=== PATIENT | male | born 1940 | race Caucasian/White ===

== ENCOUNTER → 2023-11-02 13:14 | Outpatient (REF) | payer MEDICARE, SELFPAY | LOC: RAD 13:14 | PROVIDERS: ATTENDING PHYSICIAN Surgery Vascular Surgery; FAMILY PHYSICIAN Internal Medicine | DX: I73.9 Peripheral vascular disease, unspecified (principal) | CPT/HCPCS: 93922; 93925; 93978 ==

== ENCOUNTER → 2024-03-22 12:38 | Outpatient (REF) | payer MEDICARE, SELFPAY | LOC: RAD 12:38 | PROVIDERS: ATTENDING PHYSICIAN Surgery Vascular Surgery; FAMILY PHYSICIAN Internal Medicine | DX: I73.9 Peripheral vascular disease, unspecified (principal); M79.671 Pain in right foot | CPT/HCPCS: 93922; 93925 ==

== ENCOUNTER 2024-04-17 14:17 | Inpatient (IN) | payer MEDICARE, SELFPAY ==
[2024-04-17] VITALS (15 sets, daily range): BP systolic 110–166; BP diastolic 53–107; BMI 28.5
--- NOTE | 2024-04-17 07:35 | ED.GENMED ---
History of Present Illness
General
Chief Complaint: Back Pain
Source: patient
Exam Limitations: none
Time Seen by Provider: 04/17/24 07:06
Nursing documentation reviewed up to this point in time: agreed with
History of Present Illness
History of Present Illness:
pt is a 83 y/o M with h/o permanent afib, not anticoagulated
pacer
chronic lower back pain/hip pain; severe compression fractures lower t and uppler L, degenerative changes
says that he sees a specialist for his back pain
he had been on oxycodone but says that he stopped it becuase he was severely constipated. pt says that he restarted something recently to help with pain but doesn't really know if it has been helping
the past 2-3 days he has had worse pain in the same distribution but doesn't know what brought it on. this morning in particular, he wasn't able to get up out of bed so his called 911
pt says the pain is manageable unless he tries to move or walk
he has no radiation of pain into legs, numbnes/tingling/incontiencne
he has not taken any of his meds today
no fever, chills, vomiting, abdominal pain, diarrhea, cp, sob.
Past History
Past History
ED Past Medical History: Arrthythmia (afib), HTN and Other (Compression fractures, peripheral arterial disease)
ED Past Surgical History: Orthopedic and Other (Vascular)
Social History
Tobacco: Non-smoker
Alcohol: None
Drug: None
Personal:
Living: with family
Employment: Retired
Review of Systems
Review of Systems
Allergies reviewed?: Yes
All Other Systems: Not applicable
Phy Exam
Physical Exam
Physical Exam:
GENERAL: Alert , in no apparent distress, comfortable at rest
HEAD: NCAT
NECK: no midline tenderness, active ROM intact, no paraspinal muscle tenderness;
CARDIAC: Regular rate and rhythm, no edema
LUNGS: Clear breath sounds bilaterally, no acute respiratory distress, no wheezes/rales/rhonchi
ABDOMEN: Soft, without focal tenderness, no r/g, no cvat, normal bowel sounds, nondistended
NEUROLOGICAL: Alert and oriented, no focal neuro deficits, CN intact, 5/5 strength, sensation intact, ambulation slight limp left leg
SKIN: Warm and dry,
MUSCULOSKELETAL: No edema, well perfused. Normal inspection of the right hip
mod tenderness R SI joint; pain with hip flexion and rotation
Back: No midline tenderness,, no swelling
negative straight leg raise Bilaterally
PSYCH: Normal and appropriate interaction.
Course
Orders/Labs/Results
Orders:
Orders
04/17/24 Breakfast
Cholesterol Lowering
At Your Request: Limited Participation
Does patient need a safe tray?: No
Cholesterol Lowering: Sodium, 2 Gram
04/17/24 07:30
HYDROmorphone [Dilaudid] 0.25 mg IV NOW STA
Hip, Right 2-3 Views [CR Hip - RT w/wo Pel 2-3 Vw*] Urgent
Comment:
Reason For Exam: severe posterior hip pain
Include a pelvis x-ray?: Yes
Lumbar Spine Complete, 4 View [CR Lumbar Spine Comp Min 4 Vw*] Urgent
Comment:
Reason For Exam: severe lower back pain
04/17/24 07:31
Electrocardiogram (*1) Urgent
Reason for Study: Atrial Fibrillation
EKG- Treatment ONCE
04/17/24 07:37
Metoprolol Xl [Toprol Xl] 75 mg PO NOW STA
04/17/24 07:47
Complete Blood Count/With Diff Urgent
Comprehensive Metabolic Panel Urgent
04/17/24 08:43
0.9% Sodium Chloride 500 ml [Nss] 500 ml IV BOLUS
04/17/24 11:48
HYDROmorphone [Dilaudid] 0.25 mg IV NOW STA
04/17/24 12:10
Urinalysis Reflex To Culture Urgent
Date Specimen was Collected: 04/17/24
Time Specimen was Collected: 12:06
Urine Microscopic Reflex Cult Urgent
04/17/24 13:45
Admit/Transfer Patient As Directed
Co-Sign Provider:
Level of Care: Inpatient admission
Assign to:: Telemetry
Physician / Group: [email or web address]
Diagnosis: acute on chr LBP, new spontnuee compression Fx T10, L2 and L4. Osteoporosis
Reason for Telemetry: Arrhythmia
Date to Stop Telemetry: 04/20/24
Time to Stop Telemetry: 11:00
Reason for Hospitalization: acute on chr LBP, new spontaneous compression Fx T10, L2 and L4.
Osteoporosis
acute gait dysfunction
Per AF with RVR
Expected length of stay greater than two midnights?: Yes
ELOS- Estimated Length of Stay in days: 3
I certify the patient meets the requirements for IP care: Yes
04/17/24 13:48
Code Status As Directed
Resuscitation Status: Full Code
04/17/24 15:08
Oxycodone [Roxicodone] 5 mg PO Q4HPRN PRN
04/20/24 11:00
DC Protocol for Telemetry ONCE
Abnormal Lab Results
04/17/24 04/17/24
07:47 12:10
WBC 12.7 H 10^3/uL
(4.8-10.8)
RBC 2.66 L 10^6/uL
(4.70-6.10)
Hgb 9.1 L g/dL
(13.0-18.0)
Hct 28.6 L %
(39.0-52.0)
MCV 107.5 H fL
(80.0-94.0)
MCH 34.2 H pg
(27.0-31.0)
MCHC 31.8 L g/dL
(33.0-37.0)
RDW 15.9 H %
(11.5-14.5)
MPV 10.7 H fL
(7.4-10.4)
Abs Immat Gran (auto) 0.3 H 10^3/uL
(0-0.05)
Absolute Neuts (auto) 9.3 H 10^3/uL
(1.4-6.5)
Absolute Lymphs (auto) 1.1 L 10^3/uL
(1.2-3.4)
Absolute Monos (auto) 1.8 H 10^3/uL
(0.1-0.6)
Immature Gran % 2.1 H %
(0-0.5)
Lymphocytes % 8.5 L %
(20.5-51.1)
Monocytes % 14.4 H %
(1.7-9.3)
BUN 38 H mg/dl
(9-20)
Glucose 109 H mg/dl
(70-99)
Total Bilirubin 1.7 H mg/dl
(0.2-1.3)
Urine Bacteria (Reflex) Few A
(Negative)
Urine Albumin (Reflex) 1+ A
(Neg - Trace)
04/17/24 07:47
04/17/24 07:47
Vital Signs
Initial and Last Documented VS:
Initial Vital Signs
Temp Pulse Resp BP Pulse Ox
37.2 C 107 18 127/79 99
04/17/24 04:18 04/17/24 04:18 04/17/24 04:18 04/17/24 04:18 04/17/24 04:18
Last Documented Vital Signs
Temp Pulse Resp BP Pulse Ox
37.2 C 91 20 155/71 97
04/17/24 04:18 04/17/24 12:30 04/17/24 12:37 04/17/24 12:00 04/17/24 12:30
MDM/Problems Addressed
Differential Diagnosis Includes:
acute on chronic back pain, msk pain, cramps, sciatica;
MDM/Problems Addressed:
janis florian 83 y/o M afib not AC, chronic back pain, compression fractures
here with lower back pain 2 dys ago much more intense than usual, no trauma
no weakness/radiculopathy symptoms; couldn't get out of bed this morning
has normal neuro exam; a lot of pain with movement;
took oxycodone at home no relief
dilaudid helped some here but unable to get up
xrays show new cmopression fractures and stable old ones lower T and L
afib with RVR on arrival; pt given oral metop and now rate controlled after pain meds too
*Critical Care Note
Total Time (30-74mins, 75-104mins- exclusive of procedures): Not Applicable
ED Attending Note
-
Portions of this chart may have been created with voice recognition software.� Occasional wrong word or��sound alike� substitutions may have occurred due to the inherent limitations of voice recognition software.
Discharge Plan
Departure
Patient Disposition: Admit
Date of Disposition: 04/17/24
Time of Disposition: 11:45
Admit to: Med/Surg
Presentation/result/management discussed w/ accepting MD/DO: Hospitalist
Condition: Fair
Covid-19: Not Applicable
Discharge Problem:
Compression fracture, Intractable back pain
Interventions
Interventions:
*Risk Screen - Suicide Last Done: 04/17/24 04:18
*General Assessment Last Done: 04/17/24 04:18
*Neglect/Abuse Screening Last Done: 04/17/24 04:18
ED- Fall Risk Assessment Last Done: 04/17/24 09:48
*ED COVID-19 Vaccine History Last Done: 04/17/24 04:18
ED-Musculoskeletal Assessment Last Done: 04/17/24 09:48
[2024-04-17] MEDS: TOPROL XL 75 MG PO (07:52)
[2024-04-17] MEDS: DILAUDID 0.25 MG IV ×2 (07:57→12:07)
[2024-04-17 08:05] LABS: % Basophils 0.6 % (0-2); % Eosinophils 0.7 % (0-6); % Immature Granulocytes 2.1 % (0-0.5); % Lymphocytes 8.5 % (20.5-51.1); % Monocytes 14.4 % (1.7-9.3); % Neutrophils 73.7 % (42.2-75.2); Absolute Basophils 0.1 10^3/uL (0-0.2); Absolute Eosinophils 0.1 10^3/uL (0-0.7); Absolute Immature Granulocytes 0.3 10^3/uL (0-0.05); Absolute Lymphocytes 1.1 10^3/uL (1.2-3.4); Absolute Monocytes 1.8 10^3/uL (0.1-0.6); Absolute Neutrophils 9.3 10^3/uL (1.4-6.5); Hematocrit 28.6 % (39.0-52.0); Hemoglobin 9.1 g/dL (13.0-18.0); Mean Corp Hgb Conc. 31.8 g/dL (33.0-37.0); Mean Corpuscular Hgb 34.2 pg (27.0-31.0); Mean Corpuscular Volume 107.5 fL (80.0-94.0); Mean Platelet Volume 10.7 fL (7.4-10.4); Nucleated Red Blood Cells % 0 % (-); Platelet Count 204 10^3/uL (130-400); Red Blood Cell Count 2.66 10^6/uL (4.70-6.10); Red Cell Dist. Width 15.9 % (11.5-14.5); White Blood Cell Count 12.7 10^3/uL (4.8-10.8)
[2024-04-17 08:39] LABS: ALT (SGPT) 18 U/L (0-50); AST (SGOT) 26 U/L (17-59); Alkaline Phosphatase 103 U/L (38-126); Blood Urea Nitrogen 38 mg/dl (9-20); Calcium 9.3 mg/dl (8.4-10.2); Carbon Dioxide 25 mmol/L (22-30); Chloride 104 mmol/L (98-107); Glucose 109 mg/dl (70-99); Potassium 4.2 mmol/L (3.5-5.1); Sodium 145 mmol/L (135-145); Total Bilirubin 1.7 mg/dl (0.2-1.3); Total Protein 6.6 g/dl (6.3-8.2); eGFR 54.51
[2024-04-17] MEDS: NSS 500 IV (09:18)
[2024-04-17 12:31] LABS: Urine Albumin 1+ (Neg - Trace); Urine Bilirubin Negative (Negative); Urine Character Clear (Clear); Urine Color Yellow; Urine Glucose Negative (Negative); Urine Ketone Negative (Negative); Urine Leukocyte Negative (Negative); Urine Nitrite Negative (Negative); Urine Occult Blood Negative (Negative); Urine Urobilinogen Negative (Neg - 1+)
[2024-04-17 12:45] LABS: Urine Bacteria Few (Negative); Urine Red Blood Cell 0-2 /HPF (0-2); Urine White Cell 0-2 /HPF (0-5)
--- NOTE | 2024-04-17 13:35 | HPS.HSE ---
Family Physician
-
Family Physician: INTERVIEWE UNKNOWN - PT NOT
Chief Complaint
-
acute on chr LBP
History of Present Illness
HPI
83 y/o M with h/o permanent AF not anticoagulated, on PPM, HX chronic LBP /hip pain with severe compression fractures lower t and uppler L, degenerative changes seen at ER:
- BIB EMS s/p 911 called by spouse
- OP f/u wiht OP specialist for his back pain
- Was on oxycodone but stopped it becuase he was severely constipated.
- pt says that he restarted something recently to help with pain but doesn't really know if it has been helping
- last 2-3 days he has had worse pain in the same distribution but doesn't know what brought it on.
- the pain is manageable unless he tries to move or walk
- no radiation of pain into legs, numbness/tingling/incontinence
- not taken any of his Meds today
ROS
no fever, chills, vomiting, abdominal pain, diarrhea, cp, sob.
Medical History
Past Medical History
Past Medical History: Reports Arrhythmia (perm A Fib on Pradaxa ), HTN, Hypercholesterolemia and Other (Incidental bilateral kidney cysts.)
Additional Past Medical History:
Known HX multiple compression fractures @ L5-T12
Past Surgical History: Reports Other (vascular )
Social History
Tobacco: Non-smoker
Alcohol: None
Drug: None
Living: With Family
Family History
Family History: Not pertinent
Allergies / Home Medications
Allergies reflects when Allergies were last updated in [employer].
Home Medications with original date entered in [employer]
Allergy/Medication List:
Allergies
Allergy/AdvReac Type Severity Reaction Status Date / Time
No Known Allergies Allergy Verified 11/29/22 01:15
Home Medications
atorvastatin 10 mg tablet 10 mg PO QPM High cholesterol 09/22/20
metoprolol succinate 50 mg tablet,extended release 24 hr 75 mg PO DAILY 01/23/21
cholecalciferol (vitamin D3) 25 mcg (1,000 unit) tablet (Vitamin D3) 25 mcg PO DAILY 03/27/22
acetaminophen 650 mg tablet,extended release (Tylenol Arthritis Pain) 650 mg PO DAILY 04/17/24
dabigatran etexilate 150 mg capsule (Pradaxa) 150 mg PO BID 04/17/24
Review of Systems
-
Constitutional: Reports No Symptoms
EENT: Reports No Symptoms
Respiratory: Reports No Symptoms
Cardiac: Reports See HPI
Abdomen/GI: Reports No Symptoms
: Reports No Symptoms
Musculoskeletal: Reports See HPI
Skin: Reports No Symptoms
Neurological: Reports No Symptoms
Endocrine: Reports No Symptoms
Hematologic/Lymphatic: Reports No Symptoms
Psych: Reports No Symptoms
Physical Exam
Vital Signs
Vital Signs
Temp Pulse Resp BP Pulse Ox
98.9 F 91 20 155/71 97
04/17/24 04:18 04/17/24 12:30 04/17/24 12:37 04/17/24 12:00 04/17/24 12:30
Physical Exam
General: Comfortable
HEENT: NormoCephalic, Anicteric and Moist mucous membranes
Respiratory: Clear; No Wheezes, Rales or Rhonchi
Cardiac: S1/S2, Irregular Rhythm and Tachycardia
Breast: Deferred by me
GI: Soft, Non Tender, Non Distended and Normal Bowel Sounds
Rectal: Deferred by Provider
Genito-urinary: Deferred by me
Musculoskeletal: Other (No midline tenderness,no swelling negative straight leg raise Bilaterally)
Neuro: AO x 3, No Motor Deficits and Other (5/5 strength, sensation intact, ambulation slight limp left leg)
Psych: Calm
Laboratory Results
-
04/17/24 07:47
12/08/24 07:47
Laboratory Results
Total Bilirubin 1.7 mg/dl (0.2-1.3) H 04/17/24 07:47
AST 26 U/L (17-59) 04/17/24 07:47
ALT 18 U/L (0-50) 04/17/24 07:47
Alkaline Phosphatase 103 U/L (38-126) 04/17/24 07:47
Data Reviewed
-
Diagnostic Radiology: Report Reviewed by me
Medical Tests (Nuc Med, Echo, EKG etc): Report Reviewed by me
Lab Data: Labs Reviewed by me
Impression/Plan
-
Laboratory Tests
04/17/24
07:47
WBC 12.7 H
Lx spine XR
Multiple compression fractures. New at T10, L2 and L4. Rest stable
Multilevel degenerative disc disease as described above. Progressed at all levels.
Levoscoliosis. Stable
11/02/20 TTE
LVEF 55-60
[address] MR , dilated LA
Normal right heart size and function with pacing wire identified. Normal pulmonary artery pressure
Last hospitalist admission: DATE OF ADMISSION: 11/01/2020 - DATE OF DISCHARGE: 11/05/2020
PRIMARY DIAGNOSES:
1. Intractable back pain with L5-T12 compression fracture.
2. Permanent atrial fibrillation with rapid ventricular rate and supratherapeutic INR status post p.o. vitamin K on admission.
Patient can continue with increased Cardizem at 240 mg daily
and Coumadin as prior to admission.
SECONDARY DIAGNOSES:
1. Hyperlipidemia.
2. Incidental left exophytic renal lesion, which was on CT lumbar
spine. However, kidney ultrasound showed bilateral simple
cysts.
Hip XR
Moderate bilateral hip osteoarthritis. Stable
ASSESSMENT & PLAN
New T10, L2 and L4. compression Fx complicated by acute on chr LBP
associated with acute Gait dysfunction
Known HX multiple compression fractures @ L5-T12
- denied any trauma
- denied motor weakness/radiculopathy symptoms
- denied B & B incontinence
- helped by 2 dose of Dilaudid 0.25mg and cont.
- Resume PROVISIONING ANALYST Oxycodone
- BW Regime
- Vit D 2000 units daily
- PT/OT
RVR for A Fib : improved HR s/p Toprol XL 75 now
HX permanent A Fib with RVR
- on Pradaxa
- cont. Metoprolol succinate 75 daily
HLD on Atorvastatin - to be cont.
HX Incidental bilateral kidney cysts.
It was initially read as left exophytic renal lesion on CT lumbar spine, but subsequent kidney ultrasound noted bilateral simple cysts.
DVT Px: SCD
Full code
IP TLM
[2024-04-17] MEDS: ROXICODONE 5 MG PO ×2 (15:36→21:12)
[2024-04-17] MEDS: PRADAXA 150 MG PO (21:04)
[2024-04-17] MEDS: LIPITOR 10 MG PO (21:04)
[2024-04-17] MEDS: SENOKOT 17.2 MG PO (21:04)
[2024-04-17] MEDS: TYLENOL 650 MG PO (21:05)
[2024-04-17] MEDS: COLACE 100 MG PO (21:05)
[2024-04-18] VITALS (10 sets, daily range): BP systolic 123–169; BP diastolic 66–91; PULSE 103–137; O2SAT 94–97; BMI 28.5
[2024-04-18] MEDS: TYLENOL PO ×2 (00:50→05:12)
--- NOTE | 2024-04-18 08:53 | WOUNDNOTE ---
R GREAT TOE (with photo flash)
--- NOTE | 2024-04-18 08:54 | WOUNDNOTE ---
FEET (with photo flash)
--- NOTE | 2024-04-18 08:55 | WOUNDNOTE ---
[facility] RN note: Patient admitted with acute on chronic lower back pain, compression fracture. Patient lives with his and is followed by Dr. Fitzpatrick and a retail delivery driver Dr. Paula.
See H&P for complete history.
PMH: a fib (Pradaxa), compression fracture, LLE vascular procedure [facility] 07/2022, L TMA.
Wound Location and type/assessment: Patient admitted with: R great toe small brown ulcer from ingrown toenail procedure, scant serous drainage. L TMA with dry yellow small linear scab. Posterior tibial pulses heard via portable Doppler. Unable to
obtain pedal pulses. Feet warm. L distal TMA discolored ecchymotic red patient states is his normal color. Patient is scheduled for a RLE arteriogram next 04/26/24. Heels blanchable red, boggy. Patient wears sneakers with custom inserts L foot.
Appetite: good.
Pressure redistribution devices in place: [employer] Accumax. Patient can turn self slowly in bed.
Plan: Dressing changed on R great toe and L TMA for protection. Heels off bed with pillow. Air chair cushion given by CASSIDY Alvarez. Instructed patient pressure injury prevention measures and heel elevation.
Will confirm orders with hospitalist and discussed with RN Will who plans to apply air overlay mattress.
Care plan to be updated, will sign off. Call as needed. Patient to follow up with Dr. Fitzpatrick and his retail delivery driver.
--- NOTE | 2024-04-18 08:56 | WOUNDNOTE ---
[facility] RN note: Patient admitted with acute on chronic lower back pain, compression fracture. Patient lives with his and is followed by Dr. Fitzpatrick and a egg gatherer Dr. Paula.
See H&P for complete history.
PMH: a fib (Pradaxa), compression fracture, LLE vascular procedure [facility] 07/2022, L TMA.
Wound Location and type/assessment: Patient admitted with: R great toe small brown ulcer from ingrown toenail procedure, scant serous drainage. L TMA with dry yellow small linear scab. Posterior tibial pulses heard via portable Doppler. Unable to
obtain pedal pulses. Feet warm. L distal TMA discolored ecchymotic red patient states is his normal color. Patient is scheduled for a RLE arteriogram next 04/26/24. Heels blanchable red, boggy. Patient wears sneakers with custom inserts L foot.
Appetite: good.
Pressure redistribution devices in place: [employer] Accumax. Patient can turn self slowly in bed.
Plan: Dressing changed on R great toe and L TMA for protection. Air chair cushion given by CASSIDY Alvarez. Instructed patient pressure injury prevention measures and heel elevation.
Will confirm orders with hospitalist and update nurse.
Updated care plan and will follow as needed.
Note to case management of equipment requested for discharge:
Recommend follow up at wound care center upon discharge.
[2024-04-18] MEDS: DILAUDID 0.5 MG IV (09:55)
[2024-04-18] MEDS: PRADAXA 150 MG PO ×2 (10:01→21:04)
[2024-04-18] MEDS: VITAMIN D3 (cholecalciferol) 25 MCG PO (10:01)
[2024-04-18] MEDS: COLACE 100 MG PO ×2 (10:02→21:04)
[2024-04-18] MEDS: TYLENOL 650 MG PO ×4 (10:02→21:04)
[2024-04-18] MEDS: SENOKOT 17.2 MG PO (10:03)
--- NOTE | 2024-04-18 11:05 | W.PN.HOSP.TC ---
Today's Communication/Plan
-
see A/P
Assessment / Plan
Assessment / Plan
HPI: 83 y/o M with PMH permanent AF not anticoagulated, s/p PPM, HX chronic LBP / hip pain with severe compression fractures (lower T spine and upper L spine), degenerative changes; p/w worsening lower back pain.
He was on oxycodone but stopped 2/2 severe constipation.
Lower back pain worse with movement. Not associated with radiation/tingling/incontinence.
A/P:
# Worsening lower back pain 2/2 progression of compression factures
# acute gait dysfunction
# h/o multiple compression fractures T8-L5
denied to trauma
denied weakness/radiculopathy, bladder/bowel incontinence
Check MRI thoracic and lumbar spine and consider vertebroplasty
cont pain control with PO Oxycodone , avoid high dose Dilaudid to prevent severe constipation and drowsiness
Started bowel regimen with Senokot-S BID and Miralax
Vit D 2000 units daily
PT/OT
# permanent A Fib with intermittent RVR
Cont LIFT BUILDER WHOLE Toprol 75 mg daily
IV Lopressor PRN
Cont LIFT BUILDER WHOLE Pradaxa
# HLD on Atorvastatin
DVT Px: LIFT BUILDER WHOLE Pradaxa
Full code
Anticipated Discharge: 24 - 48 hours
Subjective/Interval History
-
Date of Service: April 18, 2024
Objective Data
-
Vital Signs:
Vital Signs
Temp Pulse Resp BP Pulse Ox
36.7 C 97 18 152/84 96
04/18/24 07:41 04/18/24 07:41 04/18/24 07:41 04/18/24 07:41 04/18/24 07:41
I&O
04/17/24 04/18/24 04/19/24
06:59 06:59 06:59
Intake Total 580 / 580
Output Total 400 / 400
Balance 180 / 180
Review of Systems
-
Musculoskeletal: Reports Other (lower back pain)
Physical Exam
-
General: Well Developed, Well Nourished, No Apparent Distress, Comfortable and Conversant; Negative Respiratory Distress
HEENT: Normocephalic, Atraumatic, Nose Appears Normal and Ears Appear Normal; Negative Oxygen
Respiratory: Clear to Auscultation and Non Labored Respirations; Negative Accessory Resp Muscle Use
Cardiac: Regular Rhythm and S1/S2
GI: Soft, Nontender, Nondistended and Normal Bowel Sounds
Skin: Warm and Dry
Neuro: Awake and Alert
Psych: Calm and Intact Judgement/Insight
Data Reviewed
-
Diagnostic Radiology: Report Reviewed by me
Labs: Labs Reviewed by me
--- NOTE | 2024-04-18 11:47 | CM ---
Patient seen at bedside. Patient stated that he lives with his in a 2 story home. Patient primarily stays on the first floor. Patient stated that he has 2 rollators and 1 walker. Patient uses the [facility]. Patient PCP is Dr. Ruelas and
he stated that he is not driving any longer but is independent in home with walker. Patient plan is home with VN. CM will continue to follow for discharge planning needs.
Plan; home with VN vs home with no needs.
[2024-04-18] MEDS: TOPROL XL 75 MG PO (11:58)
[2024-04-18] MEDS: LIPITOR 10 MG PO (17:07)
[2024-04-18] MEDS: SENOKOT-S 1 TABLET PO (21:04)
[2024-04-19] VITALS (7 sets, daily range): BP systolic 98–157; BP diastolic 53–97
[2024-04-19] MEDS: TYLENOL PO ×2 (00:56→04:19)
[2024-04-19] MEDS: TYLENOL 650 MG PO ×5 (08:36→22:57)
[2024-04-19] MEDS: MIRALAX 17 GRAMS PO (08:36)
[2024-04-19] MEDS: TOPROL XL 75 MG PO (08:36)
[2024-04-19] MEDS: PRADAXA 150 MG PO ×2 (08:37→20:32)
[2024-04-19] MEDS: COLACE 100 MG PO (08:38)
[2024-04-19] MEDS: SENOKOT-S 1 TABLET PO ×2 (08:38→20:29)
[2024-04-19] MEDS: VITAMIN D3 (cholecalciferol) 25 MCG PO (08:38)
[2024-04-19 08:58] LABS: Hematocrit 28.5 % (39.0-52.0); Hemoglobin 9.2 g/dL (13.0-18.0); Mean Corp Hgb Conc. 32.3 g/dL (33.0-37.0); Mean Corpuscular Volume 108.4 fL (80.0-94.0); Mean Platelet Volume 11.1 fL (7.4-10.4); Platelet Count 221 10^3/uL (130-400); Red Blood Cell Count 2.63 10^6/uL (4.70-6.10); Red Cell Dist. Width 15.7 % (11.5-14.5); White Blood Cell Count 11.6 10^3/uL (4.8-10.8)
[2024-04-19 10:09] LABS: Blood Urea Nitrogen 31 mg/dl (9-20); Calcium 8.8 mg/dl (8.4-10.2); Carbon Dioxide 25 mmol/L (22-30); Estimated Creatinine Clearance 45 ml/min; Glucose 90 mg/dl (70-99); Magnesium 2.4 mg/dl (1.6-2.3); Sodium 141 mmol/L (135-145); eGFR > 60.00
[2024-04-19 10:55] LABS: Chloride 107 mmol/L (98-107)
--- NOTE | 2024-04-19 11:12 | W.PN.HOSP.TC ---
Today's Communication/Plan
-
see A/P
Assessment / Plan
Assessment / Plan
HPI: 83 y/o M with PMH permanent AF not anticoagulated, s/p PPM, HX chronic LBP / hip pain with severe compression fractures (lower T spine and upper L spine), degenerative changes; p/w worsening lower back pain.
He was on oxycodone but stopped 2/2 severe constipation.
Lower back pain worse with movement. Not associated with radiation/tingling/incontinence.
A/P:
# Worsening lower back pain 2/2 progression of compression factures
# acute gait dysfunction
# h/o multiple compression fractures T8-L5
denied to trauma
denied weakness/radiculopathy, bladder/bowel incontinence
unable to check MRI due to incompatible PPM
CT thoracic and lumbar spine ordered and noted
IR CS for vertebroplasty eval
cont pain control with PO Oxycodone , avoid high dose Dilaudid to prevent severe constipation and drowsiness
Started bowel regimen with Senokot-S BID and Miralax PRN
Vit D 2000 units daily
PT/OT recc SNF
# permanent A Fib with intermittent RVR
Cont DENTAL ASSISTANT TEACHER Toprol 75 mg daily
IV Lopressor PRN
Cont DENTAL ASSISTANT TEACHER Pradaxa
# HLD on Atorvastatin
DVT Px: DENTAL ASSISTANT TEACHER Pradaxa
Full code
DW IR, pending eval and decision
Anticipated Discharge: 24 - 48 hours
Subjective/Interval History
-
Date of Service: April 19, 2024
Objective Data
-
Labs:
Laboratory Results
04/19/24
08:15
WBC 11.6 H
Hgb 9.2 L
Hct 28.5 L
Plt Count 221
Sodium 141
Potassium 4.0
Chloride 107
Carbon Dioxide 25
BUN 31 H
Creatinine 1.0
Glucose 90
Calcium 8.8
Vital Signs:
Vital Signs
Temp Pulse Resp BP Pulse Ox
36.8 C 85 16 112/53 95
04/19/24 08:00 04/19/24 08:00 04/19/24 08:00 04/19/24 08:00 04/19/24 08:00
I&O
04/18/24 04/19/24 04/20/24
06:59 06:59 06:59
Intake Total 580 / 580 1080 / 1080
Output Total 400 / 400 650 / 650
Balance 180 / 180 430 / 430
Review of Systems
-
Musculoskeletal: Reports Other (lower back pain)
Physical Exam
-
General: Well Developed, Well Nourished, No Apparent Distress, Comfortable and Conversant; Negative Respiratory Distress
HEENT: Normocephalic, Atraumatic, Nose Appears Normal and Ears Appear Normal; Negative Oxygen
Respiratory: Clear to Auscultation and Non Labored Respirations; Negative Accessory Resp Muscle Use
Cardiac: Regular Rhythm and S1/S2
GI: Soft, Nontender, Nondistended and Normal Bowel Sounds
Skin: Warm and Dry
Neuro: Awake and Alert
Psych: Calm and Intact Judgement/Insight
Data Reviewed
-
Diagnostic Radiology: Report Reviewed by me
Labs: Labs Reviewed by me
[2024-04-19] MEDS: ROXICODONE 10 MG PO (11:20)
--- NOTE | 2024-04-19 11:27 | W.PN.GENERIC ---
Assessment / Plan
-
This is a pleasant 83-year-old male with known multiple level compression fractures admitted with intractable back pain. The symptoms are interfering with his activities of daily living. We discussed treatment options including conservative
management with brace, continued pain medication and vertebral augmentation. Unfortunately the compression fractures appear chronic and the patient does not have any midline tenderness. I do not believe he would benefit from vertebral augmentation.
I spent over 45 minutes in counseling and coordination of care with the patient, reviewing previous medical records, laboratory studies and relevant imaging as well as documenting, obtaining a history and performing a physical exam.
Physician Progress Note
Subjective
Interventional Radiology Consult
This is an 83 year old male with PMHx of atrial fibrillation, HTN, hypercholesterolemia and known compression fractures that was admitted for an acute exacerbation of chronic back pain. He had been taking oxycodone but that caused constipation fow
which he stopped. He was recently prescribed an new medication but can't remember the name and is not sure if was really helping. He reports that the pain recently became more severe over the right side of his lower back and he was unable to get
pout of bed so his called EMS who brought him to the ER. He reports the pain is worse upon movement. The pain does not radiate. He has no bowel or bladder incontinence. He denies paresthesias or weakness. He denies recent trauma.
Past Medical History
Atrial fibrillation, HTN, Hypercholesterolemia, compression fractures, PAD
Social History
Tobacco: Non-smoker
Alcohol: None
Living: Lives with family
Allergies
Allergy/AdvReac Type Severity Reaction Status Date / Time
No Known Allergies Allergy Verified 11/29/22 01:15
Home Medication
atorvastatin 10 mg PO, metoprolol succinate 50 mg tablet, cholecalciferol (vitamin D3) 25 mcg (1,000 unit) tablet, dabigatran etexilate 150 mg capsule (Pradaxa) 150 mg PO BID acetaminophen 650 mg PO
Objective
Vital Signs
Temp Pulse Resp BP Pulse Ox
98.2 F 85 16 112/53 95
04/19/24 08:00 04/19/24 08:00 04/19/24 08:00 04/19/24 08:00 04/19/24 08:00
Lab Results
04/19/24 08:15
04/19/24 08:15
This is a WNWD 83 yo male in NAD lying in bed. Color is good. Skin is warm and dry. Neck is supple. Heart is regular. Lungs are CTA. Abdomen is soft and nontender with bowel sounds. He has no midline spinal tenderness. He has tenderness over
the right SI joint and right paralumbar muscles. He has a negative SLR. Sensation is maintained. Strength intact. No LE edema
Imaging:
CT Thoracic and Lumbar spine 04/18/24: Severe chronic compression deformities of T12 and L1 with retropulsion of fracture components as above. Associated narrowing of central canal which is more severe at the L1 level. Chronic compression deformities
T1-T4, chronic compression deformities T10 and T11, mild compression deformities L2, L4, and L5. All of these show probable chronic appearance.
--- NOTE | 2024-04-19 11:49 | CM ---
Addendum entered by Arely Washburn 04/19/24 13:16:
CM spoke with [facility] Admissions, can accept patient tomorrow if stable.
Original Note:
CM reviewed chart, met with patient bedside. CM discussed PT recommendations of SNF, patient agreeable, reports he has been to [facility] in past and would like to return, referral placed in [facility]. CM will continue to follow for all
discharge planning needs.
Plan; [facility] pending acceptance.
--- NOTE | 2024-04-19 14:40 | PN.CDI ---
CDI
- -
CDI:
Physician Documentation Request
Admit Date: 04/17/24 14:17
Dear Doctor Yareli,
Please review the following and provide your response in the progress notes.
Clinical Indicators:
Pt admitted with Worsening lower back pain 2/2 progression of compression factures
Documented throughout the record, ' Worsening lower back pain 2/2 progression of compression factures acute gait dysfunction h/o multiple compression fractures T8-L5 denied to trauma denied weakness/radiculopathy, bladder/bowel incontinence ...'
Per home meds pt takes cholecalciferol (vitamin D3) 25 mcg (1,000 unit) tablet (Vitamin D3) 25 mcg PO DAILY 03/27/22
Please provide the suspected etiology of the documented compression fractures:
Pathological compression Fractures
Nontraumatic Compression Fractures
Other ( please specify)
Use of terms such as suspected, likely, concern for, or probable (associated with a specific diagnosis that is being evaluated, monitored, or treated as if it exists) are acceptable and can be coded in the inpatient setting, when documented at the
time of discharge.
Thank you,
Basia Reddy RN
CDI Specialist
[employer]
Please use your independent medical judgment in providing your response.
[2024-04-19] MEDS: LIPITOR 10 MG PO (17:15)
[2024-04-20 02:36] VITALS: BP 144/77
[2024-04-20] MEDS: TYLENOL 650 MG PO ×3 (03:58→11:43)
[2024-04-20 07:30] VITALS: BP 119/67
[2024-04-20 07:53] LABS: Hematocrit 28.5 % (39.0-52.0); Hemoglobin 9.3 g/dL (13.0-18.0); Mean Corp Hgb Conc. 32.6 g/dL (33.0-37.0); Mean Corpuscular Hgb 35.2 pg (27.0-31.0); Platelet Count 223 10^3/uL (130-400); Red Blood Cell Count 2.64 10^6/uL (4.70-6.10); Red Cell Dist. Width 15.5 % (11.5-14.5); White Blood Cell Count 9.4 10^3/uL (4.8-10.8)
[2024-04-20 08:30] LABS: Blood Urea Nitrogen 28 mg/dl (9-20); Calcium 8.7 mg/dl (8.4-10.2); Carbon Dioxide 26 mmol/L (22-30); Chloride 105 mmol/L (98-107); Estimated Creatinine Clearance 45 ml/min; Glucose 82 mg/dl (70-99); Potassium 4.1 mmol/L (3.5-5.1); Sodium 139 mmol/L (135-145); eGFR > 60.00
[2024-04-20] MEDS: SENOKOT-S 1 TABLET PO (08:37)
[2024-04-20] MEDS: PRADAXA 150 MG PO (08:37)
[2024-04-20] MEDS: VITAMIN D3 (cholecalciferol) 25 MCG PO (08:37)
[2024-04-20] MEDS: TOPROL XL 75 MG PO (08:38)
--- NOTE | 2024-04-20 11:43 | W.PN.HOSP.TC ---
Addendum entered and electronically signed by Cathleen Downs MD 04/20/24 15:21:
# Nontraumatic Compression Fractures
Addendum entered and electronically signed by Cathleen Downs MD 04/20/24 14:18:
total DC time 40 min
Original Note:
Today's Communication/Plan
-
see A/P
Assessment / Plan
Assessment / Plan
HPI: 83 y/o M with PMH permanent AF not anticoagulated, s/p PPM, HX chronic LBP / hip pain with severe compression fractures (lower T spine and upper L spine), degenerative changes; p/w worsening lower back pain.
He was on oxycodone but stopped 2/2 severe constipation.
Lower back pain worse with movement. Not associated with radiation/tingling/incontinence.
A/P:
# Worsening lower back pain 2/2 progression of compression factures
# acute gait dysfunction
# h/o multiple compression fractures T8-L5
denied to trauma
denied weakness/radiculopathy, bladder/bowel incontinence
unable to check MRI due to incompatible PPM
CT thoracic and lumbar spine ordered and noted chronic compression fractures
appreciate IR input, since compression fractures are not acute, felt not a candidate for vertebroplasty
cont pain control with PO Oxycodone, avoid high dose Dilaudid to prevent severe constipation and drowsiness
Started bowel regimen with Senokot-S BID and Miralax PRN
Vit D 2000 units daily
PT/OT recc SNF
# permanent A Fib with intermittent RVR
Cont BUTTON INSPECTOR Toprol 75 mg daily
IV Lopressor PRN
Cont BUTTON INSPECTOR Pradaxa
# HLD on Atorvastatin
DVT Px: BUTTON INSPECTOR Pradaxa
Full code
DW on the phone
Anticipated Discharge: Today
Subjective/Interval History
-
Date of Service: April 20, 2024
Objective Data
-
Labs:
Laboratory Results
04/20/24
07:05
WBC 9.4
Hgb 9.3 L
Hct 28.5 L
Plt Count 223
Sodium 139
Potassium 4.1
Chloride 105
Carbon Dioxide 26
BUN 28 H
Creatinine 1.0
Glucose 82
Calcium 8.7
Vital Signs:
Vital Signs
Temp Pulse Resp BP Pulse Ox
36.7 C 80 18 119/67 97
04/20/24 07:30 04/20/24 07:30 04/20/24 07:30 04/20/24 07:30 04/20/24 07:30
I&O
04/19/24 04/20/24 04/21/24
06:59 06:59 06:59
Intake Total 1080 / 1080 240 / 240
Output Total 650 / 650 1000 / 1000
Balance 430 / 430 -760 / -760
Review of Systems
-
Musculoskeletal: Reports Other (lower back pain, improved )
Physical Exam
-
General: Well Developed, Well Nourished, No Apparent Distress, Comfortable and Conversant; Negative Respiratory Distress
HEENT: Normocephalic, Atraumatic, Nose Appears Normal and Ears Appear Normal; Negative Oxygen
Respiratory: Clear to Auscultation and Non Labored Respirations; Negative Accessory Resp Muscle Use
Cardiac: Regular Rhythm and S1/S2
GI: Soft, Nontender, Nondistended and Normal Bowel Sounds
Skin: Warm and Dry
Neuro: Awake and Alert
Psych: Calm and Intact Judgement/Insight
Data Reviewed
-
Diagnostic Radiology: Report Reviewed by me
CT Scan: Report Reviewed by me and Discussed with Family
Labs: Labs Reviewed by me
--- NOTE | 2024-04-20 12:01 | CM ---
CM reviewed chart, patient for discharge today to [facility]. Patient scheduled for 3:00 p.m. ambulance transport, update to admissions at [facility], update to . Patient seen bedside, aware of discharge to SNF. IMM verbally
reviewed, agreeable to discharge, placed in chart, patient provided with copy. CM will continue to follow for all discharge planning needs.
Plan; [facility], 3:00 p.m. ambulance transport
[facility]
Report: [phone]
--- NOTE | 2024-04-20 14:07 | W.DCSUMMARY ---
Discharge Summary
Discharge Data
Date of Admission: 04/17/24
Date of Discharge: 04/20/24
-
Pending Results: No
Hospital Course
Principal Diagnosis:
Worsening lower back pain likely due to progression of chronic thoracic and lumbar compression factures
Chronic Diagnoses:�
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
Permanent atrial fibrillation not on anticoagulation
History of pacemaker placement
Hyperlipidemia on Atorvastatin
Consultations:�
Interventional radiology
Procedures:�
None
Clinical course:�
This is a 83 year old male with past medical history as stated above, who presented with acute on chronic lower back pain, without radiation or bladder/bowel incontinence.
Problem 1:
Worsening lower back pain likely due to progression of chronic thoracic and lumbar compression factures.
Patient denies to recent trauma.
He denies to weakness/radiculopathy, bladder/bowel incontinence.
Unfortunately we were unable to get MRI due to incompatible PPM.
His CT thoracic and lumbar spine showed severe chronic compression fractures.
IR was consulted for vertebroplasty evaluation, however given his compression fractures are chronic, it was not felt that he would be a candidate for vertebroplasty.
He can continue with oxycodone as needed for pain control.
He can continue with bowel regimen with Senokot-S BID and Miralax PRN while on opioid to prevent constipation.
He can continue with his prior to admission colecalciferol supplement.
He was discharged to SNF per PT OT recommendation.
As for the rest of his medical problems, they were stable during his hospital stay.
Discharge Plan
-
Patient Disposition: Usp/SNF
Discharge Diagnosis/Procedures: Worsening lower back pain due to progression of multiple chronic compression factures
Condition: Fair
Diet: As tolerated
Activity: As tolerated
Driving Restrictions: Not until seen by your Dr
Wound Care: Wound Care Instructions
L great toe small ulcer-swab with Betadine, cover with Ban-Aide or [id number] silicone border foam dressing, change daily.
L TMA thin yellow scab-swab with Betadine, cover with Ban-Aide or [id number] silicone border foam dressing daily prn drainage/protection.
Evaluate for an air mattress.
Elevate heels off bed with pillow,s and/or air chair cushion.
Pressure redistributing chair cushion (i.e. Air chair cushion).
Follow up with Vascular Dr. Fitzpatrick.
Follow up with your culinary arts teacher.
Referrals:
UNKNOWN - PT NOT,INTERVIEWE [Family Provider] - in less than 1 week
Additional Discharge Medication Instructions: Continue oxycodone 5 mg as needed for pain control.
Take Senokot-S and Miralax as needed while on oxycodone to prevent constipation
Prescriptions:
New
polyethylene glycol 3350 17 gram Powder In Packet
17 g PO DAILYPRN PRN (Reason: constipation) Qty: 30 0RF
sennosides-docusate sodium 8.6-50 mg Tablet
1 tab PO BID Qty: 60 0RF
oxycodone 5 mg tablet
5 mg PO Q8H PRN (Reason: Pain) Qty: 20 0RF
Continued
atorvastatin 10 MG tablet
10 mg PO QPM
metoprolol succinate 50 MG tablet extended release 24 hr
75 mg PO DAILY
cholecalciferol (vitamin D3) [Vitamin D3] 25 mcg (1,000 unit) Tablet
25 mcg PO DAILY
acetaminophen [Tylenol Arthritis Pain] 650 mg Tablet Extended Release
650 mg PO DAILY
dabigatran etexilate [Pradaxa] 150 mg Capsule
150 mg PO BID
Discharge Orders:
Discharge Patient (As Directed); Ordered 04/20/24
Ordered By: Cathleen Downs
Discharge Date and Time
Print Language: WALLISIAN
[2024-04-20 15:00] VITALS: BP 117/67
== END 2024-04-20 16:45 | DRG 543 ==
LOC: 4 WEST ACU 14:17
PROVIDERS: Physician Assistant; ADMITTING PHYSICIAN Internal Medicine; ATTENDING PHYSICIAN Internal Medicine; EMERGENCY PHYSICIAN Emergency Medicine
DX: M48.54XA Collapsed vertebra, not elsewhere classified, thoracic region, initial encounter for fracture (principal); I48.21 Permanent atrial fibrillation; M48.56XA Collapsed vertebra, not elsewhere classified, lumbar region, initial encounter for fracture; M16.0 Bilateral primary osteoarthritis of hip; G89.29 Other chronic pain; K59.00 Constipation, unspecified; E78.00 Pure hypercholesterolemia, unspecified; I10 Essential (primary) hypertension; I73.9 Peripheral vascular disease, unspecified; R79.1 Abnormal coagulation profile; N28.1 Cyst of kidney, acquired; M81.0 Age-related osteoporosis without current pathological fracture
CPT/HCPCS: 72110; 72128; 72131; 73502; 80048; 80053; 81003; 81015; 83735; 85025; 85027; 87070; 93005; 96361; 96374; 96376; 97163; 97167; 97530; 99285

== ENCOUNTER → 2024-04-28 11:52 | Outpatient (REF) | payer OTHER, MEDICARE, SELFPAY ==
[2024-04-28 13:18] LABS: % Basophils 1.1 % (0-2); % Eosinophils 4.9 % (0-6); % Immature Granulocytes 3.2 % (0-0.5); % Lymphocytes 12.7 % (20.5-51.1); % Monocytes 13.9 % (1.7-9.3); % Neutrophils 64.2 % (42.2-75.2); Absolute Basophils 0.1 10^3/uL (0-0.2); Absolute Eosinophils 0.4 10^3/uL (0-0.7); Absolute Immature Granulocytes 0.3 10^3/uL (0-0.05); Absolute Lymphocytes 1.1 10^3/uL (1.2-3.4); Absolute Monocytes 1.2 10^3/uL (0.1-0.6); Absolute Neutrophils 5.6 10^3/uL (1.4-6.5); Hematocrit 28.4 % (39.0-52.0); Hemoglobin 8.9 g/dL (13.0-18.0); Mean Corp Hgb Conc. 31.3 g/dL (33.0-37.0); Mean Corpuscular Hgb 34.2 pg (27.0-31.0); Mean Corpuscular Volume 109.2 fL (80.0-94.0); Mean Platelet Volume 10.9 fL (7.4-10.4); Nucleated Red Blood Cells % 0 % (-); Platelet Count 264 10^3/uL (130-400); Red Cell Dist. Width 15.6 % (11.5-14.5); White Blood Cell Count 8.8 10^3/uL (4.8-10.8)
[2024-04-28 13:33] LABS: Blood Urea Nitrogen 32 mg/dl (9-20); Calcium 8.7 mg/dl (8.4-10.2); Carbon Dioxide 27 mmol/L (22-30); Chloride 105 mmol/L (98-107); Glucose 86 mg/dl (70-99); HDL Cholesterol 50 mg/dl; LDL Cholesterol, Calculated 45 mg/dl; Magnesium 2.3 mg/dl (1.6-2.3); Potassium 4.7 mmol/L (3.5-5.1); Sodium 137 mmol/L (135-145); Total Cholesterol 106 mg/dl (50-199); Triglyceride 58 mg/dl (10-149); Very Low Density Lipoprotein 11 mg/dl (0-30); eGFR > 60.00
[2024-04-28 13:50] LABS: Vitamin D, 25-OH*** 38.3 ng/mL (30-80)
== END ==
LOC: OLABN 11:52
PROVIDERS: ATTENDING PHYSICIAN Student in an Organized Health Care Education/Training Program
DX: I48.21 Permanent atrial fibrillation (principal); M16.0 Bilateral primary osteoarthritis of hip; D68.59 Other primary thrombophilia; I50.32 Chronic diastolic (congestive) heart failure; E78.5 Hyperlipidemia, unspecified; E55.9 Vitamin D deficiency, unspecified
CPT/HCPCS: 36415; 80048; 80061; 82306; 83735; 85025

== ENCOUNTER 2024-06-03 08:15 | Day surgery (SDC) | payer MEDICARE, SELFPAY ==
[2024-06-03] VITALS (20 sets, daily range): BP systolic 106–153; BP diastolic 57–84; BMI 27.5
[2024-06-03 09:05] LABS: Hematocrit 32.5 % (39.0-52.0); Mean Corp Hgb Conc. 33.8 g/dL (33.0-37.0); Mean Corpuscular Hgb 35.8 pg (27.0-31.0); Mean Corpuscular Volume 105.9 fL (80.0-94.0); Mean Platelet Volume 10.5 fL (7.4-10.4); Platelet Count 205 10^3/uL (130-400); Red Blood Cell Count 3.07 10^6/uL (4.70-6.10); Red Cell Dist. Width 16.2 % (11.5-14.5)
[2024-06-03 09:17] LABS: INR 1.13; PT 14.8 Sec (11.4-14.6)
[2024-06-03 09:18] LABS: APTT 32.3 Sec (23.4-35.0)
[2024-06-03 09:23] LABS: Blood Urea Nitrogen 43 mg/dl (9-20); Calcium 8.9 mg/dl (8.4-10.2); Carbon Dioxide 28 mmol/L (22-30); Chloride 103 mmol/L (98-107); Estimated Creatinine Clearance 35 ml/min; Glucose 95 mg/dl (70-99); Sodium 139 mmol/L (135-145); eGFR 54.51
--- NOTE | 2024-06-03 09:55 | HP.FOC2 ---
Focused History & Physical
Chief Complaint
HPI:
Chief Complaint: Life-limiting claudication
HPI / Indication for Planned Procedure: This is an 83-year-old male with significant past medical history of coronary artery disease, hyperlipidemia, hypertension, hyponatremia, and atrial fibrillation who presented to [facility] for
scheduled right lower extremity angiogram and angiogram puncture access via left femoral with Dr. Leighton Fitzpatrick III. Patient denies recent illness, hospitalization, or trauma. He endorses he is at his baseline health. Patient denies fever,
chills, cough, chest pain, shortness of breath, abdominal pain, nausea, vomiting, and diarrhea.
Relevant Past Medical History: Coronary Artery Disease and Other (Hypertension, hyperlipidemia, hyponatremia, atrial fibrillation)
Relevant Past Surgical History: Positive for (Permanent pacemaker, appendectomy, left foot toe amputations, CABG)
Medication
See Medication form for detailed medications: Yes
Medication List (including Herbals & OTC):
atorvastatin 10 mg tablet 10 mg PO QPM High cholesterol 09/22/20
metoprolol succinate 50 mg tablet,extended release 24 hr 75 mg PO DAILY 01/23/21
cholecalciferol (vitamin D3) 25 mcg (1,000 unit) tablet (Vitamin D3) 25 mcg PO DAILY 03/27/22
acetaminophen 650 mg tablet,extended release (Tylenol Arthritis Pain) 650 mg PO DAILY PRN pain 04/17/24
dabigatran etexilate 150 mg capsule (Pradaxa) 150 mg PO BID 04/17/24
oxycodone 5 mg tablet 5 mg PO Q8H PRN Pain #20 tabs 04/20/24
Medical Marijuana 1 unit PO PRN PRN pain 05/27/24
Medical Marijuana 1 unit topical BID back pain 05/27/24
baclofen 5 mg tablet 5 mg PO HS PRN pain 05/27/24
calcium carbonate 600 mg PO BID 05/27/24
Medications Reviewed: Yes
Allergies and Reactions
Patient has Allergies: No
Noted Allergies and Reactions:
Allergy/AdvReac Type Severity Reaction Status Date / Time
No Known Allergies Allergy Verified 06/03/24 08:59
Pertinent Physical Exam
All Other Systems: Negative
Head/Neck: Normal
Lungs: Normal (Bilateral lungs clear to auscultation)
Heart: Other (Irregular rhythm, atrial fibrillation)
Abdomen: Normal
Extremities: Other (Nonpalpable distal right lower extremity DP/PT, left total metatarsal amputation)
Neurological: Normal
Diagnosis / Assessment
Assessment: 83-year-old male with peripheral arterial disease and life-limiting claudication
Plan / Procedure
Plan: Proceed with scheduled right lower extremity angiogram with Dr. Leighton Wilson III
Anesthesia/Sedation to be done by Anesthesia Provider: Yes
--- NOTE | 2024-06-03 13:26 | W.SUR.PREOP ---
Pre-Operative Surgical Note
-
I have examined this patient prior to the performance of the scheduled procedure.
The patient's condition is unchanged from the time of the current History and
Physical and the patient is able to undergo the scheduled procedure.
--- NOTE | 2024-06-03 15:33 | W.IMMPOSTOP ---
Surgical Immed Post Op Note
-
Primary Surgeon: Nanette
Assisting Surgeon: Yaneli
Pre-op Diagnosis: Chronic limb threatening ischemia
Post-op Diagnosis: Chronic limb threatening ischemia
Procedure Performed: RLE angiogram and balloon angioplasty
Anesthesia Type: Sedation
Specimen / Cultures: None
Estimated Blood Loss: 2 cc
Complications: None
Operative Findings: RLE angiogram, balloon angioplasty of diseased anterior tibialis
[2024-06-03] MEDS: NSS 1000 IV (20:22)
[2024-06-03] MEDS: OSCAL CAL 500 500 MG PO (20:22)
[2024-06-03] MEDS: LIPITOR 10 MG PO (20:22)
--- NOTE | 2024-06-04 00:39 | PTCARENOTE ---
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 Left groin dressing CDI with no S&S hematoma, B/L feet warm to touch, sensation and movement WNL, left post/tib and right pedal
pulses strongly present by Doppler. Pt. maintained on bedrest until 2229, then able to get up with assist x 1 & RW, ambulating without difficulty. Pt. states he is pain free in his right foot for the first time in years. Very pleasant. Currently
sleeping.
[2024-06-04 03:58] VITALS: BP 101/38
[2024-06-04 04:12] VITALS: BP 129/60
--- NOTE | 2024-06-04 06:42 | W.PN.VS ---
Today's Communication / Plan
-
Discussed with Dr. Rust
Assessment/Plan
-
POD 1 balloon angioplasty of AT
Plan:
-Okay for discharge from vascular standpoint
-Our office will call the patient on Thursday with their follow-up appointment
Subjective Data
-
Date of Service: June 04, 2024
Patient seen at bedside this a.m. Patient offers no complaints at this time. No events overnight.
Objective Data
-
Vital Signs
Temp Pulse Resp BP Pulse Ox
98.6 F 60 16 129/60 100
06/04/24 03:58 06/04/24 03:58 06/04/24 03:58 06/04/24 04:12 06/04/24 03:58
Intake and Output
06/02/24 06/03/24 06/04/24
06:59 06:59 06:59
Intake Total 1080 / 1080
Output Total 375 / 375
Balance 705 / 705
Intake:
Oral fluids 600 / 600
IV fluids (Total) 480 / 480
Output:
Urine, Voided 375 / 375
Other:
Number of approximated MODERATE 2
amounts of urine
Lab Results
06/03/24 08:57
06/03/24 08:57
Calcium 8.9 mg/dl (8.4-10.2) 06/03/24 08:57
Physical Exam
-
AAOx3
No tachypnea
No tachycardia
Abdomen soft, nontender
Groin site clean, dry, intact, soft, flat
Pedal access site with no drainage or swelling noted
+doppler AT signal
Foot warm and pink
--- NOTE | 2024-06-04 07:05 | W.DS.TRANS ---
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
-
Discharge Instructions:
Discharge Diagnosis/Procedures RLE angiogram, balloon angioplasty of diseased
anterior tibialis
Diet As tolerated
Activity No strenuous activity
Driving Restrictions No driving for 24 hours
Bathing Restrictions OK to Shower
Instructions:
Stand-Alone Forms: DC Instr - Vascular OR
Changes to Home Medications: Yes
Discharge Medications:
DC Medications w/original date entered in [employer]
atorvastatin 10 mg tablet 10 mg PO QPM High cholesterol 09/22/20
metoprolol succinate 50 mg tablet,extended release 24 hr 75 mg PO DAILY 01/23/21
cholecalciferol (vitamin D3) 25 mcg (1,000 unit) tablet (Vitamin D3) 25 mcg PO DAILY 03/27/22
acetaminophen 650 mg tablet,extended release (Tylenol Arthritis Pain) 650 mg PO DAILY PRN pain 04/17/24
dabigatran etexilate 150 mg capsule (Pradaxa) 150 mg PO BID 04/17/24
oxycodone 5 mg tablet 5 mg PO Q8H PRN Pain #20 tabs 04/20/24
Medical Marijuana 1 unit PO PRN PRN pain 05/27/24
Medical Marijuana 1 unit topical BID back pain 05/27/24
baclofen 5 mg tablet 5 mg PO HS PRN pain 05/27/24
calcium carbonate 600 mg PO BID 05/27/24
aspirin 81 mg chewable tablet (Aspirin Childrens) 81 mg PO DAILY #90 tabs 06/04/24
Home Medication Changes
Added aspirin 81 daily
Pending Results: No
--- NOTE | 2024-06-04 07:53 | OR.RPT ---
Operative Report
Operative Report
Date of Operation: 06/03/2024
Pre Op Diagnosis:
1. Peripheral arterial occlusive disease with ischemic rest pain of the right foot
2. Diabetes
Post Op Diagnosis:
1. Peripheral arterial occlusive disease with ischemic rest pain of the right foot
2. Diabetes
Procedure:
1.) Balloon angioplasty of right anterior tibial artery stenosis (2.5 mm angioplasty balloon)
2.) Diagnostic aortobiiliac arteriogram
3.) Diagnostic right lower extremity arteriogram
4.) Ultrasound-guided percutaneous access to the left common femoral artery
Surgeon: Leighton Fitzpatrick III, MD
Radio Division Lieutenant: Emiliano Groves MD PGY1
Anesthesia: Sedation with local
Fluoroscopy:
33.9 min
90 mGy
18.08 Gy.cm2
Complications: None
Estimated Blood Loss: 20 cc
History and Indications for Procedure: 83-year-old male with known peripheral arterial occlusive disease and ischemic rest pain in the right foot.
Procedure in Detail: Sampson Winkler was correctly identified and placed supine on the operating table. After adequate induction of anesthesia the bilateral groins were prepped and draped in the usual sterile fashion. A timeout was performed with the
nursing and anesthesia staff confirming the patient's identity as well as the nature and laterality of the procedure.
The left common femoral artery was identified under ultrasound guidance. The artery was patent. The superior and inferior aspects of the femoral head were identified with radiographic guidance and marked at the skin level. The proposed puncture site
was infiltrated with local anesthesia. Under ultrasound guidance we accessed the left common femoral artery with a micropuncture needle and upsized to a 5 Fr sheath over a Linkuason wire. The wire and a ShepherSoftLayer hook flush catheter were advanced into
the distal abdominal aorta and a diagnostic aorto-biiliac arteriogram was performed:
AORTO-ILIAC ARTERIOGRAM:
Aorta: Patent with no stenosis identified
Right common iliac artery: Patent with no stenosis identified
Right external iliac artery: Patent with no stenosis identified
Left common iliac artery: Patent with no stenosis identified
Left external iliac artery: Patent with no stenosis identified
Under roadmap guidance using a Glidewire and the BeamlyerSoftLayer hook catheter we selected the right common iliac artery and then the external iliac artery. A catheter was tracked up and over the aortic bifurcation and placed in the distal external iliac
artery. A diagnostic right lower extremity arteriogram was then performed which demonstrated the following:
RIGHT LOWER EXTREMITY:
Common femoral artery: Patent with no stenosis identified
Profunda femoral artery: Patent with no stenosis identified
Superficial femoral artery: Peripherally calcified but patent with no significant stenosis identified
Popliteal artery: Patent with no significant stenosis identified
Severe tibial artery occlusive disease was identified.
Anterior tibial artery: Patent as the only meaningful tibial artery runoff. Diffusely calcified. Areas of nodular calcification throughout the anterior tibial artery contributing to scattered areas of focal high-grade stenosis throughout. The
artery appears to occlude at the ankle and is heavily calcified. The dorsalis pedis artery is occluded. Flow into the foot from the distal anterior tibial artery is via collaterals.
Tibioperoneal trunk: Patent. Short segment. Calcified.
Peroneal artery: Patent proximally. Heavily calcified. Occluded distally.
Posterior tibial artery: Patent proximally. Heavily calcified. High-grade stenoses identified. Occluded distally with no distal reconstitution.
Severe small vessel disease is identified in the foot.
ENDOVASCULAR INTERVENTION: Systemic heparin was administered. Selected the superficial femoral artery with the matos's hook catheter and Glidewire. Exchanged out for a 5 Fr 70 cm sheath over a Storq wire. Selected the anterior tibial artery
under roadmap guidance with Quickcross catheter and 0.014 Mongo wire. The anterior tibial artery disease was crossed with the Mongo wire. The wire was positioned in the distal anterior tibial artery proximal to the occluded segment. I then
attempted to pass angioplasty balloons to treat the diseased anterior tibial segment in an effort to improve the collateral flow into the foot. I was only able to advance a 2.5 mm x 80 mm angioplasty balloon to the mid anterior tibial artery. I
performed balloon angioplasty on the mid and proximal anterior tibial artery segments. I then attempted to pass a 2 mm x 40 mm angioplasty balloon further distal. I was able to get this a few centimeters distal in the anterior tibial artery but
significant resistance was encountered. The balloon was inflated to subnominal pressure and ruptured. I then made an effort to advance a 2 mm x 20 mm [place] XT 0.014 low-profile balloon catheter across the more distal segments but was unsuccessful
due to resistance and the extent of the calcified occlusive disease. Subsequent arteriogram demonstrated a focal area of extravasation from a small branch off of the mid anterior tibial artery. I then readvanced the 2 mm angioplasty balloon across
the anterior tibial segment where this branch arose. I performed a prolonged inflation with this balloon at nominal pressure for 4 minutes. Subsequent arteriogram demonstrated patent anterior tibial artery with resolution of this area of
extravasation.
There was no option for retrograde pedal access in this setting due to the extent of the distal disease and no appropriate access site. A completion arteriogram was performed demonstrating patency of the anterior tibial artery with some minimal
improvement in the appearance of the anterior tibial artery flow but significant distal calcified occlusive disease remained and small vessel disease was once again identified in the foot.
We then concluded the procedure. The sheath tip was pulled back into the left external iliac artery. Protamine was administered. The sheath was secured and direct manual pressure was held over the puncture site. Hemostasis was achieved. A
sterile dressing was applied.
The patient tolerated the procedure well and was taken to the recovery area in stable condition.
Attestation: I was present and responsible for the entire procedure.
Signed:
Leighton Fitzpatrick III, MD
[facility] Vascular Surgery
[phone] (cell)
[2024-06-04 08:06] VITALS: BP 134/67
[2024-06-04] MEDS: TOPROL XL 75 MG PO (08:31)
[2024-06-04] MEDS: VITAMIN D3 (cholecalciferol) 25 MCG PO (08:32)
[2024-06-04] MEDS: PRADAXA 150 MG PO (08:32)
[2024-06-04] MEDS: OSCAL CAL 500 500 MG PO (08:32)
--- NOTE | 2024-06-04 10:37 | CM ---
Reviewed the chart notes and spoke with the patient at the bedside. Patient resides with spouse in a two story home with two steps to enter. Master bedroom and bath are located on the first level. The aptient has a rollator and rolling walker.
The patient has been to [facility] and has had [facility] in the past. The patient confirmed his pharmacy of choice is the [address] PCP is Dr[address] Christine. CM continues to be available to patient/family and is monitoring medical plan
for needs at discharge.
Plan: Discharge to home today. Spouse will provide transportation. No needs identified.
[2024-06-04 11:52] VITALS: BP 148/69
== END 2024-06-04 13:15 | disposition home or self-care (01) ==
LOC: CATH 08:15
PROVIDERS: ATTENDING PHYSICIAN Surgery Vascular Surgery; FAMILY PHYSICIAN Internal Medicine; OTHER PHYSICIAN Internal Medicine
DX: I70.221 Atherosclerosis of native arteries of extremities with rest pain, right leg (principal); I48.91 Unspecified atrial fibrillation; I10 Essential (primary) hypertension; E78.5 Hyperlipidemia, unspecified; I25.10 Atherosclerotic heart disease of native coronary artery without angina pectoris; E87.1 Hypo-osmolality and hyponatremia; Z90.49 Acquired absence of other specified parts of digestive tract; Z95.0 Presence of cardiac pacemaker; Z95.1 Presence of aortocoronary bypass graft; Z79.02 Long term (current) use of antithrombotics/antiplatelets; Z79.82 Long term (current) use of aspirin; E11.51 Type 2 diabetes mellitus with diabetic peripheral angiopathy without gangrene; M79.671 Pain in right foot
CPT/HCPCS: 37228; C1725; 75625; 75716; 80048; 85027; 85610; 85730; C1769; C1894; Q9967

== ENCOUNTER → 2024-08-15 07:21 | Outpatient (REF) | payer MEDICARE, SELFPAY | LOC: RAD 07:21 | PROVIDERS: ATTENDING PHYSICIAN Surgery Vascular Surgery | DX: I73.9 Peripheral vascular disease, unspecified (principal) | CPT/HCPCS: 93922; 93925 ==

== ENCOUNTER → 2024-08-29 13:47 | Outpatient (REF) | payer MEDICARE, SELFPAY | LOC: RAD 13:47 | PROVIDERS: ATTENDING PHYSICIAN Surgery Vascular Surgery; FAMILY PHYSICIAN Internal Medicine | DX: I70.203 Unspecified atherosclerosis of native arteries of extremities, bilateral legs (principal); I77.89 Other specified disorders of arteries and arterioles | CPT/HCPCS: 93922; 93925; 93970 ==

== ENCOUNTER 2024-09-26 08:59 | Inpatient (IN) | payer MEDICARE, SELFPAY ==
[2024-09-26] VITALS (24 sets, daily range): BP systolic 95–151; BP diastolic 62–123; BMI 27.5
[2024-09-26 09:58] LABS: Hematocrit 31.2 % (39.0-52.0); Hemoglobin 9.9 g/dL (13.0-18.0); Mean Corp Hgb Conc. 31.7 g/dL (33.0-37.0); Mean Corpuscular Hgb 33.9 pg (27.0-31.0); Mean Corpuscular Volume 106.8 fL (80.0-94.0); Mean Platelet Volume 10.7 fL (7.4-10.4); Platelet Count 227 10^3/uL (130-400); Red Blood Cell Count 2.92 10^6/uL (4.70-6.10); Red Cell Dist. Width 16.1 % (11.5-14.5); White Blood Cell Count 8.8 10^3/uL (4.8-10.8)
[2024-09-26] MEDS: BACTROBAN NASAL 1 GRAM NASAL (10:09)
[2024-09-26] MEDS: PERIDEX 0.12% ORAL RINSE 15 ML PO (10:10)
[2024-09-26 10:11] LABS: Blood Urea Nitrogen 40 mg/dl (9-20); Calcium 9.4 mg/dl (8.4-10.2); Carbon Dioxide 28 mmol/L (22-30); Chloride 110 mmol/L (98-107); Estimated Creatinine Clearance 34 ml/min; Glucose 100 mg/dl (70-99); Sodium 144 mmol/L (135-145); eGFR 54.17
[2024-09-26 10:16] LABS: INR 1.19; PT 15.4 Sec (11.4-14.6)
[2024-09-26 10:17] LABS: APTT 32.9 Sec (23.4-35.0)
[2024-09-26 11:42] LABS: ACT-LR - POC 318 Seconds (116-155)
[2024-09-26 12:44] LABS: ACT-LR - POC 240 Seconds (116-155)
[2024-09-26] MEDS: SUBLIMAZE 50 MCG IV ×2 (14:34→15:17)
[2024-09-26] MEDS: ASPIRIN 325 MG PO (15:02)
--- NOTE | 2024-09-26 15:02 | OR.RPT ---
Operative Report
Operative Report
Date of Operation: 09/26/2024
Pre Op Diagnosis:
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
Chronic total occlusion of artery of the extremities
Post Op Diagnosis:
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
Chronic total occlusion of artery of the extremities
Procedure:
Transcatheter arterialization of the deep veins/LimFlow procedure, right lower extremity
0620T: Endovascular venous arterialization, tibial or peroneal vein, with transcatheter placement of intravascular
stent graft(s) and closure by any method, including percutaneous or open vascular access, ultrasound guidance for
vascular access when performed, all catheterization(s) and intraprocedural roadmapping and imaging guidance
necessary to complete the intervention, all associated radiological supervision and interpretation, when performed
[id number]: Bypass right peroneal artery to lower extremity vein with synthetic substitute, percutaneous approach
Surgeon: Leighton Fitzpatrick III, MD
Business Services Assistant: Maral Casanova MD PGY1
Anesthesia: General
Complications: None
Estimated Blood Loss: 25 cc
History and Indications for Procedure: 84-year-old male with severe calcified arterial occlusive disease of the right lower extremity associated with ischemic rest pain. He had no options for traditional revascularization, either endovascular or
open.
Procedure in Detail: Sampson Winkler was brought back to the operating room and placed supine on the OR table. General anesthesia was induced. The patient�s right lower extremity was prepped and draped in the usual sterile fashion.
Patient was placed in reverse Trendelenburg position A sterile tourniquet was applied to the right calf and inflated while obtaining venous access. We obtained ultrasound guided percutaneous access in the Lateral Plantar Vein using a micropuncture
technique. A 4Fr sheath was placed. A venogram was performed through the 4 Ecuadorean sheath. A 0.014 Glidewire advantage wire was advanced through the Lateral Plantar Vein into the Posterior Tibial Vein.
Attention was then turned to the patient�s right groin. We first obtained antegrade percutaneous access in the right common femoral artery using fluoroscopic and ultrasound guidance with a micropuncture needle. A 7Fr 45 cm sheath was inserted over a
Bentson wire, which was advanced into the superficial femoral artery (SFA). We obtained a right lower extremity angiogram, which demonstrated the following:
Patent superficial femoral artery and popliteal artery with no significant stenosis identified. Anterior tibial artery was patent but diffusely diseased and heavily calcified. Tibioperoneal trunk patent but calcified. Peroneal artery proximally
was patent. Posterior tibial artery patent proximally but severely calcified and diseased. Occluded distally.
Systemic heparin was administered. We felt the peroneal artery was the better inflow artery to be used for the case. We used a Quickcross catheter and 0.014 wire to select the peroneal artery. We advanced the LimFlow ARC� Arterial Catheter into
the proximal peroneal artery. The natural course of the venous wire from the foot followed across a branch communicating with the peroneal vein. This was easily advanced to the proximal calf and into the popliteal vein. We advanced the LimFlow
V-Ceiver� Venous Catheter to the peroneal vein from the Lateral Plantar Vein sheath at the same
approximate level. The fluoroscopy unit was rotated in such a way as to overlay the crossing device and snare. The LimFlow crossing device (ARC) needle was deployed into the peroneal vein. A 0.014 wire was advanced through the crossing device into
the venous snare (V-Ceiver) where it was captured and subsequently withdrawn through the venous sheath, providing through and through wire access. The arteriovenous connection was ballooned with a 3 mm x60 mm balloon. Next, the forward cutting
LimFlow Vector� Valvulotome was advanced from the arterial sheath across the arteriovenous connection into the peroneal vein. The valvulotome was deployed and advanced down the vein in order to lyse the venous valves to the distal-most aspect of the
Lateral Plantar Vein. A 5 mm x 200 mm balloon was used to angioplasty the donor vein to confirm adequate valve effacement and absence of stricture within the donor vein in preparation for stent placement. We treated 1 area near the ankle with a 5
mm high-pressure Chippewa balloon to profile a focal residual venous stenosis at this level. This profiled the vein nicely and resolved the stenosis in this location. We then deployed two LimFlow cylindrical stent grafts (5.5mm x 150mm and 5.5mm x
200mm) in the Posterior Tibial Vein from the distal margin of the calcaneus extending proximally up the calf. Next the tapered conical stent (3.5-5.5mm x 60 mm) was deployed proximally across the level of the arteriovenous connection. The stent
grafts were post-dilated to 3.5mm in the arterial segment and 5.5mm in the venous segment.
The plantar sheath was retracted to allow for wiring of the metatarsal aspect of the Lateral Plantar Vein. The 0.014 Glidewire advantage was used to select and navigate across the pedal venous loop, advancing into the great saphenous vein outflow.
We reintroduced the valvulotome (Vector) and advanced to efface any remaining valves in the distal aspect of the Lateral Plantar Vein. A 4 mm x 150 mm balloon was placed across the pedal venous loop and the lateral plantar vein. The balloon was
inflated to nominal pressure and held in place for a 4-minute inflation. The balloon was then deflated and removed. The 5 mm angioplasty balloon was then used to profile the length of the lateral plantar vein all the way out to the venous sheath
access site. The balloon was then held in place for 4-minute inflation at nominal pressure before deflating and removing over the wire.
A completion angiogram demonstrated widely patent Posterior Tibial stents and robust filling of the pedal venous system with good venous outflow. Protamine was administered. The right femoral artery sheath was removed and manual pressure was held
until hemostasis was obtained. The pedal sheath was removed and venous access hemostasis was obtained. Dry sterile dressings were applied.
Handheld Doppler was performed at the distal Posterior Tibial Vein, Lateral Plantar Vein, and outflow Greater Saphenous Vein and an audible pulsatile signal was heard at all points.
Attestation: I was present and responsible for the entire procedure
Signed:
Leighton Fitzpatrick III, MD
Vascular Surgery
[facility]
[2024-09-26] MEDS: NSS 1000 IV (16:09)
[2024-09-26] MEDS: ROXICODONE 5 MG PO (17:18)
[2024-09-26] MEDS: LIPITOR 10 MG PO (17:19)
--- NOTE | 2024-09-26 17:20 | PTCARENOTE ---
Patient Received form vascular lab at 1600. Right groin and plantar aspect right foot sterile dressing CDI. +1 pedal pulses, foot warm to touch. Oxycodone given for 5 out 10 pain top of right foot. Tolerated clears, advance diet as tolerated. A-Fib
HR 115, BP 105/78. Bed alarm placed. states sometimes he hallucinates with oxycodone. Precautions reviewed. bedrest until 8 pm. Due to void
--- NOTE | 2024-09-26 17:31 | PTCARENOTE ---
Right calf measured per protocol (12.5 inches or 32 cm)
[2024-09-26] MEDS: OSCAL CAL 500 500 MG PO (20:22)
--- NOTE | 2024-09-26 22:19 | PTCARENOTE ---
Received pt @ change of shift. AAOx3. A-Fib 100-130s with occasional V-pacing on monitor. Other VSS. Discontinued NSS gtt @ 1945 per order. Rgith groin site clean, dry, and intact. Soft to touch, no ecchymosis or firmness. Right bottom of foot
clean, dry, and intact. Right lower extremity warm and red. 2nd toe a little dusky-- has not changed from change of shift. Posterior tibial artery weak on palpation, dorsalis pedis artery palpable. Calf measures 12.5 inches/32 cm around. Pt has
voided post procedure. Discussed plan of care for rest of evening. Pt verbalizes understanding, agrees to call RN when needing to get up-- bed alarm on. Call martinez in reach.
[2024-09-27] MEDS: ROXICODONE 5 MG PO ×3 (04:04→20:32)
[2024-09-27 04:23] VITALS: BP 115/68
[2024-09-27 04:44] LABS: Hematocrit 28.1 % (39.0-52.0); Hemoglobin 9.2 g/dL (13.0-18.0); Mean Corp Hgb Conc. 32.7 g/dL (33.0-37.0); Mean Corpuscular Hgb 34.7 pg (27.0-31.0); Platelet Count 211 10^3/uL (130-400); Red Blood Cell Count 2.65 10^6/uL (4.70-6.10); Red Cell Dist. Width 16.2 % (11.5-14.5); White Blood Cell Count 10.7 10^3/uL (4.8-10.8)
[2024-09-27 05:02] LABS: Blood Urea Nitrogen 38 mg/dl (9-20); Carbon Dioxide 23 mmol/L (22-30); Chloride 110 mmol/L (98-107); Estimated Creatinine Clearance 40 ml/min; Glucose 142 mg/dl (70-99); Potassium 5.1 mmol/L (3.5-5.1); Sodium 137 mmol/L (135-145); eGFR > 60.00
[2024-09-27 05:33] LABS: INR 1.47; PT 18.3 Sec (11.4-14.6)
--- NOTE | 2024-09-27 08:05 | W.PN.VS ---
Today's Communication / Plan
-
Patient seen and examined at bedside with Dr. Leighton Fitzpatrick III, below plan reviewed with attending.
Assessment/Plan
-
Assessment: 84-year-old male POD #1 Endovascular venous arterialization, tibial or peroneal vein, with transcatheter placement of intravascular stent graft(s)
Plan:
OOB to chair with progression ambulation as tolerated, patient endorsed concern for ambulation with given right foot pain will consult physical therapy
Continue anticoagulation of home Pradaxa
Encourage incentive spirometry
Possible discharge later today pending ambulation progression
Subjective Data
-
Date of Service: September 27, 2024
Patient seen and examined at bedside, denies discomfort at right groin puncture site does endorse pain at right foot with ambulation that inhibited him from ambulating and required assistance, otherwise at rest patient denies pain. Denies nausea,
vomiting, fever, and chills.
Objective Data
-
Vital Signs
Temp Pulse Resp BP Pulse Ox
97.8 F 97 16 115/68 99
09/27/24 04:28 09/27/24 06:15 09/27/24 04:28 09/27/24 04:23 09/27/24 04:28
Intake and Output
09/26/24 09/27/24 09/28/24
06:59 06:59 06:59
Output Total 925 / 925
Balance -925 / -925
Output:
Urine, Fitzpatrick 600 / 600
Urine, Voided 325 / 325
Other:
Number of approximated MODERATE 1
amounts of urine
Lab Results
09/27/24 04:21
09/27/24 04:21
Calcium 9.0 mg/dl (8.4-10.2) 09/27/24 04:21
Physical Exam
-
No apparent distress, resting in bed comfortably
Irregular rhythm on monitor
No dyspnea on room air
ABD flat, nondistended, nontender
Right groin puncture site CDI, no evidence of hematoma, all surrounding compartments soft
Right foot limflow Doppler signal present, foot warm
[2024-09-27 08:12] VITALS: BP 105/54
[2024-09-27] MEDS: ASPIR LOW (ENTERIC COATED) 81 MG PO (08:14)
[2024-09-27] MEDS: OSCAL CAL 500 500 MG PO ×2 (08:14→20:19)
[2024-09-27] MEDS: PRADAXA 150 MG PO ×2 (08:14→20:19)
[2024-09-27] MEDS: PROTONIX 40 MG PO (08:14)
[2024-09-27] MEDS: TOPROL XL 75 MG PO (08:14)
[2024-09-27] MEDS: TYLENOL 650 MG PO ×2 (08:14→17:57)
[2024-09-27] MEDS: VITAMIN D3 (cholecalciferol) 25 MCG PO (08:15)
--- NOTE | 2024-09-27 11:40 | CM ---
Addendum entered by Donya Godoy RN 09/27/24 13:47:
PT recommending SNF. Referrals sent to [place] and . has a tentative bed available for pending their discharge. Waiting on phone call back from [place]
Original Note:
Chart reviewed. Patient is independent of ADLS, lives with his in a 2 STH, 1st level set up, 3 ALEXYS through the front and 1 ALEXYS through the garage, ambulates with a RW and has a special shoe insert for his foot. Patient was having difficulty
ambulating. He said it took 2 people to stand him up. PT evaluation ordered. Patient is requesting SNF. Patient has stayed at [facility] in the past. Waiting for PT evaluation for patient's functional need assessment.
Plan is for the patient to return home vs SNF. CM to follow
[2024-09-27 12:01] VITALS: PULSE 84
--- NOTE | 2024-09-27 15:22 | PN.CDI ---
CDI
- -
CDI:
Physician Documentation Request
Admit Date: 09/26/24 08:59
Dear Vascular Surgery,
Clinical Indicators:
Patient admitted with atherosclerosis of RLE;s/p Transcatheter arterialization of the deep veins/LimFlow procedure, right lower extremity 09/26.
04/2024 (last admission) Permanent Atrial Fibrillation documented.
09/05/24 H & P, PMH includes A Fib
09/26,09/27 EKG & telemetry monitoring: Atrial fibrillation
possible, please provide further specificity regarding atrial fibrillation, such as:
Permanent atrial fibrillation - when a decision has been made to accept the presence of AF and there is no further attempt to restore or maintain sinus rhythm
Paroxysmal atrial fibrillation - terminates spontaneously or with intervention within 7 days of onset
Persistent atrial fibrillation - episodes of continuous AF that last more than 7 days and do not self-terminate
Other - please specify
Unable to further specify
Use of terms such as suspected, likely, concern for, or probable (associated with a specific diagnosis that is being evaluated, monitored, or treated as if it exists) are acceptable and can be coded in the inpatient setting, when documented at the
time of discharge.
Thank you,
ELIZABETH Locke RN
CDI Specialist
available via tiger text
Please use your independent medical judgment in providing your response.
[2024-09-27 16:03] VITALS: BP 110/49
[2024-09-27] MEDS: LIPITOR 10 MG PO (17:57)
[2024-09-27 20:16] VITALS: BP 115/46
[2024-09-27] MEDS: NON-FORMULARY ITEM 80 MCG SC (20:19)
[2024-09-27 22:54] VITALS: BP 126/67
[2024-09-28] VITALS (8 sets, daily range): BP systolic 101–124; BP diastolic 54–77; PULSE 70; O2SAT 96
--- NOTE | 2024-09-28 00:13 | PTCARENOTE ---
Pt rec'd at shift change awake,alert in recliner chair. Back to bed with 1 person assist/walker at 2100. Right femoral site with DDI. right tire fabric impregnating range tender to touch, pink,warm with weak pedal pulse confirmed with doppler.
[2024-09-28] MEDS: ROXICODONE 5 MG PO ×4 (04:01→20:32)
[2024-09-28 04:35] LABS: Hematocrit 27.1 % (39.0-52.0); Hemoglobin 8.7 g/dL (13.0-18.0); Mean Corp Hgb Conc. 32.1 g/dL (33.0-37.0); Mean Corpuscular Volume 105.9 fL (80.0-94.0); Mean Platelet Volume 10.9 fL (7.4-10.4); Platelet Count 196 10^3/uL (130-400); Red Blood Cell Count 2.56 10^6/uL (4.70-6.10); Red Cell Dist. Width 16.3 % (11.5-14.5); White Blood Cell Count 16.3 10^3/uL (4.8-10.8)
--- NOTE | 2024-09-28 04:53 | PTCARENOTE ---
Pt reports having slept well. right foot discomfort this morning 5 out of 10 medicated with Roxicodone. weak but palpable pedal pulses, +1 pedal edema
[2024-09-28 04:59] LABS: Blood Urea Nitrogen 49 mg/dl (9-20); Calcium 9.3 mg/dl (8.4-10.2); Carbon Dioxide 24 mmol/L (22-30); Chloride 107 mmol/L (98-107); Estimated Creatinine Clearance 37 ml/min; Glucose 103 mg/dl (70-99); Sodium 137 mmol/L (135-145); eGFR 59.63
[2024-09-28] MEDS: PRADAXA 150 MG PO ×2 (08:03→20:32)
[2024-09-28] MEDS: VITAMIN D3 (cholecalciferol) 25 MCG PO (08:03)
[2024-09-28] MEDS: ASPIR LOW (ENTERIC COATED) 81 MG PO (08:03)
[2024-09-28] MEDS: FLUSH (NSS) 2 FLUSH IV (08:04)
[2024-09-28] MEDS: PROTONIX 40 MG PO (08:04)
[2024-09-28] MEDS: TOPROL XL 75 MG PO (08:04)
[2024-09-28] MEDS: OSCAL CAL 500 500 MG PO ×2 (08:04→20:31)
[2024-09-28] MEDS: NON-FORMULARY ITEM SC (08:05)
--- NOTE | 2024-09-28 08:38 | W.PN.VS ---
Addendum entered and electronically signed by Jesús David MD 09/28/24 16:38:
Seen and examined with NEONATAL ICU COORDINATOR. Agree with findings and plan as noted below.
Original Note:
Today's Communication / Plan
-
Patient seen and examined at bedside with Jesús David M.D., below plan reviewed with attending.
Assessment/Plan
-
Assessment: 84-year-old male POD #2 Endovascular venous arterialization, tibial or peroneal vein, with transcatheter placement of intravascular stent graft(s)
Plan:
OOB to chair with progression ambulation as tolerated, physical therapy recommending rehab as dispo planning
Continue anticoagulation of home Pradaxa
Encourage incentive spirometry
Case management following recommendation for postdischarge is rehab versus SNF
Continue as needed pain medication management
Subjective Data
-
Date of Service: September 28, 2024
Patient seen and examined at bedside, reports continued intermittent right foot pain particularly with ambulation, but also endorses that reoperative right foot rest pain is almost nearly resolved. Denies nausea, vomiting, fever, and chills.
Objective Data
-
Vital Signs
Temp Pulse Resp BP Pulse Ox
97.9 F 68 16 120/77 99
09/28/24 07:36 09/28/24 08:00 09/28/24 07:36 09/28/24 07:33 09/28/24 07:36
Intake and Output
09/27/24 09/28/24 09/29/24
06:59 06:59 06:59
Intake Total 240 / 240
Output Total 925 / 925 150 / 150 250 / 250
Balance -925 / -925 90 / 90 -250 / -250
Intake:
Oral fluids 240 / 240
Output:
Urine, Fitzpatrick 600 / 600
Urine, Voided 325 / 325 150 / 150 250 / 250
Other:
Number of approximated MODERATE 1
amounts of urine
Lab Results
09/28/24 04:16
09/28/24 04:16
Calcium 9.3 mg/dl (8.4-10.2) 09/28/24 04:16
Physical Exam
-
No apparent distress, resting in bed comfortably
No tachycardia
No dyspnea on room air
ABD flat, nondistended, nontender
Right groin puncture site CDI, no evidence of hematoma, all surrounding compartments soft
Right foot limflow Doppler signal present, foot warm
--- NOTE | 2024-09-28 08:38 | PTCARENOTE ---
The patient is aaox4, vital signs are stable. Afib with v-pacing is noted on the monitor. His right groin dressing is c/d/i. His right planter foot puncture wound is SUZE and approximated. A positive pulse is noted by Doppler. He complains of an 8/10
pain at the puncture site. Roxicodone given as ordered. His BL heels are red but blanchable. BL heel foams placed and elevated on a air pillow.
[2024-09-28] MEDS: NON-FORMULARY ITEM 80 MCG SC (17:14)
[2024-09-28] MEDS: LIPITOR 10 MG PO (17:14)
[2024-09-29 04:14] VITALS: BP 121/48
[2024-09-29 05:08] LABS: Hematocrit 27.8 % (39.0-52.0); Hemoglobin 8.8 g/dL (13.0-18.0); Mean Corp Hgb Conc. 31.7 g/dL (33.0-37.0); Mean Corpuscular Hgb 34.1 pg (27.0-31.0); Mean Corpuscular Volume 107.8 fL (80.0-94.0); Mean Platelet Volume 11.2 fL (7.4-10.4); Platelet Count 196 10^3/uL (130-400); Red Blood Cell Count 2.58 10^6/uL (4.70-6.10); Red Cell Dist. Width 16.5 % (11.5-14.5); White Blood Cell Count 14.1 10^3/uL (4.8-10.8)
[2024-09-29 05:28] LABS: Blood Urea Nitrogen 47 mg/dl (9-20); Carbon Dioxide 27 mmol/L (22-30); Chloride 105 mmol/L (98-107); Estimated Creatinine Clearance 37 ml/min; Glucose 92 mg/dl (70-99); Potassium 5.2 mmol/L (3.5-5.1); Sodium 136 mmol/L (135-145); eGFR 59.63
--- NOTE | 2024-09-29 05:44 | PTCARENOTE ---
Received pt @ change of shift. AAOx3. VSS--A-fib with occasional V-pacing on monitor. Right groin site clean, dry, and intact. Right foot puncture SUZE. +1 pitting edema in right foot-- pt c/o with ambulation. Discussed plan of care for evening. Pt
verbalizes understanding. Call martinez within reach.
[2024-09-29 07:56] VITALS: BP 113/85
--- NOTE | 2024-09-29 08:10 | W.PN.VS ---
Today's Communication / Plan
-
Patient seen and examined at bedside with Jesús David M.D., below plan reviewed with attending.
Assessment/Plan
-
Assessment: 84-year-old male POD #3 Endovascular venous arterialization, tibial or peroneal vein, with transcatheter placement of intravascular stent graft(s)
Plan:
OOB to chair with progression ambulation as tolerated, physical therapy recommending rehab/SNF told patient has bed today
Continue anticoagulation of home Pradaxa
Encourage incentive spirometry
Continue as needed pain medication management
Cleared for discharge to SNF
Subjective Data
-
Date of Service: September 29, 2024
Patient seen and examined at bedside, reports continued intermittent well-managed pain at right foot, otherwise offers no complaints. Denies nausea, vomiting, fever, and chills. Agrees with recommendations of [facility] facility or rehab
following hospital discharge, eager for this plan once bed established.
Objective Data
-
Vital Signs
Temp Pulse Resp BP Pulse Ox
98.6 F 78 20 121/48 98
09/29/24 07:56 09/29/24 05:00 09/29/24 07:56 09/29/24 04:14 09/29/24 07:56
Intake and Output
09/28/24 09/29/24 09/30/24
06:59 06:59 06:59
Intake Total 240 / 240
Output Total 150 / 150 1475 / 1475
Balance 90 / 90 -1475 / -1475
Intake:
Oral fluids 240 / 240
Output:
Urine, Voided 150 / 150 1475 / 1475
Lab Results
09/29/24 04:30
09/29/24 04:30
Calcium 9.0 mg/dl (8.4-10.2) 09/29/24 04:30
Physical Exam
-
No apparent distress, resting in bed comfortably
No tachycardia
No dyspnea on room air
ABD flat, nondistended, nontender
Right groin puncture site CDI, no evidence of hematoma, all surrounding compartments soft
Right foot limflow Doppler signal present, foot warm
[2024-09-29] MEDS: ASPIR LOW (ENTERIC COATED) 81 MG PO (08:15)
[2024-09-29] MEDS: VITAMIN D3 (cholecalciferol) 25 MCG PO (08:15)
[2024-09-29] MEDS: PRADAXA 150 MG PO (08:15)
[2024-09-29] MEDS: PROTONIX 40 MG PO (08:15)
[2024-09-29] MEDS: TOPROL XL 75 MG PO (08:15)
[2024-09-29] MEDS: OSCAL CAL 500 500 MG PO (08:15)
--- NOTE | 2024-09-29 08:43 | W.PN.UPDATE ---
Update Note
Progress Note Update
Dear Vascular Surgery,
Clinical Indicators:
Patient admitted with atherosclerosis of RLE;s/p Transcatheter arterialization of the deep veins/LimFlow procedure, right lower extremity 09/26.
04/2024 (last admission) Permanent Atrial Fibrillation documented.
09/05/24 H & P, PMH includes A Fib
09/26,09/27 EKG & telemetry monitoring: Atrial fibrillation
possible, please provide further specificity regarding atrial fibrillation, such as:
Permanent atrial fibrillation -Per outpatient documentation from cardiology notes, also on chronic anticoagulation
--- NOTE | 2024-09-29 09:26 | W.DS.TRANS ---
DC Summary - Director Of Curriculum And Instruction
-
Discharge Instructions:
Sleep Apnea Risk Low
Discharge Diagnosis/Procedures Transcatheter arterialization of the deep veins/
LimFlow procedure, right lower extremity
Diet As tolerated
Activity No strenuous activity
Driving Restrictions Not until seen by your Dr
Bathing Restrictions OK to Shower
Others Tests Ultrasound appt: 10/10 @ 9am here at [facility]
Instructions:
Stand-Alone Forms: Vascular Surg Discharge Instr
Changes to Home Medications: No
Discharge Medications:
DC Medications w/original date entered in [employer]
atorvastatin 10 mg tablet 10 mg PO QPM High cholesterol 09/22/20
metoprolol succinate 50 mg tablet,extended release 24 hr 75 mg PO DAILY 01/23/21
cholecalciferol (vitamin D3) 25 mcg (1,000 unit) tablet (Vitamin D3) 25 mcg PO DAILY 03/27/22
acetaminophen 650 mg tablet,extended release (Tylenol Arthritis Pain) 650 mg PO DAILY PRN pain 04/17/24
dabigatran etexilate 150 mg capsule (Pradaxa) 150 mg PO BID 04/17/24
oxycodone 5 mg tablet 5 mg PO Q8H PRN Pain #20 tabs 04/20/24
Medical Marijuana 1 unit topical BID back pain 05/27/24
calcium carbonate 600 mg PO BID 05/27/24
abaloparatide (Tymlos) 80 mcg SC DAILY 09/21/24
aspirin 81 mg tablet,delayed release 81 mg PO DAILY 09/26/24
Home Medication Changes
Pending Results: No
[2024-09-29] MEDS: ROXICODONE 5 MG PO (10:22)
[2024-09-29] MEDS: TYLENOL 650 MG PO (10:22)
== END 2024-09-29 11:16 | DRG 253 ==
LOC: IVU 08:59
PROVIDERS: Nurse Practitioner; Nurse Practitioner Acute Care; ADMITTING PHYSICIAN Surgery Vascular Surgery; PRIMARYCARE PHYSICIAN Internal Medicine
PROC: 041 Lower Arteries, Bypass (ICD-10-PCS; 2024-09-26)
DX: I70.221 Atherosclerosis of native arteries of extremities with rest pain, right leg (principal); I48.21 Permanent atrial fibrillation; I70.92 Chronic total occlusion of artery of the extremities; Z79.01 Long term (current) use of anticoagulants; Z79.899 Other long term (current) drug therapy; Z95.0 Presence of cardiac pacemaker
CPT/HCPCS: 0620T; 80048; 85027; 85610; 85730; 93005; 97163; 97530; C1725; C1769; C1889; C1894; Q9967

== ENCOUNTER 2024-10-01 15:33 | Emergency (ER) | payer MEDICARE, SELFPAY ==
[2024-10-01 15:43] VITALS: BP 118/51; BMI 29.2
[2024-10-01 16:00] VITALS: BP 136/68
[2024-10-01 16:05] LABS: % Basophils 0.4 % (0-2); % Eosinophils 3.6 % (0-6); % Immature Granulocytes 1.4 % (0-0.5); % Lymphocytes 7.4 % (20.5-51.1); % Monocytes 12.8 % (1.7-9.3); % Neutrophils 74.4 % (42.2-75.2); Absolute Basophils 0.1 10^3/uL (0-0.2); Absolute Eosinophils 0.4 10^3/uL (0-0.7); Absolute Immature Granulocytes 0.2 10^3/uL (0-0.05); Absolute Lymphocytes 0.9 10^3/uL (1.2-3.4); Absolute Monocytes 1.6 10^3/uL (0.1-0.6); Absolute Neutrophils 9.2 10^3/uL (1.4-6.5); Hematocrit 26.4 % (39.0-52.0); Hemoglobin 8.7 g/dL (13.0-18.0); Mean Corpuscular Hgb 34.7 pg (27.0-31.0); Mean Corpuscular Volume 105.2 fL (80.0-94.0); Mean Platelet Volume 11.5 fL (7.4-10.4); Nucleated Red Blood Cells % 0.2 % (-); Platelet Count 192 10^3/uL (130-400); Red Blood Cell Count 2.51 10^6/uL (4.70-6.10); Red Cell Dist. Width 16.4 % (11.5-14.5); White Blood Cell Count 12.4 10^3/uL (4.8-10.8)
[2024-10-01 16:17] LABS: INR 2.02
[2024-10-01 16:18] LABS: APTT 49.5 Sec (23.4-35.0)
--- NOTE | 2024-10-01 16:26 | ED.GENMED ---
History of Present Illness
General
Chief Complaint: DVT/Possible Blood Clot
Source: patient and spouse
Time Seen by Provider: 10/01/24 16:06
History of Present Illness
History of Present Illness:
84-year-old male presents to the emergency room complaining of pain in his right leg. Pain has been present since having revascularization of his right leg with 'arterialization of the deep veins'. Procedure was performed on September 26. Patient's
been experiencing more pain than he expected and today while in the seated position with his leg dependent the pain was especially severe. It was distracting him from even ordering food. While laying in bed with his leg extended the pain is
improved but not gone. He did take an oxycodone at noon.
Past History
Past History
ED Past Medical History: Arrthythmia (afib), HTN and Other (Compression fractures, peripheral arterial disease)
ED Past Surgical History: Orthopedic and Other (Vascular)
Social History
Tobacco: Non-smoker
Alcohol: None
Drug: None
Personal:
Living: with family
Employment: Retired
Phy Exam
Physical Exam
Physical Exam:
General: Awake, Alert, Oriented X3. No acute distress.
Vitals: unremarkable
Head: Atraumatic
Eyes: Pupils equal, EOMI
Throat: Airway intact, no exudates
Neck: Trachea midline
Lungs: Clear and equal b/l
Heart: Regular rate, no murmurs
Abd: Soft, Nontender, No pulsatile mass
Neuro: Nonfocal
Skin: Warm, dry, no rash
Extremities: Right foot is pink, warm, has capillary refill. I am able to obtain a posterior tibial pulse with Doppler probe
Course
Orders/Labs/Results
Orders:
Orders
10/01/24 15:56
Complete Blood Count/With Diff Urgent
Comprehensive Metabolic Panel Urgent
Protime/PTT Urgent
10/01/24 16:22
US Limflow Post RT Urgent
Reason For Exam: pain s/p Limflow/TADV NO RAIZA !!!!!
10/01/24 16:24
Fentanyl Citrate/Pf [Sublimaze] 50 mcg IV NOW STA
Abnormal Lab Results
10/01/24
15:56
WBC 12.4 H 10^3/uL
(4.8-10.8)
RBC 2.51 L 10^6/uL
(4.70-6.10)
Hgb 8.7 L g/dL
(13.0-18.0)
Hct 26.4 L %
(39.0-52.0)
MCV 105.2 H fL
(80.0-94.0)
MCH 34.7 H pg
(27.0-31.0)
RDW 16.4 H %
(11.5-14.5)
MPV 11.5 H fL
(7.4-10.4)
Abs Immat Gran (auto) 0.2 H 10^3/uL
(0-0.05)
Absolute Neuts (auto) 9.2 H 10^3/uL
(1.4-6.5)
Absolute Lymphs (auto) 0.9 L 10^3/uL
(1.2-3.4)
Absolute Monos (auto) 1.6 H 10^3/uL
(0.1-0.6)
Immature Gran % 1.4 H %
(0-0.5)
Lymphocytes % 7.4 L %
(20.5-51.1)
Monocytes % 12.8 H %
(1.7-9.3)
PT 23.0 H Sec
(11.4-14.6)
APTT 49.5 H Sec
(23.4-35.0)
Chloride 108 H mmol/L
(98-107)
BUN 45 H mg/dl
(9-20)
Glucose 112 H mg/dl
(70-99)
Total Protein 6.2 L g/dl
(6.3-8.2)
10/01/24 15:56
10/01/24 15:56
Vital Signs
Initial and Last Documented VS:
Initial Vital Signs
Pulse Resp
84 20
10/01/24 15:40 10/01/24 15:40
Last Documented Vital Signs
Temp Pulse Resp BP Pulse Ox
99.0 F 83 23 134/72 97
10/01/24 15:43 10/01/24 19:45 10/01/24 19:45 10/01/24 17:00 10/01/24 19:45
MDM/Problems Addressed
Differential Diagnosis Includes:
Venous congestion, stent thrombosis, other postoperative complication
MDM/Problems Addressed:
Patient presents with significant pain in his right leg particularly when it is flexed or dependent. Patient had 'arterialization of the deep venous system' by Dr. Fitzpatrick on Thursday. Patient is at rehab today symptoms occurred primarily when he was
at physical therapy. Currently he is feeling much more comfortable with his leg extended and laying in bed. Discussed the patient's presentation around. He recommends a arterial duplex without RAIZA. The study showed good flow. No evidence for
stent occlusion. Patient will be discharged home. Dr. David will assure close outpatient follow-up.
Chronic conditions affecting care: HTN and Other (Peripheral vascular disease)
*Radiology
Radiology exam reviewed: radiology read reviewed
*Pulse Oximetry
Patient hypoxic: no
*Critical Care Note
Total Time (30-74mins, 75-104mins- exclusive of procedures): Not Applicable
ED Attending Note
-
Portions of this chart may have been created with voice recognition software.� Occasional wrong word or��sound alike� substitutions may have occurred due to the inherent limitations of voice recognition software.
Discharge Plan
Departure
Patient Disposition: Detention/SNF
Date of Disposition: 10/01/24
Time of Disposition: 19:47
Condition: Fair
Discharge Problem:
Leg pain
Instructions: Peripheral Vascular Disease
Prescriptions:
No Action
atorvastatin 10 MG tablet
10 mg PO QPM
metoprolol succinate 50 MG tablet extended release 24 hr
75 mg PO DAILY
cholecalciferol (vitamin D3) [Vitamin D3] 25 mcg (1,000 unit) Tablet
25 mcg PO DAILY
calcium carbonate 600 mg calcium (1,500 mg) Tablet
600 mg PO BID
Tymlos 80 mcg (3,120 mcg/1.56 mL) Pen Injector
80 mcg SC QPM
aspirin 81 mg Tablet,Delayed Release (Dr/Ec)
81 mg PO DAILY
acetaminophen [Tylenol] 325 mg Tablet
650 mg PO Q4HPRN PRN (Reason: mild pain)
magnesium hydroxide [Milk of Magnesia] 400 mg/5 mL Suspension
2,400 mg PO HSPRN PRN (Reason: constipation)
bisacodyl [Dulcolax (bisacodyl)] 10 mg Suppository
10 mg GA [id number] PRN (Reason: if no bm aftr mom)
Eliquis 5 mg Tablet
5 mg PO BID
oxycodone 5 mg tablet
5 mg PO Q8HPRN PRN (Reason: severe Pain)
Referrals:
Arcelia Christine MD [Family Provider] -
Activity Restrictions/Additional Instructions:
The blood flow on your arterial study is as expected postoperatively. I communicated with Dr. David. He believes your pain is related to the new blood flow and congestion in the veins of your leg. Hold on physical therapy for the next 48 hours.
Interventions
Interventions:
*Risk Screen - Suicide Last Done: 10/01/24 15:43
*General Assessment Last Done: 10/01/24 15:43
*Neglect/Abuse Screening Last Done: 10/01/24 15:43
*ED- Fall Risk Assessment Last Done: 10/01/24 15:47
*ED COVID-19 Vaccine History Last Done: 10/01/24 15:47
ED- Cardiac Assessment Last Done: 10/01/24 17:20
ED- Pulmonary Assessment Last Done: 10/01/24 17:20
ED-Peripheral Vascular Assessment Last Done: 10/01/24 17:20
ED-Skin Assessment Last Done: 10/01/24 17:20
Discharge Date and Time
Print Language: [place]
[2024-10-01 16:28] LABS: ALT (SGPT) 18 U/L (0-50); AST (SGOT) 28 U/L (17-59); Albumin 3.8 g/dl (3.5-5.0); Alkaline Phosphatase 99 U/L (38-126); Blood Urea Nitrogen 45 mg/dl (9-20); Calcium 9.2 mg/dl (8.4-10.2); Carbon Dioxide 28 mmol/L (22-30); Chloride 108 mmol/L (98-107); Estimated Creatinine Clearance 45 ml/min; Glucose 112 mg/dl (70-99); Sodium 141 mmol/L (135-145); Total Bilirubin 1.2 mg/dl (0.2-1.3); Total Protein 6.2 g/dl (6.3-8.2); eGFR > 60.00
[2024-10-01] MEDS: SUBLIMAZE 50 MCG IV (16:51)
[2024-10-01 17:00] VITALS: BP 134/72
--- NOTE | 2024-10-01 23:02 | EDRN ---
Pt. discharged; however, requires ambulance transport back to [facility]. Acute Care ambulance arranged, ETA 0230. IV removed. Pt. assisted to change back into his clothes. Food tray given. Pt. denies further needs.
[2024-10-02] MEDS: ROXICODONE 5 MG PO (01:13)
[2024-10-02] MEDS: LIPITOR 10 MG PO (01:14)
[2024-10-02] MEDS: ELIQUIS 5 MG PO (01:14)
[2024-10-02 01:20] VITALS: BP 132/60
--- NOTE | 2024-10-02 01:26 | EDRN ---
Update: Acute Care ETA now [id number]
== END 2024-10-02 04:28 ==
LOC: EMR 15:33
PROVIDERS: EMERGENCY PHYSICIAN Emergency Medicine; FAMILY PHYSICIAN Internal Medicine
DX: M79.604 Pain in right leg (principal); I73.9 Peripheral vascular disease, unspecified; I48.91 Unspecified atrial fibrillation; I10 Essential (primary) hypertension; M48.50XA Collapsed vertebra, not elsewhere classified, site unspecified, initial encounter for fracture; Z98.890 Other specified postprocedural states; Z79.01 Long term (current) use of anticoagulants
CPT/HCPCS: 99284; 96374; 80053; 85025; 85610; 85730; 93922; 93926; 93971

== ENCOUNTER → 2024-10-04 09:50 | Outpatient (REF) | payer MEDICARE, SELFPAY ==
[2024-10-04 12:47] LABS: % Basophils 0.6 % (0-2); % Immature Granulocytes 1.7 % (0-0.5); % Lymphocytes 7.8 % (20.5-51.1); % Monocytes 13.6 % (1.7-9.3); % Neutrophils 72.3 % (42.2-75.2); Absolute Basophils 0.1 10^3/uL (0-0.2); Absolute Eosinophils 0.4 10^3/uL (0-0.7); Absolute Immature Granulocytes 0.2 10^3/uL (0-0.05); Absolute Lymphocytes 0.9 10^3/uL (1.2-3.4); Absolute Monocytes 1.5 10^3/uL (0.1-0.6); Absolute Neutrophils 8.1 10^3/uL (1.4-6.5); Hematocrit 24.6 % (39.0-52.0); Hemoglobin 7.7 g/dL (13.0-18.0); Mean Corp Hgb Conc. 31.3 g/dL (33.0-37.0); Mean Corpuscular Hgb 33.9 pg (27.0-31.0); Mean Corpuscular Volume 108.4 fL (80.0-94.0); Mean Platelet Volume 11.3 fL (7.4-10.4); Nucleated Red Blood Cells % 0 % (-); Platelet Count 209 10^3/uL (130-400); Red Blood Cell Count 2.27 10^6/uL (4.70-6.10); Red Cell Dist. Width 16.6 % (11.5-14.5); White Blood Cell Count 11.1 10^3/uL (4.8-10.8)
[2024-10-04 12:48] LABS: Blood Urea Nitrogen 39 mg/dl (9-20); Carbon Dioxide 27 mmol/L (22-30); Chloride 108 mmol/L (98-107); Glucose 94 mg/dl (70-99); HDL Cholesterol 46 mg/dl; LDL Cholesterol, Calculated 37 mg/dl; Potassium 4.8 mmol/L (3.5-5.1); Sodium 138 mmol/L (135-145); Total Cholesterol 92 mg/dl (50-199); Triglyceride 49 mg/dl (10-149); Very Low Density Lipoprotein 9 mg/dl (0-30); eGFR > 60.00
== END ==
LOC: OLABN 09:50
PROVIDERS: ATTENDING PHYSICIAN Student in an Organized Health Care Education/Training Program
DX: I10 Essential (primary) hypertension (principal); E78.5 Hyperlipidemia, unspecified
CPT/HCPCS: 36415; 80048; 80061; 85025

== ENCOUNTER → 2024-10-10 11:18 | Outpatient (REF) | payer OTHER, MEDICARE, SELFPAY ==
[2024-10-10 12:01] LABS: Hematocrit 23.8 % (39.0-52.0); Hemoglobin 7.5 g/dL (13.0-18.0); Mean Corp Hgb Conc. 31.5 g/dL (33.0-37.0); Mean Corpuscular Hgb 34.4 pg (27.0-31.0); Mean Corpuscular Volume 109.2 fL (80.0-94.0); Mean Platelet Volume 10.8 fL (7.4-10.4); Platelet Count 248 10^3/uL (130-400); Red Blood Cell Count 2.18 10^6/uL (4.70-6.10); Red Cell Dist. Width 16.7 % (11.5-14.5); White Blood Cell Count 13.3 10^3/uL (4.8-10.8)
== END ==
LOC: OLABN 11:18
PROVIDERS: ATTENDING PHYSICIAN Student in an Organized Health Care Education/Training Program
DX: D64.9 Anemia, unspecified (principal); D72.829 Elevated white blood cell count, unspecified
CPT/HCPCS: 36415; 85027

== ENCOUNTER → 2024-10-17 10:22 | Outpatient (REF) | payer OTHER, MEDICARE, SELFPAY ==
[2024-10-17 11:32] LABS: % Basophils 0.9 % (0-2); % Eosinophils 2.8 % (0-6); % Immature Granulocytes 0.9 % (0-0.5); % Lymphocytes 9.1 % (20.5-51.1); % Monocytes 12.6 % (1.7-9.3); % Neutrophils 73.7 % (42.2-75.2); Absolute Basophils 0.1 10^3/uL (0-0.2); Absolute Eosinophils 0.3 10^3/uL (0-0.7); Absolute Immature Granulocytes 0.1 10^3/uL (0-0.05); Absolute Monocytes 1.4 10^3/uL (0.1-0.6); Absolute Neutrophils 8.3 10^3/uL (1.4-6.5); Hematocrit 25.8 % (39.0-52.0); Hemoglobin 7.9 g/dL (13.0-18.0); Mean Corp Hgb Conc. 30.6 g/dL (33.0-37.0); Mean Corpuscular Hgb 33.2 pg (27.0-31.0); Mean Corpuscular Volume 108.4 fL (80.0-94.0); Mean Platelet Volume 10.6 fL (7.4-10.4); Nucleated Red Blood Cells % 0 % (-); Platelet Count 309 10^3/uL (130-400); Red Blood Cell Count 2.38 10^6/uL (4.70-6.10); White Blood Cell Count 11.2 10^3/uL (4.8-10.8)
== END ==
LOC: OLABN 10:22
PROVIDERS: ATTENDING PHYSICIAN Student in an Organized Health Care Education/Training Program
DX: D64.9 Anemia, unspecified (principal)
CPT/HCPCS: 36415; 85025

== ENCOUNTER → 2024-10-19 11:58 | Outpatient (REF) | payer OTHER, MEDICARE, SELFPAY ==
[2024-10-19 12:13] LABS: Urine Albumin 2+ (Neg - Trace); Urine Bilirubin Negative (Negative); Urine Character Clear (Clear); Urine Color Yellow; Urine Glucose Negative (Negative); Urine Ketone Negative (Negative); Urine Leukocyte Negative (Negative); Urine Nitrite Negative (Negative); Urine Occult Blood Negative (Negative); Urine Specific Gravity 1.015 (<1.030); Urine Urobilinogen Negative (Neg - 1+); Urine pH 6.5 (5.0-9.0)
[2024-10-19 12:19] LABS: Urine Squamous Cell 0-2 /LPF (Few)
[2024-10-19 12:20] LABS: Urine Bacteria Few (Negative); Urine Red Blood Cell 0-2 /HPF (0-2); Urine White Cell 0-2 /HPF (0-5)
== END ==
LOC: OLABN 11:58
PROVIDERS: ATTENDING PHYSICIAN Student in an Organized Health Care Education/Training Program
DX: R82.90 Unspecified abnormal findings in urine (principal)
CPT/HCPCS: 81003; 81015; 87086

== ENCOUNTER → 2024-10-26 14:57 | Outpatient (REF) | payer MEDICARE, SELFPAY | LOC: RAD 14:57 | PROVIDERS: ATTENDING PHYSICIAN Registered Nurse; FAMILY PHYSICIAN Internal Medicine | DX: Z09 Encounter for follow-up examination after completed treatment for conditions other than malignant neoplasm (principal); I73.9 Peripheral vascular disease, unspecified | CPT/HCPCS: 93922; 93926; 93971 ==

== ENCOUNTER 2024-11-08 15:29 | Inpatient (IN) | payer MEDICARE, SELFPAY ==
[2024-11-08] VITALS (17 sets, daily range): BP systolic 102–142; BP diastolic 53–88; BMI 24.7
[2024-11-08 13:17] LABS: Hematocrit 26.0 % (39.0-52.0); Hemoglobin 8.2 g/dL (13.0-18.0); Mean Corp Hgb Conc. 31.5 g/dL (33.0-37.0); Mean Corpuscular Volume 104.8 fL (80.0-94.0); Platelet Count 238 10^3/uL (130-400); Red Cell Dist. Width 17.6 % (11.5-14.5)
[2024-11-08 13:41] LABS: INR 1.21; PT 15.6 Sec (11.4-14.6)
[2024-11-08 13:42] LABS: APTT 29.7 Sec (23.4-35.0)
[2024-11-08 13:48] LABS: Blood Urea Nitrogen 44 mg/dl (9-20); Calcium 8.7 mg/dl (8.4-10.2); Carbon Dioxide 24 mmol/L (22-30); Chloride 109 mmol/L (98-107); Glucose 97 mg/dl (70-99); Potassium 5.1 mmol/L (3.5-5.1); Sodium 139 mmol/L (135-145); eGFR > 60.00
--- NOTE | 2024-11-08 16:06 | W.SUR.POST ---
Surgical Immediate Post Op
Note
Pre Op Diagnosis: RLE Ischemia
Post Op Diagnosis: RLE Ischemia
Procedure Performed: RLE angiography with angioplasty of pedal loop venous outflow
Primary Surgeon: Leighton Fitzpatrick MD
Secondary Surgeons: Domingo Olivia MD
Anesthesia: see anesthesia flowsheet
Estimated Blood Loss: less than 20 cc
Fluids: see anesthesia flowsheet
Drains/Shunts: none
Specimens/Cultures: none
Doppler/Duplex/Angio (Y/N): Y
Complications: none
Operative Findings: Short segment stenosis of pedal loop venous outflow
[2024-11-08] MEDS: ASPIR LOW (ENTERIC COATED) 81 MG PO (17:22)
[2024-11-08] MEDS: NSS 1000 IV (17:47)
[2024-11-08] MEDS: LIPITOR 10 MG PO (18:21)
--- NOTE | 2024-11-08 19:03 | OR.RPT ---
Operative Report
Operative Report
Date of Operation: 11/08/2024
Pre Op Diagnosis: Status post transcatheter arterialization of the deep veins, right lower extremity with venous outflow stenosis identified on duplex imaging
Post Op Diagnosis: Status post transcatheter arterialization of the deep veins, right lower extremity with venous outflow stenosis identified on duplex imaging
Procedure:
1.) Balloon angioplasty of venous outflow stenosis/pedal loop, right foot (4 mm x 120 mm balloon)
2.) Diagnostic right lower extremity arteriogram
3.) Ultrasound-guided percutaneous antegrade access to the right proximal superficial femoral artery
Surgeon: Leighton Fitzpatrick III, MD
Physical Therapy Manager: Domingo Olivia MD PGY-6
Anesthesia: Sedation with local
Fluoroscopy:
19.1 min
57 mGy
7.56 gy.cm2
Complications: None
Estimated Blood Loss: Less than 20 cc
History and Indications for Procedure: 84-year-old male with recent transcatheter arterialization of the deep veins, right lower extremity for limb threatening ischemia. Surveillance duplex demonstrated stenosis in the lateral plantar venous
outflow in the foot. He was brought back for endovascular interrogation.
Procedure in Detail: Sampson Winkler was correctly identified and placed supine on the operating table. After adequate induction of anesthesia the bilateral groins were prepped and draped in the usual sterile fashion. A timeout was performed with the
nursing and anesthesia staff confirming the patient's identity as well as the nature and laterality of the procedure.
The right common femoral artery was identified under ultrasound guidance. The artery was patent. The superior and inferior aspects of the femoral head were identified with radiographic guidance and marked at the skin level. The proposed puncture
site was infiltrated with local anesthesia. Under ultrasound guidance we accessed the right superficial femoral artery origin at the femoral bifurcation with a micropuncture needle and upsized to a 5 Fr sheath over a Bentson wire. A diagnostic right
lower extremity arteriogram was then performed which demonstrated the following:
RIGHT LOWER EXTREMITY:
Superficial femoral artery: Patent with brisk flow and no stenosis identified
Popliteal artery: Patent with brisk flow and no stenosis identified
LimFlow/TADV: Patent arterial inflow with no stenosis identified. Patent stents with no stenosis identified. Brisk flow. Venous outflow into the foot patent but there was a high-grade stenosis in the distal lateral plantar vein.
ENDOVASCULAR INTERVENTION: Systemic heparin was administered. Exchanged out for a 5 Fr 45 centimeter sheath over a Storq wire. We selected the LimFlow/TADV stents with the Quickcross and Glidewire. We easily navigated through the stents to the
venous outflow in the foot. We then performed an arteriogram of the venous outflow into the foot under magnification view. Multiple views were obtained and this identified the venous outflow stenosis in the distal lateral plantar vein. Using a
0.014 Glidewire advantage and 0.014 Quickcross we were able to navigate through the stenosis and across the pedal venous loop into the great saphenous vein outflow. Under roadmap guidance I then advanced a 4 mm x 120 mm angioplasty balloon. I
performed angioplasty at nominal pressure on the entire length of the pedal venous loop including the lateral plantar vein stenosis. Multiple inflations were performed with this balloon at nominal pressure with each inflation for 4 minutes.
Subsequent arteriogram demonstrated an excellent technical result. The venous outflow was widely patent and flow significantly improved compared to pretreatment. No significant residual stenosis was identified.
Satisfied with this result we concluded the procedure. Protamine was administered. The sheath was pulled back into the mid SFA and secured in place with the plan to pull it in the recovery room.
The patient tolerated the procedure well and was taken to the recovery area in stable condition.
Attestation: I was present and responsible for the entire procedure.
Signed:
Leighton Fitzpatrick III, MD
Vascular Surgery
[facility]
--- NOTE | 2024-11-08 19:28 | PTCARENOTE ---
RN unable to find Doppler for patients LE pulses. 2 North, IVU, CICU are all unable to loan doppler to this floor for patient needs. Need for doppler escalated to floor nurse social work case manager, Elvie and nursing plant operator/shift supervisor, Meg.
[2024-11-08] MEDS: OSCAL CAL 500 500 MG PO (20:48)
[2024-11-08] MEDS: ELIQUIS 5 MG PO (20:48)
[2024-11-08] MEDS: ROXICODONE 5 MG PO (20:48)
[2024-11-09 03:06] VITALS: BP 143/80
[2024-11-09 07:10] VITALS: BP 128/70
--- NOTE | 2024-11-09 07:49 | W.PN.VS ---
Addendum entered and electronically signed by Hafsa Cook MD, Resident 11/10/24 07:01:
CDI: permanent afib
Original Note:
Today's Communication / Plan
-
Plan reviewed with attending.
Assessment/Plan
-
Assessment: 84yoM POD 1 s/p
1.) Balloon angioplasty of venous outflow stenosis/pedal loop, right foot (4 mm x 120 mm balloon)
2.) Diagnostic right lower extremity arteriogram
3.) Ultrasound-guided percutaneous antegrade access to the right proximal superficial femoral artery
Plan:
R groin Tegaderm remove this afternoon
Continue aspirin 81mg with Eliquis
Continue statin
Outpatient f/u in 2 weeks per discharge instructions
Discharge today
Subjective Data
-
Date of Service: November 09, 2024
Pt awake and oriented. Reports managed pain on current pain medications. Denies fever, chills, nausea, vomiting. Tolerating PO well.
Objective Data
-
Vital Signs
Temp Pulse Resp BP Pulse Ox
98.0 F 101 17 143/80 100
11/09/24 03:06 11/09/24 03:06 11/09/24 03:06 11/09/24 03:06 11/09/24 03:06
Intake and Output
11/08/24 11/09/24 11/10/24
06:59 06:59 06:59
Intake Total 560 / 560
Output Total 300 / 300
Balance 260 / 260
Intake:
Oral fluids 240 / 240
IV fluids (Total) 320 / 320
Output:
Urine, Voided 300 / 300
Lab Results
11/08/24 13:07
11/08/24 13:07
Calcium 8.7 mg/dl (8.4-10.2) 11/08/24 13:07
Physical Exam
-
No apparent distress, resting in bed comfortably
No tachycardia
No dyspnea on room air
ABD flat, nondistended, nontender
Right groin puncture site clean, dry, intact, no evidence of hematoma, all surrounding compartments soft
Right foot limflow palpable +1, foot warm, necrotic toe dry and stable. No evidence of purulent drainage.
[2024-11-09] MEDS: ELIQUIS 5 MG PO (08:21)
[2024-11-09] MEDS: OSCAL CAL 500 500 MG PO (08:21)
[2024-11-09] MEDS: VITAMIN D3 (cholecalciferol) 25 MCG PO (08:26)
[2024-11-09] MEDS: ASPIR LOW (ENTERIC COATED) 81 MG PO (08:27)
[2024-11-09] MEDS: TOPROL XL 75 MG PO (08:27)
--- NOTE | 2024-11-09 10:49 | WOUNDNOTE ---
RIGHT 2ND TOE
--- NOTE | 2024-11-09 10:50 | WOUNDNOTE ---
RIGHT 2ND TOE
--- NOTE | 2024-11-09 10:55 | WOUNDNOTE ---
[facility] RN NOTE: Patient admitted for balloon angioplasty done by Dr. Fitzpatrick for R 2nd toe necrotic toe/arterial. R foot warm and dry, 2nd toe with intact dry eschar. heels intact and sacrum. Painted toe with Betadine and dry dressing applied with toe
sock to secure. Will confirm with vascular and update discharge instructions. For discharge later today per vascular. Updated nurse Stephanie.
[2024-11-09 11:10] VITALS: BP 129/54
--- NOTE | 2024-11-09 12:06 | CM ---
Spoke with Patient in room . Pt is a rehab pt at [facility]. Pt had vascular procedure yesterday and stayed over night.
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
Livan said to call [facility] for wheelchair transport and to bill to [facility]. Spoke with Ebni at [facility] [phone] . He said wc in room to be used. 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
Faustino and aware of [facility] van transport today a 4:00pm.
IMM completed on chart.
Pt uses walker and wheelchair at baseline.
Livan
report [phone]
fax [phone]
PLAN rectum to [facility] via [facility] van
[2024-11-09] MEDS: ROXICODONE 5 MG PO (14:19)
--- NOTE | 2024-11-09 14:46 | PN.CDI ---
CDI
- -
CDI:
Physician Documentation Request
Admit Date: 11/08/24 15:29
Dear Doctor Nanette/Resident ,
Please review the following and provide your response in the progress notes.
Clinical Indicators:
Pt admitted with PAD with RLE ischemia s/p Angioplasty
Documented in H&P, Hx of afib
Scanned in other documents from correction Permanent atrial fibrillation
EKG on 11/08 this admit atrial fibrillation /Pt home meds Eliquis BID
Documented per past visit 09/29/24 update note , ' Permanent atrial fibrillation -Per outpatient documentation from cardiology notes, also on chronic anticoagulation...'
If possible, please provide further specificity regarding atrial fibrillation, such as:
Permanent atrial fibrillation - when a decision has been made to accept the presence of AF and there is no further attempt to restore or maintain sinus rhythm
Paroxysmal atrial fibrillation - terminates spontaneously or with intervention within 7 days of onset
Persistent atrial fibrillation - episodes of continuous AF that last more than 7 days and do not self-terminate
Other ( please specify)
Use of terms such as suspected, likely, concern for, or probable (associated with a specific diagnosis that is being evaluated, monitored, or treated as if it exists) are acceptable and can be coded in the inpatient setting, when documented at the
time of discharge.
Thank you,
Basia Reddy RN
CDI Specialist
[place] [facility]
Please use your independent medical judgment in providing your response.
[2024-11-09 14:59] VITALS: BP 127/70
== END 2024-11-09 16:30 | DRG 253 ==
LOC: 2 SOUTH 15:29
PROVIDERS: ADMITTING PHYSICIAN Surgery Vascular Surgery; PRIMARYCARE PHYSICIAN Internal Medicine
PROC: 067Y3ZZ Dilation of Lower Vein, Percutaneous Approach (ICD-10-PCS; 2024-11-08)
PROC: B41F1ZZ Fluoroscopy of Right Lower Extremity Arteries using Low Osmolar Contrast (ICD-10-PCS; 2024-11-08)
PROC: B54BZZ3 Ultrasonography of Right Lower Extremity Veins, Intravascular (ICD-10-PCS; 2024-11-08)
DX: I70.261 Atherosclerosis of native arteries of extremities with gangrene, right leg (principal); I48.21 Permanent atrial fibrillation
CPT/HCPCS: 36140; 37248; 75710; 80048; 85027; 85610; 85730; 87070; 93005; C1725; C1769; C1894; Q9967

== ENCOUNTER → 2024-11-28 14:10 | Outpatient (REF) | payer MEDICARE, SELFPAY | LOC: RAD 14:10 | PROVIDERS: ATTENDING PHYSICIAN Surgery Vascular Surgery; FAMILY PHYSICIAN Internal Medicine | DX: Z09 Encounter for follow-up examination after completed treatment for conditions other than malignant neoplasm (principal); I73.9 Peripheral vascular disease, unspecified | CPT/HCPCS: 93922; 93926; 93971 ==

== ENCOUNTER 2024-12-05 00:07 | Inpatient (IN) | payer MEDICARE, SELFPAY ==
[2024-12-04 19:47] VITALS: BP 107/59
[2024-12-04 19:48] VITALS: BP 107/59
[2024-12-04 20:00] VITALS: BP 120/76
[2024-12-04 20:01] VITALS: BMI 25.9
[2024-12-04 20:13] LABS: Hematocrit 23.2 % (39.0-52.0); Hemoglobin 7.1 g/dL (13.0-18.0); Mean Corp Hgb Conc. 30.6 g/dL (33.0-37.0); Mean Corpuscular Volume 103.1 fL (80.0-94.0); Nucleated Red Blood Cells % 0.2 % (-); Platelet Count 298 10^3/uL (130-400); Red Cell Dist. Width 16.6 % (11.5-14.5)
--- NOTE | 2024-12-04 20:20 | ED.GENMED ---
History of Present Illness
General
Chief Complaint: Generalized Pain
Source: patient
Time Seen by Provider: 12/04/24 20:08
History of Present Illness
History of Present Illness:
This patient is an 84-year-old male who states that he has not been feeling great for the last few days but then states that this is 'normal' for him given his longstanding chronic illnesses. He has chronic bilateral leg pain as well as back pain
and that has not changed. Today he felt a little bit more tired than usual. He did eat as usual. At around 4 PM he was having a bowel movement and while on the toilet developed diaphoresis associated with dizziness described as lightheadedness
like he just wanted to lay down. He went into bed and lay down but also asked to be brought to the hospital given his symptoms. He is asymptomatic now with exception of feeling tired. He denies any associated chest pain or pressure, new dyspnea,
abdominal pain, vomiting, anorexia, headache, new numbness or tingling, focal weakness, urinary symptoms. He did feel slightly nauseous with this. He notes that he has had a recent nonproductive cough that resolved yesterday. Patient otherwise
denies any complaints.
Past History
Past History
ED Past Medical History: Arrthythmia (afib), HTN and Other (Compression fractures, peripheral arterial disease, hyperlipidemia)
ED Past Surgical History: Cardiac, Orthopedic and Other (Vascular)
Social History
Tobacco: Non-smoker
Alcohol: None
Drug: None
Personal:
Living: with family
Employment: Retired
Phy Exam
Physical Exam
Physical Exam:
GENERAL: Alert , in no apparent distress, nontoxic, watching TV, smiling
EYE: pupils equal and reactive, conjunctive a very slightly pale, no photophobia
NECK: Supple, no significant adenopathy.
ENT: o/p clr, mmm.
CARDIAC: Irregularly irregular, slightly tachycardic
LUNGS: Clear breath sounds bilaterally, no acute respiratory distress, no wheezes rales or rhonchi noted, no active cough
ABDOMEN: Soft, without focal tenderness, no r/g, no cvat
NEUROLOGICAL: Alert and oriented, no focal neuro deficits
SKIN: Warm and dry, skin intact.
MUSCULOSKELETAL: Patient has chronic necrotic changes of right second toe, no cyanosis, no pallor or cool to touch sensation noted
PSYCH: Normal and appropriate interaction.
Course
Orders/Labs/Results
Orders:
Orders
12/04/24 19:49
EKG [Electrocardiogram (*1)] Urgent
Reason for Study: Fatigue / Weakness
EKG- Treatment ONCE
12/04/24 20:02
Complete Blood Count/With Diff Urgent
Comprehensive Metabolic Panel Urgent
Troponin I Urgent
12/04/24 20:24
Cardiac Monitoring- Treatment ONCE
CR Chest - 2 Views Urgent
Comment:
Reason For Exam: cough
12/04/24 20:44
COVID-19 Antigen Urgent
Source: Nasal Swab
Urinalysis Reflex To Culture Urgent
Date Specimen was Collected: 12/04/24
Time Specimen was Collected: 20:27
Urine Microscopic Reflex Cult Urgent
Influenza A+B Rapid Molecular Urgent
MORGAN Source: Nasal Swab
Specimen Description:
Urine Culture Urgent
MORGAN Source: U
Specimen Description:
Date Specimen was Collected: 12/04/24
Time Specimen was Collected: 20:27
12/04/24 23:00
Flush (0.9% Sodium Chloride) [Flush (Nss)] See Dose Instructions IV PER PROTOCOL
12/04/24 23:25
Admit/Transfer Patient As Directed
Co-Sign Provider:
Level of Care: Inpatient admission
Assign to:: Telemetry
Physician / Group: saige
Diagnosis: nonsustained ventricular tachycardia
Reason for Telemetry: Arrhythmia
Date to Stop Telemetry: 12/07/24
Time to Stop Telemetry: 11:00
Reason for Hospitalization: nonsustained ventricular tachycardia
Expected length of stay greater than two midnights?: Yes
ELOS- Estimated Length of Stay in days: 2
I certify the patient meets the requirements for IP care: Yes
Code Status As Directed
Resuscitation Status: Do not resuscitate
Reached after discussion with pt or family/Healthcare POA: Yes
PRN Pain Medication Management As Directed
May give lesser potent ordered pain med per pt: Yes
preference::
Protocol:: Medication orders for pain may be administered in a
manner that supports deferring to patient preference
when the pt is:
- Requesting an ordered lesser potent pain medication.
Least to most potent pain medications are defined
as: acetaminophen < NSAID < tramadol < opioids
(morphine, oxycodone, hydromorphone).
- Requesting a lesser dose of the same medication IF
ORDERED.
- Requesting a less intrusive route of administration
if both routes are prescribed by the provider (PO <
IV).
12/04/24 23:26
DNR Bracelet Application ONCE
12/04/24 23:28
Oxycodone [Roxicodone] 5 mg PO NOW STA
Sodium Zirconium Cyclosilicate [Lokelma] 5 gram PO NOW STA
12/04/24 23:30
Apixaban [Eliquis] 5 mg PO BID
12/05/24 00:55
Acetaminophen [Tylenol] 650 mg PO Q4HPRN PRN mild pain
Bisacodyl [Dulcolax] 10 mg RECTAL [id number] PRN if no bm aftr mom
Magnesium Hydroxide [Milk of Magnesia] 30 ml PO HSPRN PRN constipation
Oxycodone [Roxicodone] 5 mg PO Q8HPRN PRN severe Pain
12/05/24 00:55
Add On- LAB Routine
Tests Added?: iron, tibc, ferritin, b12, folate
CARDIOLOGY CONSULT Routine
Consulting Provider: Larry Jaimes
Was physician already notified: Yes
VTE Contraindication Routine
VTE Mechanical Device Contraindication: Medical Contraindication
Pharmocologic Contraindication: Medical Contraindication
Activity As Directed
Activity Level: As Tolerated
Vital Signs As Directed
Frequency: Per unit guidelines
12/05/24 01:05
Troponin I Q6H
12/05/24 Breakfast
Cholesterol Lowering
At Your Request: Full Participation
Does patient need a safe tray?: No
Cholesterol Lowering: Sodium, 2 Gram
12/05/24 06:29
Complete Blood Count/With Diff IN AM
Comprehensive Metabolic Panel IN AM
Troponin I Q6H
12/05/24 08:00
Apixaban [Eliquis] 5 mg PO BID
Aspirin Low Dose EC [Aspir Low (Enteric Coated)] 81 mg PO DAILY
Calcium Carbonate [Oscal Cedric 500] 500 mg PO BID
Cholecalciferol (Vitamin D3) [VITAMIN D3 (cholecalciferol)] 25 mcg PO DAILY
Metoprolol Xl [Toprol Xl] 75 mg PO DAILY
12/05/24 12:29
Troponin I Q6H
12/05/24 18:00
Atorvastatin [Lipitor] 10 mg PO QPM
abaloparatide [Tymlos] See Dose Instructions SC QPM
12/07/24 11:00
DC Protocol for Telemetry ONCE
Abnormal Lab Results
12/04/24 12/04/24
20:02 20:44
WBC 12.4 H 10^3/uL
(4.8-10.8)
RBC 2.25 L 10^6/uL
(4.70-6.10)
Hgb 7.1 L g/dL
(13.0-18.0)
Hct 23.2 L %
(39.0-52.0)
MCV 103.1 H fL
(80.0-94.0)
MCH 31.6 H pg
(27.0-31.0)
MCHC 30.6 L g/dL
(33.0-37.0)
RDW 16.6 H %
(11.5-14.5)
Abs Immat Gran (auto) 0.3 H 10^3/uL
(0-0.05)
Absolute Neuts (auto) 10.0 H 10^3/uL
(1.4-6.5)
Absolute Lymphs (auto) 0.8 L 10^3/uL
(1.2-3.4)
Absolute Monos (auto) 1.1 H 10^3/uL
(0.1-0.6)
Immature Gran % 2.2 H %
(0-0.5)
Neutrophils % 80.0 H %
(42.2-75.2)
Lymphocytes % 6.7 L %
(20.5-51.1)
Potassium 5.5 H mmol/L
(3.5-5.1)
Chloride 108 H mmol/L
(98-107)
BUN 54 H mg/dl
(9-20)
Glucose 146 H mg/dl
(70-99)
Total Protein 5.6 L g/dl
(6.3-8.2)
Albumin 3.3 L g/dl
(3.5-5.0)
Urine Bacteria (Reflex) Moderate A
(Negative)
Urine Albumin (Reflex) 1+ A
(Neg - Trace)
12/04/24 20:02
12/04/24 20:02
Vital Signs
Initial and Last Documented VS:
Initial Vital Signs
BP
107/59
12/04/24 19:47
Last Documented Vital Signs
Temp Pulse Resp BP Pulse Ox
97.7 F 90 16 106/56 98
12/06/24 11:05 12/06/24 11:05 12/06/24 11:05 12/06/24 11:05 12/06/24 11:05
*Pulse Oximetry
SaO2: 99
Oxygen Mode of Delivery: Room air
Patient hypoxic: no
*Critical Care Note
Total Time (30-74mins, 75-104mins- exclusive of procedures): Not Applicable
Update Note
Update Note:
Patient presents to the Emergency Department with near syncope
Number and Complexity of Problems Addressed at the Encounter
� Chronic conditions affecting care:
� Acute Exacerbation and/or Progression of Chronic Illness:
� Differential Diagnosis includes: But not limited to dehydration, vasovagal event related to defecation, arrhythmia, etc.
Amount and/or Complexity of Data to be Reviewed and Analyzed
� I performed an independent evaluation of and my interpretation is:
EKG: Read by me, A-fib with RVR, normal axis, no acute ischemia
CT:
Xrays: Chest x-ray read by me NAD
Laboratory Studies: Anemia at baseline, mild hyperkalemia noted, troponin nonspecific, COVID unremarkable
Other:
� Review of other/old records reveals:
� Clinical information was obtained by an independent historian:
� Prescriptions/Medications Considered but not given:
� Further testing considered but not performed:
Risk of Complications and/or Morbidity or Mortality of Patient Management
� Social determinants of health affecting care:
� Discussion with other providers (PCP, Hospitalists, Consultants, etc):
� Escalation of care including admission/observation vs risk of discharge considered: 10:40 PM patient resting comfortably, no new symptoms at this time. Concern regarding pacer interrogation which demonstrates multiple episodes
today of nonsustained V. tach. Nurse also states that when she was in the room with patient he had an episode where he closed his eyes and appeared 'out' for a few seconds, noted heart rate was elevated on monitor at that time but unable to be more
specific. 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 Did confirm with Dr. Kareem LOPES that report is in fact consistent with nonsustained V. tach. Patient
remained stable here. Discussed with hospitalist for overnight observation.
ED Attending Note
-
Portions of this chart may have been created with voice recognition software.� Occasional wrong word or��sound alike� substitutions may have occurred due to the inherent limitations of voice recognition software.
Discharge Plan
Departure
Patient Disposition: Admit
Date of Disposition: 12/04/24
Time of Disposition: 22:42
Admit to: Telemetry
Presentation/result/management discussed w/ accepting MD/DO: Hospitalist
Condition: Fair
Discharge Problem:
Near syncope
Interventions
Interventions:
*Risk Screen - Suicide Last Done: 12/04/24 19:57
*General Assessment Last Done: 12/04/24 19:57
*Neglect/Abuse Screening Last Done: 12/04/24 19:57
*ED- Fall Risk Assessment Last Done: 12/04/24 19:57
*ED COVID-19 Vaccine History Last Done: 12/04/24 19:57
*Nursing Disposition Last Done: 12/05/24 00:31
Discharge Date and Time
Discharge Date/Time: 12/05/24 00:32
[2024-12-04 20:56] LABS: ALT (SGPT) 17 U/L (0-50); AST (SGOT) 22 U/L (17-59); Albumin 3.3 g/dl (3.5-5.0); Alkaline Phosphatase 88 U/L (38-126); Blood Urea Nitrogen 54 mg/dl (9-20); Calcium 8.8 mg/dl (8.4-10.2); Carbon Dioxide 27 mmol/L (22-30); Chloride 108 mmol/L (98-107); Estimated Creatinine Clearance 40 ml/min; Glucose 146 mg/dl (70-99); Potassium 5.5 mmol/L (3.5-5.1); Sodium 139 mmol/L (135-145); Total Protein 5.6 g/dl (6.3-8.2); eGFR > 60.00
[2024-12-04 21:00] VITALS: BP 117/88
[2024-12-04 21:00] LABS: Urine Character Clear (Clear)
[2024-12-04 21:08] LABS: Urine Red Blood Cell 0-2 /HPF (0-2); Urine Squamous Cell 0-2 /LPF (Few); Urine White Cell 0-2 /HPF (0-5)
[2024-12-04 21:20] LABS: COVID-19 Antigen Negative (Negative)
[2024-12-04 21:29] LABS: Troponin I 0.022 ng/ml
[2024-12-04 22:41] VITALS: BP 123/67
[2024-12-04 23:00] VITALS: BP 122/59
--- NOTE | 2024-12-04 23:32 | HPS.HSE ---
Addendum entered and electronically signed by Fatmata Ovalle MD 12/04/24 23:40:
Patient denies any blood in stool or black stool or any bleeding from elsewhere.
Will transfuse 1 unit PRBC given slow decline in hemoglobin and symptomatic anemia.
Original Note:
Family Physician
-
Family Physician: INTERVIEWE UNKNOWN - PT NOT
Chief Complaint
-
near syncope
History of Present Illness
84-year-old male past medical history of atrial fibrillation with permanent pacemaker, peripheral arterial disease, history of left toe amputation, CAD, hyperlipidemia, hypertension, hyponatremia, chronic back pain secondary to disc herniations,
presenting with lightheadedness. Around 4 PM he was having a bowel movement and while in the toilet he developed diaphoresis associate with dizziness described as lightheadedness. He went into bed and lay down and asked to come to the hospital.
He now denies any symptoms apart from fatigue. He denies any chest pain or pressure, shortness of breath, abdominal pain, vomiting, headache, numbness or tingling, focal weakness or urinary symptoms. He did feel slightly nauseous during the
lightheadedness. He had nonproductive cough yesterday that resolved. Denies any constipation.
Patient does not follow with cardiology here. He sees Dr. Farias.
He has been having ongoing fatigue for the past several months which was worse today.
He denies smoking or alcohol use.
Medical History
Past Medical History
Past Medical History: Reports Other (atrial fibrillation with permanent pacemaker, peripheral arterial disease, history of left toe amputation, CAD, hyperlipidemia, hypertension, hyponatremia, chronic back pain secondary to disc herniations,)
Past Surgical History: Reports None
Social History
Tobacco: Non-smoker
Alcohol: None
Drug: None
Family History
Family History: Not pertinent
Allergies / Home Medications
Allergies reflects when Allergies were last updated in [facility].
Home Medications with original date entered in [facility]
Allergy/Medication List:
Allergies
Allergy/AdvReac Type Severity Reaction Status Date / Time
No Known Allergies Allergy Verified 12/04/24 19:56
Home Medications
atorvastatin 10 mg tablet 10 mg PO QPM High cholesterol 09/22/20
metoprolol succinate 50 mg tablet,extended release 24 hr 75 mg PO DAILY 01/23/21
cholecalciferol (vitamin D3) 25 mcg (1,000 unit) tablet (Vitamin D3) 25 mcg PO DAILY 03/27/22
calcium carbonate 600 mg PO BID 05/27/24
abaloparatide (Tymlos) 80 mcg SC QPM 09/21/24
aspirin 81 mg tablet,delayed release 81 mg PO DAILY 09/26/24
acetaminophen 325 mg tablet (Tylenol) 650 mg PO Q4HPRN PRN mild pain 10/01/24
apixaban 5 mg tablet (Eliquis) 5 mg PO BID 10/01/24
bisacodyl 10 mg rectal suppository (Dulcolax (bisacodyl)) 10 mg MS [id number] PRN if no bm aftr mom 10/01/24
magnesium hydroxide 400 mg/5 mL oral suspension (Milk of Magnesia) 2,400 mg PO HSPRN PRN constipation 10/01/24
oxycodone 5 mg tablet 5 mg PO Q8HPRN PRN severe Pain 10/01/24
Review of Systems
-
History Source: Patient
A 12 point ROS was completed and negative except as noted: Yes
Constitutional: Reports No Symptoms
EENT: Reports No Symptoms
Respiratory: Reports No Symptoms
Cardiac: Reports No Symptoms
Abdomen/GI: Reports No Symptoms
: Reports No Symptoms
Musculoskeletal: Reports No Symptoms
Skin: Reports No Symptoms
Neurological: Reports No Symptoms
Endocrine: Reports No Symptoms
Hematologic/Lymphatic: Reports No Symptoms
Psych: Reports No Symptoms
Physical Exam
Vital Signs
Vital Signs
Temp Pulse Resp BP Pulse Ox
98.5 F 96 20 122/59 100
12/04/24 19:48 12/04/24 23:15 12/04/24 23:15 12/04/24 23:00 12/04/24 23:15
Physical Exam
General: Well Developed, Well Nourished and No Apparent Distress
HEENT: NormoCephalic, Moist mucous membranes and Atraumatic
Respiratory: Clear
Cardiac: S1/S2 and Regular Rhythm; No Murmur or Rub
GI: Soft, Non Tender, Non Distended and Normal Bowel Sounds; No Organomegaly
Rectal: Deferred by Provider
Musculoskeletal: No Clubbing, No Cyanosis and No Edema
Skin: No Rash
Neuro: Nonfocal/grossly intact
Laboratory Results
-
12/04/24 20:02
12/04/24 20:02
Laboratory Results
Total Bilirubin 0.9 mg/dl (0.2-1.3) 12/04/24 20:02
AST 22 U/L (17-59) 12/04/24 20:02
ALT 17 U/L (0-50) 12/04/24 20:02
Alkaline Phosphatase 88 U/L (38-126) 12/04/24 20:02
Troponin I 0.022 ng/ml 12/04/24 20:02
Data Reviewed
-
Lab Data: Labs Reviewed by me
Old Records: Reviewed
Impression/Plan
-
IMPRESSION:
PLAN:
# Near syncopal episode secondary to nonsustained ventricular tachycardia episodes possibly triggered by hyperkalemia
- Appears the patient had 10 nonsustained ventricular tachycardia episodes between 17:54-18:49 as per pacemaker interrogation
-EKG shows atrial fibrillation with RVR heart rate 111
-Troponin 0.022, continue to trend
- Chest x-ray pending
- Cardiology consulted
# Hyperkalemia unclear etiology
-Not on any medications that would cause hyperkalemia, has not recently been constipated
- Will give Lokelma
# Chronic symptomatic macrocytic anemia
- Hemoglobin 7.1, hemoglobin is fluctuating up to 9 this year
- Transfuse for hemoglobin under 7
- Check iron studies, B12 and folate
Chronic leukocytosis unclear etiology
- White blood cell count around 12 for the past 2 months
History of permanent atrial fibrillation with permanent pacemaker
- Continue Eliquis
- Continue metoprolol
CAD
- Continue aspirin
Peripheral arterial disease
Hyperlipidemia
- Continue statin
Essential hypertension
Chronic leg/back pain secondary to herniated disc
- Continue oxycodone
- Continue Tylenol
History of compression fracture
Osteoporosis
- Continue Tymlos
History of toe amputations
History of constipation
DNR/DNI
DVT prophylaxis�Eliquis
Cardiac diet
[2024-12-04] MEDS: ROXICODONE 5 MG PO (23:59)
[2024-12-05] VITALS (12 sets, daily range): BP systolic 83–143; BP diastolic 56–84; PULSE 81–96; BMI 25.7
[2024-12-05] MEDS: ELIQUIS 5 MG PO
[2024-12-05] MEDS: LOKELMA 5 GRAM PO (00:03)
--- NOTE | 2024-12-05 00:45 | W.PN.UPDATE ---
Update Note
Progress Note Update
Pt requesting to rescind consent for blood. Dr. Ovalle notified- Transfusion canceled as it is not urgent at this time.
[2024-12-05 01:45] LABS: Troponin I 0.023 ng/ml
[2024-12-05 06:53] LABS: Hematocrit 20.5 % (39.0-52.0); Hemoglobin 6.6 g/dL (13.0-18.0); Mean Corp Hgb Conc. 32.2 g/dL (33.0-37.0); Mean Corpuscular Volume 100.5 fL (80.0-94.0); Nucleated Red Blood Cells % 0.2 % (-); Platelet Count 249 10^3/uL (130-400); Red Cell Dist. Width 16.5 % (11.5-14.5)
[2024-12-05 07:15] LABS: Troponin I 0.024 ng/ml
[2024-12-05 07:39] LABS: ALT (SGPT) 15 U/L (0-50); AST (SGOT) 25 U/L (17-59); Albumin 2.9 g/dl (3.5-5.0); Alkaline Phosphatase 80 U/L (38-126); Blood Urea Nitrogen 50 mg/dl (9-20); Calcium 8.3 mg/dl (8.4-10.2); Carbon Dioxide 23 mmol/L (22-30); Chloride 111 mmol/L (98-107); Estimated Creatinine Clearance 49 ml/min; Glucose 106 mg/dl (70-99); Iron 65 ug/dl (49-181); Potassium 4.7 mmol/L (3.5-5.1); Sodium 136 mmol/L (135-145); Total Protein 5.1 g/dl (6.3-8.2); eGFR > 60.00
[2024-12-05 07:48] LABS: Total Iron Binding Capacity 337 ug/dl (261-462)
[2024-12-05 08:14] LABS: Ferritin 23.3 ng/ml (17.9-464.0)
[2024-12-05] MEDS: VITAMIN D3 (cholecalciferol) 25 MCG PO (08:42)
[2024-12-05] MEDS: TOPROL XL 75 MG PO (08:42)
[2024-12-05 08:46] LABS: Folate 8.3 ng/ml (2.76-20); Vitamin B12 487 pg/ml (239-931)
[2024-12-05] MEDS: FLUSH (NSS) 1 FLUSH IV (08:48)
[2024-12-05] MEDS: ASPIR LOW (ENTERIC COATED) PO (08:48)
[2024-12-05] MEDS: OSCAL CAL 500 500 MG PO ×2 (08:48→20:16)
--- NOTE | 2024-12-05 09:00 | CON.CAR ---
Addendum entered and electronically signed by Lionel Colón MD 12/05/24 12:14:
84-year-old man with permanent atrial fibrillation and [employer] pacer, admitted with near syncope and high ventricular rates on pacemaker histograms, troponin 0.022. Hemoglobin 6.6, prior to hospital admission September 2024, hemoglobin had been
9.9
PMH: PAD, left toe amputation, CAD, hyperlipidemia, hypertension, hyponatremic uremia, back pain and degenerative disc disease, history of near syncope possibly related to orthostasis and A-fib with RVR
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
Current meds: Tymlos, aspirin 81 mg a day, atorvastatin 10 mg a day, calcium carbonate, Toprol ER 75 mg a day, apixaban on hold
142/82, pulse 92, respirations 18, afebrile sats 100%, sallow complexion, head neck exam unremarkable, lungs are clear, irregular rate and rhythm without obvious murmurs. Extremities without clubbing cyanosis or edema, distal pulses difficult to
palpate on the left, probably palpable on right,
Pleasant, confused
ECG A-fib nonspecific ST and T wave changes
Hemoglobin 6.6, MCV 100.5, BUN/creatinine 50 and 0.9, oxygen saturations are 19%, iron is 65, B12 and folate are pending, troponin is 0.024
High ventricular rate episodes on monitor
Plan:
He presents with syncope that I suspect relates to episodes of rapid ventricular response to atrial fibrillation in the setting of progressive anemia and hemoglobin down to 6.6. High-rate episodes seen on pacer histograms are more likely to be
rapid ventricular response to A-fib rather than nonsustained VT.
His last echocardiogram in 2020 was unremarkable. Will repeat.
Treatment of anemia per primary team. He is scheduled for transfusion. Pradaxa now on hold. He is on low-dose aspirin. Eventually would like to restart Pradaxa. Since we wish to restart anticoagulation, consider GI consultation, though patient
DNR.
Given recent right lower extremity transcatheter arterialization of venous system, would discuss with vascular surgery as to best antiplatelet/anticoagulant strategy.
Overall average ventricular response to atrial fibrillation is satisfactory, but I think he has episodes where rate is rapid and this could be a contributor to lightheadedness. Ideally we would uptitrate beta-hollie. This may be problematic given
a potential history of orthostasis. We can consider the addition of digoxin. Amiodarone could be considered for rate control, and ultimately AV alin ablation could be considered if episodes of lightheadedness persist.
Potassium is now improved.
We will continue to follow.
Original Note:
Consultation
Consultation Request
Date/Time Consultation Requested: 12/05/2024 at 0055
Date/Time Consultation Performed: 11/27/2024 at 0900
Requesting Provider: Dr. Liu
Performing Provider: Dr. Jaimes
Reason for Consultation: Near syncope
Medical History
-
History of Present Illness:
Patient came to the ER yesterday from home with near syncope and cardiology is consulted for possible NSVT on device interrogation. Patient was just admitted to the hospital from 11/08/2024 until 12-02 with PAT and for a peripheral vascular
intervention. Patient was discharged to [facility] for rehab, but has since returned home. Patient follows with cardiology at [facility], Dr. Luna, and has a [employer] PPM that is managed at [facility] by Dr. Sheridan.
Patient has been seen by our cardiology group during previous admissions. Patient reports being at home yesterday and that his helped him into the bathroom. Patient was able to sit on the toilet and move his bowels and then afterwards began
to feel lightheaded and was diaphoretic. Patient felt unable to stand on his own, but his was able to help him stand up and get back to bed and he felt his body stiffening. Patient does not remember losing consciousness. Patient asked his
to call 911 because he thought he might pass out. No chest pain or SOB. In the ER patient had possible NSVT on the cot assembler and his [employer] PPM was interrogated and the reading also suggested NSVT. Patient has known
permanent A-fib and HR control in the past has been difficult due to orthostasis, the patient is currently taking Toprol-XL 75 mg daily. Orthostatic vital signs were not checked in the ER. Hgb was 8.2 on 11/08/2024 and is down to 6.6 on 12/05/2024.
Patient says he cannot remember the last time he had a colonoscopy.
PMH:
Recent admission for PAD and peripheral interventions 11/08/2024 until 11/09/2024
Permanent Afib
Chronic Pradaxa OAC
s/p [employer] PPM
Hyperlipidemia
Past Medical History
Past Medical History: Other (in HPI)
Past Surgical History: Appendectomy, Cardiac ([employer] PPM) and Other (left TMA)
Social History
Tobacco: Former Smoker
Alcohol: None
Drug: None
Living: [facility] ([facility])
Family History
Family History: Reviewed & Not Pertinent
Allergies / Home Medications
Allergy/AdvReac Type Severity Reaction Status Date / Time
No Known Allergies Allergy Verified 12/04/24 19:56
�Medication �Instructions �Recorded �Confirmed �Type
atorvastatin 10 mg tablet 10 mg PO QPM High cholesterol 09/22/20 12/05/24 History
metoprolol succinate 50 mg 75 mg PO DAILY 01/23/21 12/05/24 History
tablet,extended release 24 hr
cholecalciferol (vitamin D3) 25 25 mcg PO DAILY 03/27/22 12/05/24 History
mcg (1,000 unit) tablet (Vitamin
D3)
calcium carbonate 600 mg PO BID 05/27/24 12/05/24 History
abaloparatide (Tymlos) 80 mcg SC QPM 09/21/24 11/08/24 History
acetaminophen 325 mg tablet 650 mg PO Q4HPRN PRN mild pain 10/01/24 11/08/24 History
(Tylenol)
oxycodone 5 mg tablet 5 mg PO Q8HPRN PRN severe Pain 10/01/24 12/05/24 History
dabigatran etexilate 150 mg capsule 150 mg PO BID 12/05/24 12/05/24 History
Review of Systems
-
History Source: Patient
All other systems: Negative unless noted
Physical Exam
Vital Signs
Temp Pulse Resp BP Pulse Ox
98.3 F 92 18 142/82 100
12/05/24 07:59 12/05/24 07:59 12/05/24 07:59 12/05/24 07:59 12/05/24 07:59
GEN: No distress, awake, alert and oriented x3
HEENT: EOMI, MMM
LUNGS: RA. CTA B/L, no wheezes or rales
CV: Afib on tele. Irreg irreg, S1/S2, no murmur
ABD: ND
EXT: No edema B/L
NEURO: Gross non-focal
SKIN: No rash
Lab Results
12/05/24 06:29
12/05/24 06:29
Troponin I 0.024 ng/ml 12/05/24 06:29
Impression / Plan
-
PCP: Dr. Christine
Cardiology: Dr. Farias [facility]
EP: Dr. Sheridan [facility]
Impression:
Admitted with near syncope
Recent admission for PAD and peripheral interventions 11/08/2024 until 11/09/2024
Anemia
Hyperkalemia
Near syncope
Afib with RVR
NSVT on PPM interrogation report is rapid Afib that is being tracked in the ventricle
Permanent Afib
Chronic Pradaxa OAC
s/p [employer] PPM
Hyperlipidemia
Echo 11/02/2020: EF 55 to 60%, trace MR, aortic sclerosis without stenosis
Plan:
-Patient came to the ER yesterday from home with near syncope and cardiology is consulted for possible NSVT on device interrogation. Patient was just admitted to the hospital from 11/08/2024 until 12-02 with PAT and for a peripheral vascular
intervention. Patient was discharged to [facility] for rehab, but has since returned home. Patient follows with cardiology at [facility], Dr. Luna, and has a [employer] PPM that is managed at [facility] by Dr. Sheridan.
Patient has been seen by our cardiology group during previous admissions. Patient reports being at home yesterday and that his helped him into the bathroom. Patient was able to sit on the toilet and move his bowels and then afterwards began
to feel lightheaded and was diaphoretic. Patient felt unable to stand on his own, but his was able to help him stand up and get back to bed and he felt his body stiffening. Patient does not remember losing consciousness. Patient asked his
to call 911 because he thought he might pass out. No chest pain or SOB. In the ER patient had possible NSVT on the cot assembler and his [employer] PPM was interrogated and the reading also suggested NSVT. Patient has known
permanent A-fib and HR control in the past has been difficult due to orthostasis, the patient is currently taking Toprol-XL 75 mg daily. Orthostatic vital signs were not checked in the ER. Hgb was 8.2 on 11/08/2024 and is down to 6.6 on 12/05/2024.
Patient says he cannot remember the last time he had a colonoscopy.
-ECG reviewed by me is A-fib with RVR.
-Check echo, ordered by me.
-Patient has known permanent A-fib. ECG on admission was A-fib with RVR. [employer] PPM device interrogation reviewed by me and also reviewed with EP. Episodes recorded as NSVT appear more consistent with A-fib with RVR and that the rapid
atrial rates are tracking in the ventricles.
-Patient was hyperkalemic on admission, but this has improved today. Labs reviewed by me 11/27/2024
-Rate control has been difficult in the past due to orthostasis and also suspect HR's have been faster due to anemia.
-For now we will continue usual dose of Toprol-XL 75 mg daily and treat anemia
-PRBCs ordered by hospitalist attending 12/05/2024 on my review of the chart
-Outpatient dose of Pradaxa 150 mg BID is on hold. There is no history of thromboembolic event. Patient is now ordered aspirin 81 mg daily.
-GI is not consulted to see the patient and patient cannot recall the last time he had colonoscopy
-Case reviewed with hospitalist attending in person on 12/05/2024.
--- NOTE | 2024-12-05 12:23 | W.PN.HOSP.TC ---
Today's Communication/Plan
-
Heme test stool pending
IV iron, B12 supplementation
Repeat H&H after blood transfusion
Assessment / Plan
Assessment / Plan
General: Well Developed, Well Nourished and No Apparent Distress
HEENT: NormoCephalic, Moist mucous membranes and Atraumatic
Respiratory: Clear
Cardiac: S1/S2 and irregular irregular No Murmur or Rub
GI: Soft, Non Tender, Non Distended and Normal Bowel Sounds; No Organomegaly
Rectal: Deferred by Provider
Musculoskeletal: No Clubbing, No Cyanosis and No Edema
Skin: No Rash
Neuro: Nonfocal/grossly intact
# Near syncopal episode secondary to atrial fibrillation and anemia
#Nonischemic myocardial injury
- Appears the patient had 10 nonsustained ventricular tachycardia episodes between 17:54-18:49 as per pacemaker interrogation
-EKG shows atrial fibrillation with RVR heart rate 111
-Troponin 0.022, no need to further trend
- AV alin blocking agent per cardiology
- Cardiology consulted
# Hyperkalemia unclear etiology
-Not on any medications that would cause hyperkalemia, has not recently been constipated
- Will give Lokelma
# Chronic symptomatic macrocytic anemia
Iron deficiency anemia
Start patient IV iron while here. Start B12 supplementation.
Heme test stools pending. However per patient no blood in stool noted at home. Denies any hematuria.
Blood transfusion ordered. Repeat H&H later today.
Chronic leukocytosis unclear etiology
- White blood cell count around 12 for the past 2 months
History of permanent atrial fibrillation with permanent pacemaker
- Pradaxa on hold with anemia
- Continue metoprolol 75 mg daily. Will defer additional agent to cardiology.
CAD
- Continue aspirin
Peripheral arterial disease
Hyperlipidemia
- Continue statin
Essential hypertension
Chronic leg/back pain secondary to herniated disc
- Continue oxycodone
- Continue Tylenol
History of compression fracture
Osteoporosis
- Continue Tymlos
History of toe amputations
History of constipation
DNR/DNI
DVT prophylaxis�Pradaxa on hold
Cardiac diet
Anticipated Discharge: Within 24 hours
Subjective/Interval History
-
Date of Service: December 05, 2024
feeling better
Denies any melanotic stools. Denies any blood in stool. Denies any blood in urine. Denies any nausea or vomiting
Objective Data
-
Labs:
Laboratory Results
12/05/24
06:29
WBC 12.3 H
Hgb 6.6 L*
Hct 20.5 L*
Plt Count 249
Sodium 136
Potassium 4.7
Chloride 111 H
Carbon Dioxide 23
BUN 50 H
Creatinine 0.9
Glucose 106 H
Calcium 8.3 L
Total Bilirubin 0.6
AST 25
ALT 15
Alkaline Phosphatase 80
Vital Signs:
Vital Signs
Temp Pulse Resp BP Pulse Ox
97.8 F 79 16 125/62 98
12/05/24 12:10 12/05/24 12:10 12/05/24 12:10 12/05/24 12:10 12/05/24 11:41
I&O
12/04/24 12/05/24 12/06/24
06:59 06:59 06:59
Intake Total 0 / 0
Output Total 400 / 400 150 / 150
Balance -400 / -400 -150 / -150
Data Reviewed
-
Total Time Spent with Patient (in minutes): 55
[2024-12-05] MEDS: ASPIR LOW (ENTERIC COATED) 81 MG PO (12:26)
[2024-12-05 13:23] LABS: Troponin I 0.021 ng/ml
[2024-12-05] MEDS: TYLENOL 650 MG PO ×2 (14:51→22:45)
[2024-12-05] MEDS: FLUSH (NSS) 2 FLUSH IV (15:51)
[2024-12-05] MEDS: FERRLECIT 110 MG IV (15:51)
[2024-12-05 16:43] LABS: Hematocrit 24.6 % (39.0-52.0); Hemoglobin 7.7 g/dL (13.0-18.0); Mean Corp Hgb Conc. 31.3 g/dL (33.0-37.0); Mean Corpuscular Volume 99.6 fL (80.0-94.0); Nucleated Red Blood Cells % 0 % (-); Platelet Count 239 10^3/uL (130-400); Red Cell Dist. Width 17.9 % (11.5-14.5)
[2024-12-05] MEDS: LIPITOR 10 MG PO (17:21)
[2024-12-05] MEDS: NON-FORMULARY ITEM 80 MCG SC (17:21)
[2024-12-05] MEDS: ROXICODONE 5 MG PO (20:15)
[2024-12-05] MEDS: PRADAXA 150 MG PO (20:16)
[2024-12-06] VITALS (8 sets, daily range): BP systolic 97–147; BP diastolic 51–80; PULSE 88; O2SAT 99; BMI 25.7
[2024-12-06 07:28] LABS: Hematocrit 24.7 % (39.0-52.0); Hemoglobin 7.9 g/dL (13.0-18.0); Mean Corp Hgb Conc. 32.0 g/dL (33.0-37.0); Mean Corpuscular Volume 96.9 fL (80.0-94.0); Nucleated Red Blood Cells % 0 % (-); Platelet Count 254 10^3/uL (130-400); Red Cell Dist. Width 17.7 % (11.5-14.5)
[2024-12-06 08:06] LABS: Blood Urea Nitrogen 40 mg/dl (9-20); Calcium 8.5 mg/dl (8.4-10.2); Carbon Dioxide 25 mmol/L (22-30); Chloride 107 mmol/L (98-107); Estimated Creatinine Clearance 55 ml/min; Glucose 87 mg/dl (70-99); Potassium 4.6 mmol/L (3.5-5.1); Sodium 135 mmol/L (135-145); eGFR > 60.00
[2024-12-06] MEDS: VITAMIN B-12 1000 MCG PO (08:11)
[2024-12-06] MEDS: OSCAL CAL 500 500 MG PO ×2 (08:11→19:43)
[2024-12-06] MEDS: VITAMIN D3 (cholecalciferol) 25 MCG PO (08:11)
[2024-12-06] MEDS: ASPIR LOW (ENTERIC COATED) 81 MG PO (08:11)
[2024-12-06] MEDS: TOPROL XL 75 MG PO (08:11)
[2024-12-06] MEDS: PRADAXA 150 MG PO (08:13)
[2024-12-06] MEDS: FLUSH (NSS) 1 FLUSH IV ×2 (08:13→13:19)
--- NOTE | 2024-12-06 08:29 | W.PN.CARDCBS ---
Addendum entered and electronically signed by Lionel Colón MD 12/06/24 11:49:
84-year-old man with permanent atrial fibrillation and [employer] pacer, admitted with near syncope and high ventricular rates on pacemaker histograms, troponin 0.022. Hemoglobin 6.6, prior to hospital admission September 2024, hemoglobin had been
9.9
PMH: PAD, left toe amputation, CAD, hyperlipidemia, hypertension, hyponatremic uremia, back pain and degenerative disc disease, history of near syncope possibly related to orthostasis and A-fib with RVR
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
Current meds: Tymlos, aspirin 81 mg a day, atorvastatin 10 mg a day, calcium carbonate, Toprol ER 75 mg a day, Pradaxa on hold
144/80, pulse 88, respirations 20, afebrile, sats 100%, no distress, pleasantly confused lungs clear, soft systolic murmur, extremities without edema, right foot is relatively warm, history of amputation of left foot, very anxious to get
patient to podiatric appointment, Discussions with her suggest that she is considering home hospice and yet patient has been undergoing cutting edge invasive procedures within the last month.
Troponin is 0.021, hemoglobin is 7.9, BUN and creatinine are 40 and 0.8
Impression:
Syncope/near syncope likely related to anemia and atrial fibrillation with rapid ventricular response
Permanent atrial fibrillation
Recent transcatheter arterialization of right lower extremity venous system
Initial presentation with hyperkalemia
Amputation with dry gangrene of transmetatarsal's
Subacute blood loss anemia on Pradaxa and clopidogrel
Other diagnoses as below per Melva Calvo. Note below reviewed in detail and agree unless otherwise specified
Plan:
From the standpoint of atrial fibrillation, his rates are adequately controlled. He still has periods of rapid ventricular response which could have contributed to syncope in the setting of anemia but I think at present I would continue with rate
control and suspect he may do better now that his hemoglobin is close to 8.
His echo moderate mitral regurgitation, LV function is preserved. Will check a proBNP.
From my standpoint, the major issues are twofold:
1. Goals of care have not been clearly defined. He has undergone a cutting edge right lower extremity percutaneous vascular procedure as recently as a month ago, has issues with potential limb threatening ischemia on the left leg for which the
patient's is pressing hard for premature discharge to get to an outpatient podiatry appointment, and yet she is also considering home hospice. These conflicting goals need to be resolved.
2. He has presumed subacute blood loss anemia on clopidogrel and Pradaxa in the setting of his vascular procedures and permanent atrial fibrillation. Presently he is on aspirin only. He has not had a GI evaluation. I do not feel comfortable
restarting Pradaxa long-term in this situation as he will almost certainly develop recurrent blood loss anemia. We need to decide whether the goal is to accept the risk of stroke off anticoagulation or whether it is safe to restart Pradaxa.
I would prefer that the patient not be discharged until these issues are resolved and suggest that inpatient podiatric consultation be obtained rather than attempting to make an outpatient appointment without these important issues being better
defined.
I will place Pradaxa back on hold, continue aspirin and await resolution after discussion with family.
Original Note:
Today's Communication / Plan
-
Echo report pending
Patient's is anxious for discharge so they can make an orthopedic appointment at 11:30 today, but patient's is also interested in pursuing hospice and we discussed that pursuing hospice would mean no longer pursuing aggressive PAD
interventions. Patient's is interested in home hospice evaluation and she will continue to review this with the patient, she expects he will be agreeable as he often says he no longer wishes he was alive due to his pain and immobility when
they are alone at home, but no suicidal ideation.
Impression / Plan
-
PCP: Dr. Christine
Cardiology: Dr. Farias [facility]
EP: Dr. Sheridan [facility]
Impression:
Admitted with near syncope
Recent admission for PAD and peripheral interventions 11/08/2024 until 11/09/2024
Anemia
Hyperkalemia
Near syncope
Afib with RVR
NSVT on PPM interrogation report is rapid Afib that is being tracked in the ventricle
Permanent Afib
Chronic Pradaxa OAC
s/p [employer] PPM
Hyperlipidemia
Echo 11/02/2020: EF 55 to 60%, trace MR, aortic sclerosis without stenosis
Echo 12/06/24: Study pending
Plan:
-Patient was given 1 unit PRBCs on 12/05/2024 and Hgb that was 6.6 improved to 7.9 on my review of labs 12/06/2024. Patient's reports seeing car sales consultant affiliated with [facility] within the last year and that additional blood work was done, but
no bone marrow biopsy. Patient's reports they were very busy with PAD interventions at that time and elected not to pursue additional workup, but were planning to follow-up as an outpatient.
-Longer conversation with the on 12/06/2024 indicates that patient intermittently voices he no longer wishes to be alive at home due to unending pain and he is essentially homebound. Patient's is interested in hospice. We discussed that
pursuing hospice would mean no longer pursuing aggressive care for PAD. We discussed that if patient pursues hospice he would no longer be admitted to the hospital and that the focus would be on comfort and quality of life. Patient has not
specifically indicated he would want to be on hospice, but they are scheduled to meet with an eldercare sports attorney to begin conversations about how to manage their estate given the patient's chronic illness and need for increasing levels of care and
that coupled with the patient's intermittent desires to no longer be alive leads the patient's to believe that hospice is the next most appropriate step. Patient's is going to talk to patient about hospice and they would like to have an
inpatient evaluation by [facility], patient is already current with [facility]. TT from me to the asking for outpatient hospice evaluation on 12/06/2024.
-Orthostatic vital signs performed on 11/27/2024 reviewed by me, supine BP 124/66 with HR of 81, sitting BP 83/65 with HR 86 and standing BP 102/60 with HR 96
-Telemetry reviewed by me and patient continues with A-fib and periods of RVR
-Rate control is made difficult by orthostasis. Outpatient dose of Toprol XL 75 mg daily was given as scheduled on 12/06/2024, patient denies feeling lightheaded or dizzy. Consider changing to Toprol-XL 50 mg BID to balance orthostasis and rate
control efforts
-Echo report pending
-Outpatient dose of Pradaxa 150 mg BID is on hold. There is no history of thromboembolic event, but A-fib is permanent. Patient is now ordered aspirin 81 mg daily.
-[employer] PPM device interrogation reviewed by me and also reviewed with EP. Episodes recorded as NSVT appear more consistent with A-fib with RVR and that the rapid atrial rates are tracking in the ventricles.
-Patient was hyperkalemic on admission, but this has improved today. Labs reviewed by me 11/27/2024
-Case reviewed with hospitalist attending in person on 12/05/2024.
HPI: Patient came to the ER yesterday from home with near syncope and cardiology is consulted for possible NSVT on device interrogation. Patient was just admitted to the hospital from 11/08/2024 until 12-02 with PAT and for a peripheral vascular
intervention. Patient was discharged to [facility] for rehab, but has since returned home. Patient follows with cardiology at [facility], Dr. Luna, and has a [employer] PPM that is managed at [facility] by Dr. Sheridan.
Patient has been seen by our cardiology group during previous admissions. Patient reports being at home yesterday and that his helped him into the bathroom. Patient was able to sit on the toilet and move his bowels and then afterwards began
to feel lightheaded and was diaphoretic. Patient felt unable to stand on his own, but his was able to help him stand up and get back to bed and he felt his body stiffening. Patient does not remember losing consciousness. Patient asked his
to call 911 because he thought he might pass out. No chest pain or SOB. In the ER patient had possible NSVT on the monitor car operator and his [employer] PPM was interrogated and the reading also suggested NSVT. Patient has known
permanent A-fib and HR control in the past has been difficult due to orthostasis, the patient is currently taking Toprol-XL 75 mg daily. Orthostatic vital signs were not checked in the ER. Hgb was 8.2 on 11/08/2024 and is down to 6.6 on 12/05/2024.
Patient says he cannot remember the last time he had a colonoscopy.
Progress Note - Medical Office Specialist
Subjective
Date of Service: December 06, 2024
He feels well, he says he wants to go home
Objective
Labs:
12/06/24 06:34
12/06/24 06:34
Labs
Hgb 7.9 g/dL (13.0-18.0) L 12/06/24 06:34
Hct 24.7 % (39.0-52.0) L 12/06/24 06:34
Plt Count 254 10^3/uL (130-400) 12/06/24 06:34
Sodium 135 mmol/L (135-145) 12/06/24 06:34
Potassium 4.6 mmol/L (3.5-5.1) 12/06/24 06:34
BUN 40 mg/dl (9-20) H 12/06/24 06:34
Creatinine 0.8 mg/dL (0.7-1.3) 12/06/24 06:34
Glucose 87 mg/dl (70-99) 12/06/24 06:34
Troponins
12/04/24 12/05/24 12/05/24
20:02 01:05 06:29
Troponin I 0.022 0.023 0.024
12/05/24 12/05/24
12:29 18:55
Troponin I 0.021 Cancelled
Vital Signs and I&O:
Vital Signs
Temp Pulse Resp BP Pulse Ox
97.9 F 88 20 144/80 100
12/06/24 07:50 12/06/24 08:11 12/06/24 07:50 12/06/24 08:11 12/06/24 08:05
Vital Signs
Temp Pulse Resp BP Pulse Ox
97.9 F 88 20 144/80 100
12/06/24 07:50 12/06/24 08:11 12/06/24 07:50 12/06/24 08:11 12/06/24 08:05
Intake & Output
12/04/24 12/05/24 12/06/24 12/07/24
06:59 06:59 06:59 06:59
Intake Total 1450 / 1450
Output Total 400 / 400 400 / 400
Balance -400 / -400 1050 / 1050
Physical Exam
Physical Exam
GEN: AAO x3
LUNGS: RA. No audible wheeze
CV: Afib on tele.
--- NOTE | 2024-12-06 08:33 | CM ---
Addendum entered by Ruthie Casey RN 12/06/24 09:14:
[facility] .
Original Note:
Alert awake oriented patient who lives with his Humaira who lives in a 2 story home with 1 step to enter and bed and bathroom on first floor. He is independent in activities of daily living.He does not drive.He was offered VN he is unsure on VN..
VN [facility] history
Pharmacy [facility]
PCP DR Sanya Gan
PLAN Home with VN unsure which VN
--- NOTE | 2024-12-06 08:52 | VNURNOTE ---
Chart reviewed. Patient is current with [facility]. Will continue to follow hospital course and DC plans.
--- NOTE | 2024-12-06 11:03 | HOSPNOTE ---
Spoke with spouse about hospice and the philosophy. The [facility] now have the surgery to amputate his toe and then she would like to speak with hospice. The plan is to have the surgery go to rehab at [facility] and then
maybe transition to hospice. I will follow up with the spouse on at her request.
--- NOTE | 2024-12-06 11:46 | W.PN.HOSP.TC ---
Today's Communication/Plan
-
Podiatry eval-?amputation
family decision pending
on asa
pradaxa held
Assessment / Plan
Assessment / Plan
General: Well Developed, Well Nourished and No Apparent Distress
HEENT: NormoCephalic, Moist mucous membranes and Atraumatic
Respiratory: Clear
Cardiac: S1/S2 and irregular irregular No Murmur or Rub
GI: Soft, Non Tender, Non Distended and Normal Bowel Sounds; No Organomegaly
Rectal: Deferred by Provider
Musculoskeletal: No Clubbing, No Cyanosis and No Edema, right second toe dry gangrene
Skin: No Rash
Neuro: Nonfocal/grossly intact
# Near syncopal episode secondary to atrial fibrillation and anemia
#Nonischemic myocardial injury
-Remains in A-fib
-Troponin 0.022, no need to further trend
-AV alin blocking agent per cardiology. Further up titration limited due to orthostasis.
-Echocardiogram with mitral regurgitation. EF of 55 to 60%.
-Cardiology consulted
# Chronic symptomatic macrocytic anemia
Iron deficiency anemia
Start patient IV iron while here. Start B12 supplementation.
Heme test stools pending. However per patient no blood in stool noted at home. Denies any hematuria.
Hemoglobin at 7.9.
Case management for hospice discussion. Will await family decision. If family decides for further aggressive measures then will consult gastroenterology for anemia.
#Right second toe dry gangrene
Dr. Roman blum has been consulted
# Hyperkalemia unclear etiology
-Not on any medications that would cause hyperkalemia, has not recently been constipated
-Resolved
Chronic leukocytosis unclear etiology
- ? Dry gangrene
History of permanent atrial fibrillation with permanent pacemaker
- Pradaxa on hold with anemia
- Continue metoprolol 75 mg daily. Will defer additional agent to cardiology.
CAD
- Continue aspirin
Peripheral arterial disease
Status post balloon angioplasty by Dr. Leighton Fitzpatrick
Plavix has been stopped transition to aspirin per cardiology discussion with Dr. Fitzpatrick.
Hyperlipidemia
- Continue statin
Essential hypertension
Chronic leg/back pain secondary to herniated disc
- Continue oxycodone
- Continue Tylenol
History of compression fracture
Osteoporosis
- Continue Tymlos
History of toe amputations in the past at [facility]
History of constipation
DNR/DNI
DVT prophylaxis�Pradaxa on hold
Cardiac diet
Discussed with patient spouse at bedside in detail
Case management for hospice discussion. Will await family decision. If family decides for further aggressive measures then will consult gastroenterology for anemia.
Discussed with cardiology in detail
Discussed with podiatry
Anticipated Discharge: > 48 hours
Subjective/Interval History
-
Date of Service: December 06, 2024
Denies any blood in stool or urine
States feeling weak but better than before
Tolerating diet
Objective Data
-
Labs:
Laboratory Results
12/06/24
06:34
WBC 12.9 H
Hgb 7.9 L
Hct 24.7 L
Plt Count 254
Sodium 135
Potassium 4.6
Chloride 107
Carbon Dioxide 25
BUN 40 H
Creatinine 0.8
Glucose 87
Calcium 8.5
Vital Signs:
Vital Signs
Temp Pulse Resp BP Pulse Ox
97.7 F 90 16 106/56 98
12/06/24 11:05 12/06/24 11:05 12/06/24 11:05 12/06/24 11:05 12/06/24 11:05
I&O
12/05/24 12/06/24 12/07/24
06:59 06:59 06:59
Intake Total 1450 / 1450
Output Total 400 / 400 400 / 400
Balance -400 / -400 1050 / 1050
Data Reviewed
-
Total Time Spent with Patient (in minutes): 60
[2024-12-06] MEDS: ROXICODONE 5 MG PO ×2 (13:08→23:35)
--- NOTE | 2024-12-06 13:09 | PN.CDI ---
CDI
- -
CDI:
Physician Documentation Request
Admit Date: 12/05/24 00:07
Dear Doctor Noe,
Urine culture positive for coagulase neg. staphylococcus.
UA results:
Laboratory Tests
12/04/24
20:44
Urine Color Yellow
Urine Clarity Clear
Urine Nitrite (Reflex) Negative
Leukocyte Esterase Rfl Negative
Urine WBC (Reflex) 0-2
Urine Bacteria (Reflex) Moderate A
Could you please provide a diagnosis that supports the above lab abnormalities and additional evaluation/monitoring:
UTI
asymptomatic bacteruria
Other
Use of terms such as suspected, likely, concern for, or probable (associated with a specific diagnosis that is being evaluated, monitored, or treated as if it exists) are acceptable and can be coded in the inpatient setting, when documented at the
time of discharge.
Thank you,
Anastasiya Roldan RN, BSN
CDI Specialist
tiger text
Please use your independent medical judgment in providing your response.
[2024-12-06] MEDS: FERRLECIT 110 MG IV (13:19)
--- NOTE | 2024-12-06 15:59 | PTCARENOTE ---
Pt AAO x3, JOHNSON; OOB to chair/ambulates to BR with assist x1/walke,r mouna well, bu tpt c/o back pain/Rt foot pain with OOB activity. VSS. Telemetry:A fib with occ PVC's; HR to 140's with activity. On room air- pulseox 100%, no SOB noted. Abd stefani,
soft, mouna PO well. Void sin urinal/BR without difficulty. Resting in bed at present. Will continue to monitor.
--- NOTE | 2024-12-06 17:14 | CM ---
Pt to be evaluated by Podiatry.
Will need PT OT after OR for postop rolando.
AT present plan is home with VN .
Hospice gave information to couple . No plans for hospice at this time.
PLAN Will depend on postop evals
[2024-12-06] MEDS: NON-FORMULARY ITEM 80 MCG SC (17:54)
[2024-12-06] MEDS: LIPITOR 10 MG PO (17:54)
--- NOTE | 2024-12-06 18:29 | W.PN.UPDATE ---
Update Note
Progress Note Update
Patient with stable right second toe gangrene
-Plan to observe toe, will discuss possible ampuation with vascular
-Xray right foot
-No dressings needed
-Will follow
[2024-12-06] MEDS: TYLENOL 650 MG PO (21:35)
[2024-12-07] VITALS (12 sets, daily range): BP systolic 97–133; BP diastolic 51–77
[2024-12-07] MEDS: TYLENOL 650 MG PO ×3 (05:48→22:29)
[2024-12-07] MEDS: VITAMIN B-12 1000 MCG PO (08:39)
[2024-12-07] MEDS: OSCAL CAL 500 500 MG PO ×2 (08:39→20:00)
[2024-12-07] MEDS: ASPIR LOW (ENTERIC COATED) 81 MG PO (08:40)
[2024-12-07] MEDS: TOPROL XL 75 MG PO (08:40)
[2024-12-07] MEDS: VITAMIN D3 (cholecalciferol) 25 MCG PO (08:40)
[2024-12-07 09:03] LABS: Hematocrit 20.7 % (39.0-52.0); Hemoglobin 6.4 g/dL (13.0-18.0); Mean Corp Hgb Conc. 30.9 g/dL (33.0-37.0); Mean Corpuscular Volume 98.6 fL (80.0-94.0); Nucleated Red Blood Cells % 0.3 % (-); Platelet Count 236 10^3/uL (130-400); Red Cell Dist. Width 17.3 % (11.5-14.5)
--- NOTE | 2024-12-07 10:34 | PTCARENOTE ---
pt with critical hgb of 6.4 this AM. 1 unit PRBC ordered. transfusing now. will continue to monitor.
--- NOTE | 2024-12-07 11:47 | W.PN.HOSP.TC ---
Addendum entered and electronically signed by Rashad Liu MD 12/07/24 15:11:
Updated spouse at bedside in details. All question answered to her satisfaction.
Original Note:
Today's Communication/Plan
-
GI input
Pradaxa has been on hold
Transfuse PRBC
Assessment / Plan
Assessment / Plan
General: Well Developed, Well Nourished and No Apparent Distress
HEENT: NormoCephalic, Moist mucous membranes and Atraumatic
Respiratory: Clear
Cardiac: S1/S2 and irregular irregular No Murmur or Rub
GI: Soft, Non Tender, Non Distended and Normal Bowel Sounds; No Organomegaly
Rectal: Deferred by Provider
Musculoskeletal: No Clubbing, No Cyanosis and No Edema, right second toe dry gangrene
Skin: No Rash
Neuro: Nonfocal/grossly intact
# Near syncopal episode secondary to atrial fibrillation and anemia
#Nonischemic myocardial injury
-Remains in A-fib
-Troponin 0.022, no need to further trend
-AV alin blocking agent per cardiology. Further up titration limited due to orthostasis.
-Echocardiogram with mitral regurgitation. EF of 55 to 60%.
-Cardiology consulted
# Chronic symptomatic macrocytic anemia
-Iron deficiency anemia
-Start patient IV iron while here. Start B12 supplementation.
-Persistent drop in hemoglobin to 6.4 today. Transfuse additional unit of PRBC.
-Will ask GI for input. Anticoagulation has been held.
#Right second toe dry gangrene
-Dr. Roman blum has been consulted-seems no acute plan for amputation
-Await foot x-ray
# Hyperkalemia unclear etiology
-Not on any medications that would cause hyperkalemia, has not recently been constipated
-Resolved
#CoNS in urine culture
-await final culture data
-afebrile. Not symptomatic.
History of permanent atrial fibrillation with permanent pacemaker
- Pradaxa on hold with anemia
- Continue metoprolol 75 mg daily. Will defer additional agent to cardiology.
CAD
- Continue aspirin
Peripheral arterial disease
Status post balloon angioplasty by Dr. Leighton Fitzpatrick
Plavix has been stopped transition to aspirin per cardiology discussion with Dr. Fitzpatrick.
Hyperlipidemia
- Continue statin
Essential hypertension
Chronic leg/back pain secondary to herniated disc
- Continue oxycodone
- Continue Tylenol
History of compression fracture
Osteoporosis
- Continue Tymlos
History of toe amputations in the past at [facility]
History of constipation
DNR/DNI
DVT prophylaxis�Pradaxa on hold
Cardiac diet
Anticipated Discharge: > 48 hours
Subjective/Interval History
-
Date of Service: December 07, 2024
Labs with severe drop in hemoglobin
Objective Data
-
Labs:
Laboratory Results
12/07/24
06:36
WBC 12.5 H
Hgb 6.4 L*
Hct 20.7 L*
Plt Count 236
Vital Signs:
Vital Signs
Temp Pulse Resp BP Pulse Ox
97.6 F 83 16 133/66 100
12/07/24 11:10 12/07/24 11:10 12/07/24 11:10 12/07/24 11:10 12/07/24 11:10
I&O
12/06/24 12/07/24 12/08/24
06:59 06:59 06:59
Intake Total 1450 / 1450 830 / 830 0 / 0
Output Total 400 / 400 1250 / 1250
Balance 1050 / 1050 -420 / -420 0 / 0
Data Reviewed
-
Total Time Spent with Patient (in minutes): 55
[2024-12-07 13:07] LABS: Hematocrit 23.9 % (39.0-52.0); Hemoglobin 7.6 g/dL (13.0-18.0); Mean Corp Hgb Conc. 31.8 g/dL (33.0-37.0); Mean Corpuscular Volume 95.6 fL (80.0-94.0); Nucleated Red Blood Cells % 0.5 % (-); Platelet Count 213 10^3/uL (130-400); Red Cell Dist. Width 17.5 % (11.5-14.5)
[2024-12-07] MEDS: FERRLECIT 110 MG IV (13:58)
--- NOTE | 2024-12-07 15:03 | W.PN.CARDCBS ---
Addendum entered and electronically signed by Vladimir Andersen MD 12/07/24 17:16:
I saw and examined the patient.
The Police Crime Scene Technician's note was reviewed and I agree with the note.
Comment:
GEN: No distress, awake, Ox3
HEENT: supple, anicteric, mmm
LUNGS: CTA, no wheezes/rales
CV: Irreg, S1/S2, 1/6 syst LSB, no gallop
ABD: soft, BS+, NT/ND
EXT: No edema
NEURO: Gross non-focal
SKIN: dressing intact
PLan:
Hemoglobin down to 6.4 today. Agree with transfusion. Will continue to hold Pradaxa at this time. Okay to continue aspirin alone. He is at risk for further episodes of bleeding going back on Pradaxa. For now I would likely hold the Pradaxa
until his hemoglobin is stable.
His A-fib is modestly controlled. His blood pressure remains borderline but marginal. Hopefully transfusion will help his blood pressure. Continue Toprol 75 mg daily.
Long-term prognosis appears to be poor.
Appreciate podiatry and vascular input.
Original Note:
Today's Communication / Plan
-
Orthostasis limits up titration of Toprol-XL, but suspect near syncope on admission and orthostasis is more closely related to hypovolemia from anemia
Device check reported possible NSVT, but this is all rapid A-fib that the PPM is incorrectly interpreting as NSVT.
Impression / Plan
-
PCP: Dr. Christine
Cardiology: Dr. Farias [facility]
EP: Dr. Sheridan [facility]
Impression:
Admitted with near syncope
Recent admission for PAD and peripheral interventions 11/08/2024 until 11/09/2024
Anemia
Hyperkalemia
Near syncope
Afib with RVR
NSVT on PPM interrogation report is rapid Afib that is being tracked in the ventricle
Permanent Afib
Chronic Pradaxa OAC
s/p Webshoz PPM
Hyperlipidemia
Echo 11/02/2020: EF 55 to 60%, trace MR, aortic sclerosis without stenosis
Echo 12/06/24: EF 55 to 60%, moderate MR, aortic sclerosis with trace aortic regurgitation, normal right heart, small pericardial effusion
Plan:
-Hgb was 7.1 on admission and then down to 6.6 on 12/05/2024. Patient was given 1 unit PRBCs on 12/05/2024 and Hgb improved up to 7.9 on 12/06/2024. Hgb down again to 6.4 on 12/07/2024 and patient given another 1 unit PRBCs with Hgb up to 7.6 on
recheck later in the day 12/07/2024. All labs reviewed by me.
-Patient's reported h/o anemia and also leukocytosis with previous hematology workup through the [facility] system that included labs, but no bone marrow biopsy. Last colonoscopy was more than 10 years ago. During my initial conversation with
the patient's on 12/06/2024 she indicated that they would not want to pursue an aggressive GI workup, but now they are interested in talking to GI.
-From a cardiac standpoint patient was taking Plavix and Pradaxa prior to admission for PAD and permanent A-fib respectively. Plavix has been transitioned to aspirin. Pradaxa 150 mg BID was initially continued throughout this admission, but is now
on hold following 12/06/2024 AM dose.
-Patient with near syncope on admission and positive orthostatic vital signs and this is likely related to hypovolemia from his acute anemia.
-Additionally patient with possible NSVT on telemetry and PPM interrogation on admission, but on closer review this all appears to be A-fib with RVR and that the rapid atrial rates are tracking in the ventricles and was inappropriately reported as
NSVT on device check.
-Attempts at more aggressive rate control have been hindered by orthostasis as noted above. For now his outpatient dose of Toprol XL 75 mg daily has been continued.
-I had a long conversation with the patient's on 12/06/2024 where she stated that the patient intermittently expresses a desire to no longer be alive and that they would be interested in discussing hospice. I reviewed this with the hospitalist
attending and the housing case manager. Hospice was by to talk to the patient and and they are not interested in pursuing hospice at this time, but appreciated the information.
HPI: Patient came to the ER yesterday from home with near syncope and cardiology is consulted for possible NSVT on device interrogation. Patient was just admitted to the hospital from 11/08/2024 until 12-02 with PAT and for a peripheral vascular
intervention. Patient was discharged to [facility] for rehab, but has since returned home. Patient follows with cardiology at [place], Dr. Luna, and has a [facility] PPM that is managed at [place] by Dr. Sheridan.
Patient has been seen by our cardiology group during previous admissions. Patient reports being at home yesterday and that his helped him into the bathroom. Patient was able to sit on the toilet and move his bowels and then afterwards began
to feel lightheaded and was diaphoretic. Patient felt unable to stand on his own, but his was able to help him stand up and get back to bed and he felt his body stiffening. Patient does not remember losing consciousness. Patient asked his
to call 911 because he thought he might pass out. No chest pain or SOB. In the ER patient had possible NSVT on the lunchroom monitor and his [employer] PPM was interrogated and the reading also suggested NSVT. Patient has known
permanent A-fib and HR control in the past has been difficult due to orthostasis, the patient is currently taking Toprol-XL 75 mg daily. Orthostatic vital signs were not checked in the ER. Hgb was 8.2 on 11/08/2024 and is down to 6.6 on 12/05/2024.
Patient says he cannot remember the last time he had a colonoscopy.
Progress Note - Movement Therapist
Subjective
Date of Service: December 07, 2024
He thinks he's doing well, he didn't know that his Hgb drifted down again
Objective
Labs:
12/07/24 15:00
12/06/24 06:34
Labs
Hgb Cancelled 12/07/24 15:00
Hct Cancelled 12/07/24 15:00
Plt Count Cancelled 12/07/24 15:00
Sodium 135 mmol/L (135-145) 12/06/24 06:34
Potassium 4.6 mmol/L (3.5-5.1) 12/06/24 06:34
BUN 40 mg/dl (9-20) H 12/06/24 06:34
Creatinine 0.8 mg/dL (0.7-1.3) 12/06/24 06:34
Glucose 87 mg/dl (70-99) 12/06/24 06:34
Troponins
12/04/24 12/05/24 12/05/24
20:02 01:05 06:29
Troponin I 0.022 0.023 0.024
12/05/24 12/05/24
12:29 18:55
Troponin I 0.021 Cancelled
Vital Signs and I&O:
Vital Signs
Temp Pulse Resp BP Pulse Ox
97.9 F 77 16 120/58 100
12/07/24 12:39 12/07/24 12:39 12/07/24 12:39 12/07/24 12:39 12/07/24 12:39
Vital Signs
Temp Pulse Resp BP Pulse Ox
97.9 F 77 16 120/58 100
12/07/24 12:39 12/07/24 12:39 12/07/24 12:39 12/07/24 12:39 12/07/24 12:39
Intake & Output
12/05/24 12/06/24 12/07/24 12/08/24
06:59 06:59 06:59 06:59
Intake Total 1450 / 1450 830 / 830 250 / 250
Output Total 400 / 400 400 / 400 1250 / 1250
Balance -400 / -400 1050 / 1050 -420 / -420 250 / 250
Physical Exam
Physical Exam
GEN: AAO x3
LUNGS: RA. No audible wheeze
CV: Afib on tele.
[2024-12-07] MEDS: SENOKOT-S 1 TABLET PO ×2 (15:41→20:00)
--- NOTE | 2024-12-07 16:14 | CON.GI ---
Addendum entered and electronically signed by CHRISTO Owens 12/08/24 06:17:
clarification in review of meds. Pt did have Eliquis 12/04 then Pradaxa 12/06 --
Addendum entered and electronically signed by CHRISTO Owens 12/08/24 06:14:
correction to plan pt is on Pradaxa
Addendum entered and electronically signed by Tadeo Whitmore DO 12/07/24 19:17:
I saw and examined the patient.
The BURIAL VAULT SETTER's note was reviewed and I agree with the note.
Comment: Mr. Winkler is a 84 y.o male with an extensive past medical history including HTN, HLD, severe PAD, s/p multiple toe amputations, CAD, and A Fib (on pradaxa) who initially presented to the ED on 12/04 with a near syncopal episode felt secondary
to A Fib and acute on chronic anemia. Denies any prior dark or bloody stools prior to admission or other prior history of GI bleeding in the past. However, had a drop in Hgb to 6.4 and dark, maroon colored stools later this afternoon along with an
elevated BUN (although appears to be chronic) concerning for an UGIB concerning for PUD versus gastroduodenal erosions vs gastric/duodenal AVMs. His pradaxa remains on hold (last dose 12/04). He would benefit from a diagnostic EGD for further
evaluation given the concern for melena and acute drop in Hgb. Discussed benefits and risks this evening. Much less likely LGIB and would defer prepping for a colonoscopy at this time. Okay for CLD and started IV PPI this afternoon given his melena
but otherwise remains HD-stable without any further episodes when examined this evening. Keep NPO at [place] with plans for EGD tomorrow, 12/08/24. See rest of care as outlined below.
Discussed with primary internal medicine team. Thank you for allowing me to participate in the care of this patient. Please do not hesitate to call for any further questions.
Original Note:
Consultation
-
Date/Time Consultation Requested: 12/07/24 1145
Date/Time Consultation Performed: 12/07/24 1615
Requesting Provider: arvin Liu MD
Performing Provider: CHRISTO Cruz, Tadeo Whitmore DO
Reason for Consultation: anemia
Medical History
Chief Complaint / HPI
Chief Complaint: weakness, near syncope prior to admission
History of Present Illness:
Pt is an 84yo with hx afib on Pradaxa, prior appe, chronic back and leg pain, multiple vascular procedures with left sided toe amputation and recent right sided vascular procedure for possible upcoming amputation. He now presents with near syncope
and noted concern for NSVT on pacer interrogation. On admission pt also noted with hbg down to 6.4 with prior range 7-9. Per family no prior transfusions in past except with toe amp. He did see [facility] a few months ago and also noted
with anemia. Iron studies on admission with Iron 65, TIBC 337, % sat 19, ferritin 23 with stable b12 and folate.
From a GI standpoint pt admits to new constipation last few days,denies dysphagia, GERD, nausea, vomiting, abdominal pain diarrhea, blood or black in stools. No hx EGD in past. last colonoscopy age 70 recalls as normal. Mother with family hx
colon CA . Pt admits to ASA use with vascular issues but no other NSAIDS.
Past Medical History
Past Medical History: Arrhythmias (afib on chronic Pradexa ) and Other (PAD with peripheral intervention, hyponatremia, hypotension, compression fracture , chronic leg pain with vascular issues )
Past Surgical History: Appendectomy, Cardiac (pacer ) and Other (open inguinal hernia with mesh, Lower ext arteriogram, left foot amputation, artery bypass, transcatheter arterialization deep vein, RLE 09/2024, balloon angioplasty venous outflow
stenosis right foot, 11/2024 )
Social History
Tobacco: Former Smoker
Alcohol: Occasional
Drug: Marijuana (cream and drops at times for pain )
Personal:
Living: With Family
Employment: Retired
Family History
Family History: Other (mother with colon CA in 60's )
Allergies / Home Medications
Allergy/AdvReac Type Severity Reaction Status Date / Time
No Known Allergies Allergy Verified 12/04/24 19:56
�Medication �Instructions �Recorded
atorvastatin 10 mg tablet 10 mg PO QPM High cholesterol 09/22/20
metoprolol succinate 50 mg 75 mg PO DAILY Blood Pressure 01/23/21
tablet,extended release 24 hr
cholecalciferol (vitamin D3) 25 25 mcg PO DAILY Supplement 03/27/22
mcg (1,000 unit) tablet (Vitamin
D3)
calcium carbonate 600 mg PO BID Supplement 05/27/24
abaloparatide (Tymlos) 80 mcg SC QPM Autoimmune Disorder 09/21/24
acetaminophen 325 mg tablet 650 mg PO Q4HPRN PRN mild pain 10/01/24
(Tylenol)
oxycodone 5 mg tablet 5 mg PO Q8HPRN PRN severe Pain 10/01/24
dabigatran etexilate 150 mg capsule 150 mg PO BID Heart 12/05/24
Disease/Condition
cyanocobalamin (vitamin B-12) 1,000 mcg PO DAILY 30 days #30 tabs 12/06/24
1,000 mcg tablet (Vitamin B-12)
Review of Systems
-
History Source: Patient and Family
Constitutional: Reports Fatigue
EENT: Reports No Symptoms
Respiratory: Reports No Symptoms
Cardiac: Reports No Symptoms and Syncope (near syncope prior to admission)
Abdomen/GI: Reports Constipated
: Reports No Symptoms
Musculoskeletal: Reports Other (chronic leg pain )
Neurological: Reports Dizzy and Weakness
Endocrine: Reports No Symptoms
Hematologic/Lymphatic: Reports No Symptoms
Vital Signs
Temp Pulse Resp BP Pulse Ox
97.8 F 98 18 117/68 98
12/07/24 15:45 12/07/24 15:45 12/07/24 15:45 12/07/24 15:45 12/07/24 15:45
Physical Exam
Exam
General: Other (pale elderly male no acute distress )
HEENT: Normocephalic and Anicteric
Respiratory: Clear
Cardiac: Regular Rhythm
GI: Soft, Non Tender, Non Distended and Other (some discomfort with bladder distention and needing to urinate )
Musculoskeletal: No Clubbing and No Cyanosis
Skin: Warm, Dry and Other (left sided trans amp)
Neuro: Awake, Alert and AO x 3
Psych: Calm
Results
WBC Cancelled 12/07/24 15:00
Hgb Cancelled 12/07/24 15:00
Hct Cancelled 12/07/24 15:00
MCV Cancelled 12/07/24 15:00
Plt Count Cancelled 12/07/24 15:00
Absolute Neuts (auto) Cancelled 12/07/24 15:00
Sodium 135 mmol/L (135-145) 12/06/24 06:34
Potassium 4.6 mmol/L (3.5-5.1) 12/06/24 06:34
Chloride 107 mmol/L (98-107) 12/06/24 06:34
Carbon Dioxide 25 mmol/L (22-30) 12/06/24 06:34
BUN 40 mg/dl (9-20) H 12/06/24 06:34
Creatinine 0.8 mg/dL (0.7-1.3) 12/06/24 06:34
Calcium 8.5 mg/dl (8.4-10.2) 12/06/24 06:34
Total Bilirubin 0.6 mg/dl (0.2-1.3) 12/05/24 06:29
AST 25 U/L (17-59) 12/05/24 06:29
ALT 15 U/L (0-50) 12/05/24 06:29
Alkaline Phosphatase 80 U/L (38-126) 12/05/24 06:29
Diagnostic Image Results:
Prior GI Procedures:
EGD: none
Colonoscopy: age 70 recalls normal
Assessment / Plan
-
Pt is an 84yo with hx afib on Pradaxa, prior appe, chronic back and leg pain, multiple vascular procedures with left sided toe amputation and recent right sided vascular procedure for possible upcoming amputation. He now presents with near syncope
and noted concern for NSVT on pacer interrogation. On admission pt also noted with hbg down to 6.4 with prior range 7-9. Per family no prior transfusions in past except with toe amp. He did see [facility] a few months ago and also noted
with anemia. Iron studies on admission with Iron 65, TIBC 337, % sat 19, ferritin 23 with stable b12 and folate.
From a GI standpoint pt admits to new constipation last few days but denies dysphagia, GERD, nausea, vomiting, abdominal pain diarrhea, blood or black in stools. No hx EGD in past. last colonoscopy age 70 recalls as normal. Mother with family hx
colon CA . Pt admits to ASA use with vascular issues but no other NSAIDS. BUN 40-50 with some chronic elevation
-anemia - macrocytic with mild iron deficiency
-syncope/NSVT on admission
-afib on Pradaxa
-recent constipation
-recent right sideded vascular procedure 09/2024 and 11/2024 due for possible toe amp
-hx prior left sided vascular procedures and transamp
other med problems:
-appe
-chronic leg and back pain
-pacer
-hyperlipidemia
PLAN:
etiology of anemia unclear-
no signs of aggressive bleeding with no stool for several day
cont laxative as needed
discussed with patient and family would be agreeable to for EGD if neg then colon
will need to confirm with medical team if stable for scope and confirm timing
tentative NPO in AM
Last Eliquis 12/04
s/p transfusion 2 units
trend hbg
cont IV iron
on senna and dulcolax PRN for constipation will add miralax daily
ok to continue ASA
Last Eliquis 12/04
-
-
Thank you for consultation and allowing me to participate in the patient's care. Please call the relations specialist GI physician during the after hours with any questions or concerns.
[2024-12-07] MEDS: LIPITOR 10 MG PO (16:46)
--- NOTE | 2024-12-07 17:07 | PTCARENOTE ---
Addendum entered by Clemencia Flores 12/07/24 18:06:
pt with large, formed, black BM. provider aware.
Original Note:
pt with BRBPR. no formed BM. provider notified, pt diet changed to clear liquid and NPO at midnight.
[2024-12-07] MEDS: NON-FORMULARY ITEM 80 MCG SC (17:30)
[2024-12-07] MEDS: MIRALAX PO (18:08)
[2024-12-07] MEDS: NSS 1000 IV (18:14)
[2024-12-07] MEDS: NSS (PRESERVATIVE FREE) 20 ML IV (18:14)
[2024-12-07] MEDS: PROTONIX IV 80 MG IV (18:14)
[2024-12-07 20:35] LABS: Hematocrit 21.2 % (39.0-52.0); Hemoglobin 7.0 g/dL (13.0-18.0); Mean Corp Hgb Conc. 33.0 g/dL (33.0-37.0); Mean Corpuscular Volume 95.1 fL (80.0-94.0); Platelet Count 208 10^3/uL (130-400); Red Cell Dist. Width 18.0 % (11.5-14.5)
--- NOTE | 2024-12-07 22:27 | W.PN.UPDATE ---
Update Note
Progress Note Update
Repeat labs resulted, Hgb 7.0, ordered 1 unit PRBC's. Vital signs: 105/51, HR 113, resp 18, 99% on room air, temp 97.7. Patient denies any dizziness or lightheadedness, palpitation. Patient reports weakness and fatigue. Patient is very pale.
[2024-12-07] MEDS: ROXICODONE 5 MG PO (22:50)
[2024-12-08] VITALS (12 sets, daily range): BP systolic 108–141; BP diastolic 55–76
[2024-12-08 06:55] LABS: Hematocrit 23.9 % (39.0-52.0); Hemoglobin 7.9 g/dL (13.0-18.0); Mean Corp Hgb Conc. 33.1 g/dL (33.0-37.0); Mean Corpuscular Volume 93.4 fL (80.0-94.0); Nucleated Red Blood Cells % 0.2 % (-); Platelet Count 202 10^3/uL (130-400); Red Cell Dist. Width 18.2 % (11.5-14.5)
--- NOTE | 2024-12-08 07:06 | W.PN.UPDATE ---
Update Note
Progress Note Update
updated on plan for EGD today with black stool yesterday and need for further transfusion overnight
[2024-12-08 07:19] LABS: Blood Urea Nitrogen 65 mg/dl (9-20); Calcium 8.8 mg/dl (8.4-10.2); Carbon Dioxide 25 mmol/L (22-30); Chloride 110 mmol/L (98-107); Estimated Creatinine Clearance 49 ml/min; Glucose 101 mg/dl (70-99); Potassium 4.7 mmol/L (3.5-5.1); Sodium 137 mmol/L (135-145); eGFR > 60.00
[2024-12-08] MEDS: ASPIR LOW (ENTERIC COATED) 81 MG PO (08:29)
[2024-12-08] MEDS: TOPROL XL 75 MG PO (08:29)
[2024-12-08] MEDS: SENOKOT-S 1 TABLET PO ×2 (08:30→19:42)
[2024-12-08] MEDS: VITAMIN D3 (cholecalciferol) 25 MCG PO (08:30)
[2024-12-08] MEDS: VITAMIN B-12 1000 MCG PO (08:30)
[2024-12-08] MEDS: NSS (PRESERVATIVE FREE) 10 ML IV ×2 (08:30→19:41)
[2024-12-08] MEDS: OSCAL CAL 500 500 MG PO ×2 (08:30→19:41)
[2024-12-08] MEDS: ROXICODONE 5 MG PO ×2 (08:30→23:45)
[2024-12-08] MEDS: MIRALAX PO (08:31)
[2024-12-08] MEDS: NSS 1000 IV (08:31)
[2024-12-08] MEDS: PROTONIX IV 40 MG IV ×2 (08:31→19:42)
--- NOTE | 2024-12-08 10:55 | W.PN.HOSP.TC ---
Today's Communication/Plan
-
Trend hemoglobin
Continue with PPI
Endoscopy today
Stop IV fluid post endoscopy if diet has been started
Assessment / Plan
Assessment / Plan
General: Well Developed, Well Nourished and No Apparent Distress, pale
HEENT: NormoCephalic, Moist mucous membranes and Atraumatic
Respiratory: Clear
Cardiac: S1/S2 and irregular irregular No Murmur or Rub
GI: Soft, Non Tender, Non Distended and Normal Bowel Sounds; No Organomegaly
Rectal: Deferred by Provider
Musculoskeletal: No Clubbing, No Cyanosis and No Edema, right second toe dry gangrene
Skin: No Rash
Neuro: Nonfocal/grossly intact
# Near syncopal episode secondary to atrial fibrillation and anemia
#Nonischemic myocardial injury
-Remains in A-fib
-Troponin 0.022, no need to further trend
-AV alin blocking agent per cardiology. Further up titration limited due to orthostasis.
-Echocardiogram with mitral regurgitation. EF of 55 to 60%.
-Cardiology consulted
# Chronic symptomatic macrocytic anemia
# Gastrointestinal bleeding upper versus lower
#Iron deficiency anemia
-Started patient IV iron while here. Started B12 supplementation.
-Last dose of Pradaxa 12/06 AM
-Hemoglobin at 7.9. Status post units of PRBC.
-Patient with melanotic stools on 12/07. PPI BID. Plan for endoscopy today. Depending EGD results may even require colonoscopy
#Right second toe dry gangrene
-Dr. Roman blum has been consulted-plan for amputation pending stabilization of anemia and anemia workup
-Foot x-ray negative for evidence of osteomyelitis
# Hyperkalemia unclear etiology
-Not on any medications that would cause hyperkalemia, has not recently been constipated
-Resolved
# Suspected Staphylococcus hominis UTI
-Start Augmentin
-afebrile.
History of permanent atrial fibrillation with permanent pacemaker
- Pradaxa on hold with anemia
- Continue metoprolol 75 mg daily.
CAD
- Continue aspirin
Peripheral arterial disease
Status post balloon angioplasty by Dr. Leighton Fitzpatrick
Plavix has been stopped transition to aspirin per cardiology discussion with Dr. Fitzpatrick.
Hyperlipidemia
- Continue statin
Essential hypertension
Chronic leg/back pain secondary to herniated disc
- Continue oxycodone
- Continue Tylenol
History of compression fracture
Osteoporosis
- Continue Tymlos
History of toe amputations in the past at [place]
History of constipation
DNR/DNI
DVT prophylaxis�Pradaxa on hold
Cardiac diet
Anticipated Discharge: > 48 hours
Subjective/Interval History
-
Date of Service: December 08, 2024
Remains n.p.o. past midnight
Yesterday patient with melanotic stools and requiring transfusion overnight
Objective Data
-
Labs:
Laboratory Results
12/08/24 12/08/24
06:08 17:00
WBC 17.4 H Pending
Hgb 7.9 L Pending
Hct 23.9 L Pending
Plt Count 202 Pending
Sodium 137
Potassium 4.7
Chloride 110 H
Carbon Dioxide 25
BUN 65 H
Creatinine 0.9
Glucose 101 H
Calcium 8.8
Vital Signs:
Vital Signs
Temp Pulse Resp BP Pulse Ox
98.4 F 90 16 141/76 95
12/08/24 07:35 12/08/24 08:29 12/08/24 07:35 12/08/24 08:29 12/08/24 07:35
I&O
12/07/24 12/08/24 12/09/24
06:59 06:59 06:59
Intake Total 830 / 830 2420 / 2420
Output Total 1250 / 1250 800 / 800
Balance -420 / -420 1620 / 1620
Data Reviewed
-
Total Time Spent with Patient (in minutes): 55
--- NOTE | 2024-12-08 11:11 | W.PN.CARDCBS ---
Addendum entered and electronically signed by Lionel Colón MD 12/08/24 18:55:
84-year-old man with permanent atrial fibrillation and [employer] pacer, admitted with near syncope and high ventricular rates on pacemaker histograms, troponin 0.022. Hemoglobin 6.6, prior to hospital admission September 2024, hemoglobin had been
9.9
PMH: PAD, left toe amputation, CAD, hyperlipidemia, hypertension, hyponatremic uremia, back pain and degenerative disc disease, history of near syncope possibly related to orthostasis and A-fib with RVR
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
Current medications: Tymlos, aspirin, atorvastatin 10 mg a day, Os-Cedric, metoprolol ER 75 mg a day, IV iron, B12, to be given. On hold, polyethylene, pantoprazole, Augmentin
127/67, pulse 77, resp rate 17, afebrile, he is comfortable, significant other at bedside, head neck exam unremarkable, lungs are clear, regular rate rhythm, systolic murmur apex, rate is controlled, abdomen benign, left transmetatarsal amputation,
necrotic right second toe
Potassium 4.7, BUN/creatinine 65 and 0.9, Hemoglobin 7.9, was 7 yesterday.
Telemetry: Rate controlled
EGD: Gastric ulcer
Impression:
Pre-syncope related to atrial fibrillation with rapid ventricular response in the setting of severe anemia on clopidogrel and Pradaxa
Gastric ulcer
Blood loss anemia presumably from gastric ulcer
Permanent atrial fibrillation with [employer] pacemaker
Dementia
Peripheral arterial disease, left transmetatarsal amputation, dry gangrene right second toe, recent transcatheter arterialization of right lower extremity venous system
Moderate mitral regurgitation
Hyperlipidemia, hypertension
Plan:
Regarding atrial fibrillation, rate is well-controlled. Currently he is not anticoagulated. With discovery of gastric ulcer, we can restart Pradaxa if hemoglobin is stable. Would be desirable to stop aspirin. Will need to check with vascular
surgery if this is acceptable. Would avoid clopidogrel.
Would be okay to proceed with amputation of toe during his hospital stay from cardiac standpoint. If so, would avoid anticoagulation until procedure is completed. Bridging heparin would be an option but is not mandatory. Stroke risk of
anticoagulation in the short-term will remain relatively well.
No recurrent syncope which was probably related to anemia and rapid ventricular response to atrial fibrillation
He remains with recent transcatheter arterialization of right lower extremity venous syndrome
He seems stable from the standpoint of moderate mitral regurgitation. proBNP was 1080. Currently he is not on a diuretic
Original Note:
Today's Communication / Plan
-
Upper endoscopy today
ASA has been continued, Plavix has been stopped and should not be resumed
Pradaxa is on hold
Impression / Plan
-
PCP: Dr. Christine
Cardiology: Dr. Farias [facility]
EP: Dr. Sheridan [facility]
Impression:
Admitted with near syncope
Recent admission for PAD and peripheral interventions 11/08/2024 until 11/09/2024
Anemia
Hyperkalemia
Near syncope
Afib with RVR
NSVT on PPM interrogation report is rapid Afib that is being tracked in the ventricle
Permanent Afib
Chronic Pradaxa OAC
s/p [employer] PPM
Hyperlipidemia
Echo 11/02/2020: EF 55 to 60%, trace MR, aortic sclerosis without stenosis
Echo 12/06/24: EF 55 to 60%, moderate MR, aortic sclerosis with trace aortic regurgitation, normal right heart, small pericardial effusion
Plan:
-Hgb was 6.6 on 11/27/2024 leading to 1 unit of PRBCs with improvement and then dropped again to 6.4 on 12/07/2024 leading to another unit of PRBCs and GI workup. Labs reviewed by me 12/08/2024
-Patient is scheduled for upper endoscopy 12/08/2024.
-Patient's reported h/o anemia and also leukocytosis with previous hematology workup through the [facility] that included labs, but no bone marrow biopsy.
-From a cardiac standpoint patient was taking Plavix and Pradaxa prior to admission for PAD and permanent A-fib respectively. Plavix has been transitioned to aspirin. Pradaxa 150 mg BID was initially continued, but is now on hold following
12/06/2024 AM dose.
-Patient with near syncope on admission and positive orthostatic vital signs and this is likely related to hypovolemia from his acute anemia.
-Additionally patient with possible NSVT on telemetry and PPM interrogation on admission, but on closer review this all appears to be A-fib with RVR and that the rapid atrial rates are tracking in the ventricles and was inappropriately reported as
NSVT on device check.
-Attempts at more aggressive rate control have been hindered by orthostasis as noted above. For now his outpatient dose of Toprol XL 75 mg daily has been continued.
-I had a long conversation with the patient's on 12/06/2024 where she stated that the patient intermittently expresses a desire to no longer be alive and that they would be interested in discussing hospice. I reviewed this with the hospitalist
attending and the outpatient case manager. Hospice talked to the patient and and they are not interested in pursuing hospice at this time, but appreciated the information. I reviewed with patient again on 12/08/2024 and he says he is absolutely not
interested in hospice.
HPI: Patient came to the ER yesterday from home with near syncope and cardiology is consulted for possible NSVT on device interrogation. Patient was just admitted to the hospital from 11/08/2024 until 12-02 with PAT and for a peripheral vascular
intervention. Patient was discharged to [facility] for rehab, but has since returned home. Patient follows with cardiology at [facility], Dr. Luna, and has a [employer] PPM that is managed at [facility] by Dr. Sheridan.
Patient has been seen by our cardiology group during previous admissions. Patient reports being at home yesterday and that his helped him into the bathroom. Patient was able to sit on the toilet and move his bowels and then afterwards began
to feel lightheaded and was diaphoretic. Patient felt unable to stand on his own, but his was able to help him stand up and get back to bed and he felt his body stiffening. Patient does not remember losing consciousness. Patient asked his
to call 911 because he thought he might pass out. No chest pain or SOB. In the ER patient had possible NSVT on the monitoring specialist and his [employer] PPM was interrogated and the reading also suggested NSVT. Patient has known
permanent A-fib and HR control in the past has been difficult due to orthostasis, the patient is currently taking Toprol-XL 75 mg daily. Orthostatic vital signs were not checked in the ER. Hgb was 8.2 on 11/08/2024 and is down to 6.6 on 12/05/2024.
Patient says he cannot remember the last time he had a colonoscopy.
Progress Note - Customer Experience Consultant
Subjective
Date of Service: December 08, 2024
Patient is anxiously awaiting his upper endoscopy
Objective
Labs:
12/08/24 06:08
Labs
Hgb 7.9 g/dL (13.0-18.0) L 12/08/24 06:08
Hct 23.9 % (39.0-52.0) L 12/08/24 06:08
Plt Count 202 10^3/uL (130-400) 12/08/24 06:08
Sodium 137 mmol/L (135-145) 12/08/24 06:08
Potassium 4.7 mmol/L (3.5-5.1) 12/08/24 06:08
BUN 65 mg/dl (9-20) H 12/08/24 06:08
Creatinine 0.9 mg/dL (0.7-1.3) 12/08/24 06:08
Glucose 101 mg/dl (70-99) H 12/08/24 06:08
Troponins
12/05/24 12/05/24
12:29 18:55
Troponin I 0.021 Cancelled
Vital Signs and I&O:
Vital Signs
Temp Pulse Resp BP Pulse Ox
98.4 F 90 16 141/76 95
12/08/24 07:35 12/08/24 08:29 12/08/24 07:35 12/08/24 08:29 12/08/24 08:30
Vital Signs
Temp Pulse Resp BP Pulse Ox
98.4 F 90 16 141/76 95
12/08/24 07:35 12/08/24 08:29 12/08/24 07:35 12/08/24 08:29 12/08/24 08:30
Intake & Output
12/06/24 12/07/24 12/08/24 12/09/24
06:59 06:59 06:59 06:59
Intake Total 1450 / 1450 830 / 830 2420 / 2420
Output Total 400 / 400 1250 / 1250 800 / 800
Balance 1050 / 1050 -420 / -420 1620 / 1620
Physical Exam
Physical Exam
GEN: AAO x3
HEENT: pale conjunctiva
LUNGS: RA. No audible wheeze
CV: Afib on tele.
--- NOTE | 2024-12-08 12:02 | CM ---
Patient chart reviewed
current with [facility]
PT rec [facility] (12/06)
PLAN; home with [facility] when stable
--- NOTE | 2024-12-08 12:54 | PTCARENOTE ---
Pt left the floor for EGD procedure.
[2024-12-08] MEDS: FERRLECIT 110 MG IV (14:40)
[2024-12-08] MEDS: LIPITOR 10 MG PO (17:29)
[2024-12-08] MEDS: TYLENOL 650 MG PO (17:29)
[2024-12-08] MEDS: NON-FORMULARY ITEM 80 MCG SC (17:33)
[2024-12-08] MEDS: LOPRESSOR 5 MG IV (18:16)
[2024-12-08 19:24] LABS: Hematocrit 23.5 % (39.0-52.0); Hemoglobin 7.7 g/dL (13.0-18.0); Mean Corp Hgb Conc. 32.8 g/dL (33.0-37.0); Mean Corpuscular Volume 92.9 fL (80.0-94.0); Platelet Count 204 10^3/uL (130-400); Red Cell Dist. Width 18.6 % (11.5-14.5)
[2024-12-08] MEDS: AUGMENTIN 500 MG/125 MG 1 TABLET PO (19:41)
[2024-12-09] VITALS (10 sets, daily range): BP systolic 101–135; BP diastolic 56–76
[2024-12-09 07:10] LABS: Hematocrit 23.4 % (39.0-52.0); Hemoglobin 7.7 g/dL (13.0-18.0); Mean Corp Hgb Conc. 32.9 g/dL (33.0-37.0); Mean Corpuscular Volume 94.0 fL (80.0-94.0); Nucleated Red Blood Cells % 0.4 % (-); Platelet Count 206 10^3/uL (130-400); Red Cell Dist. Width 18.5 % (11.5-14.5)
[2024-12-09 07:56] LABS: Blood Urea Nitrogen 49 mg/dl (9-20); Calcium 8.4 mg/dl (8.4-10.2); Carbon Dioxide 24 mmol/L (22-30); Chloride 111 mmol/L (98-107); Estimated Creatinine Clearance 49 ml/min; Glucose 98 mg/dl (70-99); Potassium 4.5 mmol/L (3.5-5.1); Sodium 137 mmol/L (135-145); eGFR > 60.00
[2024-12-09] MEDS: MIRALAX 17 GRAMS PO (08:46)
[2024-12-09] MEDS: PROTONIX IV 40 MG IV ×2 (08:48→20:28)
[2024-12-09] MEDS: NSS (PRESERVATIVE FREE) 10 ML IV ×2 (08:48→20:28)
[2024-12-09] MEDS: AUGMENTIN 500 MG/125 MG 1 TABLET PO ×2 (08:48→20:27)
[2024-12-09] MEDS: ASPIR LOW (ENTERIC COATED) 81 MG PO (08:49)
[2024-12-09] MEDS: SENOKOT-S 1 TABLET PO (08:49)
[2024-12-09] MEDS: VITAMIN B-12 1000 MCG PO (08:49)
[2024-12-09] MEDS: OSCAL CAL 500 500 MG PO ×2 (08:49→20:28)
[2024-12-09] MEDS: VITAMIN D3 (cholecalciferol) 25 MCG PO (08:49)
[2024-12-09] MEDS: TOPROL XL 75 MG PO (08:49)
[2024-12-09] MEDS: TYLENOL 650 MG PO ×2 (08:49→13:17)
--- NOTE | 2024-12-09 10:07 | W.PN.CARDCBS ---
Addendum entered and electronically signed by Josesito Hameed MD 12/09/24 15:28:
I saw and examined the patient.
The [employer]'s note was reviewed and I agree with the note.
Comment: Briefly, 84-year-old man past medical history of permanent atrial fibrillation and sick sinus syndrome status post permanent pacemaker presents with near syncope and was found to have transfusion dependent anemia.
Patient chronically on aspirin and Pradaxa which were on hold given symptomatic anemia
Underwent EGD yesterday showed clean-based ulcer.
Back on aspirin today
Per GI okay to resume Pradaxa 48 hours post EGD.
Recommend adding Pradaxa back tomorrow unless further interventions are planned to address patient's gangrenous right second toe.
Ultimately he should follow-up with his primary tool engineer at [place], Dr. Farias
We will follow peripherally
Original Note:
Today's Communication / Plan
-
Continue aspirin alone for now
Per GI, ok to resume Pradaxa at 48 hour elain, however need to determine plan/timing of R toe amputation.
Continue Toprol 75mg daily. BP and HR stable.
Impression / Plan
-
PCP: Dr. Christine
Cardiology: Dr. Farias [facility]
EP: Dr. Sheridan [facility]
Impression:
Admitted with near syncope
Recent admission for PAD and peripheral interventions 11/08/2024 until 11/09/2024
Anemia
Hyperkalemia
Near syncope
Afib with RVR
NSVT on PPM interrogation report is rapid Afib that is being tracked in the ventricle
Permanent Afib
Chronic Pradaxa OAC
s/p [employer] [facility] PPM
Hyperlipidemia
Echo 11/02/2020: EF 55 to 60%, trace MR, aortic sclerosis without stenosis
Echo 12/06/2024: EF 55 to 60%, moderate MR, aortic sclerosis with trace aortic regurgitation, normal right heart, small pericardial effusion
Plan:
-Presented with near syncope. Anemia noted, hgb down as low as 6.4 on 12/07. s/p 3 units PRBCs this admission. Hgb overall stable at 7.7 this AM.
-Underwent upper endoscopy 12/07 and noted to have well healed, non-bleeding gastric ulcer at the prepyloric region. Biopsied. No old or fresh blood seen.
-Per GI, ok to resume AC in 48 hours. Continue BID PPI and consider repeat EGD in 2-3 months.
-Patient also has gangrene of R 2nd toe. Seen by podiatry. Consideration for inpatient versus outpatient amputation. Timing TBD. If no plans for surgery while inpatient, would plan to resume Pradaxa at the 48 hour elian as noted by GI.
-For now continue aspirin alone.
-Orthostatic on admission, in the setting of hypovolemia. BP stable. Continue Toprol 75mg daily.
-Remains in permanent atrial fibrillation on review of telemetry. HR stable.
-Should follow up with primary tool engineer at discharge.
HPI: Patient came to the ER yesterday from home with near syncope and cardiology is consulted for possible NSVT on device interrogation. Patient was just admitted to the hospital from 11/08/2024 until 12-02 with PAT and for a peripheral vascular
intervention. Patient was discharged to [facility] for rehab, but has since returned home. Patient follows with cardiology at [facility], Dr. Luna, and has a [employer] PPM that is managed at [facility] by Dr. Sheridan.
Patient has been seen by our cardiology group during previous admissions. Patient reports being at home yesterday and that his helped him into the bathroom. Patient was able to sit on the toilet and move his bowels and then afterwards began
to feel lightheaded and was diaphoretic. Patient felt unable to stand on his own, but his was able to help him stand up and get back to bed and he felt his body stiffening. Patient does not remember losing consciousness. Patient asked his
to call 911 because he thought he might pass out. No chest pain or SOB. In the ER patient had possible NSVT on the front desk monitor and his [employer] PPM was interrogated and the reading also suggested NSVT. Patient has known
permanent A-fib and HR control in the past has been difficult due to orthostasis, the patient is currently taking Toprol-XL 75 mg daily. Orthostatic vital signs were not checked in the ER. Hgb was 8.2 on 11/08/2024 and is down to 6.6 on 12/05/2024.
Patient says he cannot remember the last time he had a colonoscopy.
Progress Note - Research Instructor
Subjective
Date of Service: December 09, 2024
Notes ongoing foot pain as main complaint.
Objective
Labs:
12/09/24 06:46
12/09/24 06:46
Labs
Hgb 7.7 g/dL (13.0-18.0) L 12/09/24 06:46
Hct 23.4 % (39.0-52.0) L 12/09/24 06:46
Plt Count 206 10^3/uL (130-400) 12/09/24 06:46
Sodium 137 mmol/L (135-145) 12/09/24 06:46
Potassium 4.5 mmol/L (3.5-5.1) 12/09/24 06:46
BUN 49 mg/dl (9-20) H 12/09/24 06:46
Creatinine 0.9 mg/dL (0.7-1.3) 12/09/24 06:46
Glucose 98 mg/dl (70-99) 12/09/24 06:46
Vital Signs and I&O:
Vital Signs
Temp Pulse Resp BP Pulse Ox
98.3 F 92 20 135/74 99
12/09/24 07:55 12/09/24 08:49 12/09/24 07:55 12/09/24 08:49 12/09/24 07:55
Vital Signs
Temp Pulse Resp BP Pulse Ox
98.3 F 92 20 135/74 99
12/09/24 07:55 12/09/24 08:49 12/09/24 07:55 12/09/24 08:49 12/09/24 07:55
Intake & Output
12/07/24 12/08/24 12/09/24 12/10/24
06:59 06:59 06:59 06:59
Intake Total 830 / 830 2420 / 2420 720 / 720
Output Total 1250 / 1250 800 / 800 850 / 850 350 / 350
Balance -420 / -420 1620 / 1620 -130 / -130 -350 / -350
Physical Exam
Physical Exam
GEN: No distress, awake, alert, oriented x3
HEENT: supple, anicteric, mmm
LUNGS: CTA b/l, no wheezes/rales
CV: irreg, S1/S2, no murmur
EXT: No edema, R 2nd toe gangrene
NEURO: Gross non-focal
SKIN: Warm, dry
--- NOTE | 2024-12-09 11:23 | PTCARENOTE ---
Pt refused his insulin this morning, A1C is 8.4. He refused breakfast and family on the phone acknowledged his non compliance with his diabetes
--- NOTE | 2024-12-09 11:44 | W.PN.HOSP.TC ---
Today's Communication/Plan
-
Transfuse unit of PRBC
Will discuss with podiatry timing of surgery
Trend hemoglobin
Assessment / Plan
Assessment / Plan
General: Well Developed, Well Nourished and No Apparent Distress, pale
HEENT: NormoCephalic, Moist mucous membranes and Atraumatic
Respiratory: Clear
Cardiac: S1/S2 and irregular irregular No Murmur or Rub
GI: Soft, Non Tender, Non Distended and Normal Bowel Sounds; No Organomegaly
Rectal: Deferred by Provider
Musculoskeletal: No Clubbing, No Cyanosis and No Edema, right second toe dry gangrene
Skin: No Rash
Neuro: Nonfocal/grossly intact
# Near syncopal episode secondary to atrial fibrillation and anemia
#Nonischemic myocardial injury
-Remains in A-fib
-Troponin 0.022, no need to further trend
-AV alin blocking agent per cardiology. Further up titration limited due to orthostasis.
-Echocardiogram with mitral regurgitation. EF of 55 to 60%.
-Cardiology consulted
# Chronic symptomatic macrocytic anemia
# Gastrointestinal bleeding from gastric ulcer
#Iron deficiency anemia
-Started patient IV iron while here. Started B12 supplementation.
-Last dose of Pradaxa 7/29 AM. Per GI can be restarted 48 hours post procedures. Will need to consider timing of surgery based on restarting Pradaxa
-Hemoglobin is 7.7. Patient feeling weak. Will transfuse additional unit of PRBC
-Status post endoscopy with gastric ulcers. Continue with PPI twice daily for 8 weeks then daily. Biopsy results to be followed up as outpatient.
#Right second toe dry gangrene
-Dr. Roman blum has been consulted-plan for amputation pending stabilization of anemia and anemia workup
-Foot x-ray negative for evidence of osteomyelitis
# Hyperkalemia unclear etiology
-Not on any medications that would cause hyperkalemia, has not recently been constipated
-Resolved
# Suspected Staphylococcus hominis UTI
-Start Augmentin
-afebrile.
History of permanent atrial fibrillation with permanent pacemaker
- Pradaxa on hold with anemia
- Continue metoprolol 75 mg daily.
CAD
- Continue aspirin
Peripheral arterial disease
Status post balloon angioplasty by Dr. Leighton Fitzpatrick
Plavix has been stopped transition to aspirin per cardiology discussion with Dr. Fitzpatrick.
Hyperlipidemia
- Continue statin
Essential hypertension
Chronic leg/back pain secondary to herniated disc
- Continue oxycodone
- Continue Tylenol
History of compression fracture
Osteoporosis
- Continue Tymlos
History of toe amputations in the past at [place]
History of constipation
DNR/DNI
DVT prophylaxis�Pradaxa on hold
Cardiac diet
Updated spouse over the phone in detail.
Anticipated Discharge: > 48 hours
Subjective/Interval History
-
Date of Service: December 09, 2024
Denies any abdominal pain
States he is feeling weak
Objective Data
-
Labs:
Laboratory Results
12/09/24
06:46
WBC 14.1 H
Hgb 7.7 L
Hct 23.4 L
Plt Count 206
Sodium 137
Potassium 4.5
Chloride 111 H
Carbon Dioxide 24
BUN 49 H
Creatinine 0.9
Glucose 98
Calcium 8.4
Vital Signs:
Vital Signs
Temp Pulse Resp BP Pulse Ox
98.3 F 92 20 135/74 99
12/09/24 07:55 12/09/24 08:49 12/09/24 07:55 12/09/24 08:49 12/09/24 08:45
I&O
12/08/24 12/09/24 12/10/24
06:59 06:59 06:59
Intake Total 2420 / 2420 720 / 720
Output Total 800 / 800 850 / 850 350 / 350
Balance 1620 / 1620 -130 / -130 -350 / -350
Data Reviewed
-
Total Time Spent with Patient (in minutes): 55
--- NOTE | 2024-12-09 12:32 | CM ---
Patient seen at bedside
Patient current with [facility]
Podiatry consulted
Will need PT OT after OR for postop evals
PLAN: Will depend on postop evals, anticipate SNF, CM to continue to follow for needs
--- NOTE | 2024-12-09 13:51 | PN.CDI ---
CDI
- -
CDI:
Physician Documentation Request
Admit Date: 12/05/24 00:07
Dear Doctor Noe,
Patient admitted with near syncope. H/H on admission .06/02.2.
12/06 cardiology note states 'I do not feel comfortable restarting Pradaxa long-term in this situation as he will almost certainly develop recurrent blood loss anemia.'
12/06 hospitalist note states 'pradaxa held'
12/08 GI note states '... had a drop in Hgb to 6.4 and dark, maroon colored stools later this afternoon....Okay for CLD and started IV PPI this afternoon given his melena'
Please clarify the relationship between these conditions:
Yes, melena is related to/associated with/due to/exacerbated by Pradaxa
No, melena is not related to/associated with/due to/exacerbated by Pradaxa
Unable to determine
Use of terms such as suspected, likely, concern for, or probable (associated with a specific diagnosis that is being evaluated, monitored, or treated as if it exists) are acceptable and can be coded in the inpatient setting, when documented at the
time of discharge.
Thank you,
Anastasiya Roldan RN, BSN
CDI Specialist
tiger text
Please use your independent medical judgment in providing your response.
[2024-12-09] MEDS: FERRLECIT 110 MG IV (14:27)
[2024-12-09] MEDS: ROXICODONE 5 MG PO (14:31)
[2024-12-09] MEDS: NON-FORMULARY ITEM 80 MCG SC (17:06)
[2024-12-09] MEDS: LIPITOR 10 MG PO (17:06)
[2024-12-09] MEDS: FLUSH (NSS) 2 FLUSH IV (20:28)
[2024-12-09] MEDS: SENOKOT-S PO ×2 (20:28→20:44)
[2024-12-10 03:59] VITALS: BP 134/74
[2024-12-10 07:25] VITALS: BP 139/61
[2024-12-10] MEDS: VITAMIN B-12 1000 MCG PO (08:38)
[2024-12-10] MEDS: SENOKOT-S 1 TABLET PO ×2 (08:38→19:55)
[2024-12-10] MEDS: VITAMIN D3 (cholecalciferol) 25 MCG PO (08:38)
[2024-12-10] MEDS: ASPIR LOW (ENTERIC COATED) 81 MG PO (08:38)
[2024-12-10] MEDS: TOPROL XL 75 MG PO (08:38)
[2024-12-10] MEDS: AUGMENTIN 500 MG/125 MG 1 TABLET PO ×2 (08:38→19:55)
[2024-12-10] MEDS: NSS (PRESERVATIVE FREE) 10 ML IV ×2 (08:38→19:54)
[2024-12-10] MEDS: OSCAL CAL 500 500 MG PO ×2 (08:38→19:55)
[2024-12-10] MEDS: PROTONIX IV 40 MG IV ×2 (08:39→19:55)
[2024-12-10] MEDS: MIRALAX PO (08:39)
[2024-12-10 10:01] LABS: Hematocrit 27.7 % (39.0-52.0); Hemoglobin 8.8 g/dL (13.0-18.0); Mean Corp Hgb Conc. 31.8 g/dL (33.0-37.0); Mean Corpuscular Volume 95.5 fL (80.0-94.0); Nucleated Red Blood Cells % 0.4 % (-); Platelet Count 210 10^3/uL (130-400); Red Cell Dist. Width 19.0 % (11.5-14.5)
[2024-12-10 10:26] LABS: Blood Urea Nitrogen 41 mg/dl (9-20); Calcium 8.5 mg/dl (8.4-10.2); Carbon Dioxide 28 mmol/L (22-30); Chloride 110 mmol/L (98-107); Estimated Creatinine Clearance 49 ml/min; Glucose 96 mg/dl (70-99); Potassium 4.6 mmol/L (3.5-5.1); Sodium 139 mmol/L (135-145); eGFR > 60.00
[2024-12-10 11:15] VITALS: BP 128/76
--- NOTE | 2024-12-10 11:23 | W.PN.HOSP.TC ---
Today's Communication/Plan
-
Recommend out of bed with PT and OT
Spouse looking for rehab placement
Hold Pradaxa for surgery on Thursday
Trend hemoglobin
Assessment / Plan
Assessment / Plan
General: Well Developed, Well Nourished and No Apparent Distress, pale
HEENT: NormoCephalic, Moist mucous membranes and Atraumatic
Respiratory: Clear anterior-dec bs b/l bases
Cardiac: S1/S2 and irregular irregular No Murmur or Rub
GI: Soft, Non Tender, Non Distended and Normal Bowel Sounds; No Organomegaly
Rectal: Deferred by Provider
Musculoskeletal: No Clubbing, No Cyanosis and No Edema, right second toe dry gangrene
Skin: No Rash
Neuro: Nonfocal/grossly intact
# Near syncopal episode secondary to atrial fibrillation and anemia
#Nonischemic myocardial injury
-Remains in A-fib
-Troponin 0.022, no need to further trend
-AV alin blocking agent per cardiology. Further up titration limited due to orthostasis.
-Echocardiogram with mitral regurgitation. EF of 55 to 60%.
-Cardiology consulted
# Chronic symptomatic macrocytic anemia
# Gastrointestinal bleeding from gastric ulcer
#Iron deficiency anemia
-Started patient IV iron while here. Started B12 supplementation.
-Hemoglobin at 8.8. Status post 4 unit of PRBC so far.
-Status post endoscopy with gastric ulcers. Continue with PPI twice daily for 8 weeks then daily. Biopsy results to be followed up as outpatient.
#Right second toe dry gangrene
-Dr. Owens w has been consulted-plan for amputation pending stabilization of anemia and anemia workup
-Foot x-ray negative for evidence of osteomyelitis
-d/w with Dr. Owens-plan for surgery on 12/12/24. Also per surgery to hold anticoagulation.
# Hyperkalemia unclear etiology
-Not on any medications that would cause hyperkalemia, has not recently been constipated
-Resolved
# Suspected Staphylococcus hominis UTI
-Start Augmentin
-afebrile.
History of permanent atrial fibrillation with permanent pacemaker
- Pradaxa on hold with anemia
- Continue metoprolol 75 mg daily.
CAD
- Continue aspirin
Peripheral arterial disease
Status post balloon angioplasty by Dr. Leighton Fitzpatrick
Plavix has been stopped transition to aspirin per cardiology discussion with Dr. Fitzpatrick.
Hyperlipidemia
- Continue statin
Essential hypertension
Chronic leg/back pain secondary to herniated disc
- Continue oxycodone
- Continue Tylenol
History of compression fracture
Osteoporosis
- Continue Tymlos
History of toe amputations in the past at [facility]
History of constipation
DNR/DNI
DVT prophylaxis�Pradaxa on hold
Cardiac diet
Updated spouse over the phone in detail on 12/10 again.
Anticipated Discharge: > 48 hours
Subjective/Interval History
-
Date of Service: December 10, 2024
states he didnt sleep much overnight
feeling better compared to yesterday after blood transfusion
Objective Data
-
Labs:
Laboratory Results
12/10/24
09:18
WBC 14.6 H
Hgb 8.8 L
Hct 27.7 L
Plt Count 210
Sodium 139
Potassium 4.6
Chloride 110 H
Carbon Dioxide 28
BUN 41 H
Creatinine 0.9
Glucose 96
Calcium 8.5
Vital Signs:
Vital Signs
Temp Pulse Resp BP Pulse Ox
97.7 F 80 16 139/61 99
12/10/24 07:25 12/10/24 08:38 12/10/24 07:25 12/10/24 08:38 12/10/24 10:27
I&O
08/06/0412/10/24 12/11/24
06:59 06:59 06:59
Intake Total 720 / 720 850 / 850
Output Total 850 / 850 1175 / 1175
Balance -130 / -130 -325 / -325
[2024-12-10] MEDS: TYLENOL 650 MG PO (12:10)
[2024-12-10 15:10] VITALS: BP 117/64
[2024-12-10] MEDS: ROXICODONE 5 MG PO (16:04)
[2024-12-10] MEDS: LIPITOR 10 MG PO (17:39)
[2024-12-10] MEDS: NON-FORMULARY ITEM 80 MCG SC (17:39)
[2024-12-10 19:22] VITALS: BP 127/63
[2024-12-10 23:24] VITALS: BP 126/59
[2024-12-11] MEDS: ROXICODONE 5 MG PO ×2 (03:40→21:42)
[2024-12-11 03:46] VITALS: BP 111/84
[2024-12-11] MEDS: TYLENOL 650 MG PO ×3 (06:04→21:41)
[2024-12-11 07:55] VITALS: BP 138/68
[2024-12-11 08:19] LABS: Hematocrit 24.9 % (39.0-52.0); Hemoglobin 8.1 g/dL (13.0-18.0); Mean Corp Hgb Conc. 32.5 g/dL (33.0-37.0); Mean Corpuscular Volume 93.6 fL (80.0-94.0); Platelet Count 218 10^3/uL (130-400); Red Cell Dist. Width 18.9 % (11.5-14.5)
[2024-12-11] MEDS: NSS (PRESERVATIVE FREE) 10 ML IV ×2 (08:21→21:10)
[2024-12-11] MEDS: PROTONIX IV 40 MG IV ×2 (08:21→21:09)
[2024-12-11] MEDS: SENOKOT-S 1 TABLET PO (08:21)
[2024-12-11] MEDS: ASPIR LOW (ENTERIC COATED) 81 MG PO (08:21)
[2024-12-11] MEDS: TOPROL XL 75 MG PO (08:21)
[2024-12-11] MEDS: OSCAL CAL 500 500 MG PO ×2 (08:21→21:09)
[2024-12-11] MEDS: VITAMIN B-12 1000 MCG PO (08:21)
[2024-12-11] MEDS: AUGMENTIN 500 MG/125 MG 1 TABLET PO ×2 (08:21→21:09)
[2024-12-11] MEDS: MIRALAX PO (08:23)
[2024-12-11] MEDS: VITAMIN D3 (cholecalciferol) 25 MCG PO (08:24)
[2024-12-11 08:40] LABS: Nucleated Red Blood Cells % 0.3 % (-)
[2024-12-11 08:43] LABS: Blood Urea Nitrogen 41 mg/dl (9-20); Calcium 8.1 mg/dl (8.4-10.2); Carbon Dioxide 24 mmol/L (22-30); Chloride 111 mmol/L (98-107); Estimated Creatinine Clearance 49 ml/min; Glucose 94 mg/dl (70-99); Potassium 4.5 mmol/L (3.5-5.1); Sodium 138 mmol/L (135-145); eGFR > 60.00
--- NOTE | 2024-12-11 10:55 | W.PN.HOSP.TC ---
Addendum entered and electronically signed by Rashad Liu MD 12/11/24 11:22:
Melena could be exacerbated due to Pradaxa and Plavix
Original Note:
Today's Communication/Plan
-
Surgery tomorrow
Postop PT and OT
May require placement
Continue with iron and B12 supplementation
Trend hemoglobin
Restart DOAC. Pending surgery clearance
Assessment / Plan
Assessment / Plan
General: Well Developed, Well Nourished and No Apparent Distress, pale
HEENT: NormoCephalic, Moist mucous membranes and Atraumatic
Respiratory: Clear anterior-dec bs b/l bases
Cardiac: S1/S2 and irregular irregular No Murmur or Rub
GI: Soft, Non Tender, Non Distended and Normal Bowel Sounds; No Organomegaly
Rectal: Deferred by Provider
Musculoskeletal: No Clubbing, No Cyanosis and No Edema, right second toe dry gangrene
Skin: No Rash
Neuro: Nonfocal/grossly intact
# Near syncopal episode secondary to atrial fibrillation and anemia
#Nonischemic myocardial injury
-Remains in A-fib
-Troponin 0.022, no need to further trend
-AV alin blocking agent per cardiology. Further up titration limited due to orthostasis.
-Echocardiogram with mitral regurgitation. EF of 55 to 60%.
-Cardiology consulted
# Chronic symptomatic macrocytic anemia
# Gastrointestinal bleeding from gastric ulcer
#Iron deficiency anemia
-Started patient IV iron while here. Started B12 supplementation.
-Hemoglobin at 8.1 Status post 4 unit of PRBC so far.
-Status post endoscopy with gastric ulcers. Continue with PPI twice daily for 8 weeks then daily. Biopsy results to be followed up as outpatient.
#Right second toe dry gangrene
-Dr. Owens w has been consulted-plan for amputation pending stabilization of anemia and anemia workup
-Foot x-ray negative for evidence of osteomyelitis
-d/w with Dr. Owens-plan for surgery on 12/12/24. Also per surgery to hold anticoagulation. N.p.o. past midnight.
# Hyperkalemia unclear etiology
-Not on any medications that would cause hyperkalemia, has not recently been constipated
-Resolved
# Suspected Staphylococcus hominis UTI
-Started Augmentin
-afebrile.
History of permanent atrial fibrillation with permanent pacemaker
- Pradaxa on hold with anemia
- Continue metoprolol 75 mg daily.
CAD
- Continue aspirin
Peripheral arterial disease
Status post balloon angioplasty by Dr. Leighton Fitzpatrick
Plavix has been stopped transition to aspirin per cardiology discussion with Dr. Fitzpatrick.
Hyperlipidemia
- Continue statin
Essential hypertension
Chronic leg/back pain secondary to herniated disc
- Continue oxycodone
- Continue Tylenol
History of compression fracture
Osteoporosis
- Continue Tymlos
History of toe amputations in the past at [facility]
History of constipation
DNR/DNI
DVT prophylaxis�SCDs in the setting of gastrointestinal bleeding and anticoagulation hold for surgery
Cardiac diet
Anticipated Discharge: > 48 hours
Subjective/Interval History
-
Date of Service: December 11, 2024
States he slept well overnight
Was out of bed to chair
Having bowel movements
Objective Data
-
Labs:
Laboratory Results
12/11/24
06:56
WBC 13.1 H
Hgb 8.1 L
Hct 24.9 L
Plt Count 218
Sodium 138
Potassium 4.5
Chloride 111 H
Carbon Dioxide 24
BUN 41 H
Creatinine 0.9
Glucose 94
Calcium 8.1 L
Vital Signs:
Vital Signs
Temp Pulse Resp BP Pulse Ox
98.4 F 86 16 138/68 98
12/11/24 07:55 12/11/24 08:21 12/11/24 07:55 12/11/24 08:21 12/11/24 09:24
I&O
12/10/24 12/11/24 12/12/24
06:59 06:59 06:59
Intake Total 850 / 850 240 / 240
Output Total 1175 / 1175 750 / 750
Balance -325 / -325 -510 / -510
[2024-12-11 11:55] VITALS: BP 127/64
[2024-12-11 15:55] VITALS: BP 123/69
[2024-12-11] MEDS: LIPITOR 10 MG PO (17:12)
[2024-12-11] MEDS: NON-FORMULARY ITEM 80 MCG SC (17:12)
[2024-12-11 19:55] VITALS: BP 124/64
[2024-12-11] MEDS: SENOKOT-S PO (21:22)
[2024-12-11 23:55] VITALS: BP 122/68
[2024-12-12] VITALS (15 sets, daily range): BP systolic 15–145; BP diastolic 56–95; BMI 25.7
[2024-12-12] MEDS: SENOKOT-S PO ×2 (07:54→21:19)
[2024-12-12] MEDS: MIRALAX PO (07:54)
[2024-12-12] MEDS: VITAMIN B-12 1000 MCG PO (07:55)
[2024-12-12] MEDS: AUGMENTIN 500 MG/125 MG 1 TABLET PO ×2 (07:55→21:15)
[2024-12-12] MEDS: ASPIR LOW (ENTERIC COATED) 81 MG PO (07:55)
[2024-12-12] MEDS: TOPROL XL 75 MG PO (07:56)
[2024-12-12] MEDS: NSS (PRESERVATIVE FREE) 10 ML IV ×2 (07:57→21:19)
[2024-12-12] MEDS: FLUSH (NSS) 1 FLUSH IV (07:57)
[2024-12-12] MEDS: PROTONIX IV 40 MG IV ×2 (07:57→21:19)
[2024-12-12] MEDS: OSCAL CAL 500 500 MG PO ×2 (07:58→21:16)
[2024-12-12] MEDS: VITAMIN D3 (cholecalciferol) 25 MCG PO (07:58)
[2024-12-12 08:43] LABS: Hematocrit 26.4 % (39.0-52.0); Hemoglobin 8.3 g/dL (13.0-18.0); Mean Corp Hgb Conc. 31.4 g/dL (33.0-37.0); Mean Corpuscular Volume 96.0 fL (80.0-94.0); Platelet Count 203 10^3/uL (130-400); Red Cell Dist. Width 19.2 % (11.5-14.5)
[2024-12-12 09:03] LABS: Blood Urea Nitrogen 38 mg/dl (9-20); Calcium 8.3 mg/dl (8.4-10.2); Carbon Dioxide 27 mmol/L (22-30); Chloride 109 mmol/L (98-107); Estimated Creatinine Clearance 49 ml/min; Glucose 95 mg/dl (70-99); Potassium 4.8 mmol/L (3.5-5.1); Sodium 138 mmol/L (135-145); eGFR > 60.00
[2024-12-12 09:25] LABS: Nucleated Red Blood Cells % 0.3 % (-)
[2024-12-12] MEDS: ROXICODONE 5 MG PO (09:49)
--- NOTE | 2024-12-12 10:49 | W.PN.HOSP.TC ---
Today's Communication/Plan
-
see A/P
Assessment / Plan
Assessment / Plan
A/P:
# Near syncopal episode secondary to atrial fibrillation and anemia
# Nonischemic myocardial injury
Remains in A-fib/ Permanent A fib
Troponin 0.022, no need to further trend
AV alin blocking agent per cardiology. Cont Toprol 75 mg daily. Further up titration limited due to orthostasis.
Echocardiogram with mitral regurgitation. EF 55 to 60%.
Cardiology consulted
# Chronic symptomatic macrocytic anemia
# Gastrointestinal bleeding from gastric ulcer
# Iron deficiency anemia
Status post endoscopy with gastric ulcers. Continue with PPI twice daily for 8 weeks then daily. Biopsy results to be followed up as outpatient.
Started patient IV iron while here. Started B12 supplementation.
Status post 4 unit of PRBC transfusion.
Hemoglobin stable at 8.3 today.
# Right second toe dry gangrene
Foot x-ray negative for evidence of osteomyelitis
Dr. Owens consulted- plan for amputation 12/12 following stabilization of anemia
# Hyperkalemia unclear etiology, resolved
# Suspected Staphylococcus hominis UTI
Started Augmentin
afebrile.
# History of permanent atrial fibrillation with permanent pacemaker
Pradaxa on hold preop
Continue metoprolol 75 mg daily.
# CAD
Continue aspirin
# Peripheral arterial disease
# Status post balloon angioplasty by Dr. Leighton Fitzpatrick
Plavix has been stopped, transition to aspirin per cardiology discussion with Dr. Fitzpatrick.
# Hyperlipidemia
Continue statin
# Essential hypertension
# Chronic leg/back pain secondary to herniated disc
Continue oxycodone
Continue Tylenol
# History of compression fracture
# Osteoporosis
Continue Tymlos
# History of toe amputations in the past at [facility]
# History of constipation
DNR/DNI
DVT prophylaxis� SCDs in setting of gastrointestinal bleeding and anticoagulation hold for surgery
Cardiac diet
Anticipated Discharge: 24 - 48 hours
Subjective/Interval History
-
Date of Service: December 12, 2024
Objective Data
-
Labs:
Laboratory Results
12/12/24
07:49
WBC 11.7 H
Hgb 8.3 L
Hct 26.4 L
Plt Count 203
Sodium 138
Potassium 4.8
Chloride 109 H
Carbon Dioxide 27
BUN 38 H
Creatinine 0.9
Glucose 95
Calcium 8.3 L
Vital Signs:
Vital Signs
Temp Pulse Resp BP Pulse Ox
36.6 C 89 24 143/95 98
12/12/24 07:25 12/12/24 07:56 12/12/24 07:25 12/12/24 07:56 12/12/24 07:53
I&O
12/11/24 12/12/24 12/13/24
06:59 06:59 06:59
Intake Total 240 / 240 720 / 720
Output Total 750 / 750 800 / 800
Balance -510 / -510 -80 / -80
Review of Systems
-
History Source: Patient
All other systems: Reviewed and negative
Physical Exam
-
General: Well Developed, Well Nourished, No Apparent Distress, Comfortable and Conversant; Negative Respiratory Distress
HEENT: Normocephalic, Atraumatic, Nose Appears Normal and Ears Appear Normal; Negative Oxygen
Respiratory: Clear to Auscultation and Non Labored Respirations; Negative Accessory Resp Muscle Use
Cardiac: Regular Rhythm and S1/S2
GI: Soft, Nontender, Nondistended and Normal Bowel Sounds
Skin: Warm and Dry
Neuro: Awake and Alert
Psych: Calm and Intact Judgement/Insight
Data Reviewed
-
Total Time Spent with Patient (in minutes): 55
Labs: Labs Reviewed by me
--- NOTE | 2024-12-12 11:25 | W.PN.CARDCBS ---
Addendum entered and electronically signed by Sandra Britton DO 12/12/24 13:46:
I saw and examined the patient.
The [facility] note was reviewed and I agree with the note.
Comment: Patient was seen and examined prior to anticipated toe amputation. He offers no new complaints.
GEN: No distress, awake, alert, oriented x3
HEENT: supple, anicteric, mmm
LUNGS: CTA b/l, no wheezes/rales
CV: irreg, S1/S2, no murmur
EXT: No edema, R 2nd toe gangrene
Plan:
Near syncope secondary to symptomatic anemia.
-GI consultation reviewed. Patient status post upper endoscopy 730 with well-healed, nonbleeding gastric ulcer at the prepyloric region.
-GI cleared patient to resume anticoagulation 48 hours post procedure.
-Continue PPI
- Hemoglobin today 8.3 g/dL.
Peripheral arterial disease with gangrene
- Plan for toe amputation today
- Will await further recommendations from podiatry and vascular surgery regarding resuming Pradaxa
- Continue aspirin
- Continue atorvastatin.
- Will check lipid profile to see if atorvastatin dose needs to be intensified
Permanent atrial fibrillation with history of [employer] pacemaker
-Resume anticoagulation with Pradaxa once cleared by podiatry post procedure
- Continue metoprolol succinate
Will follow with you
Original Note:
Today's Communication / Plan
-
Continue aspirin 81mg daily, eventually resume Pradaxa when ok per podiatry
Continue Toprol 75mg daily
Impression / Plan
-
PCP: Dr. Christine
Cardiology: Dr. Farias [facility]
EP: Dr. Sheridan [facility]
Impression:
Admitted with near syncope
Recent admission for PAD and peripheral interventions 11/08/2024 until 11/09/2024
Anemia
Hyperkalemia
Near syncope
Afib with RVR
NSVT on PPM interrogation report is rapid Afib that is being tracked in the ventricle
Permanent Afib
Chronic Pradaxa OAC
s/p HyprKey PPM
Hyperlipidemia
Echo 11/02/2020: EF 55 to 60%, trace MR, aortic sclerosis without stenosis
Echo 12/06/2024: EF 55 to 60%, moderate MR, aortic sclerosis with trace aortic regurgitation, normal right heart, small pericardial effusion
Plan:
-Presented with near syncope. Anemia noted, hgb down as low as 6.4 on 12/07. s/p 3 units PRBCs this admission. Hgb overall stable at 8.3 in AM 12/12.
-Underwent upper endoscopy 12/07 and noted to have well healed, non-bleeding gastric ulcer at the prepyloric region. Biopsied. No old or fresh blood seen.
-GI cleared to resume AC after 48 hours, however patient now planned for inpatient amputation of R 2nd toe later today, 12/12.
-Will await podiatry recommendations for when is safe to resume patient's usual Pradaxa post-op.
-Continues on aspirin alone for now.
-BP stable. Remains in known permanent atrial fibrillation with stable HRs on tele. Continue Toprol 75mg daily.
-Should follow up with primary tower director at discharge.
HPI: Patient came to the ER yesterday from home with near syncope and cardiology is consulted for possible NSVT on device interrogation. Patient was just admitted to the hospital from 11/08/2024 until 12-02 with PAT and for a peripheral vascular
intervention. Patient was discharged to [facility] for rehab, but has since returned home. Patient follows with cardiology at [facility], Dr. Luna, and has a Robert Applebaum MD PPM that is managed at [facility] by Dr. Sheridan.
Patient has been seen by our cardiology group during previous admissions. Patient reports being at home yesterday and that his helped him into the bathroom. Patient was able to sit on the toilet and move his bowels and then afterwards began
to feel lightheaded and was diaphoretic. Patient felt unable to stand on his own, but his was able to help him stand up and get back to bed and he felt his body stiffening. Patient does not remember losing consciousness. Patient asked his
to call 911 because he thought he might pass out. No chest pain or SOB. In the ER patient had possible NSVT on the mathematics lecturer and his Robert Applebaum MD PPM was interrogated and the reading also suggested NSVT. Patient has known
permanent A-fib and HR control in the past has been difficult due to orthostasis, the patient is currently taking Toprol-XL 75 mg daily. Orthostatic vital signs were not checked in the ER. Hgb was 8.2 on 11/08/2024 and is down to 6.6 on 12/05/2024.
Patient says he cannot remember the last time he had a colonoscopy.
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
Subjective
Date of Service: December 12, 2024
Tired. Still w/ foot/toe pain. No cardiac complaints.
Objective
Labs:
12/12/24 07:49
12/12/24 07:49
Labs
Hgb 8.3 g/dL (13.0-18.0) L 12/12/24 07:49
Hct 26.4 % (39.0-52.0) L 12/12/24 07:49
Plt Count 203 10^3/uL (130-400) 12/12/24 07:49
Sodium 138 mmol/L (135-145) 12/12/24 07:49
Potassium 4.8 mmol/L (3.5-5.1) 12/12/24 07:49
BUN 38 mg/dl (9-20) H 12/12/24 07:49
Creatinine 0.9 mg/dL (0.7-1.3) 12/12/24 07:49
Glucose 95 mg/dl (70-99) 12/12/24 07:49
Vital Signs and I&O:
Vital Signs
Temp Pulse Resp BP Pulse Ox
98.0 F 95 24 130/74 95
12/12/24 11:19 12/12/24 11:19 12/12/24 11:19 12/12/24 11:19 12/12/24 11:19
Vital Signs
Temp Pulse Resp BP Pulse Ox
98.0 F 95 24 130/74 95
12/12/24 11:19 12/12/24 11:19 12/12/24 11:19 12/12/24 11:19 12/12/24 11:19
Intake & Output
12/10/24 12/11/24 12/12/24 12/13/24
06:59 06:59 06:59 06:59
Intake Total 850 / 850 240 / 240 720 / 720
Output Total 1175 / 1175 750 / 750 800 / 800
Balance -325 / -325 -510 / -510 -80 / -80
Physical Exam
Physical Exam
GEN: No distress, awake, alert, oriented x3
HEENT: supple, anicteric, mmm
LUNGS: CTA b/l, no wheezes/rales
CV: irreg, S1/S2, no murmur
EXT: No edema, R 2nd toe gangrene
NEURO: Gross non-focal
SKIN: Warm, dry
--- NOTE | 2024-12-12 13:08 | W.PN.UPDATE ---
Update Note
Progress Note Update
patient s/p right 2nd toe amputation
-Partial weight bearing right foot
-antibiotics x 2 weeks
-Dressing changes 2 x per week
-Follow up in office 2 weeks
--- NOTE | 2024-12-12 13:50 | PTCARENOTE ---
Pt for transfer to [address] [place] [address] post-op; all pt belongings taken to room 2108. Pt's own med from med drawer tubed to [address] [place] [address].
--- NOTE | 2024-12-12 16:57 | CM ---
Pt had right toe amputation. Pt moved to 2108.
Spoke with she wants hi to go to [facility] [place].
Pt will need PT OT postop then referral placed to [facility] to check for bed availability.
PLAN after PT OT placed [facility] referral
[2024-12-12] MEDS: TYLENOL 650 MG PO (18:30)
[2024-12-12] MEDS: NON-FORMULARY ITEM 80 MCG SC (18:30)
[2024-12-12] MEDS: LIPITOR 10 MG PO (18:30)
[2024-12-12] MEDS: LOPRESSOR 5 MG IV (19:06)
[2024-12-12] MEDS: PRADAXA 150 MG PO (21:16)
[2024-12-13] VITALS (8 sets, daily range): BP systolic 118–138; BP diastolic 57–78; PULSE 78; O2SAT 99
[2024-12-13 07:40] LABS: Blood Urea Nitrogen 34 mg/dl (9-20); Calcium 8.0 mg/dl (8.4-10.2); Carbon Dioxide 20 mmol/L (22-30); Chloride 110 mmol/L (98-107); Estimated Creatinine Clearance 55 ml/min; Glucose 116 mg/dl (70-99); HDL Cholesterol 44 mg/dl; LDL Cholesterol, Calculated 55 mg/dl; Magnesium 2.5 mg/dl (1.6-2.3); Potassium 5.0 mmol/L (3.5-5.1); Sodium 134 mmol/L (135-145); Very Low Density Lipoprotein 11 mg/dl (0-30); eGFR > 60.00
[2024-12-13 08:13] LABS: Hematocrit 25.6 % (39.0-52.0); Hemoglobin 8.2 g/dL (13.0-18.0); Mean Corp Hgb Conc. 32.0 g/dL (33.0-37.0); Mean Corpuscular Volume 94.8 fL (80.0-94.0); Platelet Count 208 10^3/uL (130-400); Red Cell Dist. Width 19.1 % (11.5-14.5)
[2024-12-13] MEDS: MIRALAX PO (08:20)
[2024-12-13] MEDS: SENOKOT-S PO (08:20)
[2024-12-13] MEDS: AUGMENTIN 500 MG/125 MG 1 TABLET PO ×2 (08:20→19:29)
[2024-12-13] MEDS: PRADAXA 150 MG PO ×2 (08:21→19:29)
[2024-12-13] MEDS: VITAMIN D3 (cholecalciferol) 25 MCG PO (08:21)
[2024-12-13] MEDS: ASPIR LOW (ENTERIC COATED) 81 MG PO (08:21)
[2024-12-13] MEDS: TOPROL XL 75 MG PO (08:21)
[2024-12-13] MEDS: OSCAL CAL 500 500 MG PO ×2 (08:21→19:29)
[2024-12-13] MEDS: VITAMIN B-12 1000 MCG PO (08:21)
[2024-12-13] MEDS: PROTONIX IV 40 MG IV ×2 (08:22→19:29)
[2024-12-13] MEDS: NSS (PRESERVATIVE FREE) 10 ML IV ×2 (08:22→19:29)
--- NOTE | 2024-12-13 08:27 | W.PN.UPDATE ---
Update Note
Progress Note Update
s/p right second toe ampuation
-Continue ABx
-Partial WBAT in surgical shoe
-Dressing changes x2 per week
-Will follow
[2024-12-13] MEDS: TYLENOL 650 MG PO (08:37)
--- NOTE | 2024-12-13 11:06 | W.PN.HOSP.TC ---
Today's Communication/Plan
-
see A/P
Assessment / Plan
Assessment / Plan
A/P:
# Near syncopal episode secondary to atrial fibrillation and anemia
# Nonischemic myocardial injury
Remains in A-fib/ Permanent A fib
Troponin 0.022, no need to further trend
AV alin blocking agent per cardiology. Cont Toprol 75 mg daily. Further up titration limited due to orthostasis.
Echocardiogram with mitral regurgitation. EF 55 to 60%.
Cardiology consulted
# Chronic symptomatic macrocytic anemia
# Gastrointestinal bleeding from gastric ulcer
# Iron deficiency anemia
Status post endoscopy with gastric ulcers. Continue with PPI twice daily for 8 weeks then daily. Biopsy results to be followed up as outpatient.
Started patient IV iron while here. Started B12 supplementation.
Status post 4 unit of PRBC transfusion.
Hemoglobin stable at 8.2 today.
# Right second toe dry gangrene
Foot x-ray negative for evidence of osteomyelitis
s/p right second toe amputation 12/[address] Owens
Partial WBAT in surgical shoe. Dressing changes x2 per week
# Hyperkalemia unclear etiology, resolved
# Suspected Staphylococcus hominis UTI
Started Augmentin, could treat for 14 days total
afebrile.
# History of permanent atrial fibrillation with permanent pacemaker
Continue metoprolol 75 mg daily.
Resumed TOMBSTONE ERECTOR Pradaxa
# CAD
Continue aspirin
# Peripheral arterial disease
# Status post balloon angioplasty by Dr. Leighton Fitzpatrick
Plavix has been stopped, transition to aspirin per cardiology discussion with Dr. Fitzpatrick.
# Hyperlipidemia
Continue statin
# Essential hypertension
# Chronic leg/back pain secondary to herniated disc
Continue oxycodone
Continue Tylenol
# History of compression fracture
# Osteoporosis
Continue Tymlos
# History of toe amputations in the past at [facility]
# History of constipation
DNR/DNI
DVT prophylaxis� resumed TOMBSTONE ERECTOR Pradaxa
Cardiac diet
DW CM
Anticipated Discharge: Within 24 hours
Subjective/Interval History
-
Date of Service: December 13, 2024
Objective Data
-
Labs:
Laboratory Results
12/13/24 12/13/24
06:00 08:02
WBC Cancelled 12.6 H
Hgb Cancelled 8.2 L
Hct Cancelled 25.6 L
Plt Count Cancelled 208
Sodium 134 L
Potassium 5.0
Chloride 110 H
Carbon Dioxide 20 L
BUN 34 H
Creatinine 0.8
Glucose 116 H
Calcium 8.0 L
Vital Signs:
Vital Signs
Temp Pulse Resp BP Pulse Ox
36.5 C 93 20 130/78 96
12/13/24 07:20 12/13/24 08:21 12/13/24 07:20 12/13/24 08:21 12/13/24 07:20
I&O
12/12/24 12/13/24 12/14/24
06:59 06:59 06:59
Intake Total 720 / 720 1320 / 1320 240 / 240
Output Total 800 / 800 425 / 425 275 / 275
Balance -80 / -80 895 / 895 -35 / -35
Review of Systems
-
History Source: Patient
All other systems: Reviewed and negative
Physical Exam
-
General: Well Developed, Well Nourished, No Apparent Distress, Comfortable and Conversant; Negative Respiratory Distress
HEENT: Normocephalic, Atraumatic, Nose Appears Normal and Ears Appear Normal; Negative Oxygen
Respiratory: Clear to Auscultation and Non Labored Respirations; Negative Accessory Resp Muscle Use
Cardiac: Regular Rhythm and S1/S2
GI: Soft, Nontender, Nondistended and Normal Bowel Sounds
Skin: Warm and Dry
Neuro: Awake and Alert
Psych: Calm and Intact Judgement/Insight
Data Reviewed
-
Total Time Spent with Patient (in minutes): 55
Labs: Labs Reviewed by me
--- NOTE | 2024-12-13 12:34 | W.PN.CARDCBS ---
Addendum entered and electronically signed by James Ferreira MD 12/13/24 13:21:
I saw and examined the patient.
The AUTOMOTIVE WHOLESALE PARTS ADVISOR or PA's note was reviewed and I agree with the note.
Comment: General: Well developed, well nourished in NAD.
Neck: Supple, no JVD, HJR, carotids +2 B/L, no bruits bilaterally.
Heart: Non displaced PMI, RRR, no murmurs, No S3, S4, no rubs.
Lungs: Clear to auscultation bilaterally, no wheeze, rhonchi, rubs bilaterally,
normal expiratory phase.
Extremities: No clubbing, cyanosis or edema bilaterally.
Neuro: Grossly nonfocal, awake, alert and oriented x3.
Stable cardiology status. Will sign off, call with questions. Patient will follow-up with outpatient postdoctoral scholar at [facility].
Original Note:
Today's Communication / Plan
-
Stable from a cardiac standpoint
Pradaxa restarted
Plavix changed to aspirin this admission
He will follow-up with his postdoctoral scholar at [facility]
Impression / Plan
-
PCP: Dr. Christine
Cardiology: Dr. Farias [facility]
EP: Dr. Sheridan [facility]
Impression:
Admitted with near syncope
Recent admission for PAD and peripheral interventions 11/08/2024 until 11/09/2024
Anemia
Hyperkalemia
Near syncope
Afib with RVR
NSVT on PPM interrogation report is rapid Afib that is being tracked in the ventricle
Permanent Afib
Chronic Pradaxa OAC
s/p [employer] PPM
Hyperlipidemia
Echo 11/02/2020: EF 55 to 60%, trace MR, aortic sclerosis without stenosis
Echo 12/06/2024: EF 55 to 60%, moderate MR, aortic sclerosis with trace aortic regurgitation, normal right heart, small pericardial effusion
Plan:
-Presented with near syncope. Anemia noted, hgb down as low as 6.4 on 12/07. Has received 3 units PRBCs this admission. Hgb stable at 8.2 on my review of labs 12/13/24.
-Patient was found to have a nonbleeding well-healed gastric ulcer on upper endoscopy 12/08/2024. GI has signed off of the case, but recommended Protonix 40 mg BID for 8 weeks and then once daily indefinitely given the need for OAC. They also
recommended consideration of a repeat upper endoscopy in 2 to 3 months to assess for healing.
-Patient then had right second toe amputation for gangrene performed on 12/12/2024.
-Outpatient dose of Pradaxa 150 mg BID resumed on 12/12/2024 PM
-Patient was taking Plavix along with Pradaxa prior to admission due to PAD and permanent A-fib respectively. Plavix was transitioned to aspirin this admission.
-Telemetry and VS reviewed by me and overall HR control and BP have improved with stable Hgb, following toe amputation and treatment of UTI
-Patient with possible NSVT on telemetry and PPM interrogation on admission, but on closer review this all appears to be A-fib with RVR and that the rapid atrial rates are tracking in the ventricles and was inappropriately reported as NSVT on device
check.
-I had a long conversation with the patient's on 12/06/2024 where she stated that the patient intermittently expresses a desire to no longer be alive and that they would be interested in discussing hospice. I reviewed this with the hospitalist
attending and the top case assembler. Hospice talked to the patient and and they are not interested in pursuing hospice at this time, but appreciated the information. I reviewed with patient again on 12/08/2024 and he says he is absolutely not
interested in hospice.
-Patient will follow-up with his primary postdoctoral scholar at [facility] upon discharge.
HPI: Patient came to the ER yesterday from home with near syncope and cardiology is consulted for possible NSVT on device interrogation. Patient was just admitted to the hospital from 11/08/2024 until 12-02 with PAT and for a peripheral vascular
intervention. Patient was discharged to [facility] for rehab, but has since returned home. Patient follows with cardiology at [facility], Dr. Luna, and has a norin.tv PPM that is managed at [facility] by Dr. Sheridan.
Patient has been seen by our cardiology group during previous admissions. Patient reports being at home yesterday and that his helped him into the bathroom. Patient was able to sit on the toilet and move his bowels and then afterwards began
to feel lightheaded and was diaphoretic. Patient felt unable to stand on his own, but his was able to help him stand up and get back to bed and he felt his body stiffening. Patient does not remember losing consciousness. Patient asked his
to call 911 because he thought he might pass out. No chest pain or SOB. In the ER patient had possible NSVT on the cardiac monitor technician and his norin[employer]tv PPM was interrogated and the reading also suggested NSVT. Patient has known
permanent A-fib and HR control in the past has been difficult due to orthostasis, the patient is currently taking Toprol-XL 75 mg daily. Orthostatic vital signs were not checked in the ER. Hgb was 8.2 on 11/08/2024 and is down to 6.6 on 12/05/2024.
Patient says he cannot remember the last time he had a colonoscopy.
Progress Note - Marketing Automation Specialist
Subjective
Date of Service: December 13, 2024
He feels well, no pain
Objective
Labs:
12/13/24 08:02
12/13/24 06:00
Labs
Hgb 8.2 g/dL (13.0-18.0) L 12/13/24 08:02
Hct 25.6 % (39.0-52.0) L 12/13/24 08:02
Plt Count 208 10^3/uL (130-400) 12/13/24 08:02
Sodium 134 mmol/L (135-145) L 12/13/24 06:00
Potassium 5.0 mmol/L (3.5-5.1) 12/13/24 06:00
BUN 34 mg/dl (9-20) H 12/13/24 06:00
Creatinine 0.8 mg/dL (0.7-1.3) 12/13/24 06:00
Glucose 116 mg/dl (70-99) H 12/13/24 06:00
Vital Signs and I&O:
Vital Signs
Temp Pulse Resp BP Pulse Ox
98.6 F 84 16 138/75 97
12/13/24 11:05 12/13/24 11:05 12/13/24 11:05 12/13/24 11:05 12/13/24 11:05
Vital Signs
Temp Pulse Resp BP Pulse Ox
98.6 F 84 16 138/75 97
12/13/24 11:05 12/13/24 11:05 12/13/24 11:05 12/13/24 11:05 12/13/24 11:05
Intake & Output
12/11/24 12/12/24 12/13/24 12/14/24
06:59 06:59 06:59 06:59
Intake Total 240 / 240 720 / 720 1320 / 1320 480 / 480
Output Total 750 / 750 800 / 800 425 / 425 475 / 475
Balance -510 / -510 -80 / -80 895 / 895 5 / 5
Physical Exam
Physical Exam
GEN: AAO x3
LUNGS: RA. No audible wheeze
CV: Afib on tele.
[2024-12-13] MEDS: ROXICODONE 5 MG PO ×2 (13:27→21:27)
--- NOTE | 2024-12-13 14:49 | CM ---
POD #1 R 2nd toe amputation. IV/Augmentin. Discharge POC: Awaiting therapy evaluation and recommendation. Anticipate SNF. Patient wants [facility]. Referral has been forwarded.
--- NOTE | 2024-12-13 15:08 | CM ---
POD #1 R 2nd toe amputation. PO/Augmentin. Discharge POC: Awaiting therapy evaluation and recommendation. Anticipate SNF. Patient wants [facility]. Referral has been forwarded.
[2024-12-13] MEDS: LIPITOR 10 MG PO (17:49)
[2024-12-13] MEDS: NON-FORMULARY ITEM 80 MCG SC (17:49)
[2024-12-13] MEDS: SENOKOT-S 1 TABLET PO (19:29)
[2024-12-14 03:05] VITALS: BP 119/62
[2024-12-14] MEDS: TYLENOL 650 MG PO (04:48)
[2024-12-14 07:15] VITALS: BP 144/86
[2024-12-14 07:40] LABS: Hematocrit 25.0 % (39.0-52.0); Hemoglobin 7.9 g/dL (13.0-18.0); Mean Corp Hgb Conc. 31.6 g/dL (33.0-37.0); Mean Corpuscular Volume 96.2 fL (80.0-94.0); Platelet Count 215 10^3/uL (130-400); Red Cell Dist. Width 19.3 % (11.5-14.5)
--- NOTE | 2024-12-14 08:02 | W.PN.UPDATE ---
Update Note
Progress Note Update
s/p right second toe ampuation
-Continue ABx
-Partial WBAT in surgical shoe
-Dressing changes x2 per week
-Will follow
[2024-12-14] MEDS: VITAMIN D3 (cholecalciferol) 25 MCG PO (08:23)
[2024-12-14] MEDS: VITAMIN B-12 1000 MCG PO (08:23)
[2024-12-14] MEDS: ASPIR LOW (ENTERIC COATED) 81 MG PO (08:23)
[2024-12-14] MEDS: AUGMENTIN 500 MG/125 MG 1 TABLET PO (08:23)
[2024-12-14] MEDS: OSCAL CAL 500 500 MG PO (08:24)
[2024-12-14] MEDS: PRADAXA 150 MG PO (08:24)
[2024-12-14] MEDS: TOPROL XL 75 MG PO (08:24)
[2024-12-14] MEDS: NSS (PRESERVATIVE FREE) 10 ML IV (08:25)
[2024-12-14] MEDS: SENOKOT-S PO (08:25)
[2024-12-14] MEDS: MIRALAX PO (08:25)
[2024-12-14] MEDS: PROTONIX IV 40 MG IV (08:26)
[2024-12-14 08:31] LABS: Blood Urea Nitrogen 40 mg/dl (9-20); Calcium 7.9 mg/dl (8.4-10.2); Carbon Dioxide 24 mmol/L (22-30); Chloride 107 mmol/L (98-107); Estimated Creatinine Clearance 49 ml/min; Glucose 90 mg/dl (70-99); Potassium 4.8 mmol/L (3.5-5.1); Sodium 135 mmol/L (135-145); eGFR > 60.00
--- NOTE | 2024-12-14 09:12 | CM ---
Addendum entered by Fatmata Worley 12/14/24 10:37:
Met with patient at bedside; IMM benefit explained; form signed @ 1030
Original Note:
Plan: Discharge to [facility] today via ambulance
Report # [phone]
--- NOTE | 2024-12-14 09:38 | W.PN.HOSP.TC ---
Addendum entered and electronically signed by Cathleen Downs MD 12/14/24 13:09:
total DC time 40 min
Original Note:
Today's Communication/Plan
-
DC to SNF today
Assessment / Plan
Assessment / Plan
A/P:
# Near syncopal episode secondary to atrial fibrillation and anemia
# Nonischemic myocardial injury
Remains in A-fib/ Permanent A fib
Troponin 0.022, no need to further trend
AV alin blocking agent per cardiology. Cont Toprol 75 mg daily. Further up titration limited due to orthostasis.
Echocardiogram with mitral regurgitation. EF 55 to 60%.
Cardiology consulted
# Chronic symptomatic macrocytic anemia
# Gastrointestinal bleeding from gastric ulcer
# Iron deficiency anemia
Status post endoscopy with gastric ulcers. Continue with PPI twice daily for 8 weeks then daily. Biopsy results to be followed up as outpatient.
Started patient IV iron while here. Started B12 supplementation.
Status post 4 unit of PRBC transfusion.
Hemoglobin at 7.9 today.
# Right second toe dry gangrene
Foot x-ray negative for evidence of osteomyelitis
s/p right second toe amputation 12/[address] Owens
Partial WBAT in surgical shoe. Dressing changes x2 per week
# Hyperkalemia unclear etiology, resolved
# Suspected Staphylococcus hominis UTI
Started Augmentin, could treat for 14 days total
afebrile.
# History of permanent atrial fibrillation with permanent pacemaker
Continue metoprolol 75 mg daily.
Resumed FERTILIZER SUPERVISOR Pradaxa
# CAD
Continue aspirin
# Peripheral arterial disease
# Status post balloon angioplasty by Dr. Leighton Fitzpatrick
Plavix has been stopped, transition to aspirin per cardiology discussion with Dr. Fitzpatrick.
# Hyperlipidemia
Continue statin
# Essential hypertension
# Chronic leg/back pain secondary to herniated disc
Continue oxycodone
Continue Tylenol
# History of compression fracture
# Osteoporosis
Continue Tymlos
# History of toe amputations in the past at [place]
# History of constipation
DNR/DNI
DVT prophylaxis� resumed FERTILIZER SUPERVISOR Pradaxa
Cardiac diet
DW CM
Anticipated Discharge: Today
Subjective/Interval History
-
Date of Service: December 14, 2024
Objective Data
-
Labs:
Laboratory Results
12/14/24
07:03
WBC 13.6 H
Hgb 7.9 L
Hct 25.0 L
Plt Count 215
Sodium 135
Potassium 4.8
Chloride 107
Carbon Dioxide 24
BUN 40 H
Creatinine 0.9
Glucose 90
Calcium 7.9 L
Vital Signs:
Vital Signs
Temp Pulse Resp BP Pulse Ox
36.8 C 87 16 144/86 100
12/14/24 07:15 12/14/24 08:24 12/14/24 07:15 12/14/24 08:24 12/14/24 07:15
I&O
12/13/24 12/14/24 12/15/24
06:59 06:59 06:59
Intake Total 1320 / 1320 1200 / 1200
Output Total 425 / 425 1125 / 1125
Balance 895 / 895 75 / 75
Review of Systems
-
History Source: Patient
All other systems: Reviewed and negative
Physical Exam
-
General: Well Developed, Well Nourished, No Apparent Distress, Comfortable and Conversant; Negative Respiratory Distress
HEENT: Normocephalic, Atraumatic, Nose Appears Normal and Ears Appear Normal; Negative Oxygen
Respiratory: Clear to Auscultation and Non Labored Respirations; Negative Accessory Resp Muscle Use
Cardiac: Regular Rhythm and S1/S2
GI: Soft, Nontender, Nondistended and Normal Bowel Sounds
Skin: Warm and Dry
Neuro: Awake and Alert
Psych: Calm and Intact Judgement/Insight
Data Reviewed
-
Total Time Spent with Patient (in minutes): 55
Labs: Labs Reviewed by me
--- NOTE | 2024-12-14 11:11 | W.DCSUMMARY ---
Discharge Summary
Discharge Data
Date of Admission: 12/05/24
Date of Discharge: 12/14/24
Total time spent discharging patient (in min): 40
-
Pending Results: No
Hospital Course
Principal Diagnosis:
Near syncopal episode secondary to atrial fibrillation and anemia
Anemia with iron deficiency and low B12 level
Gastrointestinal bleeding from gastric ulcer
Right second toe dry gangrene status post amputation 12/[address] Owens
Chronic Diagnoses:�
History of permanent atrial fibrillation with permanent pacemaker
Coronary artery disease
Peripheral arterial disease, status post balloon angioplasty by Dr. Leighton Fitzpatrick
Hyperlipidemia
Essential hypertension
Chronic leg/back pain secondary to herniated disc
History of compression fracture
Osteoporosis
History of toe amputations in the past at [place]
History of constipation
Consultations:�
Cardiology
Gastroenterology
Podiatry
Procedures:�
Upper endoscopy 12/08 noted gastric ulcers.
Right second toe amputation 12/[address] Owens
Clinical course:�
This is a 84-year-old male, with past medical history as stated above, who presented with near syncope.
Problem 1:
Near syncopal episode secondary to atrial fibrillation and anemia.
His Echocardiogram showed mitral regurgitation and EF 55 to 60%.
He can continue Toprol 75 mg daily for his permanent A-fib per cardiology.
He was discharged to SNF for PT OT recommendation.
Problem 2:
Anemia with iron deficiency and low B12 level.
Gastrointestinal bleeding from gastric ulcer.
He underwent endoscopy which noted gastric ulcers.
He can continue PPI twice daily for 8 weeks then daily after that.
He can follow up his endoscopy biopsy result as an outpatient.
He can continue with oral iron and B12 supplement following discharge.
Of note, he did receive 4 units PRBC transfusion during this admission.
His hemoglobin was at 7.9 on the day of discharge. He can check repeat CBC in 1 week with result to his PCP.
Problem 3:
Right second toe dry gangrene.
His foot x-ray was negative for osteomyelitis.
He underwent right second toe amputation on 12/[address] Owens.
He should remain Partial WBAT in surgical shoe. Dressing changes x2 per week.
Problem 4:
Suspect Staphylococcus hominis UTI.
He received Augmentin while in the hospital and can continue for 7 more days (total 14 days).
As for the rest of his medical problems, they were stable during his hospital stay.
Discharge Plan
-
Patient Disposition: Care Home/SNF
Discharge Diagnosis/Procedures: Lightheadedness likely secondary atrial fibrillation and anemia;
Gastrointestinal bleeding from gastric ulcer (EGD on 12/08);
Status post blood transfusion;
Iron deficiency anemia;
Vitamin B12 deficiency;
Right second toe dry gangrene status post amputation 12/12
Condition: Fair
Diet: Regular
Activity: As tolerated
Additional Activity: Remain Partial WBAT in surgical shoe.
Dressing changes x2 per week
Driving Restrictions: Not until seen by your Dr
Blood Work: CBC, BMP in 1 week, result to PCP
Referrals:
Quan Barajas DO [Active, Hematology / Oncology] - in one to two weeks
Referral Note: For anemia and chronic leukocytosis
Dameon Sheridan MD [Non-Admitting Privileges, Cardiology]
Referral Note: Follow up with your spooling operator, Dr. Sheridan.
Arcelia Christine MD [Non-Admitting Privileges, Internal Medicine] - in less than 1 week
Referral Note: Please follow up with Dr. Ivy
Antonio Farias MD [Non-Admitting Privileges]
Referral Note: Follow up with your court supervisor Dr. Farias.
Additional Discharge Medication Instructions: Continue protonix twice daily for 8 weeks then daily after that
Continue Augmentin for 7 more days
You were started with iron supplement and B12 supplement for anemia.
Take aspirin and stop plavix
Prescriptions:
New
cyanocobalamin (vitamin B-12) [Vitamin B-12] 1,000 mcg Tablet
1,000 mcg PO DAILY 30 Days Qty: 30 0RF
ferrous fumarate 324 mg (106 mg iron) tablet
324 mg PO DAILY Qty: 30 0RF
aspirin 81 mg Tablet,Delayed Release (Dr/Ec)
81 mg PO DAILY Qty: 30 0RF
amoxicillin-pot clavulanate 500-125 mg Tablet
1 tab PO Q12 7 Days Qty: 14 0RF
pantoprazole [Protonix] 40 mg tablet,delayed release (DR/EC)
40 mg PO DAILY 56 Days Qty: 56 0RF
Continued
atorvastatin 10 MG tablet
10 mg PO QPM
metoprolol succinate 50 MG tablet extended release 24 hr
75 mg PO DAILY
cholecalciferol (vitamin D3) [Vitamin D3] 25 mcg (1,000 unit) Tablet
25 mcg PO DAILY
calcium carbonate 600 mg calcium (1,500 mg) Tablet
600 mg PO BID
Tymlos 80 mcg (3,120 mcg/1.56 mL) Pen Injector
80 mcg SC QPM
acetaminophen [Tylenol] 325 mg Tablet
650 mg PO Q4HPRN PRN (Reason: mild pain)
dabigatran etexilate 150 mg Capsule
150 mg PO BID
oxycodone 5 mg tablet
5 mg PO Q8HPRN PRN (Reason: severe Pain) Qty: 7 0RF
Discharge Orders:
Discharge Patient (As Directed); Ordered 12/14/24
Ordered By: Cathleen Downs
Discharge Date and Time
Print Language: MAURITANIAN
[2024-12-14 11:15] VITALS: BP 113/59
== END 2024-12-14 13:49 | DRG 255 ==
LOC: 2 SOUTH 00:07
PROVIDERS: Hospitalist; ADMITTING PHYSICIAN Hospitalist; ATTENDING PHYSICIAN Internal Medicine; CONSULT PHYSICIAN Student in an Organized Health Care Education/Training Program; EMERGENCY PHYSICIAN Emergency Medicine; OTHER PHYSICIAN Internal Medicine Cardiovascular Disease
PROC: 30233N1 Transfusion of Nonautologous Red Blood Cells into Peripheral Vein, Percutaneous Approach (ICD-10-PCS; 2024-12-05)
PROC: 0DB78ZX Excision of Stomach, Pylorus, Via Natural or Artificial Opening Endoscopic, Diagnostic (ICD-10-PCS; 2024-12-08)
PROC: 0DB68ZX Excision of Stomach, Via Natural or Artificial Opening Endoscopic, Diagnostic (ICD-10-PCS; 2024-12-08)
PROC: 0Y6R0Z0 Detachment at Right 2nd Toe, Complete, Open Approach (ICD-10-PCS; 2024-12-12)
DX: I48.21 Permanent atrial fibrillation (principal); K25.4 Chronic or unspecified gastric ulcer with hemorrhage; D62 Acute posthemorrhagic anemia; E87.1 Hypo-osmolality and hyponatremia; I5A Non-ischemic myocardial injury (non-traumatic); N39.0 Urinary tract infection, site not specified; D68.32 Hemorrhagic disorder due to extrinsic circulating anticoagulants; I70.261 Atherosclerosis of native arteries of extremities with gangrene, right leg; M86.9 Osteomyelitis, unspecified; Z66 Do not resuscitate; I25.10 Atherosclerotic heart disease of native coronary artery without angina pectoris; E78.00 Pure hypercholesterolemia, unspecified; E87.5 Hyperkalemia; D50.9 Iron deficiency anemia, unspecified; D72.829 Elevated white blood cell count, unspecified; I10 Essential (primary) hypertension; M81.0 Age-related osteoporosis without current pathological fracture; M51.26 Other intervertebral disc displacement, lumbar region; B95.7 Other staphylococcus as the cause of diseases classified elsewhere; I34.0 Nonrheumatic mitral (valve) insufficiency; I49.5 Sick sinus syndrome; T45.515A Adverse effect of anticoagulants, initial encounter; T45.525A Adverse effect of antithrombotic drugs, initial encounter; E53.8 Deficiency of other specified B group vitamins; G89.29 Other chronic pain; Z95.820 Peripheral vascular angioplasty status with implants and grafts; Z11.52 Encounter for screening for COVID-19; Z95.0 Presence of cardiac pacemaker; Z89.422 Acquired absence of other left toe(s); Z87.891 Personal history of nicotine dependence; Z79.01 Long term (current) use of anticoagulants; Z79.899 Other long term (current) drug therapy; Z79.82 Long term (current) use of aspirin
CPT/HCPCS: 71046; 73630; 80048; 80053; 80061; 81003; 81015; 82607; 82728; 82746; 83540; 83550; 83735; 83880; 84484; 85025; 85027; 86850; 86900; 86901; 86920; 87086; 87147; 87186; 87502; 87811; 88305; 88311; 88342; 93005; 93306; 97163; 97164; 97167; 97530; 97535; 99285; J2916; P9016

== ENCOUNTER → 2024-12-16 12:19 | Outpatient (REF) | payer OTHER, MEDICARE, SELFPAY | LOC: OLABN 12:19 | PROVIDERS: ATTENDING PHYSICIAN Student in an Organized Health Care Education/Training Program | DX: A04.72 Enterocolitis due to Clostridium difficile, not specified as recurrent (principal) | CPT/HCPCS: 87324; 87449 ==

== ENCOUNTER → 2024-12-19 10:55 | Outpatient (REF) | payer OTHER, MEDICARE, SELFPAY ==
[2024-12-19 11:51] LABS: Blood Urea Nitrogen 32 mg/dl (9-20); Calcium 8.0 mg/dl (8.4-10.2); Carbon Dioxide 25 mmol/L (22-30); Chloride 109 mmol/L (98-107); Glucose 93 mg/dl (70-99); Potassium 4.7 mmol/L (3.5-5.1); Sodium 139 mmol/L (135-145); eGFR > 60.00
[2024-12-19 12:02] LABS: Hematocrit 26.3 % (39.0-52.0); Hemoglobin 8.4 g/dL (13.0-18.0); Mean Corp Hgb Conc. 31.9 g/dL (33.0-37.0); Mean Corpuscular Volume 97.8 fL (80.0-94.0); Platelet Count 258 10^3/uL (130-400); Red Cell Dist. Width 19.4 % (11.5-14.5)
[2024-12-19 13:35] LABS: Nucleated Red Blood Cells % 0 % (-)
== END ==
LOC: OLABN 10:55
PROVIDERS: ATTENDING PHYSICIAN Student in an Organized Health Care Education/Training Program
DX: I10 Essential (primary) hypertension (principal); D64.9 Anemia, unspecified
CPT/HCPCS: 36415; 80048; 85025

== ENCOUNTER → 2024-12-21 09:37 | Outpatient (REF) | payer OTHER, MEDICARE, SELFPAY ==
[2024-12-21 10:40] LABS: Hematocrit 24.8 % (39.0-52.0); Hemoglobin 7.7 g/dL (13.0-18.0); Mean Corp Hgb Conc. 31.0 g/dL (33.0-37.0); Mean Corpuscular Volume 97.6 fL (80.0-94.0); Platelet Count 255 10^3/uL (130-400); Red Cell Dist. Width 19.5 % (11.5-14.5)
== END ==
LOC: OLABN 09:37
PROVIDERS: ATTENDING PHYSICIAN Student in an Organized Health Care Education/Training Program
DX: D72.810 Lymphocytopenia (principal)
CPT/HCPCS: 36415; 85027

== ENCOUNTER → 2024-12-22 09:59 | Outpatient (REF) | payer OTHER, MEDICARE, SELFPAY | LOC: OLABN 09:59 | PROVIDERS: ATTENDING PHYSICIAN Student in an Organized Health Care Education/Training Program | DX: D50.8 Other iron deficiency anemias (principal) | CPT/HCPCS: 36415; 82272 ==

== ENCOUNTER → 2024-12-23 10:08 | Outpatient (REF) | payer OTHER, MEDICARE, SELFPAY | LOC: OLABN 10:08 | PROVIDERS: ATTENDING PHYSICIAN Student in an Organized Health Care Education/Training Program | DX: D50.8 Other iron deficiency anemias (principal) | CPT/HCPCS: 82272 ==

== ENCOUNTER → 2024-12-26 10:09 | Outpatient (REF) | payer OTHER, MEDICARE, SELFPAY ==
[2024-12-26 11:23] LABS: Blood Urea Nitrogen 36 mg/dl (9-20); Calcium 8.7 mg/dl (8.4-10.2); Carbon Dioxide 25 mmol/L (22-30); Chloride 108 mmol/L (98-107); Glucose 93 mg/dl (70-99); Potassium 5.0 mmol/L (3.5-5.1); Sodium 137 mmol/L (135-145); eGFR > 60.00
[2024-12-26 11:24] LABS: Hematocrit 24.7 % (39.0-52.0); Hemoglobin 7.6 g/dL (13.0-18.0); Mean Corp Hgb Conc. 30.8 g/dL (33.0-37.0); Mean Corpuscular Volume 99.6 fL (80.0-94.0); Platelet Count 283 10^3/uL (130-400); Red Cell Dist. Width 20.8 % (11.5-14.5)
[2024-12-26 12:28] LABS: Absolute Neutrophils -Man Diff 9.2 10^3/uL (1.4-6.5)
[2024-12-26 12:29] LABS: Anisocytosis 1+; Hypochromasia Slight; Normal RBC Morphology No; Ovalocytes Slight; Platelets Checked Yes; Total Cells Counted 100
== END ==
LOC: OLABN 10:09
PROVIDERS: ATTENDING PHYSICIAN Student in an Organized Health Care Education/Training Program
DX: D64.9 Anemia, unspecified (principal); I10 Essential (primary) hypertension
CPT/HCPCS: 36415; 80048; 85025

== ENCOUNTER → 2025-01-02 10:42 | Outpatient (REF) | payer OTHER, MEDICARE, SELFPAY ==
[2025-01-02 13:13] LABS: Hematocrit 27.1 % (39.0-52.0); Hemoglobin 8.2 g/dL (13.0-18.0); Mean Corp Hgb Conc. 30.3 g/dL (33.0-37.0); Mean Corpuscular Volume 102.7 fL (80.0-94.0); Platelet Count 258 10^3/uL (130-400); Red Cell Dist. Width 22.6 % (11.5-14.5)
[2025-01-02 13:29] LABS: Nucleated Red Blood Cells % 0.3 % (-)
[2025-01-02 13:34] LABS: Blood Urea Nitrogen 42 mg/dl (9-20); Calcium 8.5 mg/dl (8.4-10.2); Carbon Dioxide 27 mmol/L (22-30); Chloride 108 mmol/L (98-107); Glucose 104 mg/dl (70-99); Potassium 4.9 mmol/L (3.5-5.1); Sodium 137 mmol/L (135-145); eGFR > 60.00
== END ==
LOC: OLABN 10:42
PROVIDERS: ATTENDING PHYSICIAN Student in an Organized Health Care Education/Training Program
DX: D64.9 Anemia, unspecified (principal); I10 Essential (primary) hypertension
CPT/HCPCS: 36415; 80048; 85025

== ENCOUNTER 2025-02-27 11:21 | Emergency (ER) | payer MEDICARE, SELFPAY ==
[2025-02-27 11:24] VITALS: BP 158/88
[2025-02-27 11:43] VITALS: BMI 24.5
--- NOTE | 2025-02-27 12:19 | ED.GENMED ---
History of Present Illness
General
Chief Complaint: Back Pain
Source: patient
Exam Limitations: none
Time Seen by Provider: 02/27/25 12:09
History of Present Illness
History of Present Illness:
84-year-old male with chronic back pain presents with worsening back pain this morning. The pain is made worse when he stands from sitting and bears weight. No bowel or bladder dysfunction. No numbness. He uses oxycodone at home which does tend
to help with pain. No new injury within the past week but does note a fall about a month ago. He denies chest pain or shortness of breath. No fevers. No other complaints at this time
Past History
Past History
ED Past Medical History: Arrthythmia (afib), HTN and Other (Compression fractures, peripheral arterial disease, hyperlipidemia)
ED Past Surgical History: Cardiac, Orthopedic and Other (Vascular)
Social History
Tobacco: Non-smoker
Alcohol: None
Drug: None
Personal:
Living: with family
Employment: Retired
Phy Exam
Physical Exam
Physical Exam:
General: Well-appearing male no acute respiratory distress
HEENT normal cephalic atraumatic
Heart: Regular rate and rhythm
Lungs: Clear no wheeze
Musculoskeletal exam: Mild diffuse tenderness about the lower lumbar spine. Good range of motion both lower extremities he has good sensation and strength to the lower extremities
Vascular: 2+DP pulse bilateral feet
Course
Orders/Labs/Results
Orders:
Orders
02/27/25 12:18
CR Lumbar Spine 2 Or 3 Views Urgent
Comment:
Reason For Exam: back pain
02/27/25 13:39
Complete Blood Count/With Diff Urgent
Comprehensive Metabolic Panel Urgent
02/27/25 14:33
Electrocardiogram (*1) Urgent
Reason for Study: Fatigue / Weakness
EKG- Treatment ONCE
02/27/25 14:42
COVID-19 Antigen Urgent
Source: Nasal Swab
Troponin I Urgent
Urinalysis Reflex To Culture Urgent
Date Specimen was Collected: 02/27/25
Time Specimen was Collected: 14:37
Urine Microscopic Reflex Cult Urgent
Influenza A+B Rapid Molecular Urgent
MORGAN Source: Nasal Swab
Specimen Description:
Urine Culture Urgent
MORGAN Source: U
Specimen Description:
Date Specimen was Collected: 02/27/25
Time Specimen was Collected: 14:37
Abnormal Lab Results
02/27/25 02/27/25
13:39 14:42
RBC 2.67 L 10^6/uL
(4.70-6.10)
Hgb 9.4 L g/dL
(13.0-18.0)
Hct 28.8 L %
(39.0-52.0)
MCV 107.9 H fL
(80.0-94.0)
MCH 35.2 H pg
(27.0-31.0)
MCHC 32.6 L g/dL
(33.0-37.0)
RDW 19.7 H %
(11.5-14.5)
MPV 10.5 H fL
(7.4-10.4)
Abs Immat Gran (auto) 0.2 H 10^3/uL
(0-0.05)
Absolute Neuts (auto) 6.6 H 10^3/uL
(1.4-6.5)
Absolute Lymphs (auto) 0.7 L 10^3/uL
(1.2-3.4)
Absolute Monos (auto) 0.9 H 10^3/uL
(0.1-0.6)
Immature Gran % 2.3 H %
(0-0.5)
Neutrophils % 76.9 H %
(42.2-75.2)
Lymphocytes % 7.9 L %
(20.5-51.1)
Monocytes % 10.6 H %
(1.7-9.3)
BUN 35 H mg/dl
(9-20)
Glucose 122 H mg/dl
(70-99)
Total Bilirubin 1.4 H mg/dl
(0.2-1.3)
Total Protein 6.2 L g/dl
(6.3-8.2)
Ur Occult Blood Reflex 1+ A
(Negative)
Leukocyte Esterase Rfl 1+ A
(Negative)
Urine WBC (Reflex) 16-20 A /HPF
(0-5)
Urine Bacteria (Reflex) Many A
(Negative)
Urine Albumin (Reflex) 2+ A
(Neg - Trace)
02/27/25 13:39
02/27/25 13:39
Vital Signs
Initial and Last Documented VS:
Initial Vital Signs
Temp Pulse Resp BP Pulse Ox
98.4 F 105 20 158/88 99
02/27/25 11:24 02/27/25 11:24 02/27/25 11:24 02/27/25 11:24 02/27/25 11:24
Last Documented Vital Signs
Temp Pulse Resp BP Pulse Ox
98.4 F 89 16 126/61 99
02/27/25 11:24 02/27/25 13:49 02/27/25 13:49 02/27/25 13:49 02/27/25 12:22
*Pulse Oximetry
SaO2: 99
Oxygen Mode of Delivery: Room air
Patient hypoxic: no
*Critical Care Note
Total Time (30-74mins, 75-104mins- exclusive of procedures): Not Applicable
Update Note
Update Note:
now in room and reevaluated patient. She describes more of a not feeling well and fatigue over the last 2 days on top of his chronic back pain. X-rays of his back demonstrate chronic compression fractures. After hearing that he has been more
weak and having increased urinary frequency urinalysis is ordered which shows 16-20 white blood cells with many bacteria. Will treat for UTI. Troponin COVID and flu are negative. No indication for admission. Stable for discharge. White blood
cell count normal. No fever. No reproducible tenderness to the flanks. Do not suspect pyelonephritis
ED Attending Note
-
Portions of this chart may have been created with voice recognition software.� Occasional wrong word or��sound alike� substitutions may have occurred due to the inherent limitations of voice recognition software.
Discharge Plan
Departure
Patient Disposition: Home (Routine Discharge)
Date of Disposition: 02/27/25
Time of Disposition: 15:31
Patient with high blood pressure during this ER visit?: No
Discharge Problem:
Acute UTI
Prescriptions:
New
cefdinir 300 mg capsule
300 mg PO BID Qty: 14 0RF
No Action
atorvastatin 10 MG tablet
10 mg PO QPM
metoprolol succinate 50 MG tablet extended release 24 hr
75 mg PO DAILY
cholecalciferol (vitamin D3) [Vitamin D3] 25 mcg (1,000 unit) Tablet
25 mcg PO DAILY
calcium carbonate 600 mg calcium (1,500 mg) Tablet
600 mg PO BID
Tymlos 80 mcg (3,120 mcg/1.56 mL) Pen Injector
80 mcg SC QPM
acetaminophen [Tylenol] 325 mg Tablet
650 mg PO Q4HPRN PRN (Reason: mild pain)
dabigatran etexilate 150 mg Capsule
150 mg PO BID
cyanocobalamin (vitamin B-12) [Vitamin B-12] 1,000 mcg Tablet
1,000 mcg PO DAILY 30 Days Qty: 30 0RF
ferrous fumarate 324 mg (106 mg iron) tablet
324 mg PO DAILY Qty: 30 0RF
aspirin 81 mg Tablet,Delayed Release (Dr/Ec)
81 mg PO DAILY Qty: 30 0RF
amoxicillin-pot clavulanate 500-125 mg Tablet
1 tab PO Q12 7 Days Qty: 14 0RF
pantoprazole [Protonix] 40 mg tablet,delayed release (DR/EC)
40 mg PO DAILY 56 Days Qty: 56 0RF
oxycodone 5 mg tablet
5 mg PO Q8HPRN PRN (Reason: severe Pain) Qty: 7 0RF
Referrals:
Arcelia Christine MD [Family Provider, Internal Medicine]
Activity Restrictions/Additional Instructions:
Take antibiotics as directed. Continue chronic pain medicine. Return if worse otherwise follow-up with your doctor
Interventions
Interventions:
*Risk Screen - Suicide Last Done: 02/27/25 11:24
*General Assessment Last Done: 02/27/25 11:24
*Neglect/Abuse Screening Last Done: 02/27/25 11:45
*ED- Fall Risk Assessment Last Done: 02/27/25 11:44
*ED COVID-19 Vaccine History Last Done: 02/27/25 11:44
*ED Influenza Vaccine History Last Done: 02/27/25 11:44
ED-Musculoskeletal Assessment Last Done: 02/27/25 13:49
Discharge Date and Time
Print Language: [email or web address]
[2025-02-27 12:23] VITALS: BP 165/68
[2025-02-27 13:49] VITALS: BP 126/61
[2025-02-27 13:58] LABS: Hematocrit 28.8 % (39.0-52.0); Hemoglobin 9.4 g/dL (13.0-18.0); Mean Corp Hgb Conc. 32.6 g/dL (33.0-37.0); Mean Corpuscular Volume 107.9 fL (80.0-94.0); Nucleated Red Blood Cells % 0 % (-); Platelet Count 181 10^3/uL (130-400); Red Cell Dist. Width 19.7 % (11.5-14.5)
[2025-02-27 14:15] LABS: ALT (SGPT) 19 U/L (0-50); AST (SGOT) 24 U/L (17-59); Albumin 3.6 g/dl (3.5-5.0); Alkaline Phosphatase 87 U/L (38-126); Blood Urea Nitrogen 35 mg/dl (9-20); Calcium 8.9 mg/dl (8.4-10.2); Carbon Dioxide 28 mmol/L (22-30); Chloride 107 mmol/L (98-107); Estimated Creatinine Clearance 40 ml/min; Glucose 122 mg/dl (70-99); Potassium 4.2 mmol/L (3.5-5.1); Sodium 137 mmol/L (135-145); Total Protein 6.2 g/dl (6.3-8.2); eGFR > 60.00
[2025-02-27 15:01] LABS: Urine Character Clear (Clear)
[2025-02-27 15:12] LABS: Urine Red Blood Cell 0-2 /HPF (0-2); Urine White Cell 16-20 /HPF (0-5)
[2025-02-27 15:15] LABS: Troponin I 0.025 ng/ml
[2025-02-27 15:17] LABS: COVID-19 Antigen Negative (Negative)
[2025-02-27 15:55] VITALS: BP 124/74
== END 2025-02-27 16:18 | disposition home or self-care (01) ==
LOC: EMR 11:21
PROVIDERS: Physician Assistant; EMERGENCY PHYSICIAN Student in an Organized Health Care Education/Training Program; FAMILY PHYSICIAN Internal Medicine
DX: N39.0 Urinary tract infection, site not specified (principal); R53.83 Other fatigue; G89.29 Other chronic pain; M54.9 Dorsalgia, unspecified; E78.5 Hyperlipidemia, unspecified; I10 Essential (primary) hypertension; I73.9 Peripheral vascular disease, unspecified; Z11.52 Encounter for screening for COVID-19
CPT/HCPCS: 99285; 72100; 80053; 81003; 81015; 84484; 85025; 87086; 87147; 87186; 87502; 87811; 93005

== ENCOUNTER 2025-03-09 15:36 | Inpatient (IN) | payer MEDICARE, SELFPAY ==
[2025-03-07 23:39] VITALS: BP 124/82
[2025-03-07 23:42] VITALS: BMI 27.1
[2025-03-08] VITALS (13 sets, daily range): BP systolic 95–157; BP diastolic 63–93; BMI 25.7
--- NOTE | 2025-03-08 00:11 | ED.GENMED ---
History of Present Illness
<Roseanna Bean PA-C - Last Filed: 03/08/25 05:04>
General
Chief Complaint: Back Pain
Source: patient
Exam Limitations: none
Time Seen by Provider: 03/07/25 23:42
Nursing documentation reviewed up to this point in time: agreed with
History of Present Illness
History of Present Illness:
84-year-old male with past medical history of chronic back pain, A-fib, HTN, HLP, peripheral vascular disease, presents to the ER today with concerns of severe back pain. Patient reports that he has chronic back pain and experiences daily pain
however reports that today the pain seemed to be worse since ever been. He reports that he has a long history of this dating back to around 4 years ago and he reports that he seen multiple doctors for this including multiple pain doctors and
orthopedist and he was told that there is nothing that could be done for his pain. He manages his pain with oxycodone and Tylenol but reports that these has not been helping. He reports that he had the pain in the morning was able to walk but he
woke up from a nap and is that the pain was excruciating and it was so severe that he could not walk. The pain is described as constant affecting the lower back in a band. It is aggravated by walking or any movement. The patient reports that
sometimes the pain is so severe he cannot focus and talk. The patient denies urinary incontinence fecal incontinence, genital paresthesias, abdominal pain, dizziness, chest pain, loss of sensation in lower extremities. The pain in the back does
not radiate anywhere. The patient reports that he has had 5 compression fractures in the past. He denies any rib pain.
Past History
<Roseanna Bean PA-C - Last Filed: 03/08/25 05:04>
Past History
ED Past Medical History: Arrthythmia (afib), HTN and Other (Compression fractures, peripheral arterial disease, hyperlipidemia)
ED Past Surgical History: Cardiac, Orthopedic and Other (Vascular)
Social History
Tobacco: Non-smoker
Alcohol: None
Drug: None
Personal:
Living: with family
Employment: Retired
Review of Systems
<Roseanna Bean PA-C - Last Filed: 03/08/25 05:04>
Review of Systems
All Other Systems: ROS reviewed and negative except as documented in HPI and ROS
Phy Exam
<Roseanna Bean PA-C - Last Filed: 03/08/25 05:04>
Physical Exam
Physical Exam:
General: Patient is well appearing and in no acute distress; non-toxic
Skin: Warm and dry, no rashes or lesions
Head: Normocephalic, atraumatic
Eyes: Sclera non-icteric. EOMs intact.
Cardiac: Heart rate is irregularly irregular, no murmurs, no tenderness to palpation of the external chest wall
Peripheral Vascular: No lower extremity swelling or edema, toes amputated from left foot, 2+ DP and PT pulses bilaterally
Pulm: Normal respiratory effort
Abdomen: No abdominal tenderness to palpation, no pulsatile abdominal mass
Musculoskeletal: Midline lumbar spinal tenderness and para lumbar tenderness to palpation, no palpable bony deformity, patient able to flex and extend hips and knees without any pain or discomfort
Neuro: CN II-XII intact, no focal neurologic deficits. Sensation intact to bilateral lower extremities.
Psychiatric: Appropriate mood and affect.
Course
<Roseanna Bean PA-C - Last Filed: 03/08/25 05:04>
Orders/Labs/Results
Orders:
Orders
03/08/25 00:05
CR Hips CASSIUS w/wo Pel 3-4 Vw Urgent
Comment:
Reason For Exam: posterior hip pain
Include a pelvis x-ray?: Yes
CR Lumbar Spine Comp Min 4 Vw* Urgent
Comment:
Reason For Exam: back pain
CR Thoracic Spine 3 Views Urgent
Reason For Exam: back pain
03/08/25 00:07
Morphine Sulfate 4 mg IV NOW STA
03/08/25 00:08
Lidocaine [Lidocaine 4% Patch] 1 patch TOPICAL DAILY ONE
Apply Lidocaine patch(s) to:: right paralumbar
03/08/25 00:26
Complete Blood Count/With Diff Urgent
Comprehensive Metabolic Panel Urgent
Lipase Urgent
Prothrombin Time Urgent
03/08/25 01:03
0.9% Sodium Chloride 500 ml [Nss] 500 ml IV BOLUS
03/08/25 01:26
Add On- LAB Urgent
Tests Added?: lipase
03/08/25 01:49
Morphine Sulfate 4 mg IV NOW STA
03/08/25 02:05
Acetaminophen [Tylenol] 1,000 mg PO NOW STA
Metoprolol [Lopressor] 75 mg PO NOW STA
Abnormal Lab Results
03/08/25
00:26
WBC 17.4 H 10^3/uL
(4.8-10.8)
RBC 2.97 L 10^6/uL
(4.70-6.10)
Hgb 10.2 L g/dL
(13.0-18.0)
Hct 32.4 L %
(39.0-52.0)
MCV 109.1 H fL
(80.0-94.0)
MCH 34.3 H pg
(27.0-31.0)
MCHC 31.5 L g/dL
(33.0-37.0)
RDW 19.2 H %
(11.5-14.5)
MPV 11.0 H fL
(7.4-10.4)
Abs Immat Gran (auto) 0.4 H 10^3/uL
(0-0.05)
Absolute Neuts (auto) 13.9 H 10^3/uL
(1.4-6.5)
Absolute Lymphs (auto) 0.7 L 10^3/uL
(1.2-3.4)
Absolute Monos (auto) 2.3 H 10^3/uL
(0.1-0.6)
Immature Gran % 2.3 H %
(0-0.5)
Neutrophils % 79.6 H %
(42.2-75.2)
Lymphocytes % 4.1 L %
(20.5-51.1)
Monocytes % 13.0 H %
(1.7-9.3)
PT 16.8 H Sec
(11.4-14.6)
BUN 38 H mg/dl
(9-20)
Glucose 120 H mg/dl
(70-99)
Total Bilirubin 1.4 H mg/dl
(0.2-1.3)
03/08/25 00:26
03/08/25 00:26
Vital Signs
Initial and Last Documented VS:
Initial Vital Signs
BP
124/82
03/07/25 23:39
Last Documented Vital Signs
Temp Pulse Resp BP Pulse Ox
98.4 F 102 18 107/81 95
03/07/25 23:50 03/08/25 04:45 03/08/25 04:45 03/08/25 04:00 03/08/25 04:00
<Bipin Pacheco, DO - Last Filed: 03/08/25 03:38>
Orders/Labs/Results
Orders:
Orders
03/08/25 00:05
CR Hips CASSIUS w/wo Pel 3-4 Vw Urgent
Comment:
Reason For Exam: posterior hip pain
Include a pelvis x-ray?: Yes
CR Lumbar Spine Comp Min 4 Vw* Urgent
Comment:
Reason For Exam: back pain
CR Thoracic Spine 3 Views Urgent
Reason For Exam: back pain
03/08/25 00:07
Morphine Sulfate 4 mg IV NOW STA
03/08/25 00:08
Lidocaine [Lidocaine 4% Patch] 1 patch TOPICAL DAILY ONE
Apply Lidocaine patch(s) to:: right paralumbar
03/08/25 00:26
Complete Blood Count/With Diff Urgent
Comprehensive Metabolic Panel Urgent
Lipase Urgent
Prothrombin Time Urgent
03/08/25 01:03
0.9% Sodium Chloride 500 ml [Nss] 500 ml IV BOLUS
03/08/25 01:26
Add On- LAB Urgent
Tests Added?: lipase
03/08/25 01:49
Morphine Sulfate 4 mg IV NOW STA
03/08/25 02:05
Acetaminophen [Tylenol] 1,000 mg PO NOW STA
Metoprolol [Lopressor] 75 mg PO NOW STA
Abnormal Lab Results
03/08/25
00:26
WBC 17.4 H 10^3/uL
(4.8-10.8)
RBC 2.97 L 10^6/uL
(4.70-6.10)
Hgb 10.2 L g/dL
(13.0-18.0)
Hct 32.4 L %
(39.0-52.0)
MCV 109.1 H fL
(80.0-94.0)
MCH 34.3 H pg
(27.0-31.0)
MCHC 31.5 L g/dL
(33.0-37.0)
RDW 19.2 H %
(11.5-14.5)
MPV 11.0 H fL
(7.4-10.4)
Abs Immat Gran (auto) 0.4 H 10^3/uL
(0-0.05)
Absolute Neuts (auto) 13.9 H 10^3/uL
(1.4-6.5)
Absolute Lymphs (auto) 0.7 L 10^3/uL
(1.2-3.4)
Absolute Monos (auto) 2.3 H 10^3/uL
(0.1-0.6)
Immature Gran % 2.3 H %
(0-0.5)
Neutrophils % 79.6 H %
(42.2-75.2)
Lymphocytes % 4.1 L %
(20.5-51.1)
Monocytes % 13.0 H %
(1.7-9.3)
PT 16.8 H Sec
(11.4-14.6)
BUN 38 H mg/dl
(9-20)
Glucose 120 H mg/dl
(70-99)
Total Bilirubin 1.4 H mg/dl
(0.2-1.3)
03/08/25 00:26
03/08/25 00:26
Vital Signs
Initial and Last Documented VS:
Initial Vital Signs
BP
124/82
03/07/25 23:39
Last Documented Vital Signs
Temp Pulse Resp BP Pulse Ox
98.4 F 102 18 107/81 95
03/07/25 23:50 03/08/25 04:45 03/08/25 04:45 03/08/25 04:00 03/08/25 04:00
Chuylt;Roseanna Bean PA-C - Last Filed: 03/08/25 05:04>
MDM/Problems Addressed
Differential Diagnosis Includes:
Differentials include compression fracture, sciatica, sprain/strain, osteoarthritis
MDM/Problems Addressed:
84-year-old male presents to the emergency department today with concerns of severe back pain. Patient has been on oxycodone and Tylenol without relief. The pain has been chronic but it got a lot worse out of nowhere today. He has not recall any
inciting injury. He no trauma he has no weakness, no radicular symptoms. He is unable to ambulate. On exam, he has a normal neuroexam but a lot of pain with any spine he is unable to get up. He initially had some relief with morphine and
lidocaine patches but when he change positions for x-ray, the severe pain came back. On review of x-ray, there is multiple compression deformities of unclear age. He will require admission for continued pain management and PT and OT eval. He did
arrive in A-fib however he is always in atrial fibrillation, rate 90s to 110 currently, he did not take his metoprolol today. He claims he takes Coumadin but I do not see this on his personal or [employer] med list.
Chronic conditions affecting care:
afib, htn, hlp, pvd
<Roseanna Bean PA-C - Last Filed: 03/08/25 05:04>
*Pulse Oximetry
SaO2: 98
Nasal Cannula flow liters per minute: 0
Patient hypoxic: no
*Critical Care Note
Total Time (30-74mins, 75-104mins- exclusive of procedures): Not Applicable
<SARAVANAN Fraire Last Filed: 03/08/25 05:04>
Update Note
Update Note:
Patient received lidocaine patch and morphine; after coming back from x-ray, he reports that
ED Attending Note
<SARAVANAN Fraire Last Filed: 03/08/25 05:04>
-
Portions of this chart may have been created with voice recognition software.� Occasional wrong word or��sound alike� substitutions may have occurred due to the inherent limitations of voice recognition software.
<Bipin Pacheco DO - Last Filed: 03/08/25 03:38>
ED Attending Note
Patient seen and examined by attending physician: Yes
I performed the substantive portion of visit, reviewed & personally made and approve the management plan that is documented in note by myself or LUCY.: Yes
ED Attending Note:
Note:
CHIEF COMPLAINT(S)
Pain that has worsened recently.
HISTORY OF PRESENT ILLNESS
The patient is an 84-year-old male who has been experiencing pain for the past four years. He reports that the pain has worsened since yesterday. 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
pain. The patient has been prescribed pain medication and denies any recent falls or injuries contributing to the exacerbation of his pain.
PHYSICAL EXAM
General: Alert, minimal acute distress.
Skin: Warm, dry.
Head: Normocephalic, atraumatic.
Neck: Supple, trachea midline.
Eye Ears, nose, mouth and throat: Oral mucosa moist.
Cardiovascular: Normal peripheral perfusion, No edema.
Respiratory: Respirations are non-labored.
Gastrointestinal: Abdomen nondistended.
Musculoskeletal: Normal ROM, normal strength.
Neurological: Alert and oriented to person, place, time, and situation, No focal neurological deficit observed.
Psychiatric: Cooperative, appropriate mood & affect.
PLAN
The patient has been prescribed pain medication to manage his symptoms.
DIFFERENTIAL DIAGNOSIS
The Differential Diagnosis includes, in no particular order and is not limited to:
1. Chronic back pain Syndrome
2. Arthritis
3. Osteoporosis
4. Degenerative Joint Disease
5. Fibromyalgia
6. Peripheral Neuropathy
7. Spinal Stenosis
8. Musculoskeletal Strain
9. Gout
10. Polymyalgia Rheumatica
Discharge Plan
Departure
Patient Disposition: Admit
Date of Disposition: 03/08/25
Time of Disposition: 03:46
Admit to: Med/Surg
Presentation/result/management discussed w/ accepting MD/DO: Hospitalist
Patient with high blood pressure during this ER visit?: No
Condition: Fair
Discharge Problem:
Intractable back pain, Ambulatory dysfunction
Prescriptions:
No Action
atorvastatin 10 MG tablet
10 mg PO QPM
metoprolol succinate 50 MG tablet extended release 24 hr
75 mg PO DAILY
Tymlos 80 mcg (3,120 mcg/1.56 mL) Pen Injector
80 mcg SC QPM
dabigatran etexilate 150 mg Capsule
150 mg PO BID
ferrous fumarate 324 mg (106 mg iron) tablet
324 mg PO DAILY Qty: 30 0RF
pantoprazole [Protonix] 40 mg tablet,delayed release (DR/EC)
40 mg PO DAILY 56 Days Qty: 56 0RF
oxycodone 5 mg tablet
5 mg PO Q8HPRN PRN (Reason: severe Pain) Qty: 7 0RF
Referrals:
Arcelia Christine MD [Family Provider, Internal Medicine]
Interventions
Interventions:
*Risk Screen - Suicide Last Done: 03/07/25 23:43
*General Assessment Last Done: 03/07/25 23:45
*Neglect/Abuse Screening Last Done: 03/07/25 23:43
*ED- Fall Risk Assessment Last Done: 03/08/25 00:53
*ED COVID-19 Vaccine History Last Done: 03/07/25 23:43
*ED Influenza Vaccine History Last Done: 03/07/25 23:43
ED-Musculoskeletal Assessment Last Done: 03/07/25 23:46
Discharge Date and Time
Print Language: DIVEHI
[2025-03-08] MEDS: MORPHINE SULFATE 4 MG IV ×2 (00:28→01:58)
[2025-03-08] MEDS: LIDOCAINE 4% PATCH 1 PATCH TOPICAL (00:35)
[2025-03-08 00:48] LABS: INR 1.33; PT 16.8 Sec (11.4-14.6)
[2025-03-08 00:50] LABS: Hematocrit 32.4 % (39.0-52.0); Hemoglobin 10.2 g/dL (13.0-18.0); Mean Corp Hgb Conc. 31.5 g/dL (33.0-37.0); Mean Corpuscular Volume 109.1 fL (80.0-94.0); Nucleated Red Blood Cells % 0 % (-); Platelet Count 235 10^3/uL (130-400); Red Cell Dist. Width 19.2 % (11.5-14.5)
[2025-03-08 00:59] LABS: ALT (SGPT) 23 U/L (0-50); AST (SGOT) 32 U/L (17-59); Albumin 4.0 g/dl (3.5-5.0); Alkaline Phosphatase 89 U/L (38-126); Blood Urea Nitrogen 38 mg/dl (9-20); Calcium 9.4 mg/dl (8.4-10.2); Carbon Dioxide 27 mmol/L (22-30); Chloride 106 mmol/L (98-107); Estimated Creatinine Clearance 44 ml/min; Glucose 120 mg/dl (70-99); Potassium 4.4 mmol/L (3.5-5.1); Sodium 141 mmol/L (135-145); Total Protein 6.4 g/dl (6.3-8.2); eGFR > 60.00
[2025-03-08 01:57] LABS: Lipase 34 U/L (23-300)
[2025-03-08] MEDS: NSS 500 IV (01:59)
[2025-03-08] MEDS: TYLENOL 1000 MG PO (03:05)
--- NOTE | 2025-03-08 04:43 | HPS.HSE ---
Family Physician
-
Family Physician: Arcelia Christine
Chief Complaint
-
Back pain
History of Present Illness
This is a 81-year-old with past medical history significant for atrial fibrillation status post PPM on anticoagulation, gastric ulcer status post EGD, peripheral arterial disease status post angioplasty, hypertension, hyperlipidemia, history of
recent toe amputation, chronic back pain presenting to the emergency department with complaints of worsening back pain.
Patient significantly poor historian and unable to provide any significant history. He did provide a list of his medications. He says this pain has been going on for at least several months and it started in his legs but now he is having pain in
the back. He denies any urinary symptoms including dysuria frequency or urgency. He denies any new incontinence of the bladder or bowel. He denies any pain radiating down to his legs. He denies any new injuries or falls. He continues to
ambulate with a rollator. Patient was recently seen in the emergency department about 8 days ago for urinary tract infection. He was found to have Staph epidermidis on urine culture and treated with cefdinir. He states he takes oxycodone as
needed with his last dose at 9 PM.
In the emergency department he was afebrile, blood pressure was 120/70 with a pulse rate of 99 and he was satting 94% on room air. He had a white count of 17.4 with a hemoglobin that was stable at 10.2 and normal platelet count. INR was 1.3. He
is electrolytes BUN and creatinine were in stable range for him with a glucose of 120.
He had lumbosacral and thoracic spine x-rays which shows chronic degenerative changes.
Medical History
Past Medical History
Past Medical History: Reports Other (atrial fibrillation with permanent pacemaker, peripheral arterial disease, history of left toe amputation, CAD, hyperlipidemia, hypertension, hyponatremia, chronic back pain secondary to disc herniations,)
Past Surgical History: Reports None
Social History
Tobacco: Non-smoker
Alcohol: None
Drug: None
Family History
Family History: Not pertinent
Allergies / Home Medications
Allergies reflects when Allergies were last updated in [facility].
Home Medications with original date entered in [facility]
Allergy/Medication List:
Allergies
Allergy/AdvReac Type Severity Reaction Status Date / Time
No Known Allergies Allergy Verified 03/07/25 23:50
Home Medications
atorvastatin 10 mg tablet 10 mg PO QPM High cholesterol 09/22/20
metoprolol succinate 50 mg tablet,extended release 24 hr 75 mg PO DAILY Blood Pressure 01/23/21
abaloparatide (Tymlos) 80 mcg SC QPM Autoimmune Disorder 09/21/24
dabigatran etexilate 150 mg capsule 150 mg PO BID Heart Disease/Condition 12/05/24
ferrous fumarate 324 mg (106 mg iron) tablet 324 mg PO DAILY #30 tabs 12/06/24
oxycodone 5 mg tablet 5 mg PO Q8HPRN PRN severe Pain #7 tabs 12/14/24
pantoprazole 40 mg tablet,delayed release (Protonix) 40 mg PO DAILY 8 weeks #56 tabs 12/14/24
Review of Systems
-
History Source: Patient
A 12 point ROS was completed and negative except as noted: Yes
Constitutional: Reports No Symptoms
EENT: Reports No Symptoms
Respiratory: Reports No Symptoms
Cardiac: Reports No Symptoms
Abdomen/GI: Reports No Symptoms
: Reports No Symptoms
Musculoskeletal: Reports Joint Pain
Skin: Reports No Symptoms
Neurological: Reports No Symptoms
Endocrine: Reports No Symptoms
Hematologic/Lymphatic: Reports No Symptoms
Psych: Reports No Symptoms
Physical Exam
Vital Signs
Vital Signs
Temp Pulse Resp BP Pulse Ox
98.4 F 99 16 119/69 94
03/07/25 23:50 03/08/25 03:45 03/08/25 03:45 03/08/25 03:00 03/08/25 03:45
Physical Exam
General: No Comfortable
HEENT: NormoCephalic, Moist mucous membranes and Atraumatic
Respiratory: Clear
Cardiac: S1/S2 and Regular Rhythm; No Murmur or Rub
GI: Soft, Non Tender, Non Distended and Normal Bowel Sounds; No Organomegaly
Rectal: Deferred by Provider
Musculoskeletal: No Clubbing, No Cyanosis, No Edema and Other (Left transmetatarsal amputation of all digits, right second toe amputation)
Skin: No Rash
Neuro: Awake, Alert and Nonfocal/grossly intact
Hematologic/Lymphatic: No Lymphadenopathy
Psych: Calm
Laboratory Results
-
03/08/25 00:26
03/08/25 00:
Laboratory Results
PT 16.8 Sec (11.4-14.6) H 03/08/25 00:
INR 1.33 03/08/25 00:
Total Bilirubin 1.4 mg/dl (0.2-1.3) H 03/08/25 00:26
AST 32 U/L (17-59) 03/08/25 00:26
ALT 23 U/L (0-50) 03/08/25 00:26
Alkaline Phosphatase 89 U/L (38-126) 03/08/25 00:26
Lipase 34 U/L (23-300) 03/08/25 00:26
Data Reviewed
-
Diagnostic Radiology: Image Personally Visualized and interpreted
Lab Data: Labs Reviewed by me
Old Records: Reviewed
Impression/Plan
-
IMPRESSION:
84-year-old past medical history significant for atrial fibrillation on anticoagulation status post PPM, CAD, PAD s/p angioplasty and amputation of the left toes and right second toe, history of gastric ulcers, hyperlipidemia and hypertension who
presents to the emergency department with exacerbation of his ongoing back pain that been present for several months to years. He denies any focal neurological deficit. He denies any pain radiating down to his legs. He denies any incontinence of
the bladder or bowel. He has no fevers or chills. He denies any urinary symptoms and he was recently treated for a UTI with cefdinir. X-rays of the lumbosacral spine shows no acute findings. X-ray of the hip is negative for any fracture. His
labs only notable for WBC of 17 but otherwise unchanged compared to prior appears at baseline.
PLAN:
Back pain -acute on chronic exacerbation, unclear if patient takes his medications appropriately at home. He does have amputation of the left foot as well as potation of the second toe on the right which makes ambulation difficult but denies any
new falls or injuries.
- Admit to MedSurg observation
-Lidocaine applied to the back
-Trial of oxycodone as needed in addition to Tylenol, will hold off on any NSAIDs due to his gastric ulcers
-PT consultation
Leukocytosis -unclear etiology. Denies any urinary tract symptoms. Had a recent PCI that was completely treated.
-Obtain UA but will not treat with antibiotics at this time unless markedly positive patient develops new symptoms.
Atrial fibrillation
-Continue dabigatran
� Continue metoprolol succinate
Gastric ulcer
Continue PPI daily
History of CAD
-Continue statin
DVT prophylaxis -on the dabigatran
CODE STATUS -DNR
--- NOTE | 2025-03-08 09:28 | W.PN.HOSP.TC ---
Today's Communication/Plan
-
Add burst dose steroids
Assessment / Plan
Assessment / Plan
HPI: 84-year-old past medical history significant for atrial fibrillation on anticoagulation status post PPM, CAD, PAD s/p angioplasty and amputation of the left toes and right second toe, history of gastric ulcers, hyperlipidemia and hypertension
who presents to the emergency department with exacerbation of his ongoing back pain that been present for several months to years. He denies any focal neurological deficit. He denies any pain radiating down to his legs. He denies any incontinence
of the bladder or bowel. He has no fevers or chills. He denies any urinary symptoms and he was recently treated for a UTI with cefdinir. X-rays of the lumbosacral spine shows no acute findings. X-ray of the hip is negative for any fracture.
His labs only notable for WBC of 17 but otherwise unchanged compared to prior appears at baseline.
Assessment/plan:
Back pain
-Acute on chronic exacerbation, unclear if patient takes his medications appropriately at home. He does have amputation of the left foot as well as potation of the second toe on the right which makes ambulation difficult but denies any new falls or
injuries.
-Continue Tylenol scheduled, lidocaine patch, oxycodone as needed, will add burst dose prednisone 40 mg daily day 1 out of 5
-Avoid NSAIDs due to his gastric ulcers
-PT
Leukocytosis
-Unclear etiology. Denies any urinary tract symptoms. Had a recent PCI that was completely treated.
-UA unrevealing, he is afebrile, monitor off antibiotics
Atrial fibrillation
-Continue dabigatran
�Continue metoprolol succinate
Gastric ulcer
Continue PPI daily
History of CAD
-Continue statin
DVT prophylaxis -on the dabigatran
CODE STATUS -DNR
Physical Exam
General: No acute distress
HEENT: Normocephalic, Atraumatic, EOMI, MMM
Respiratory: Clear to Auscultation bilaterally
Cardiac: Normal S1/S2, Regular Rate and Rhythm
GI: Soft, Nontender, Nondistended, Normal Bowel Sounds
Extremities: No Clubbing, Cyanosis, or Edema
Neuro: Nonfocal/Grossly Intact
Anticipated Discharge: 24 - 48 hours
Subjective/Interval History
-
Date of Service: March 08, 2025
Patient's pain is minimal with lying down. He does report severe back pain with any type of movement. Denies chest pain, denies shortness of breath. No fever, no vomiting.
Objective Data
-
Labs:
Laboratory Results
03/08/25
00:26
WBC 17.4 H
Hgb 10.2 L
Hct 32.4 L
Plt Count 235
PT 16.8 H
INR 1.33
Sodium 141
Potassium 4.4
Chloride 106
Carbon Dioxide 27
BUN 38 H
Creatinine 1.0
Glucose 120 H
Calcium 9.4
Total Bilirubin 1.4 H
AST 32
ALT 23
Alkaline Phosphatase 89
Vital Signs:
Vital Signs
Temp Pulse Resp BP Pulse Ox
97.8 F 98 16 140/71 97
03/08/25 07:40 03/08/25 07:40 03/08/25 07:40 03/08/25 07:40 03/08/25 07:40
I&O
03/07/25 03/08/25 03/09/25
06:59 06:59 06:59
Output Total 75 / 75
Balance -75 / -75
[2025-03-08] MEDS: FEOSOL 325 MG PO (09:33)
[2025-03-08] MEDS: ROXICODONE 5 MG PO ×3 (09:33→22:10)
[2025-03-08] MEDS: PRADAXA 150 MG PO ×2 (09:33→19:33)
[2025-03-08] MEDS: TYLENOL 650 MG PO ×4 (09:33→19:33)
[2025-03-08] MEDS: PROTONIX 40 MG PO (09:33)
[2025-03-08] MEDS: TOPROL XL 75 MG PO (09:34)
[2025-03-08 10:22] LABS: Urine Character Clear (Clear)
--- NOTE | 2025-03-08 10:33 | VNURNOTE ---
Addendum entered by Niharika Gee RN 03/09/25 08:42:
Pt in OBS status. [facility] will resume services. [facility] Intake aware.
Original Note:
Chart reviewed. Patient is current with [facility]. Will continue to follow hospital course and DC plans.
[2025-03-08 11:59] LABS: Urine Red Blood Cell 0-2 /HPF (0-2); Urine White Cell 0-2 /HPF (0-5)
[2025-03-08] MEDS: DELTASONE 40 MG PO (13:15)
[2025-03-08] MEDS: LIPITOR 10 MG PO (17:10)
--- NOTE | 2025-03-08 17:31 | CM ---
Addendum entered by Lizbeth Arriaza 03/08/25 19:00:
IA completed, Pt was a bit forgetful and in severe pain.
Lives with spouse in 2 story home but only use the first floor. There are2 steps at the entrance to the home. Full BR on 1st floor. Was independent prior to this episode of worsening back pain. DME: 3 rolling walkers and a transport chair and grab
bars in BR. No insecurities identified. No hx of home O2. Could not confirm PCP or RX due to patient's forgetfulness. Will need to check with . Confirmed insurance and drug plan.
Hx of [facility] called and stated they will take him back at discharge. Will discuss placement vs home therapy after resolution of waiver [facility] program is decided.
Current with [facility] for PT/OT and nurse and they will follow pt.
Original Note:
Met with pt and bedside re discharge planning. They are aware that under OBS status they would be responsible for private pay for SNF care. CM will see if he is in the [employer] program and qualifies for the [facility] waiver.Message left on [employer]
voicemail; expect to hear back from them tomorrow morning to begin the evaluation process.
Pt is current with [facility]
Pt and would like to go to [facility] for SNF if possible
Pt has refused PT eval twice today due to pain.
Plan: Unable to determine at this time.
[2025-03-08] MEDS: DILAUDID 0.5 MG IV (19:33)
[2025-03-08] MEDS: ZOFRAN 4 MG IV (22:10)
[2025-03-09] MEDS: TYLENOL PO ×2 (00:01→12:37)
[2025-03-09] MEDS: TYLENOL 650 MG PO ×2 (03:12→09:12)
[2025-03-09 07:00] VITALS: BP 106/76
[2025-03-09] MEDS: FEOSOL 325 MG PO (09:08)
[2025-03-09] MEDS: PROTONIX 40 MG PO (09:08)
[2025-03-09] MEDS: PRADAXA 150 MG PO ×2 (09:08→19:17)
[2025-03-09] MEDS: DELTASONE 40 MG PO (09:09)
[2025-03-09 09:14] LABS: Hematocrit 31.5 % (39.0-52.0); Hemoglobin 9.9 g/dL (13.0-18.0); Mean Corp Hgb Conc. 31.4 g/dL (33.0-37.0); Mean Corpuscular Volume 106.8 fL (80.0-94.0); Nucleated Red Blood Cells % 0.2 % (-); Platelet Count 236 10^3/uL (130-400); Red Cell Dist. Width 19.0 % (11.5-14.5)
[2025-03-09] MEDS: LIDOCAINE 4% PATCH 1 PATCH TOPICAL (09:25)
[2025-03-09] MEDS: TOPROL XL 75 MG PO (09:25)
--- NOTE | 2025-03-09 09:30 | PTOTSP ---
Speech Language Pathology
Pt seen for clinical bedside swallow evaluation. P.O. trials of regular solids and thin liquids provided. Adequate mastication, bolus formation, and A-P transit noted with no oral residue. No overt signs of aspiration. Also seen for med pass
with meds whole with liquid. Small pills even taken with just saliva. No difficulty with med pass noted. Pt denied any hx of dysphagia or previous PNA. CXR with no acute findings.
Recommend:
(1) Regular solids/thin liquids
(2) General aspiration precautions
(3) Meds as tolerated
(4) ROLL PLUGGER to sign off. Please reconsult as indicated
[2025-03-09 10:04] LABS: ALT (SGPT) 22 U/L (0-50); AST (SGOT) 28 U/L (17-59); Albumin 3.9 g/dl (3.5-5.0); Alkaline Phosphatase 86 U/L (38-126); Blood Urea Nitrogen 36 mg/dl (9-20); Calcium 9.0 mg/dl (8.4-10.2); Carbon Dioxide 26 mmol/L (22-30); Chloride 104 mmol/L (98-107); Estimated Creatinine Clearance 49 ml/min; Glucose 118 mg/dl (70-99); Potassium 4.3 mmol/L (3.5-5.1); Sodium 136 mmol/L (135-145); Total Protein 6.6 g/dl (6.3-8.2); eGFR > 60.00
[2025-03-09] MEDS: ROXICODONE 5 MG PO ×2 (10:37→19:17)
[2025-03-09 10:47] VITALS: BP 130/76
--- NOTE | 2025-03-09 11:56 | CM ---
Addendum entered by Ruthie Caesy RN 03/09/25 16:41:
Pt changed to inpatient status . IMM given explained to pt and [employer].
Pt requested [facility] for rehab .
Referral made in care port.
PLAn To SNf after located
Original Note:
[employer] called [facility] said patient does not qualify medicare MSSP waiver program .
Will notify family .
PLAN Discharge plan ongoing.
--- NOTE | 2025-03-09 12:34 | W.PN.HOSP.TC ---
Today's Communication/Plan
-
Changed Tylenol to [id number]
Added NSAID respiratory
Bowel regimen
Pain control
PT OT
Assessment / Plan
Assessment / Plan
84-year-old man presented with ambulatory dysfunction. Patient also had exacerbation of his ongoing back pain for several months to years.
CT of the lumbar spine-chronic compression fractures of T12, L1 vertebral bodies without change compared to CT on 04/18/2024. Near vertebral plana deformity T12 and L1. Moderate retropulsion of the fragment L1 associated with moderate to severe
narrowing of the central canal.
Multiple chronic compression deformities within the lumbar spine unchanged. No acute compression fracture. Additional degenerative changes throughout the lumbar spine with multiple levels of central canal narrowing. Trace bilateral pleural
effusions. Mild bibasilar airspace consolidation may represent subsegmental atelectasis or pneumonia.
Patient awake and alert
Cardiovascular system S1-S2 irregular
Chest clear to auscultation
Abdomen soft and nontender
# Back pain
Acute on chronic
Pain control-currently on Dilaudid 0.5 mg IV every 4 hours as needed, Roxicodone 5 mg every 4 hours as needed, lidocaine patch and Tylenol. Prednisone also started.
Got a dose of Dilaudid on 03/08/2025 at 7:30 PM.Patient also getting oxycodone
PT OT
# Leukocytosis-patient's white count has been slightly elevated since September 2024. Check Blood cultures. Urinalysis unremarkable.
CXR No pneumonia. Possible atelectasis on CT from pain. Add IS. No evidence of aspiration per speech evaluation
# Paroxysmal atrial fibrillation-continue dabigatran, metoprolol
Echo 12/07/2023-EF 55 to 60%, moderate MR, aortic sclerosis with trace AI, normal right heart, small pericardial effusion
# Hyperlipidemia-continue statin
# Peripheral artery disease-continue Pradaxa and statin
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
Status post balloon angioplasty right side by Dr. Fitzpatrick-11/08/2024
# Chronic anemia-continue p.o. iron
# History of pacemaker placement
# Peptic ulcer disease-continue PPI
# Osteoporosis with history of compression fractures-continue Tymlos
# DVT prophylaxis-dabigatran
# DNR
Discussed with nursing
Discussed with case management
Part of this note was created using voice recognition system. Occasional wrong word or��sound alike� substitutions may have inadvertently occurred due to the inherent limitations of voice recognition software. If noted kindly bring it to my
attention for correction.
Anticipated Discharge: Within 24 hours
Subjective/Interval History
-
Date of Service: March 09, 2025
Objective Data
-
Labs:
Laboratory Results
03/09/25
08:58
WBC 16.2 H
Hgb 9.9 L
Hct 31.5 L
Plt Count 236
Sodium 136
Potassium 4.3
Chloride 104
Carbon Dioxide 26
BUN 36 H
Creatinine 0.9
Glucose 118 H
Calcium 9.0
Total Bilirubin 1.5 H
AST 28
ALT 22
Alkaline Phosphatase 86
Vital Signs:
Vital Signs
Temp Pulse Resp BP Pulse Ox
98 F 78 12 106/76 99
03/09/25 07:00 03/09/25 07:00 03/09/25 07:00 03/09/25 07:00 03/09/25 07:00
I&O
03/08/25 03/09/25 03/10/25
06:59 06:59 06:59
Intake Total 240 / 240 120 / 120
Output Total 75 / 75 400 / 400 175 / 175
Balance -75 / -75 -160 / -160 -55 / -55
[2025-03-09] MEDS: DILAUDID 0.5 MG IV (13:10)
[2025-03-09] MEDS: TYLENOL 975 MG PO ×2 (13:10→21:22)
[2025-03-09] MEDS: SENOKOT 17.2 MG PO (13:10)
[2025-03-09] MEDS: MILK OF MAGNESIA 30 ML PO (13:10)
[2025-03-09] MEDS: MIRALAX PO (13:13)
[2025-03-09 15:00] VITALS: BP 132/73
[2025-03-09] MEDS: LIPITOR 10 MG PO (18:33)
[2025-03-09] MEDS: SENOKOT PO ×2 (19:17→19:22)
[2025-03-09 23:44] VITALS: BP 117/70
[2025-03-10] MEDS: TYLENOL 975 MG PO ×3 (06:09→22:25)
[2025-03-10 06:48] LABS: Hematocrit 29.2 % (39.0-52.0); Hemoglobin 9.2 g/dL (13.0-18.0); Mean Corp Hgb Conc. 31.5 g/dL (33.0-37.0); Mean Corpuscular Volume 111.0 fL (80.0-94.0); Platelet Count 226 10^3/uL (130-400); Red Cell Dist. Width 18.8 % (11.5-14.5)
[2025-03-10 07:00] VITALS: BP 124/80
[2025-03-10] MEDS: ROXICODONE 5 MG PO ×3 (08:25→20:40)
[2025-03-10] MEDS: MIRALAX 17 GRAMS PO (08:25)
[2025-03-10] MEDS: LIDOCAINE 4% PATCH 1 PATCH TOPICAL ×2 (08:25→11:25)
[2025-03-10] MEDS: PRADAXA 150 MG PO ×2 (08:25→20:42)
[2025-03-10] MEDS: PROTONIX 40 MG PO (08:25)
[2025-03-10] MEDS: FEOSOL 325 MG PO (08:26)
[2025-03-10] MEDS: TOPROL XL 75 MG PO (08:26)
[2025-03-10] MEDS: SENOKOT 17.2 MG PO ×2 (08:26→20:40)
[2025-03-10] MEDS: DELTASONE 40 MG PO (08:37)
--- NOTE | 2025-03-10 11:09 | W.PN.HOSP.TC ---
Today's Communication/Plan
-
Encouraged patient to use more pain medicines as he states that his pain is not well-controlled
I have also added Flexeril
Get CT Pelvis also
Assessment / Plan
Assessment / Plan
84-year-old man presented with ambulatory dysfunction. Patient also had exacerbation of his ongoing back pain for several months to years.
CT of the lumbar spine-chronic compression fractures of T12, L1 vertebral bodies without change compared to CT on 04/18/2024. Near vertebral plana deformity T12 and L1. Moderate retropulsion of the fragment L1 associated with moderate to severe
narrowing of the central canal.
Multiple chronic compression deformities within the lumbar spine unchanged. No acute compression fracture. Additional degenerative changes throughout the lumbar spine with multiple levels of central canal narrowing. Trace bilateral pleural
effusions. Mild bibasilar airspace consolidation may represent subsegmental atelectasis or pneumonia.
Patient awake and alert
Cardiovascular system S1-S2 irregular
Chest clear to auscultation
Abdomen soft and nontender
Skin with small areas of ecchymosis on the back
# Back pain
Acute on chronic
Pain control-currently on Dilaudid 0.5 mg IV every 4 hours as needed, Roxicodone 5 mg every 4 hours as needed, lidocaine patch and Tylenol. Prednisone also started.
Patient states that his pain is not well-controlled. Low-dose of Flexeril added. I also see that he only used oxycodone 5 mg twice a day yesterday and also once today so far. Encouraged to use if he needs more.
I have also added another lidocaine patch for the back area
# Leukocytosis-patient's white count has been slightly elevated since September 2024. Check Blood cultures. Urinalysis unremarkable.
CXR No pneumonia. Possible atelectasis on CT from pain. Add IS. No evidence of aspiration per speech evaluation
# Paroxysmal atrial fibrillation-continue dabigatran, metoprolol
Echo 12/07/2023-EF 55 to 60%, moderate MR, aortic sclerosis with trace AI, normal right heart, small pericardial effusion
# Hyperlipidemia-continue statin
# Peripheral artery disease-continue Pradaxa and statin
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
Status post balloon angioplasty right side by Dr. Fitzpatrick-11/08/2024
# Chronic anemia-continue p.o. iron
# History of pacemaker placement
# Peptic ulcer disease-continue PPI
# Osteoporosis with history of compression fractures-continue Tymlos
# DVT prophylaxis-dabigatran
# DNR
Discussed with nursing
Discussed with case management
The number listed for the on the chart seems to be along I am not able to reach her.
Part of this note was created using voice recognition system. Occasional wrong word or��sound alike� substitutions may have inadvertently occurred due to the inherent limitations of voice recognition software. If noted kindly bring it to my
attention for correction.
Anticipated Discharge: 24 - 48 hours
Subjective/Interval History
-
Date of Service: March 10, 2025
Objective Data
-
Labs:
Laboratory Results
03/10/25
06:40
WBC 13.8 H
Hgb 9.2 L
Hct 29.2 L
Plt Count 226
Vital Signs:
Vital Signs
Temp Pulse Resp BP Pulse Ox
97.6 F 100 16 124/80 98
03/10/25 07:00 03/10/25 07:00 03/10/25 07:00 03/10/25 07:00 03/10/25 07:00
I&O
03/09/25 03/10/25 03/11/25
06:59 06:59 06:59
Intake Total 240 / 240 240 / 240
Output Total 400 / 400 725 / 725
Balance -160 / -160 -485 / -485
[2025-03-10] MEDS: FLEXERIL 2.5 MG PO ×2 (11:25→20:40)
[2025-03-10 14:25] VITALS: BP 134/86; PULSE 107; O2SAT 97
[2025-03-10 15:00] VITALS: BP 130/89
[2025-03-10] MEDS: LIPITOR 10 MG PO (17:45)
[2025-03-10] MEDS: NON-FORMULARY ITEM SC (18:00)
--- NOTE | 2025-03-10 18:14 | CM ---
Pt wants to only go to [facility],CM asked him for other choices, but declined again today to provide any. [facility] explained that [facility] would not have a bed available until Thursday. Dr. Landry stated she anticipated that this pt would be ready for
discharge before Thursday.
Pt and his were upset that he might be discharged over the weekend to a facility other than [facility]. was concerned that the pt would be discharged to home if the discharge came over the weekend. Teresa Penaloza, [facility] Director aware
of this situation and met with pt bedside and spoke to the over the phone and reassured the pt and his that he would not be discharged home; he requires SNF level of care as a safe discharge. Pt pressed for more choice of SNFs so that he
might be able to have a bed available if he was discharged over the weekend. Pt provided [facility] and [facility]; referrals placed.
Pt and indicated that they would appeal any discharge over the weekend. Teresa explained to the and that if the discharged was appealed and they lost the appeal that they would be responsible for a charge of $3000/day plus other
expenses. IMM given to pt and placed on the chart.
Updated [facility], [facility], on the possibility that the pt might be discharged over the weekend; they stated they would hold the bed for him until Thursday. [facility] stated she would talk to the family about their decision to hold the bed.
Pt had so much back pain today that he was unable to sit up to eat his lunch. He describes is pain is with any movement; laying still gives him some relief. Pt seen by PT today; he was able to participate. PT continues to recommend SNF.
NOTE: CM and CM director, Teresa Penaloza, spoke with the pt at bedside and then separately to the on the phone shortly after the bedside meeting. The same information was shared with both people
Plan: DC to SNF when bed is available.
[2025-03-10] MEDS: REMOVE LIDOCAINE PATCH 2 PATCH REMOVE (20:46)
[2025-03-10 23:15] VITALS: BP 131/86
[2025-03-11] MEDS: ROXICODONE 5 MG PO ×2 (02:42→08:31)
[2025-03-11] MEDS: TYLENOL 975 MG PO ×3 (05:08→21:05)
[2025-03-11 06:52] LABS: Blood Urea Nitrogen 46 mg/dl (9-20); Calcium 8.6 mg/dl (8.4-10.2); Carbon Dioxide 29 mmol/L (22-30); Chloride 106 mmol/L (98-107); Estimated Creatinine Clearance 44 ml/min; Glucose 108 mg/dl (70-99); Potassium 4.9 mmol/L (3.5-5.1); Sodium 139 mmol/L (135-145); eGFR > 60.00
[2025-03-11 07:49] VITALS: BP 159/84
[2025-03-11] MEDS: DELTASONE 40 MG PO (08:29)
[2025-03-11] MEDS: SENOKOT 17.2 MG PO (08:29)
[2025-03-11] MEDS: FEOSOL 325 MG PO (08:29)
[2025-03-11] MEDS: FLEXERIL 2.5 MG PO ×2 (08:30→20:58)
[2025-03-11] MEDS: PRADAXA 150 MG PO ×2 (08:31→20:56)
[2025-03-11] MEDS: PROTONIX 40 MG PO (08:31)
[2025-03-11] MEDS: LIDOCAINE 4% PATCH 1 PATCH TOPICAL ×2 (08:32→08:33)
[2025-03-11] MEDS: MIRALAX 17 GRAMS PO (08:34)
[2025-03-11] MEDS: TOPROL XL 75 MG PO (08:35)
--- NOTE | 2025-03-11 14:28 | W.PN.HOSP.TC ---
Today's Communication/Plan
-
Decrease oxycodone to 2.5
Continue Flexeril
Head CT
PT OT
Assessment / Plan
Assessment / Plan
84-year-old man presented with ambulatory dysfunction. Patient also had exacerbation of his ongoing back pain for several months to years.
CT of the lumbar spine-chronic compression fractures of T12, L1 vertebral bodies without change compared to CT on 04/18/2024. Near vertebral plana deformity T12 and L1. Moderate retropulsion of the fragment L1 associated with moderate to severe
narrowing of the central canal.
Multiple chronic compression deformities within the lumbar spine unchanged. No acute compression fracture. Additional degenerative changes throughout the lumbar spine with multiple levels of central canal narrowing. Trace bilateral pleural
effusions. Mild bibasilar airspace consolidation may represent subsegmental atelectasis or pneumonia.
Patient slightly drowsy but arousable able to communicate
Cardiovascular system S1-S2 irregular
Chest clear to auscultation
Abdomen soft and nontender
Skin with small areas of ecchymosis on the back
left TMA- Old
# Back pain
Acute on chronic
Pain control-currently on Dilaudid 0.5 mg IV every 4 hours as needed, Roxicodone 2.5 mg every every 6 hours, lidocaine patch and Tylenol. Prednisone also started.
Patient states that his pain is not well-controlled. Low-dose of Flexeril added.
I have also added another lidocaine patch for the back area
It is very hard to get an idea how his pain is he is still stating that he is always in pain states that he has chronic pain. We discussed that there is a fine line that we have to walk between him becoming too drowsy and controlling his pain.
This may take for the patient to be in manageable pain for his daily activities. I discussed this clearly with the patient and . Unfortunately with his anticoagulation and NSAIDs cannot be used
# TME-likely secondary to opiates but the patient is on anticoagulation therefore we will check a CT
# Leukocytosis-patient's white count has been slightly elevated since September 2024. Check Blood cultures. Urinalysis unremarkable.
CXR No pneumonia. Possible atelectasis on CT from pain. Add IS. No evidence of aspiration per speech evaluation
# Paroxysmal atrial fibrillation-continue dabigatran, metoprolol
Echo 12/07/2023-EF 55 to 60%, moderate MR, aortic sclerosis with trace AI, normal right heart, small pericardial effusion
# Hyperlipidemia-continue statin
# Peripheral artery disease-continue Pradaxa and statin
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
Status post balloon angioplasty right side by Dr. Fitzpatrick-11/08/2024
# Chronic anemia-continue p.o. iron
# History of pacemaker placement
# Peptic ulcer disease-continue PPI
# Osteoporosis with history of compression fractures-continue Tymlos
# DVT prophylaxis-dabigatran
# DNR
Discussed with nursing
Discussed with case management
D/W in detail on the phone
Part of this note was created using voice recognition system. Occasional wrong word or��sound alike� substitutions may have inadvertently occurred due to the inherent limitations of voice recognition software. If noted kindly bring it to my
attention for correction.
Anticipated Discharge: 24 - 48 hours
Subjective/Interval History
-
Date of Service: March 11, 2025
Objective Data
-
Labs:
Laboratory Results
03/11/25
05:42
Sodium 139
Potassium 4.9
Chloride 106
Carbon Dioxide 29
BUN 46 H
Creatinine 1.0
Glucose 108 H
Calcium 8.6
Vital Signs:
Vital Signs
Temp Pulse Resp BP Pulse Ox
97.9 F 80 18 159/84 98
03/11/25 07:49 03/11/25 08:35 03/11/25 07:49 03/11/25 08:35 03/11/25 08:20
I&O
03/10/25 03/11/25 03/12/25
06:59 06:59 05:59
Intake Total 240 / 240 480 / 480
Output Total 725 / 725 825 / 825
Balance -485 / -485 -345 / -345
[2025-03-11] MEDS: ROXICODONE PO (14:30)
[2025-03-11] MEDS: ROXICODONE 2.5 MG PO ×2 (14:44→20:57)
[2025-03-11 15:16] VITALS: BP 157/91
[2025-03-11] MEDS: LIPITOR 10 MG PO (18:21)
[2025-03-11] MEDS: NON-FORMULARY ITEM 80 MCG SC ×2 (18:22→18:25)
[2025-03-11] MEDS: NON-FORMULARY ITEM SC (18:27)
[2025-03-11] MEDS: REMOVE LIDOCAINE PATCH 2 PATCH REMOVE (20:58)
[2025-03-11] MEDS: SENOKOT PO (20:58)
[2025-03-11 23:23] VITALS: BP 116/72
[2025-03-12] MEDS: ROXICODONE PO (02:00)
[2025-03-12] MEDS: TYLENOL PO (07:01)
[2025-03-12 07:30] VITALS: BP 156/98
[2025-03-12] MEDS: LIDOCAINE 4% PATCH 1 PATCH TOPICAL ×2 (11:06→11:11)
[2025-03-12] MEDS: MIRALAX 17 GRAMS PO (11:11)
[2025-03-12] MEDS: FEOSOL 325 MG PO (11:12)
[2025-03-12] MEDS: DELTASONE 40 MG PO (11:12)
[2025-03-12] MEDS: FLEXERIL 2.5 MG PO ×2 (11:12→20:48)
[2025-03-12] MEDS: ROXICODONE 2.5 MG PO ×3 (11:13→20:46)
[2025-03-12] MEDS: SENOKOT 17.2 MG PO ×2 (11:14→20:47)
[2025-03-12] MEDS: PRADAXA 150 MG PO ×2 (11:14→20:49)
[2025-03-12] MEDS: PROTONIX 40 MG PO (11:14)
[2025-03-12] MEDS: TOPROL XL 75 MG PO (11:14)
--- NOTE | 2025-03-12 14:13 | W.PN.HOSP.TC ---
Today's Communication/Plan
-
Discharge to rehab when a bed is available
Assessment / Plan
Assessment / Plan
84-year-old man presented with ambulatory dysfunction. Patient also had exacerbation of his ongoing back pain for several months to years.
CT of the lumbar spine-chronic compression fractures of T12, L1 vertebral bodies without change compared to CT on 04/18/2024. Near vertebral plana deformity T12 and L1. Moderate retropulsion of the fragment L1 associated with moderate to severe
narrowing of the central canal.
Multiple chronic compression deformities within the lumbar spine unchanged. No acute compression fracture. Additional degenerative changes throughout the lumbar spine with multiple levels of central canal narrowing. Trace bilateral pleural
effusions. Mild bibasilar airspace consolidation may represent subsegmental atelectasis or pneumonia.
Head CT-no acute changes. Moderate atrophy and moderate periventricular subcortical white matter changes CT of the pelvis-no osseous abnormality. Mild asymmetric edema within the lateral soft tissues of the right hip
May represent contusion, possible asymmetrical dependent edema or superficial infectious process. No fluid collection or discrete lesion. Chronic compression deformities of the lower lumbar spine. Mild colonic stool burden
Patient slightly drowsy but arousable able to communicate
Cardiovascular system S1-S2 irregular
Chest clear to auscultation
Abdomen soft and nontender
Skin with small areas of ecchymosis on the back
left TMA- Old
# Back pain
Acute on chronic
Pain control-continue Roxicodone 2.5 mg every every 6 hours, lidocaine patch and Tylenol. Prednisone will be continued to be tapered off
Continue Flexeril
I have also added another lidocaine patch for the back area
No additional fractures noted on the pelvic CT
# TME-at baseline.
# Leukocytosis-patient's white count has been slightly elevated since September 2024. Check Blood cultures. Urinalysis unremarkable.
CXR No pneumonia. Possible atelectasis on CT from pain. Add IS. No evidence of aspiration per speech evaluation
# Paroxysmal atrial fibrillation-continue dabigatran, metoprolol
Echo 12/07/2023-EF 55 to 60%, moderate MR, aortic sclerosis with trace AI, normal right heart, small pericardial effusion
# Hyperlipidemia-continue statin
# Peripheral artery disease-continue Pradaxa and statin
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
Status post balloon angioplasty right side by Dr. Fitzpatrick-11/08/2024
# Chronic anemia-continue p.o. iron
# Constipation resolved. Patient had a bowel movement today.
# History of pacemaker placement
# Peptic ulcer disease-continue PPI
# Osteoporosis with history of compression fractures-continue Tymlos
# DVT prophylaxis-dabigatran
# DNR
Discussed with nursing
Discussed with case management
Part of this note was created using voice recognition system. Occasional wrong word or��sound alike� substitutions may have inadvertently occurred due to the inherent limitations of voice recognition software. If noted kindly bring it to my
attention for correction.
Anticipated Discharge: Within 24 hours
Subjective/Interval History
-
Date of Service: March 12, 2025
Objective Data
-
Vital Signs:
Vital Signs
Temp Pulse Resp BP Pulse Ox
98 F 79 18 156/98 98
03/12/25 07:30 03/12/25 11:14 03/12/25 07:30 03/12/25 11:14 03/12/25 07:30
I&O
03/11/25 03/12/25 03/13/25
06:59 05:59 06:59
Intake Total 480 / 480 480 / 480
Output Total 825 / 825 1025 / 1025
Balance -345 / -345 -545 / -545
[2025-03-12 15:37] VITALS: BP 160/86
[2025-03-12] MEDS: TYLENOL 975 MG PO ×2 (15:38→21:24)
[2025-03-12] MEDS: LIPITOR 10 MG PO (17:48)
[2025-03-12] MEDS: NON-FORMULARY ITEM 80 MCG SC (17:48)
[2025-03-12] MEDS: REMOVE LIDOCAINE PATCH 2 PATCH REMOVE (20:49)
[2025-03-12 23:37] VITALS: BP 138/84
[2025-03-13] MEDS: ROXICODONE PO (02:31)
[2025-03-13] MEDS: TYLENOL PO (05:24)
[2025-03-13 07:25] VITALS: BP 151/91
[2025-03-13 08:51] VITALS: BP 151/91; PULSE 80; O2SAT 99
[2025-03-13] MEDS: FEOSOL 325 MG PO (09:39)
[2025-03-13] MEDS: ROXICODONE 2.5 MG PO (09:39)
[2025-03-13] MEDS: TOPROL XL 75 MG PO (09:39)
[2025-03-13] MEDS: PROTONIX 40 MG PO (09:39)
[2025-03-13] MEDS: DELTASONE 30 MG PO (09:39)
[2025-03-13] MEDS: PRADAXA 150 MG PO (09:40)
[2025-03-13] MEDS: SENOKOT PO (09:41)
[2025-03-13] MEDS: FLEXERIL 2.5 MG PO (09:41)
[2025-03-13] MEDS: LIDOCAINE 4% PATCH 1 PATCH TOPICAL ×2 (09:41)
[2025-03-13] MEDS: MIRALAX PO (09:42)
--- NOTE | 2025-03-13 10:43 | W.PN.HOSP.TC ---
Addendum entered and electronically signed by Yudy Landry MD 03/14/25 08:25:
compression fractures due to osteoporosis
Original Note:
Today's Communication/Plan
-
Discharge
Assessment / Plan
Assessment / Plan
84-year-old man presented with ambulatory dysfunction. Patient also had exacerbation of his ongoing back pain for several months to years.
CT of the lumbar spine-chronic compression fractures of T12, L1 vertebral bodies without change compared to CT on 04/18/2024. Near vertebral plana deformity T12 and L1. Moderate retropulsion of the fragment L1 associated with moderate to severe
narrowing of the central canal.
Multiple chronic compression deformities within the lumbar spine unchanged. No acute compression fracture. Additional degenerative changes throughout the lumbar spine with multiple levels of central canal narrowing. Trace bilateral pleural
effusions. Mild bibasilar airspace consolidation may represent subsegmental atelectasis or pneumonia.
Head CT-no acute changes. Moderate atrophy and moderate periventricular subcortical white matter changes CT of the pelvis-no osseous abnormality. Mild asymmetric edema within the lateral soft tissues of the right hip
May represent contusion, possible asymmetrical dependent edema or superficial infectious process. No fluid collection or discrete lesion. Chronic compression deformities of the lower lumbar spine. Mild colonic stool burden
Patient slightly drowsy but arousable able to communicate
Cardiovascular system S1-S2 irregular
Chest clear to auscultation
Abdomen soft and nontender, Rectal heme neg brown stool
# Back pain
Acute on chronic
Pain control-continue Roxicodone 2.5 mg every every 6 hours, lidocaine patch and Tylenol. Prednisone will be continued to be tapered off
Continue Flexeril
I have also added another lidocaine patch for the back area
No additional fractures noted on the pelvic CT
# TME-at baseline.
# Leukocytosis-patient's white count has been slightly elevated since September 2024. Check Blood cultures. Urinalysis unremarkable.
CXR No pneumonia. Possible atelectasis on CT from pain. Add IS. No evidence of aspiration per speech evaluation
# Paroxysmal atrial fibrillation-continue dabigatran, metoprolol
Echo 12/07/2023-EF 55 to 60%, moderate MR, aortic sclerosis with trace AI, normal right heart, small pericardial effusion
# Hyperlipidemia-continue statin
# Peripheral artery disease-continue Pradaxa and statin
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
Status post balloon angioplasty right side by Dr. Fitzpatrick-11/08/2024
# Chronic anemia-continue p.o. iron. rectal heme neg brown stool.
# Constipation resolved. Patient had a bowel movement today.
# History of pacemaker placement
# Peptic ulcer disease-continue PPI
# Osteoporosis with history of compression fractures-continue Tymlos
# DVT prophylaxis-dabigatran
# DNR
Discussed with nursing
Discussed with case management
Had to print Oxycodone twice due to printer issues.
More than 30 minutes spent in discharge including
Final examination of the patient
Summarizing hospital stay
Instructions for continuing care to all relevant caregivers
Preparation of discharge records, prescriptions, and referral forms
Part of this note was created using voice recognition system. Occasional wrong word or��sound alike� substitutions may have inadvertently occurred due to the inherent limitations of voice recognition software. If noted kindly bring it to my
attention for correction.
Anticipated Discharge: Today
Subjective/Interval History
-
Date of Service: March 13, 2025
Objective Data
-
Vital Signs:
Vital Signs
Temp Pulse Resp BP Pulse Ox
97.6 F 87 18 151/91 99
03/13/25 07:25 03/13/25 09:39 03/13/25 07:25 03/13/25 09:39 03/13/25 07:25
I&O
03/12/25 03/13/25 03/14/25
05:59 06:59 06:59
Intake Total 480 / 480 480 / 480
Output Total 1025 / 1025 700 / 700
Balance -545 / -545 -220 / -220
--- NOTE | 2025-03-13 10:50 | W.DS.TRANS ---
Addendum entered and electronically signed by Yudy Landry MD 03/13/25 14:52:
Dictation- [id number]
Original Note:
DC Summary - [facility] [employer]
-
Discharge Instructions:
Sleep Apnea Risk Intermediate
Discharge Diagnosis/Procedures Back pain-acute on chronic
Paroxysmal atrial fibrillation
Hyperlipidemia
Peripheral artery disease
Chronic anemia
History of pacemaker
Peptic ulcer disease
Diet As tolerated
Activity As tolerated
Driving Restrictions No driving
Blood Work CBC with differential count in 1 week
Instructions:
Stand-Alone Forms:
Changes to Home Medications: Yes
Discharge Medications:
DC Medications w/original date entered in [employer]
atorvastatin 10 mg tablet 10 mg PO QPM High cholesterol 09/22/20
metoprolol succinate 50 mg tablet,extended release 24 hr 75 mg PO DAILY Blood Pressure 01/23/21
abaloparatide (Tymlos) 80 mcg SC QPM Autoimmune Disorder 09/21/24
dabigatran etexilate 150 mg capsule 150 mg PO BID Heart Disease/Condition 12/05/24
acetaminophen 325 mg tablet 975 mg (3 x 325 mg) PO Q8H PRN mild pain #0 tabs 03/13/25
cyclobenzaprine 10 mg tablet 2.5 mg (1/4 x 10 mg) PO BID spasm #20 tabs 03/13/25
ferrous fumarate 324 mg (106 mg iron) tablet 324 mg PO DAILY anemia #30 tabs 03/13/25
lidocaine 4 % topical patch 1 patch topical DAILY Pain #0 ea 03/13/25
lidocaine 4 % topical patch 1 patch topical DAILY Pain #0 ea 03/13/25
oxycodone 5 mg tablet 5 mg PO Q6H Pain #10 tabs 03/13/25
pantoprazole 40 mg tablet,delayed release (Protonix) 40 mg PO DAILY Gastrointestinal issue 8 weeks #56 tabs 03/13/25
polyethylene glycol 3350 17 gram oral powder packet 17 g PO DAILY Constipation #0 ea 03/13/25
prednisone 10 mg tablet See Rx Instructions .Route .COMPLEX #15 tabs 03/13/25
sennosides 8.6 mg tablet (Bridgette-stevie) 17.2 mg (2 x 8.6 mg) PO HS Constipation #0 tabs 03/13/25
Home Medication Changes
Prednisone is no, MiraLAX and Senokot
Oxycodone dose changed
Lidocaine is new
Pending Results: No
--- NOTE | 2025-03-13 11:08 | CM ---
Addendum entered by Lizbeth Arriaza 03/13/25 11:21:
Correction: Pt does not need [employer] auth. documented on wrong pt.
Addendum entered by Lizbeth Arriaza 03/13/25 11:13:
Contacted [employer] for auth; remains pending. Confirmed transport time is 13:00. made aware.
[facility]
Report:[phone]

Original Note:
Reviewed chart. Met with pt briefly. Bed available at [facility], arranging ambulance transport time for 1:00PM.
Pt DC today to [facility].
[2025-03-13 12:44] VITALS: BP 166/90
--- NOTE | 2025-03-13 14:19 | PN.CDI ---
CDI
- -
CDI:
Physician Documentation Request
Admit Date: 03/09/25 15:36
Dear Doctor Gris ,
Please review the following and provide your response in the progress notes.
Clinical Indicators:
Pt admitted with acute on chronic back pain
Progress notes 03/11-03/13,' Patient also had exacerbation of his ongoing back pain for several months to years...CT of the lumbar spine-chronic compression fractures of T12, L1 vertebral bodies without change compared to CT on 04/18/2024. Near
vertebral plana deformity T12 and L1. Moderate retropulsion of the fragment L1 associated with moderate to severe narrowing of the central canal.Multiple chronic compression deformities within the lumbar spine unchanged. No acute compression
fracture..... Osteoporosis with history of compression fractures-continue Tymlos...'
Please clarify the relationship between these conditions:
Yes, lumbar spine-chronic compression fractures of T12, L1 vertebral bodies___ is related to/associated with Osteoporosis ___.
No, lumbar spine-chronic compression fractures of T12, L1 vertebral bodies ___ is not related to/associated with osteoporosis ___ but it is due to ___. (Please specify)
Unable to determine
Use of terms such as suspected, likely, concern for, or probable (associated with a specific diagnosis that is being evaluated, monitored, or treated as if it exists) are acceptable and can be coded in the inpatient setting, when documented at the
time of discharge.
Thank you,
Basia Reddy RN
CDI Specialist
[place] [facility]
Please use your independent medical judgment in providing your response.
== END 2025-03-13 13:54 | DRG 542 ==
LOC: 4 EAST ACU 15:36
PROVIDERS: Physician Assistant; ADMITTING PHYSICIAN Internal Medicine; ATTENDING PHYSICIAN Hospitalist; EMERGENCY PHYSICIAN Student in an Organized Health Care Education/Training Program; FAMILY PHYSICIAN Internal Medicine
DX: M80.08XA Age-related osteoporosis with current pathological fracture, vertebra(e), initial encounter for fracture (principal); G92.8 Other toxic encephalopathy; J98.11 Atelectasis; G89.29 Other chronic pain; I48.0 Paroxysmal atrial fibrillation; D72.829 Elevated white blood cell count, unspecified; E78.5 Hyperlipidemia, unspecified; I73.9 Peripheral vascular disease, unspecified; D64.9 Anemia, unspecified; Z66 Do not resuscitate; Z95.0 Presence of cardiac pacemaker; I25.10 Atherosclerotic heart disease of native coronary artery without angina pectoris; I10 Essential (primary) hypertension; K25.9 Gastric ulcer, unspecified as acute or chronic, without hemorrhage or perforation; Z79.899 Other long term (current) drug therapy; Z79.01 Long term (current) use of anticoagulants
CPT/HCPCS: 70450; 71046; 72072; 72110; 72131; 72192; 73522; 80048; 80053; 81003; 81015; 83690; 85025; 85027; 85610; 87040; 92610; 96361; 96374; 96376; 97163; 97530; 99285

== ENCOUNTER → 2025-03-20 11:21 | Outpatient (REF) | payer OTHER, MEDICARE, SELFPAY ==
[2025-03-20 12:21] LABS: Hematocrit 28.2 % (39.0-52.0); Hemoglobin 9.0 g/dL (13.0-18.0); Mean Corp Hgb Conc. 31.9 g/dL (33.0-37.0); Mean Corpuscular Volume 110.2 fL (80.0-94.0); Platelet Count 270 10^3/uL (130-400); Red Cell Dist. Width 18.5 % (11.5-14.5)
[2025-03-20 14:00] LABS: Absolute Neutrophils -Man Diff 16.7 10^3/uL (1.4-6.5); Normal RBC Morphology Yes; Platelets Checked Yes
[2025-03-20 14:01] LABS: Total Cells Counted 100; Toxic Granulation 1+
== END ==
LOC: OLABN 11:21
PROVIDERS: ATTENDING PHYSICIAN Student in an Organized Health Care Education/Training Program
DX: I73.9 Peripheral vascular disease, unspecified (principal); E55.9 Vitamin D deficiency, unspecified
CPT/HCPCS: 85025

== ENCOUNTER → 2025-03-22 10:00 | Outpatient (REF) | payer OTHER, MEDICARE, SELFPAY ==
[2025-03-22 10:46] LABS: Urine Character Clear (Clear)
[2025-03-22 11:26] LABS: Urine Red Blood Cell 0-2 /HPF (0-2); Urine White Cell 0-2 /HPF (0-5)
[2025-03-22 11:27] LABS: Urine Urothelial Cell 0-2 /LPF (FEW)
== END ==
LOC: OLABN 10:00
PROVIDERS: ATTENDING PHYSICIAN Student in an Organized Health Care Education/Training Program
DX: D72.829 Elevated white blood cell count, unspecified (principal); Z79.899 Other long term (current) drug therapy
CPT/HCPCS: 81003; 81015; 87086

== ENCOUNTER → 2025-03-27 11:21 | Outpatient (REF) | payer OTHER, MEDICARE, SELFPAY ==
[2025-03-27 12:57] LABS: Hematocrit 27.6 % (39.0-52.0); Hemoglobin 8.4 g/dL (13.0-18.0); Mean Corp Hgb Conc. 30.4 g/dL (33.0-37.0); Mean Corpuscular Volume 113.1 fL (80.0-94.0); Nucleated Red Blood Cells % 0 % (-); Platelet Count 188 10^3/uL (130-400); Red Cell Dist. Width 18.1 % (11.5-14.5)
[2025-03-27 13:13] LABS: Blood Urea Nitrogen 39 mg/dl (9-20); Calcium 8.8 mg/dl (8.4-10.2); Carbon Dioxide 30 mmol/L (22-30); Chloride 104 mmol/L (98-107); Glucose 90 mg/dl (70-99); Potassium 4.6 mmol/L (3.5-5.1); Sodium 133 mmol/L (135-145); eGFR > 60.00
[2025-03-27 13:39] LABS: Vitamin B12 746 pg/ml (239-931)
== END ==
LOC: OLABN 11:21
PROVIDERS: ATTENDING PHYSICIAN Student in an Organized Health Care Education/Training Program
DX: D51.9 Vitamin B12 deficiency anemia, unspecified (principal); D72.818 Other decreased white blood cell count
CPT/HCPCS: 36415; 80048; 82607; 85025

== ENCOUNTER → 2025-04-04 09:04 | Outpatient (REF) | payer OTHER, MEDICARE, SELFPAY ==
[2025-04-04 12:17] LABS: Hematocrit 25.3 % (39.0-52.0); Hemoglobin 8.0 g/dL (13.0-18.0); Mean Corp Hgb Conc. 31.6 g/dL (33.0-37.0); Mean Corpuscular Volume 107.7 fL (80.0-94.0); Platelet Count 204 10^3/uL (130-400); Red Cell Dist. Width 17.5 % (11.5-14.5)
[2025-04-04 12:31] LABS: Nucleated Red Blood Cells % 0.2 % (-)
[2025-04-04 12:35] LABS: ALT (SGPT) 28 U/L (0-50); AST (SGOT) 33 U/L (17-59); Albumin 3.3 g/dl (3.5-5.0); Alkaline Phosphatase 168 U/L (38-126); Blood Urea Nitrogen 38 mg/dl (9-20); Calcium 8.6 mg/dl (8.4-10.2); Carbon Dioxide 27 mmol/L (22-30); Chloride 106 mmol/L (98-107); Glucose 84 mg/dl (70-99); Potassium 4.7 mmol/L (3.5-5.1); Sodium 136 mmol/L (135-145); Total Protein 5.9 g/dl (6.3-8.2); eGFR > 60.00
== END ==
LOC: OLABN 09:04
PROVIDERS: ATTENDING PHYSICIAN Surgery Vascular Surgery; FAMILY PHYSICIAN Internal Medicine; REFERRING PHYSICIAN Student in an Organized Health Care Education/Training Program
DX: I73.9 Peripheral vascular disease, unspecified (principal); D53.9 Nutritional anemia, unspecified; N18.31 Chronic kidney disease, stage 3a; I10 Essential (primary) hypertension
CPT/HCPCS: 36415; 80053; 85025; 93922; 93926; 93971

== ENCOUNTER 2025-04-20 08:15 | Inpatient (IN) | payer MEDICARE, SELFPAY ==
[2025-04-18] VITALS (15 sets, daily range): BP systolic 108–152; BP diastolic 55–90; PULSE 82; O2SAT 98; BMI 27.2
--- NOTE | 2025-04-18 01:34 | ED.GENMED ---
History of Present Illness
<Roseanna Bean PA-C - Last Filed: 04/18/25 05:11>
General
Chief Complaint: Weakness
Source: patient
Exam Limitations: none
Time Seen by Provider: 04/18/25 01:02
Nursing documentation reviewed up to this point in time: agreed with
History of Present Illness
History of Present Illness:
84-year-old male with a past medical history of chronic back pain, A-fib, hypertension, hyperlipidemia, peripheral vascular disease, presents to ER today with concerns of ongoing back pain and ambulatory dysfunction. Patient reports that he follows
with an orthopedist who he last saw a few months ago and he manages his pain with occasional spinal injections, oxycodone, Tylenol, and medical marijuana. Patient reports that at rest, the pain is present in the low back but he reports that the
past few days, the pain with standing has become a lot more intense and when he stands, he feels that the pain becomes so intense that he is off balance and he is unable to walk. He reports that he had 2 falls in the past 3 days. He not fall to
the ground at these times, he reports that he was walking lost his balance and fell into the wall and the other time falling into a piece of furniture. He did not hit his head or injure his neck. He reports that he has been urinating normally and
denies any urinary retention, genital paresthesias, urinary incontinence, fecal incontinence. He denies any fevers or chills. He denies any abdominal pain. He has no associated burning with urination, vomiting, nausea. [facility]
<Chelita Andrade DO - Last Filed: 04/18/25 04:09>
History of Present Illness
History of Present Illness:
84-year-old male with a past medical history of chronic back pain, A-fib, hypertension, hyperlipidemia, peripheral vascular disease, presents to ER today with concerns of ongoing back pain and ambulatory dysfunction. Patient reports that he follows
with an orthopedist who he last saw a few months ago and he manages his pain with occasional spinal injections, oxycodone, Tylenol, and medical marijuana. Patient reports that at rest, the pain is present in the low back but he reports that the
past few days, the pain with standing has become a lot more intense and when he stands, he feels that the pain becomes so intense that he is off balance and he is unable to walk. He reports that he had 2 falls in the past 3 days. He not fall to
the ground at these times, he reports that he was walking lost his balance and fell into the wall and the other time falling into a piece of furniture. He did not hit his head or injure his neck. He reports that he has been urinating normally and
denies any urinary retention, genital paresthesias, urinary incontinence, fecal incontinence. He denies any fevers or chills. He denies any abdominal pain. He has no associated burning with urination, vomiting, nausea. Patient feels that he
needs to go back to [facility].
Past History
<Roseanna Bean PA-C - Last Filed: 04/18/25 05:11>
Past History
ED Past Medical History: Arrthythmia (afib), HTN and Other (Compression fractures, peripheral arterial disease, hyperlipidemia)
ED Past Surgical History: Cardiac, Orthopedic and Other (Vascular)
Social History
Tobacco: Non-smoker
Alcohol: None
Drug: None
Personal:
Living: with family
Employment: Retired
Review of Systems
<Roseanna Bean PA-C - Last Filed: 04/18/25 05:11>
Review of Systems
All Other Systems: ROS reviewed and negative except as documented in HPI and ROS
Phy Exam
<Roseanna Bean PA-C - Last Filed: 04/18/25 05:11>
Physical Exam
Physical Exam:
General: Patient is well appearing and in no acute distress; non-toxic
Skin: Warm and dry, no rashes or lesions
Head: Normocephalic, atraumatic
Eyes: Sclera non-icteric. EOMs intact.
Cardiac: Heart rate irregularly irregular, no murmurs
Peripheral Vascular: No lower extremity swelling or edema, 2+ DP pulses bilaterally
Pulm: Normal respiratory effort, no wheezes, rales, rhonchi
Abdomen: No abdominal tenderness to palpation, no pulsatile abdominal mass.
Musculoskeletal: When patient attempts to stand, he is not able to take more than 1 step without nearly falling and losing his balance. At rest, laying bed, he has 5 of 5 strength in his bilateral lower extremities.
Neuro: CN II-XII intact, no focal neurologic deficits. Normal speech. Normal finger-nose, heel pizarro testing.
Psychiatric: Appropriate mood and affect.
Course
<Roseanna Bean PA-C - Last Filed: 04/18/25 05:11>
Orders/Labs/Results
Orders:
Orders
04/18/25 01:40
CT Head W/o Iv Contrast Urgent
Comment:
Reason For Exam: b/l new onset weakness
04/18/25 01:41
Complete Blood Count/With Diff Urgent
Comprehensive Metabolic Panel Urgent
Urinalysis Reflex To Culture Urgent
Date Specimen was Collected: 04/18/25
Time Specimen was Collected: 01:40
Urine Microscopic Reflex Cult Urgent
Urine Culture Urgent
MORGAN Source: U
Specimen Description:
Date Specimen was Collected: 04/18/25
Time Specimen was Collected: 01:40
04/18/25 04:17
Admit/Transfer Patient As Directed
Co-Sign Provider:
Level of Care: Observation services
Assign to:: Medical/Surgical
Physician / Group: christa wu
Diagnosis: ambulatory dysfunction
PRN Pain Medication Management As Directed
May give lesser potent ordered pain med per pt: Yes
preference::
Protocol:: Medication orders for pain may be administered in a
manner that supports deferring to patient preference
when the pt is:
- Requesting an ordered lesser potent pain medication.
Least to most potent pain medications are defined
as: acetaminophen < NSAID < tramadol < opioids
(morphine, oxycodone, hydromorphone).
- Requesting a lesser dose of the same medication IF
ORDERED.
- Requesting a less intrusive route of administration
if both routes are prescribed by the provider (PO <
IV).
04/18/25 04:19
Code Status As Directed
Resuscitation Status: Full Code
04/18/25 04:45
Acetaminophen [Tylenol] 975 mg PO Q8H PRN mild pain
Bisacodyl [Dulcolax] 10 mg RECTAL [id number] PRN
Docusate W/Senna [Senokot-S] 1 tablet PO BIDPRN PRN
Polyethylene Glycol Powder [Miralax] 17 grams PO DAILYPRN PRN
04/18/25 04:45
Activity As Directed
Activity Level: As Tolerated
Vital Signs As Directed
Frequency: Per unit guidelines
DX Deep Vein Thrombosis Video Routine
04/18/25 Breakfast
Regular
Basic Metabolic Panel IN AM
Complete Blood Count/No Diff IN AM
04/18/25 08:00
Cyclobenzaprine HCl [Flexeril] 2.5 mg PO BID
Dabigatran Etexilate Mesylate [Pradaxa] 150 mg PO BID
Metoprolol Xl [Toprol Xl] 75 mg PO DAILY
Pantoprazole [Protonix] 40 mg PO DAILY
ferrous fumarate 324 mg PO DAILY
04/18/25 18:00
Atorvastatin [Lipitor] 10 mg PO QPM
Enoxaparin Sodium [Lovenox] 30 mg SC QPM
Abnormal Lab Results
04/18/25
01:41
WBC 13.1 H 10^3/uL
(4.8-10.8)
RBC 2.57 L 10^6/uL
(4.70-6.10)
Hgb 8.8 L g/dL
(13.0-18.0)
Hct 27.9 L %
(39.0-52.0)
MCV 108.6 H fL
(80.0-94.0)
MCH 34.2 H pg
(27.0-31.0)
MCHC 31.5 L g/dL
(33.0-37.0)
RDW 17.5 H %
(11.5-14.5)
Abs Immat Gran (auto) 0.4 H 10^3/uL
(0-0.05)
Absolute Neuts (auto) 9.6 H 10^3/uL
(1.4-6.5)
Absolute Lymphs (auto) 1.0 L 10^3/uL
(1.2-3.4)
Absolute Monos (auto) 1.7 H 10^3/uL
(0.1-0.6)
Immature Gran % 3.1 H %
(0-0.5)
Lymphocytes % 7.3 L %
(20.5-51.1)
Monocytes % 13.3 H %
(1.7-9.3)
Chloride 110 H mmol/L
(98-107)
BUN 40 H mg/dl
(9-20)
Ur Occult Blood Reflex 1+ A
(Negative)
Leukocyte Esterase Rfl 1+ A
(Negative)
Urine Bacteria (Reflex) Few A
(Negative)
Urine Albumin (Reflex) 2+ A
(Neg - Trace)
04/18/25 01:41
04/18/25 01:41
Vital Signs
Initial and Last Documented VS:
Initial Vital Signs
Temp Pulse Resp BP Pulse Ox
97.2 F 105 16 120/87 95
04/18/25 00:53 04/18/25 00:53 04/18/25 00:53 04/18/25 00:53 04/18/25 00:53
Last Documented Vital Signs
Temp Pulse Resp BP Pulse Ox
97.2 F 91 20 111/89 97
04/18/25 00:53 04/18/25 01:45 04/18/25 01:45 04/18/25 01:01 04/18/25 01:45
<Chelita Andrade, - Last Filed: 04/18/25 04:09>
Orders/Labs/Results
Orders:
Orders
04/18/25 01:40
CT Head W/o Iv Contrast Urgent
Comment:
Reason For Exam: b/l new onset weakness
04/18/25 01:41
Complete Blood Count/With Diff Urgent
Comprehensive Metabolic Panel Urgent
Urinalysis Reflex To Culture Urgent
Date Specimen was Collected: 04/18/25
Time Specimen was Collected: 01:40
Urine Microscopic Reflex Cult Urgent
Urine Culture Urgent
MORGAN Source: U
Specimen Description:
Date Specimen was Collected: 04/18/25
Time Specimen was Collected: 01:40
04/18/25 04:17
Admit/Transfer Patient As Directed
Co-Sign Provider:
Level of Care: Observation services
Assign to:: Medical/Surgical
Physician / Group: christa wu
Diagnosis: ambulatory dysfunction
PRN Pain Medication Management As Directed
May give lesser potent ordered pain med per pt: Yes
preference::
Protocol:: Medication orders for pain may be administered in a
manner that supports deferring to patient preference
when the pt is:
- Requesting an ordered lesser potent pain medication.
Least to most potent pain medications are defined
as: acetaminophen < NSAID < tramadol < opioids
(morphine, oxycodone, hydromorphone).
- Requesting a lesser dose of the same medication IF
ORDERED.
- Requesting a less intrusive route of administration
if both routes are prescribed by the provider (PO <
IV).
04/18/25 04:19
Code Status As Directed
Resuscitation Status: Full Code
04/18/25 04:45
Acetaminophen [Tylenol] 975 mg PO Q8H PRN mild pain
Bisacodyl [Dulcolax] 10 mg RECTAL [id number] PRN
Docusate W/Senna [Senokot-S] 1 tablet PO BIDPRN PRN
Polyethylene Glycol Powder [Miralax] 17 grams PO DAILYPRN PRN
04/18/25 04:45
Activity As Directed
Activity Level: As Tolerated
Vital Signs As Directed
Frequency: Per unit guidelines
DX Deep Vein Thrombosis Video Routine
04/18/25 Breakfast
Regular
Basic Metabolic Panel IN AM
Complete Blood Count/No Diff IN AM
04/18/25 08:00
Cyclobenzaprine HCl [Flexeril] 2.5 mg PO BID
Dabigatran Etexilate Mesylate [Pradaxa] 150 mg PO BID
Metoprolol Xl [Toprol Xl] 75 mg PO DAILY
Pantoprazole [Protonix] 40 mg PO DAILY
ferrous fumarate 324 mg PO DAILY
04/18/25 18:00
Atorvastatin [Lipitor] 10 mg PO QPM
Enoxaparin Sodium [Lovenox] 30 mg SC QPM
Abnormal Lab Results
04/18/25
01:41
WBC 13.1 H 10^3/uL
(4.8-10.8)
RBC 2.57 L 10^6/uL
(4.70-6.10)
Hgb 8.8 L g/dL
(13.0-18.0)
Hct 27.9 L %
(39.0-52.0)
MCV 108.6 H fL
(80.0-94.0)
MCH 34.2 H pg
(27.0-31.0)
MCHC 31.5 L g/dL
(33.0-37.0)
RDW 17.5 H %
(11.5-14.5)
Abs Immat Gran (auto) 0.4 H 10^3/uL
(0-0.05)
Absolute Neuts (auto) 9.6 H 10^3/uL
(1.4-6.5)
Absolute Lymphs (auto) 1.0 L 10^3/uL
(1.2-3.4)
Absolute Monos (auto) 1.7 H 10^3/uL
(0.1-0.6)
Immature Gran % 3.1 H %
(0-0.5)
Lymphocytes % 7.3 L %
(20.5-51.1)
Monocytes % 13.3 H %
(1.7-9.3)
Chloride 110 H mmol/L
(98-107)
BUN 40 H mg/dl
(9-20)
Ur Occult Blood Reflex 1+ A
(Negative)
Leukocyte Esterase Rfl 1+ A
(Negative)
Urine Bacteria (Reflex) Few A
(Negative)
Urine Albumin (Reflex) 2+ A
(Neg - Trace)
04/18/25 01:41
04/18/25 01:41
Vital Signs
Initial and Last Documented VS:
Initial Vital Signs
Temp Pulse Resp BP Pulse Ox
97.2 F 105 16 120/87 95
04/18/25 00:53 04/18/25 00:53 04/18/25 00:53 04/18/25 00:53 04/18/25 00:53
Last Documented Vital Signs
Temp Pulse Resp BP Pulse Ox
97.2 F 91 20 111/89 97
04/18/25 00:53 04/18/25 01:45 04/18/25 01:45 04/18/25 01:01 04/18/25 01:45
<Roseanna Bean PA-C - Last Filed: 04/18/25 05:11>
MDM/Problems Addressed
Differential Diagnosis Includes:
Differentials include spinal stenosis, compression fracture, CVA/TIA, lumbar strain, nephrolithiasis, AAA,
MDM/Problems Addressed:
84-year-old male presents to the ER today with concerns of amatory dysfunction. He reports that when he stands, he feels that his back pain gets worse and he is unable to take a few steps without falling and losing his balance. [facility] and felt that he was discharged too soon and did not feel strong upon discharge. He reports that the pain is characteristic of his chronic back pain but feels like the pain has been worsening
recently. He has no fevers, no abdominal pain, no urinary or fecal incontinence. On physical exam, he is well-appearing in no acute distress. At rest, lying in bed, he has 5 of 5 strength in his lower extremities, normal neurologic exam nonfocal.
He attempts to walk, his lower legs start to shake and he feels as though he will fall. He denies any dizziness. Labs reviewed, mild leukocytosis noted. His hemoglobin is at his baseline. His urinalysis is not concerning for any signs of
infection. CT scan of the head shows diffuse cerebral volume loss with no calvarial lesion, no acute changes no evidence of acute infarct. Patient will require admission to the hospital for case management, physical therapy and OT to eval.
Patient referred for admission. Case discussed with ED attending.
<Roseanna Bean PA-C - Last Filed: 04/18/25 05:11>
*Pulse Oximetry
SaO2: 95
Oxygen Mode of Delivery: Room air
Patient hypoxic: no
*Critical Care Note
Total Time (30-74mins, 75-104mins- exclusive of procedures): Not Applicable
ED Attending Note
<Roseanna Bean PA-C - Last Filed: 04/18/25 05:11>
-
Portions of this chart may have been created with voice recognition software.� Occasional wrong word or��sound alike� substitutions may have occurred due to the inherent limitations of voice recognition software.
<Chelita Andrade DO - Last Filed: 04/18/25 04:09>
ED Attending Note
Patient seen and examined by attending physician: Yes
I performed the substantive portion of visit, reviewed & personally made and approve the management plan that is documented in note by myself or LUCY.: Yes
I performed a history and physical exam of patient and discussed management with resident, I reviewed resident's note and agree with documented findings and plan of care.: Yes
ED Attending Note:
84-year-old male with history of chronic back pain, hypertension, CAD, PAD presenting for lower extremity weakness. Patient reports for the past few days he has had increasing weakness to his lower extremities. He reports difficulty ambulating.
When trying to stand up, feels like his leg shake and buckle. Denies any increases back pain. Denies any numbness or tingling. Denies urinary issues or any urinary/fecal incontinence. Denies fever. Denies chest pain or abdominal pain. Vital
signs on arrival significant for mild tachycardia.
On exam, patient is resting comfortably, no acute distress. Reassuring examination. Patient nontoxic. Unremarkable cardiac and pulmonary exam. No swelling or deformity to the lower extremities with range of motion intact. Distal sensation and
pulses intact. Suspect acute on chronic process with known lower back issues. Without any present concern for spinal compromise or compression. Labs obtained prior to my assessment, mild leukocytosis. CT brain obtained, negative. Attempted to
ambulate patient, however very unsteady, fall risk. For this reason plan for admission for PT/OT consultation and case management
Discharge Plan
Departure
Patient Disposition: Admit
Date of Disposition: 04/18/25
Time of Disposition: 03:51
Admit to: Med/Surg
Presentation/result/management discussed w/ accepting MD/DO: Hospitalist
Patient with high blood pressure during this ER visit?: Yes
Condition: Fair
Discharge Problem:
Ambulatory dysfunction
Interventions
Interventions:
*Risk Screen - Suicide Last Done: 04/18/25 00:53
*General Assessment Last Done: 04/18/25 00:53
*Neglect/Abuse Screening Last Done: 04/18/25 00:53
*ED COVID-19 Vaccine History Last Done: 04/18/25 00:53
*ED Influenza Vaccine History Last Done: 04/18/25 00:53
[facility] Fall Risk Assessment Tool Last Done: 04/18/25 01:06
ED- Cardiac Assessment Last Done: 04/18/25 00:53
ED- Neurological Assessment Last Done: 04/18/25 00:53
ED- Pulmonary Assessment Last Done: 04/18/25 00:53
[2025-04-18 01:49] LABS: Urine Character Clear (Clear)
[2025-04-18 01:56] LABS: Hematocrit 27.9 % (39.0-52.0); Hemoglobin 8.8 g/dL (13.0-18.0); Mean Corp Hgb Conc. 31.5 g/dL (33.0-37.0); Mean Corpuscular Volume 108.6 fL (80.0-94.0); Nucleated Red Blood Cells % 0 % (-); Platelet Count 297 10^3/uL (130-400); Red Cell Dist. Width 17.5 % (11.5-14.5)
[2025-04-18 02:08] LABS: Urine Red Blood Cell 0-2 /HPF (0-2); Urine Squamous Cell 0-2 /LPF (Few)
[2025-04-18 02:20] LABS: ALT (SGPT) 15 U/L (0-50); AST (SGOT) 26 U/L (17-59); Albumin 3.9 g/dl (3.5-5.0); Alkaline Phosphatase 113 U/L (38-126); Blood Urea Nitrogen 40 mg/dl (9-20); Calcium 9.4 mg/dl (8.4-10.2); Carbon Dioxide 27 mmol/L (22-30); Chloride 110 mmol/L (98-107); Estimated Creatinine Clearance 44 ml/min; Glucose 96 mg/dl (70-99); Potassium 4.1 mmol/L (3.5-5.1); Sodium 142 mmol/L (135-145); Total Protein 6.6 g/dl (6.3-8.2); eGFR > 60.00
--- NOTE | 2025-04-18 04:05 | HPS.HSE ---
Family Physician
-
Family Physician: Arcelia Christine
Chief Complaint
-
fall ambulatory dysfunction
History of Present Illness
Medical History
Past Medical History
Past Medical History: Reports Other
Additional Past Medical History:
atrial fibrillation with permanent pacemaker, peripheral arterial disease, history of left toe amputation, CAD, hyperlipidemia, hypertension, hyponatremia, chronic back pain secondary to disc herniations
Past Surgical History: Reports None
Social History
Alcohol: None
Family History
Family History: Not pertinent
Allergies / Home Medications
Allergies reflects when Allergies were last updated in [facility].
Home Medications with original date entered in [facility]
Allergy/Medication List:
Allergies
Allergy/AdvReac Type Severity Reaction Status Date / Time
No Known Allergies Allergy Verified 03/07/25 23:50
Home Medications
atorvastatin 10 mg tablet 10 mg PO QPM High cholesterol 09/22/20
metoprolol succinate 50 mg tablet,extended release 24 hr 75 mg PO DAILY Blood Pressure 01/23/21
abaloparatide (Tymlos) 80 mcg SC QPM Autoimmune Disorder 09/21/24
dabigatran etexilate 150 mg capsule 150 mg PO BID Heart Disease/Condition 12/05/24
acetaminophen 325 mg tablet 975 mg (3 x 325 mg) PO Q8H PRN mild pain #0 tabs 03/13/25
cyclobenzaprine 10 mg tablet 2.5 mg (1/4 x 10 mg) PO BID spasm #20 tabs 03/13/25
ferrous fumarate 324 mg (106 mg iron) tablet 324 mg PO DAILY anemia #30 tabs 03/13/25
lidocaine 4 % topical patch 1 patch topical DAILY Pain #0 ea 03/13/25
lidocaine 4 % topical patch 1 patch topical DAILY Pain #0 ea 03/13/25
oxycodone 5 mg tablet 2.5 mg (1/2 x 5 mg) PO Q6H pain #10 tabs 03/13/25
pantoprazole 40 mg tablet,delayed release (Protonix) 40 mg PO DAILY Gastrointestinal issue 8 weeks #56 tabs 03/13/25
polyethylene glycol 3350 17 gram oral powder packet 17 g PO DAILY Constipation #0 ea 03/13/25
prednisone 10 mg tablet See Rx Instructions .Route .COMPLEX #15 tabs 03/13/25
sennosides 8.6 mg tablet (Bridgette-stevie) 17.2 mg (2 x 8.6 mg) PO HS Constipation #0 tabs 03/13/25
Review of Systems
-
A 12 point ROS was completed and negative except as noted: Yes
Physical Exam
Vital Signs
Vital Signs
Temp Pulse Resp BP Pulse Ox
97.2 F 91 20 111/89 97
04/18/25 00:53 04/18/25 01:45 04/18/25 01:45 04/18/25 01:01 04/18/25 01:45
Physical Exam
General: Well Developed and Well Nourished
HEENT: NormoCephalic and Anicteric
Respiratory: Clear
Cardiac: S1/S2 and Irregular Rhythm
GI: Soft, Non Tender and Non Distended
Musculoskeletal: No Clubbing and No Cyanosis
Skin: Warm and Dry
Psych: Calm
Laboratory Results
-
04/18/25 01:41
04/18/25 01:41
Laboratory Results
Total Bilirubin 1.1 mg/dl (0.2-1.3) 04/18/25 01:41
AST 26 U/L (17-59) 04/18/25 01:41
ALT 15 U/L (0-50) 04/18/25 01:41
Alkaline Phosphatase 113 U/L (38-126) 04/18/25 01:41
Impression/Plan
-
Amatory dysfunction per ED
Unable to ambulate more than 1 step
Was recently just discharged to skilled facility [facility]
Believes discharge was too early
PT OT
Back pain acute on chronic
PT OT
Leukocytosis however afebrile without evidence of acute infection
Monitor off of antibiotics
Urine culture pending
No blood cultures ordered if continues to have white count or if becomes febrile we will obtain and consider antibiotic initiation
Paroxysmal atrial fibrillation, s/p pacemaker
Continue dabigatran and beta-hollie
Hyperlipidemia
Statin
PAD
Continue Pradaxa statin
Chronic anemia
Continue oral iron
PUD
PPI continued
[2025-04-18 06:35] LABS: Hematocrit 24.9 % (39.0-52.0); Hemoglobin 7.9 g/dL (13.0-18.0); Mean Corp Hgb Conc. 31.7 g/dL (33.0-37.0); Mean Corpuscular Volume 107.3 fL (80.0-94.0); Platelet Count 257 10^3/uL (130-400); Red Cell Dist. Width 17.4 % (11.5-14.5)
--- NOTE | 2025-04-18 07:05 | ED.GENMED ---
History of Present Illness
General
Chief Complaint: Weakness
Time Seen by Provider: 04/18/25 01:02
Past History
Past History
ED Past Medical History: Arrthythmia (afib), HTN and Other (Compression fractures, peripheral arterial disease, hyperlipidemia)
ED Past Surgical History: Cardiac, Orthopedic and Other (Vascular)
Social History
Tobacco: Non-smoker
Alcohol: None
Drug: None
Personal:
Living: with family
Employment: Retired
Course
Orders/Labs/Results
Orders:
Orders
04/18/25 01:40
CT Head W/o Iv Contrast Urgent
Comment:
Reason For Exam: b/l new onset weakness
04/18/25 01:41
Complete Blood Count/With Diff Urgent
Comprehensive Metabolic Panel Urgent
Urinalysis Reflex To Culture Urgent
Date Specimen was Collected: 04/18/25
Time Specimen was Collected: 01:40
Urine Microscopic Reflex Cult Urgent
Urine Culture Urgent
MOGRAN Source: U
Specimen Description:
Date Specimen was Collected: 04/18/25
Time Specimen was Collected: 01:40
04/18/25 04:17
Admit/Transfer Patient As Directed
Co-Sign Provider:
Level of Care: Observation services
Assign to:: Medical/Surgical
Physician / Group: christa wu
Diagnosis: ambulatory dysfunction
PRN Pain Medication Management As Directed
May give lesser potent ordered pain med per pt: Yes
preference::
Protocol:: Medication orders for pain may be administered in a
manner that supports deferring to patient preference
when the pt is:
- Requesting an ordered lesser potent pain medication.
Least to most potent pain medications are defined
as: acetaminophen < NSAID < tramadol < opioids
(morphine, oxycodone, hydromorphone).
- Requesting a lesser dose of the same medication IF
ORDERED.
- Requesting a less intrusive route of administration
if both routes are prescribed by the provider (PO <
IV).
04/18/25 04:19
Code Status As Directed
Resuscitation Status: Full Code
04/18/25 04:45
Acetaminophen [Tylenol] 975 mg PO Q8H PRN mild pain
Bisacodyl [Dulcolax] 10 mg RECTAL [id number] PRN
Docusate W/Senna [Senokot-S] 1 tablet PO BIDPRN PRN
Polyethylene Glycol Powder [Miralax] 17 grams PO DAILYPRN PRN
04/18/25 04:45
Activity As Directed
Activity Level: As Tolerated
Vital Signs As Directed
Frequency: Per unit guidelines
DX Deep Vein Thrombosis Video Routine
04/18/25 Breakfast
Regular
04/18/25 06:12
Basic Metabolic Panel IN AM
Complete Blood Count/No Diff IN AM
04/18/25 08:00
Cyclobenzaprine HCl [Flexeril] 2.5 mg PO BID
Dabigatran Etexilate Mesylate [Pradaxa] 150 mg PO BID
Ferrous Sulfate [Feosol] 325 mg PO DAILY
Metoprolol Xl [Toprol Xl] 75 mg PO DAILY
Pantoprazole [Protonix] 40 mg PO DAILY
04/18/25 18:00
Atorvastatin [Lipitor] 10 mg PO QPM
Enoxaparin Sodium [Lovenox] 30 mg SC QPM
Abnormal Lab Results
04/18/25
01:41
WBC 13.1 H 10^3/uL
(4.8-10.8)
RBC 2.57 L 10^6/uL
(4.70-6.10)
Hgb 8.8 L g/dL
(13.0-18.0)
Hct 27.9 L %
(39.0-52.0)
MCV 108.6 H fL
(80.0-94.0)
MCH 34.2 H pg
(27.0-31.0)
MCHC 31.5 L g/dL
(33.0-37.0)
RDW 17.5 H %
(11.5-14.5)
Abs Immat Gran (auto) 0.4 H 10^3/uL
(0-0.05)
Absolute Neuts (auto) 9.6 H 10^3/uL
(1.4-6.5)
Absolute Lymphs (auto) 1.0 L 10^3/uL
(1.2-3.4)
Absolute Monos (auto) 1.7 H 10^3/uL
(0.1-0.6)
Immature Gran % 3.1 H %
(0-0.5)
Lymphocytes % 7.3 L %
(20.5-51.1)
Monocytes % 13.3 H %
(1.7-9.3)
Chloride 110 H mmol/L
(98-107)
BUN 40 H mg/dl
(9-20)
Ur Occult Blood Reflex 1+ A
(Negative)
Leukocyte Esterase Rfl 1+ A
(Negative)
Urine Bacteria (Reflex) Few A
(Negative)
Urine Albumin (Reflex) 2+ A
(Neg - Trace)
04/18/25 01:41
04/18/25 01:41
Vital Signs
Initial and Last Documented VS:
Initial Vital Signs
Temp Pulse Resp BP Pulse Ox
97.2 F 105 16 120/87 95
04/18/25 00:53 04/18/25 00:53 04/18/25 00:53 04/18/25 00:53 04/18/25 00:53
Last Documented Vital Signs
Temp Pulse Resp BP Pulse Ox
97.2 F 84 22 122/76 94
04/18/25 00:53 04/18/25 05:15 04/18/25 05:15 04/18/25 05:00 04/18/25 05:00
*Pulse Oximetry
SaO2: 94
Oxygen Mode of Delivery: Room air
ED Attending Note
-
Portions of this chart may have been created with voice recognition software.� Occasional wrong word or��sound alike� substitutions may have occurred due to the inherent limitations of voice recognition software.
Discharge Plan
Departure
Patient Disposition: Admit
Date of Disposition: 04/18/25
Time of Disposition: 03:51
Admit to: Med/Surg
Presentation/result/management discussed w/ accepting MD/DO: Hospitalist
Patient with high blood pressure during this ER visit?: Yes
Condition: Fair
Discharge Problem:
Ambulatory dysfunction
Interventions
Interventions:
*Risk Screen - Suicide Last Done: 04/18/25 00:53
*General Assessment Last Done: 04/18/25 00:53
*Neglect/Abuse Screening Last Done: 04/18/25 05:15
*ED COVID-19 Vaccine History Last Done: 04/18/25 00:53
*ED Influenza Vaccine History Last Done: 04/18/25 00:53
[facility] Fall Risk Assessment Tool Last Done: 04/18/25 01:06
ED- Cardiac Assessment Last Done: 04/18/25 00:53
ED- Neurological Assessment Last Done: 04/18/25 00:53
ED- Pulmonary Assessment Last Done: 04/18/25 00:53
[2025-04-18 07:15] LABS: Blood Urea Nitrogen 39 mg/dl (9-20); Calcium 9.0 mg/dl (8.4-10.2); Carbon Dioxide 27 mmol/L (22-30); Chloride 111 mmol/L (98-107); Estimated Creatinine Clearance 49 ml/min; Glucose 99 mg/dl (70-99); Potassium 4.1 mmol/L (3.5-5.1); Sodium 140 mmol/L (135-145); eGFR > 60.00
[2025-04-18] MEDS: TYLENOL 975 MG PO ×2 (07:47→20:17)
[2025-04-18] MEDS: FLEXERIL 2.5 MG PO ×2 (07:47→20:16)
[2025-04-18] MEDS: FEOSOL 325 MG PO (07:48)
[2025-04-18] MEDS: PROTONIX 40 MG PO (07:48)
[2025-04-18] MEDS: TOPROL XL 75 MG PO (07:52)
--- NOTE | 2025-04-18 09:11 | VNURNOTE ---
Chart reviewed. Patient is current with [facility]. Will continue to follow hospital course and DC plans.
--- NOTE | 2025-04-18 09:27 | W.PN.HOSP.TC ---
Today's Communication/Plan
-
see PN
Assessment / Plan
Assessment / Plan
84yo M with PMHxof HLD, PAD, Hx of L transmetatarsal amputation, Afib on Pradaxa, SSS s/p PPM (not compatible with MRI as per patient), GERD, chronic lower back pain, recent admission for worsening back pain and found Chronic compression fractures
of the T12 and L1 vertebral bodies, without significant change compared to prior CT dated 04/18/2024. Near vertebral plana deformity is seen of T12 and L1. There is moderate retropulsion of the fracture fragment of L1, associated with moderate to
severe narrowing of the central canal - that is unchanged from the CT done in Apr 2024, recently discharged from [facility] and had 2 falls without LOC at home due to poor positioning of the walker when the wheel got stuck few times. No new neurological
deficit found. Patient is seeking to regain ability to walk. His lower back pain was progressive over past 6 years and patient was seing spine specialists that said that noting can be done at this moment. Scheduled for second opinion in [facility].
A/P:
#Falls w/o LOC 2/2 poor balance and chronic back pain
#Compression FX of T12, L1, chronic with L1 retropulsion and spinal canal stenosis 2/2 osteoporosis
#Tremors
Combination of lower back pain, tremors, Hx of L transmetatarsal amputation are the reason for poor ambulatory status, might need higher level of care: assisted living, Whelchair use.
PT/OT
PAin mgmt
DIscuss with medical coding specialist,but without new neurological deficit and no change in back pain over past months - unlikley need in acute intervention
MAke appt with [facility] as advised before
outpatient osteoporosis treatment with PCP advised
CM consult
#Anemia
Hx of lower GIB in November 2024 with EGD and PUD
cont PPI
chronic
anemia w/u
follow CBC
avoid NSAIDs
Was recommended to repeat EGD in 2-3 months as outpatient
#Mild leukocytosis
most liekyl 2/2 pain
no fever
no signs of infection
monitor off Abx
#PErmanent Afib
#PAD
#SSS s/p PPM
#HLD
COnt home meds
DVT ppx pradaxa
Full code
I have spent at least 56min reviewign chart, test results, communication with consultants and providing direct patient care
Anticipated Discharge: 24 - 48 hours
Subjective/Interval History
-
Date of Service: April 18, 2025
Objective Data
-
Labs:
Laboratory Results
04/18/25 04/18/25
01:41 06:12
WBC 13.1 H 11.3 H
Hgb 8.8 L 7.9 L
Hct 27.9 L 24.9 L
Plt Count 297 257
Sodium 142 140
Potassium 4.1 4.1
Chloride 110 H 111 H
Carbon Dioxide 27 27
BUN 40 H 39 H
Creatinine 1.0 0.9
Glucose 96 99
Calcium 9.4 9.0
Total Bilirubin 1.1
AST 26
ALT 15
Alkaline Phosphatase 113
Vital Signs:
Vital Signs
Temp Pulse Resp BP Pulse Ox
97.2 F 89 21 135/87 94
04/18/25 00:53 04/18/25 07:15 04/18/25 07:15 04/18/25 07:00 04/18/25 05:00
I&O
04/17/25 04/18/25 04/19/25
06:59 06:59 06:59
Output Total 200 / 200
Balance -200 / -200
Review of Systems
-
History Source: Patient
All other systems: Reviewed and negative
Musculoskeletal: Reports Other (lower back pain)
Physical Exam
-
General: No Apparent Distress
HEENT: Normocephalic
Respiratory: Clear to Auscultation
Cardiac: Irregular Rhythm
GI: Soft, Nontender and Nondistended
Skin: Warm
Neuro: Awake, Alert, Oriented, AO x 3, No Motor Deficits, Tremors and Nonfocal/Grossly Intact
Psych: Calm and Apparent Dementia
[2025-04-18] MEDS: PRADAXA 150 MG PO ×2 (09:34→20:12)
[2025-04-18 09:36] LABS: Reticulocyte Count 3.4 % (0.4-2.8)
--- NOTE | 2025-04-18 10:09 | EDCM ---
Reviewed chart, met with pt bedside in ED. Lives with , 2 SH with 2 ALEXYS from front, 1 ALEXYS from garage. Has first floor setup.
Independent in personal care, needs assistance with ADLs. Ambulates with RW, has had 2 falls in past 3 days.
Recently discharged from [facility] at the end of March, wants to return there. Discussed Observation status and 3 inpatient night stay required by Medicare, pt is not [employer], pt is willing to pay privately.
Awaiting PT eval prior to sending referral.
FORREST reviewed and signed, copy left with pt.
Current with [facility], per Meredith pt was opened to 04/10, not yet seen by PT/OT
PCP: [place] Christine
Pharmacy: [facility]
CM will continue to follow for all discharge planning needs.
[2025-04-18] MEDS: MAALOX 30 ML PO ×2 (11:46→21:46)
[2025-04-18 11:53] LABS: Ferritin 63.7 ng/ml (17.9-464.0)
[2025-04-18 12:10] LABS: Iron 55 ug/dl (49-181); LDH 333 U/L (120-246); Total Iron Binding Capacity 350 ug/dl (261-462)
[2025-04-18 12:13] LABS: Troponin I 0.030 ng/ml
[2025-04-18 12:25] LABS: Folate 17.9 ng/ml (2.76-20); Vitamin B12 754 pg/ml (239-931)
--- NOTE | 2025-04-18 13:28 | PTCARENOTE ---
received pt from ED to room 316-2. Oriented to room, VS obtained, Aox3 assessment complete, Room air, reports pain of 5 in lower back. Bed in lowest position, fall wristband placed and magnet placed on door frame. Call martinez within reach, pt eating
lunch. urinated using urinal. Two recent falls, bed alarm placed. Continue plan of care.
[2025-04-18] MEDS: LIPITOR 10 MG PO (17:32)
[2025-04-18 19:14] LABS: Troponin I 0.027 ng/ml
[2025-04-19] MEDS: ROXICODONE 5 MG PO ×2 (01:17→09:38)
[2025-04-19 07:32] VITALS: BP 152/108
[2025-04-19] MEDS: PRADAXA 150 MG PO ×2 (09:26→21:09)
[2025-04-19] MEDS: PROTONIX 40 MG PO (09:26)
[2025-04-19] MEDS: TOPROL XL 75 MG PO (09:27)
[2025-04-19] MEDS: FLEXERIL 2.5 MG PO (09:28)
[2025-04-19] MEDS: FEOSOL 325 MG PO (09:28)
--- NOTE | 2025-04-19 10:47 | W.PN.HOSP.TC ---
Addendum entered and electronically signed by Tawanda Her MD 04/19/25 10:59:
#Elevated LDH
unclear reason
check RADHA Afshin
Original Note:
Today's Communication/Plan
-
back brace
Lidocine patch
GI consult
Iron IV
PT/OT
SPECT
Assessment / Plan
Assessment / Plan
84yo M with PMHxof HLD, PAD, Hx of L transmetatarsal amputation, Afib on Pradaxa, SSS s/p PPM (not compatible with MRI as per patient), GERD, chronic lower back pain, recent admission for worsening back pain and found Chronic compression fractures
of the T12 and L1 vertebral bodies, without significant change compared to prior CT dated 04/18/2024. Near vertebral plana deformity is seen of T12 and L1. There is moderate retropulsion of the fracture fragment of L1, associated with moderate to
severe narrowing of the central canal - that is unchanged from the CT done in Apr 2024, recently discharged from [facility] and had 2 falls without LOC at home due to poor positioning of the walker when the wheel got stuck few times. No new neurological
deficit found. Patient is seeking to regain ability to walk. His lower back pain was progressive over past 6 years and patient was seing spine specialists that said that noting can be done at this moment. [facility].
A/P:
#Falls w/o LOC 2/2 poor balance and chronic back pain
#Compression FX of T12, L1, chronic with L1 retropulsion and spinal canal stenosis 2/2 osteoporosis
#Tremors
Combination of lower back pain, tremors, Hx of L transmetatarsal amputation are the reason for poor ambulatory status, might need higher level of care: assisted living, Whelchair use.
PT/OT
PAin mgmt
without new neurological deficit and no change in back pain over past months
Discussed with neuroSx flight operations specialist - suggested SPECT study
Make appt with [facility] as advised before
outpatient osteoporosis treatment with PCP advised
CM consult
Back brace
#Anemia, ELIEL
IV iron
Hx of lower GIB in November 2024 with EGD and PUD
cont PPI
chronic
anemia w/u
follow CBC
avoid NSAIDs
Was recommended to repeat EGD in 2-3 months as outpatient, never did - with worsening anemia - GI consult
#Mild leukocytosis
most likely 2/2 pain
no fever
no signs of infection
monitor off Abx
#PAD
HX pof RLE gangrene s/p toes amputation
Planned for RLE angio by on 04/24/25 - if still in hospital - planned to be done here as per conversation with VascSx
#Permanent Afib
#SSS s/p PPM
#HLD
COnt home meds
DVT ppx Pradaxa
Full code
I have spent at least 51min reviewing chart, test results, communication with consultants and providing direct patient care
Anticipated Discharge: 24 - 48 hours
Subjective/Interval History
-
Date of Service: April 19, 2025
Objective Data
-
Vital Signs:
Vital Signs
Temp Pulse Resp BP Pulse Ox
97.8 F 103 17 152/108 95
04/19/25 07:32 04/19/25 09:27 04/19/25 07:32 04/19/25 09:27 04/19/25 07:32
I&O
04/18/25 04/19/25 04/20/25
06:59 06:59 06:59
Intake Total 570 / 570
Output Total 200 / 200 350 / 350
Balance -200 / -200 220 / 220
Review of Systems
-
History Source: Patient
All other systems: Reviewed and negative
Musculoskeletal: Reports Other (back pain)
Physical Exam
-
General: Pain
HEENT: Normocephalic
Respiratory: Clear to Auscultation
GI: Soft, Nontender and Nondistended
Neuro: Awake, Alert, Oriented and AO x 3
Psych: Calm
--- NOTE | 2025-04-19 11:11 | CON.GI ---
Addendum entered and electronically signed by James Higginbotham MD 04/19/25 13:32:
Patient seen and examined, agree with nurse practitioner note. The patient is an 84-year-old male with complex past medical history as noted including A-fib on anticoagulation, peripheral vascular disease, chronic back pain who presents now with
ambulatory dysfunction. He was noted to have a hemoglobin drop to 7.9, though not from his baseline. He did have a drop over the summer and hemoglobin related to multiple vascular procedures, and did have an EGD that showed clean-based ulcers.
There is recommendation for possible repeat in the future though had not followed up to discuss in the office. During this admission he has had brown stool, and Hemoccult negative. He has been slightly confused since Flexeril this morning, though
to me denies any abdominal pain. On exam he has no specific abdominal tenderness but definitely has back pain with movement. He has returned from bone scan which is currently pending.
1. Anemia: Severely macrocytic, with mixed iron studies, likely multifactorial. Again, has no gross bleeding and is Hemoccult negative now. He does have a history of ulcer disease, though was clean-based in the past, and again without any melena
and heme-negative stool doubt any significant GI component now. Given his severe macrocytosis likely more marrow issue related to his anemia, possible myelodysplastic syndrome. Given no gross bleeding now, his age and comorbidities, and per the
primary objective is to have her more comfortable, will hold on EGD and colonoscopy for now. Would continue supportive care, await bone scan, consider other hematology workup. Will sign off for now, please call back with any further
questions.
Original Note:
Consultation
-
Date/Time Consultation Requested: 04/19/25 1100
Date/Time Consultation Performed: 04/19/25 1110
Requesting Provider: Tawanda Her MD
Performing Provider: CHRISTO Cruz, Byron Higginbotham MD
Reason for Consultation: anemia
Medical History
Chief Complaint / HPI
History of Present Illness:
Pt is an 84yo with hx afib on Pradaxa, pacer, PAD with multiple vascular procedures, disc herniation with chronic pain , hyponatremia, appe, hernia repair with mesh presents 04/18 to ER with ambulatory dysfunction. He in noted on admission with
leukocytosis with WBC 13,100 with hbg drop to 7.9 with macrocytosis after admission and asked to eval. Pt with some chronic anemia and hbg drop to 6.4 in November with hx multiple vascular procedures. During that admission with further drop patient
did completed EGD with Dr. Whitmore with non bleeding well healed ulcers with clean base. Pt recommended Protonix BID x 8 weeks then daily indefinitely, NSAID avoidance and office follow up to discuss repeat EGD and pt was left message and letter was
sent without follow up. Other labs with normal B12 folate, LDH mild elevation 333, retic ct 3.4 with iron 55, TIBC 350, iron sat 15 and ferritin 63.7. Afshin pending . He is noted with brown stool during admission. Pt currently admits to some
GERD but denies odynophagia, dysphagia, nausea, vomiting, abdominal pain, diarrhea, constipation, blood or black in stools. Hx colonoscopy around age 70 normal.
Past Medical History
Past Medical History: Arrhythmias (afib ) and Other (hypotension, hyponatremia, compression fracture, PAD, anemia with PUD on EGD 11/2027 )
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
transcath arterialization with LÓPEZ procedure RLE 09/2024, balloon angioplasty 11/2024 , toe amp 12/2024 )
Social History
Tobacco: Former Smoker
Alcohol: None
Drug: None
Personal:
Living: With Family
Employment: Retired
Family History
Family History: Other (mother with colon CA )
Allergies / Home Medications
Allergy/AdvReac Type Severity Reaction Status Date / Time
No Known Allergies Allergy Verified 03/07/25 23:50
�Medication �Instructions �Recorded
atorvastatin 10 mg tablet 10 mg PO QPM High cholesterol 09/22/20
metoprolol succinate 50 mg 75 mg PO DAILY Blood Pressure 01/23/21
tablet,extended release 24 hr
abaloparatide (Tymlos) 80 mcg SC QPM Autoimmune Disorder 09/21/24
dabigatran etexilate 150 mg capsule 150 mg PO BID Heart 12/05/24
Disease/Condition
pantoprazole 40 mg tablet,delayed 40 mg PO DAILY Gastrointestinal 03/13/25
release (Protonix) issue 8 weeks #56 tabs
Medical Marijuana 2 gummy PO DAILY Supplement 04/18/25
acetaminophen 325 mg tablet 650 mg PO DAILY Pain 04/18/25
(Tylenol)
cholecalciferol (vitamin D3) 25 25 mcg PO DAILY Supplement 04/18/25
mcg (1,000 unit) tablet (Vitamin
D3)
oxycodone 5 mg tablet 5 mg PO Q8HPRN PRN severe pains 04/18/25
Review of Systems
-
Unable to obtain full review of systems at this time due to: Other (confusion)
History Source: Patient and Family
Constitutional: Reports No Symptoms
EENT: Reports No Symptoms
Respiratory: Reports No Symptoms
Abdomen/GI: Reports No Symptoms
: Reports No Symptoms
Musculoskeletal: Reports No Symptoms
Skin: Reports No Symptoms
Neurological: Reports Weakness
Endocrine: Reports No Symptoms
Hematologic/Lymphatic: Reports No Symptoms
Vital Signs
Temp Pulse Resp BP Pulse Ox
97.8 F 103 17 152/108 95
04/19/25 07:32 04/19/25 09:27 04/19/25 07:32 04/19/25 09:27 04/19/25 07:32
Physical Exam
Exam
General: Well Developed, Well Nourished, No Apparent Distress and Other (confused )
HEENT: Normocephalic and Anicteric
Respiratory: Clear
Cardiac: Other (tachy low 100 after admission )
GI: Soft, Non Tender and Non Distended
Musculoskeletal: No Clubbing and No Cyanosis
Skin: Warm and Dry
Neuro: Awake, Alert and Other (forgetful )
Psych: Calm
Results
WBC 11.3 10^3/uL (4.8-10.8) H 04/18/25 06:12
Hgb 7.9 g/dL (13.0-18.0) L 04/18/25 06:12
Hct 24.9 % (39.0-52.0) L 04/18/25 06:12
MCV 107.3 fL (80.0-94.0) H 04/18/25 06:12
Plt Count 257 10^3/uL (130-400) 04/18/25 06:12
Absolute Neuts (auto) 9.6 10^3/uL (1.4-6.5) H 04/18/25 01:41
Sodium 140 mmol/L (135-145) 04/18/25 06:12
Potassium 4.1 mmol/L (3.5-5.1) 04/18/25 06:12
Chloride 111 mmol/L (98-107) H 04/18/25 06:12
Carbon Dioxide 27 mmol/L (22-30) 04/18/25 06:12
BUN 39 mg/dl (9-20) H 04/18/25 06:12
Creatinine 0.9 mg/dL (0.7-1.3) 04/18/25 06:12
Calcium 9.0 mg/dl (8.4-10.2) 04/18/25 06:12
Total Bilirubin 1.1 mg/dl (0.2-1.3) 04/18/25 01:41
AST 26 U/L (17-59) 04/18/25 01:41
ALT 15 U/L (0-50) 04/18/25 01:41
Alkaline Phosphatase 113 U/L (38-126) 04/18/25 01:41
Diagnostic Image Results:
Prior GI Procedures:
- EGD melena Dr. Whitmore
- Normal esophagus. - Z-line regular, 42 cm from the incisors. - Non-bleeding, well-healed gastric ulcer with a clean ulcer base (Junior Class III) at the prepyloric region. Biopsied to rule out
dysplasia. Otherwise, normal stomach on direct and retroflexion views. Biopsies obtained to rule out H pylori- Normal examined duodenum up to the fourth portion without any ulcerations and AVMs.
- The examination was otherwise normal without any old or fresh blood throughout the examined upper GI tract. bx acute mucosal injury, antral type gastric mucosa, neg h pylori
Pt recommended Protonix BID x 8 weeks then daily indefinitely, NSAID avoidance and office follow up to discuss repeat EGD and pt was left message and letter was sent without follow up.
Colonoscopy: per chart age 70 recalled as normal
Assessment / Plan
-
Pt is an 84yo with hx afib on Pradaxa, pacer, PAD with multiple vascular procedures, disc herniation with chronic pain , hyponatremia, appe, hernia repair with mesh presents 04/18 to ER with ambulatory dysfunction. He in noted on admission with
leukocytosis with WBC 13,100 with hbg drop to 7.9 with macrocytosis after admission and asked to eval. Pt with some chronic anemia and hbg drop to 6.4 in November with hx multiple vascular procedures. During that admission with further drop patient
did completed EGD with Dr. Whitmore with non bleeding well healed ulcers with clean base. Pt recommended Protonix BID x 8 weeks then daily indefinitely, NSAID avoidance and office follow up to discuss repeat EGD and pt was left message and letter was
sent without follow up. Other labs with normal B12 folate, LDH mild elevation 333, retic ct 3.4 with iron 55, TIBC 350, iron sat 15 and ferritin 63.7. Afshin pending . He is noted with brown stool during admission.
Pt currenty admits to some GERD but denies odynophagia, dysphagia, nausea, vomiting, abdominal pain, diarrhea, constipation, blood or black in stools. Hx colonoscopy around age 70 normal.
-anemia - macrocytic with mild iron deficiency
-constipation
-hx PUD with EGD in November
-ongoing back pain
-recent falls /comp fracture
-afib on Pradaxa
other med problems:
pacer, PAD with multiple vascular procedures, disc herniation with chronic pain , hyponatremia, appe, hernia repair with mesh
PLAN:
etiology of anemia unclear but has been anemic since 2020 in records s/p EGD in November with healed PUD with neg biopsy and recommended repeat
current rectal exam with dark brown stool with iron use and heme neg
heme work up as noted with mild LDH and retic count elevation
I discussed with patient and about work up with repeat EGD +/- colonoscopy
currently will review again with pt when he returned from bone scan but would like to focus on comfort with back issue and hold GI testing
no signs of active GI bleeding heme neg in exam
agree with iron
cont Pradaxa as ordered
PPI daily
transfuse as needed
add dulcolax with large stool burden on exam
cont miralax/senna PRN as states regular stools
updated nursing staff-- to review with primary team with confusion and Flexeril use
GI available if family changes mind and wishes to proceed with GI work up
-
-
Thank you for consultation and allowing me to participate in the patient's care. Please call the environmental adviser GI physician during the after hours with any questions or concerns.
[2025-04-19] MEDS: LIDOCAINE 4% PATCH 1 PATCH TOPICAL (11:16)
--- NOTE | 2025-04-19 12:36 | W.PN.UPDATE ---
Update Note
Progress Note Update
Discussed with in details. Current plan is w/u with the assistance of neuroSx advise for back pain, for which SPECT scan was ordered.
brought up the question about DEXA scan ordered by patients reel system operator and brought the Rx to the hospital. She was explained in great details that DEXA is not an inpatient w/u and cannot be done while her still is staying here just
for the convenience of it, however she was still very insisting.
Also discussed scheduled management by as per patient request: as per joint decision with Vasc[facility]x - if patient will have a medical need to stay in the hospital over the weekend -then procedure will be done now. Same info provided to the
.
As per further info from - they discussed with GI EGD, however currently declining it, since she wants her not to undergo uncomfortable procedures in his age and condition.
Unfortunately the became hostile at the end of conversation
[2025-04-19] MEDS: DULCOLAX 10 MG RECTAL (13:05)
[2025-04-19] MEDS: FERRLECIT 110 MG IV (13:05)
[2025-04-19 15:08] VITALS: BP 143/86
--- NOTE | 2025-04-19 16:30 | PTCARENOTE ---
Scheduled medications administered to pt in morning. Pt complaining of pain at that time- PRN Oxycodone administered to pt. Pt did not want to eat his breakfast at that time. Pt's @bedside came to nurses station with concerns about pt's mental
status later in the morning. Pt is disoriented and drowsy. Md made aware about concerns and asked to contact - updated with call from MD. Pt's left the building mid-day, when she returned, she came to the nurses station again stating
that her still was not acting right. VS taken. 146/104 HR 121 and apical pulse irregular, temp 98.4F RR 18, 94% RA. Pt still disoriented. Pupils brisk and reactive to light. made aware and saw pt @bedside. New orders obtained Bed alarm in
place. POC ongoing.
[2025-04-19 17:15] LABS: Hematocrit 27.7 % (39.0-52.0); Hemoglobin 8.9 g/dL (13.0-18.0); Mean Corp Hgb Conc. 32.1 g/dL (33.0-37.0); Mean Corpuscular Volume 109.9 fL (80.0-94.0); Nucleated Red Blood Cells % 0.3 % (-); Platelet Count 267 10^3/uL (130-400); Red Cell Dist. Width 17.2 % (11.5-14.5)
[2025-04-19 17:21] LABS: Ammonia < 9 umol/L (9-30)
[2025-04-19 17:27] LABS: ALT (SGPT) 16 U/L (0-50); AST (SGOT) 28 U/L (17-59); Albumin 3.8 g/dl (3.5-5.0); Alkaline Phosphatase 121 U/L (38-126); Blood Urea Nitrogen 35 mg/dl (9-20); Calcium 8.8 mg/dl (8.4-10.2); Carbon Dioxide 24 mmol/L (22-30); Chloride 108 mmol/L (98-107); Estimated Creatinine Clearance 44 ml/min; Glucose 102 mg/dl (70-99); Potassium 4.5 mmol/L (3.5-5.1); Sodium 138 mmol/L (135-145); Total Protein 6.4 g/dl (6.3-8.2); eGFR > 60.00
--- NOTE | 2025-04-19 17:42 | W.PN.UPDATE ---
Update Note
Progress Note Update
concern for worsening confusion from
bedside patient AAOx3 with same short term memory deficit as on day prior, no new focal neurological deficit, conversant, without complains
repeated bloodwork showed elevated bilirubin and persistent leukocytosis
No abdominal pain noted
Chest XR and repeated UA pending
COncern for opioid and flexeryl induced transient confusion: stop meds
Tylenol 650mg q6h standing, Ultram PRN, Lidocaine patch
Check TSH
check US RUQ and direct, bili, LDH
[2025-04-19 17:58] LABS: LDH 391 U/L (120-246)
[2025-04-19] MEDS: TYLENOL 650 MG PO ×2 (17:59→23:37)
[2025-04-19] MEDS: D5LR 1000 IV (18:00)
[2025-04-19] MEDS: LIPITOR 10 MG PO (18:00)
[2025-04-19 18:17] LABS: Magnesium 2.3 mg/dl (1.6-2.3)
[2025-04-19] MEDS: REMOVE LIDOCAINE PATCH 1 PATCH REMOVE (21:08)
[2025-04-19 23:57] VITALS: BP 161/96
[2025-04-20 00:46] LABS: Urine Character Clear (Clear)
[2025-04-20] MEDS: TYLENOL PO (05:00)
[2025-04-20 06:19] LABS: Hematocrit 26.8 % (39.0-52.0); Hemoglobin 8.4 g/dL (13.0-18.0); Mean Corp Hgb Conc. 31.3 g/dL (33.0-37.0); Mean Corpuscular Volume 108.9 fL (80.0-94.0); Nucleated Red Blood Cells % 0.4 % (-); Platelet Count 236 10^3/uL (130-400); Red Cell Dist. Width 17.4 % (11.5-14.5)
[2025-04-20 06:56] LABS: ALT (SGPT) 15 U/L (0-50); AST (SGOT) 28 U/L (17-59); Albumin 3.5 g/dl (3.5-5.0); Alkaline Phosphatase 100 U/L (38-126); Blood Urea Nitrogen 35 mg/dl (9-20); Calcium 8.6 mg/dl (8.4-10.2); Carbon Dioxide 25 mmol/L (22-30); Chloride 110 mmol/L (98-107); Estimated Creatinine Clearance 44 ml/min; Glucose 106 mg/dl (70-99); LDH 350 U/L (120-246); Potassium 4.0 mmol/L (3.5-5.1); Sodium 140 mmol/L (135-145); Total Protein 6.0 g/dl (6.3-8.2); Uric Acid 6.4 mg/dl (3.5-8.5); eGFR > 60.00
[2025-04-20 07:56] VITALS: BP 146/83
--- NOTE | 2025-04-20 08:06 | W.PN.HOSP.TC ---
Addendum entered and electronically signed by Tawanda Her MD 04/20/25 11:57:
As per conversation with Vascular - possible intervention in AM. NPO starting MN, cont IVF
Addendum entered and electronically signed by Tawanda Her MD 04/20/25 10:40:
Attempted to call - went directly to - will call again in AM after getting results of the studies
Original Note:
Today's Communication/Plan
-
CT chest/abd/pelvis
COnt Ultram/Tylenol, Lidocaine patch, encourage LSO brace on ambulation
Assessment / Plan
Assessment / Plan
84yo M with PMHxof HLD, PAD, Hx of L transmetatarsal amputation, Afib on Pradaxa, SSS s/p PPM (not compatible with MRI as per patient), GERD, chronic lower back pain, recent admission for worsening back pain and found Chronic compression fractures
of the T12 and L1 vertebral bodies, without significant change compared to prior CT dated 04/18/2024. Near vertebral plana deformity is seen of T12 and L1. There is moderate retropulsion of the fracture fragment of L1, associated with moderate to
severe narrowing of the central canal - that is unchanged from the CT done in Apr 2024, recently discharged from [facility] and had 2 falls without LOC at home due to poor positioning of the walker when the wheel got stuck few times. No new neurological
deficit found. Patient is seeking to regain ability to walk. His lower back pain was progressive over past 6 years and patient was seing spine specialists that said that noting can be done at this moment. Scheduled for second opinion in [facility].
A/P:
#Falls w/o LOC 2/2 poor balance and chronic back pain
#CHronic T10, T11, T12, [id number] FX , with L1 retropulsion into epidural space and spinal canal stenosis 2/2 osteoporosis
#Acute to subacute nondisplaced Fx of L2, L3 and L4 spinous processes most liekly 2/2 OP
#Tremors
Combination of lower back pain, tremors, Hx of L transmetatarsal amputation are the reason for poor ambulatory status, might need higher level of care: assisted living, Wheelchair use.
PT/OT
PAin mgmt
without new neurological deficit and no change in back pain over past months
NeuroSx consult
Make appt with [facility] as advised before
outpatient osteoporosis treatment with PCP advised
CM consult
Back brace - but patient declining due to inconvenience and stating that brace causing more pain
Patient already on Tymlos
#Anemia, ELIEL
#Elevated LDH
RADHA neg, retics high
Hem consult
IV iron
Hx of lower GIB in November 2024 with EGD and PUD
cont PPI
chronic
anemia w/u
follow CBC
avoid NSAIDs
Was recommended to repeat EGD in 2-3 months as outpatient, persistent anemia. With no signs for overt bleeding - joint discussion with GI and patient resulted in decision for no further intervention
#Mild leukocytosis
#Abdominal pain
Abdomen tender on palpation on 04/20/25, bedside does not look like due to back pain. With persistent leukocytosis - reasonable for CT abd/pelvis. SInce not clear reason for leukocytosis - will also do checst for survey
most likely 2/2 pain
no fever
BAck pain chronic and unlikely a source for infection
monitor off Abx
#PAD
HX pof RLE gangrene s/p toes amputation
Planned for RLE angio by on 04/24/25 - if still in hospital - planned to be done here as per conversation with VascSx
#Permanent Afib
#SSS s/p PPM
#HLD
COnt home meds
DVT ppx Pradaxa
Full code
I have spent at least 55min reviewing chart, test results, communication with consultants and providing direct patient care
Anticipated Discharge: 24 - 48 hours
Subjective/Interval History
-
Date of Service: April 20, 2025
Objective Data
-
Labs:
Laboratory Results
04/20/25
06:07
WBC 12.3 H
Hgb 8.4 L
Hct 26.8 L
Plt Count 236
Sodium 140
Potassium 4.0
Chloride 110 H
Carbon Dioxide 25
BUN 35 H
Creatinine 1.0
Glucose 106 H
Calcium 8.6
Total Bilirubin 1.9 H
AST 28
ALT 15
Alkaline Phosphatase 100
Vital Signs:
Vital Signs
Temp Pulse Resp BP Pulse Ox
97.4 F 87 18 146/83 93
04/20/25 07:56 04/20/25 07:56 04/20/25 07:56 04/20/25 07:56 04/20/25 07:56
I&O
04/19/25 04/20/25 04/21/25
06:59 06:59 06:59
Intake Total 570 / 570 960 / 960
Output Total 350 / 350 750 / 750
Balance 220 / 220 210 / 210
Review of Systems
-
History Source: Patient
All other systems: Reviewed and negative
Musculoskeletal: Reports Other (severe lower back pain)
Physical Exam
-
General: No Apparent Distress
HEENT: Normocephalic
Respiratory: Clear to Auscultation
Cardiac: Regular Rhythm
GI: Soft, Nondistended and Tender
Musculoskeletal: No Clubbing, No Cyanosis and No Edema
Neuro: Awake, Alert and Oriented
Psych: Apparent Dementia
[2025-04-20] MEDS: ULTRAM 25 MG PO (08:19)
[2025-04-20] MEDS: D5LR 1000 IV (08:19)
[2025-04-20] MEDS: LIDOCAINE 4% PATCH 1 PATCH TOPICAL (08:20)
[2025-04-20] MEDS: PROTONIX 40 MG PO (08:21)
[2025-04-20] MEDS: TOPROL XL 75 MG PO (08:21)
[2025-04-20] MEDS: FEOSOL 325 MG PO (08:22)
[2025-04-20] MEDS: PRADAXA 150 MG PO ×2 (08:22→20:34)
--- NOTE | 2025-04-20 08:23 | CON.ONC ---
Consultation
-
Date Consultation Requested: 04/19/25
Date Consultation Performed: 04/20/25
Impression
Impression
Acute on chronic anemia
Low iron saturation may reflect low available iron stores
History of upper GI ulcers
Vascular procedures with blood loss
Chronic back pain
Plan
Plan
GI offered colonoscopy and repeat endoscopy to evaluate for bleeding family focusing on comfort
Indirect bilirubin may reflect low-grade nonimmune hemolysis evaluation haptoglobin, follow LDH and reticulocyte count
Monitor stool for heme positivity
Continue to transfuse <7.0 g per
Leukocytosis likely reactive
Replete with parenteral iron
Monitor CBC daily
Patient History
History of Present Illness
Pt is an 84yo with hx afib on Pradaxa, pacemaker, PAD with multiple vascular procedures, disc herniation with chronic pain , hyponatremia that presents 04/18 to ER with ambulatory dysfunction and progressive back pain. He in noted on admission with
leukocytosis with WBC 13,100 and hemoglobin 7.9 grams per deciliter with macrocytosis. Pt with some chronic anemia and hbg drop to 6.4 in November with hx multiple vascular procedures history of PUD. Recent EGD revealed healing ulcers and
recommendations for Protonix BID x 8 weeks then daily indefinitely, NSAID avoidance and office follow up to discuss repeat EGD and pt was left message and letter was sent without follow up. Additional substrate assessment includes normal B12
folate, LDH mild elevation 333, retic ct 3.4 with iron 55, TIBC 350, iron sat 15 and ferritin 63.7 and a negative Afshin test during hospitalization he has complained of GERD but denies odynophagia, dysphagia, nausea, vomiting, abdominal pain,
diarrhea, constipation, bright red blood per rectum or melena. Previous colonoscopy 14 years ago.
Past-Medical/Surgical History
Past Medical History
Past Medical History: Arrhythmias (afib ) and Other (hypotension, hyponatremia, compression fracture, PAD, anemia with PUD on EGD 11/2027 )
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
transcath arterialization with LÓPEZ procedure RLE 09/2024, balloon angioplasty 11/2024 , toe amp 12/2024 )
Social History
Tobacco: Former Smoker
Alcohol: None
Drug: None
Personal:
Living: With Family
Employment: Retired
Family History
Family History: Other (mother with colon CA )
Patient Medication
�Medication �Instructions �Recorded �Confirmed �Last Taken �Type
atorvastatin 10 mg tablet 10 mg PO QPM High cholesterol 09/22/20 04/18/25 11/07/24 History
metoprolol succinate 50 mg 75 mg PO DAILY Blood Pressure 01/23/21 04/18/25 11/08/24 10:00 History
tablet,extended release 24 hr
abaloparatide (Tymlos) 80 mcg SC QPM Autoimmune Disorder 09/21/24 04/18/25 09/25/24 20:00 History
dabigatran etexilate 150 mg capsule 150 mg PO BID Heart 12/05/24 04/18/25 Unknown History
Disease/Condition
pantoprazole 40 mg tablet,delayed 40 mg PO DAILY Gastrointestinal 03/13/25 04/18/25 Unknown Rx
release (Protonix) issue 8 weeks #56 tabs
Medical Marijuana 2 gummy PO DAILY Supplement 04/18/25 04/18/25 Unknown History
acetaminophen 325 mg tablet 650 mg PO DAILY Pain 04/18/25 04/18/25 Unknown History
(Tylenol)
cholecalciferol (vitamin D3) 25 25 mcg PO DAILY Supplement 04/18/25 04/18/25 Unknown History
mcg (1,000 unit) tablet (Vitamin
D3)
oxycodone 5 mg tablet 5 mg PO Q8HPRN PRN severe pains 04/18/25 04/18/25 Unknown History
Active Medications
Generic Name Dose Route Start Last Admin
Trade Name Freq PRN Reason Stop Dose Admin
Acetaminophen 650 mg 04/19/25 18:00 04/20/25 05:00
Acetaminophen 325 Mg Tablet PO 05/17/25 17:59 Not Given
Q6 PARTH
Atorvastatin Calcium 10 mg 04/18/25 18:00 04/19/25 18:00
Atorvastatin (Lipitor) 10 Mg Tablet PO 05/16/25 17:59 10 mg
QPM PARTH Administration
Bisacodyl 10 mg 04/18/25 04:45
Bisacodyl 10 Mg Rectal Suppository RECTAL 05/16/25 04:44
[id number] PRN
constipation
Dabigatran 150 mg 04/18/25 08:00 04/19/25 21:09
Dabigatran Etexilate (Pradaxa) 150 Mg Capsule PO 05/16/25 07:59 150 mg
BID PARTH Administration
Ferrous Sulfate 325 mg 04/18/25 08:00 04/19/25 09:28
Ferrous Sulfate 325 Mg Tablet PO 05/16/25 07:59 325 mg
DAILY PARTH Administration
Ferric Sodium Gluconate 110 mls @ 110 mls/hr 04/19/25 14:00 04/19/25 13:05
Complex 125 mg/ Sodium IV 04/23/25 14:59 110 mls
Chloride DAILY@1400 PARTH Administration
Dextrose/Lactated Ringer's 1,000 mls @ 75 mls/hr 04/19/25 17:00 04/19/25 18:00
D5lr IV 1,000 mls
.[id number] PARTH Administration
Iohexol 0 ml 04/20/25 09:00
Iohexol (240 Mg/Ml) 50 Ml Cat Scan PO 04/20/25 09:01
ONCE ONE
Protocol
Lidocaine 1 patch 04/19/25 11:00 04/19/25 11:16
Lidocaine 4% Topical Patch TOPICAL 05/17/25 10:59 1 patch
DAILY PARTH Administration
Protocol
Metoprolol Succinate 75 mg 04/18/25 08:00 04/19/25 09:27
Metoprolol 50 Mg Extended Release Tablet PO 05/16/25 07:59 75 mg
DAILY PARTH Administration
Non-Formulary Medication 80 mcg 04/19/25 18:00
Abaloparatide [Tymlos] SC 05/17/25 17:59
QPM PARTH
Pantoprazole Sodium 40 mg 04/18/25 08:00 04/19/25 09:26
Pantoprazole 40 Mg Delayed Release Tablet PO 05/16/25 07:59 40 mg
DAILY PARTH Administration
Patch Removal 0 patch 04/19/25 20:00 04/19/25 21:08
Remove Lidocaine Patch REMOVE 05/17/25 19:59 1 patch
DAILY@2000 PARTH Administration
Polyethylene Glycol 17 grams 04/18/25 04:45
Polyethylene Glycol Powder 17 Grams Packet PO 05/16/25 04:44
DAILYPRN PRN
constipation
Senna/Docusate Sodium 1 tablet 04/18/25 04:45
Docusate W/Senna (Alexia-Colace) Tablet PO 05/16/25 04:44
BIDPRN PRN
constipation
Tramadol HCl 25 mg 04/19/25 16:18
Tramadol Hcl 50 Mg Tablet PO 05/17/25 16:17
Q6HPRN PRN
moderate-severe pain
Review of Systems
-
Patient with mildly confusion. 12 point review fails elicit additional complaints other than those reviewed in HPI.
Physical Exam
-
Physical exam
General: Well Developed, Well Nourished, No Apparent Distress and Other (confused )
HEENT: Normocephalic and Anicteric
Respiratory: Clear
Cardiac: Regular without murmur
GI: Soft, Non Tender and Non Distended
Musculoskeletal: No Clubbing and No Cyanosis
Skin: Warm and Dry
Neuro: Awake, Alert and Other (forgetful )
Psych: Calm
Labs
Lab Results
WBC 12.3 10^3/uL (4.8-10.8) H 04/20/25 06:07
RBC 2.46 10^6/uL (4.70-6.10) L 04/20/25 06:07
Hgb 8.4 g/dL (13.0-18.0) L 04/20/25 06:07
Hct 26.8 % (39.0-52.0) L 04/20/25 06:07
MCV 108.9 fL (80.0-94.0) H 04/20/25 06:07
MCH 34.1 pg (27.0-31.0) H 04/20/25 06:07
MCHC 31.3 g/dL (33.0-37.0) L 04/20/25 06:07
RDW 17.4 % (11.5-14.5) H 04/20/25 06:07
Plt Count 236 10^3/uL (130-400) 04/20/25 06:07
MPV 10.3 fL (7.4-10.4) 04/20/25 06:07
Abs Immat Gran (auto) 0.3 10^3/uL (0-0.05) H 04/20/25 06:07
Absolute Neuts (auto) 9.2 10^3/uL (1.4-6.5) H 04/20/25 06:07
Absolute Lymphs (auto) 0.6 10^3/uL (1.2-3.4) L 04/20/25 06:07
Absolute Monos (auto) 1.8 10^3/uL (0.1-0.6) H 04/20/25 06:07
Absolute Eos (auto) 0.3 10^3/uL (0-0.7) 04/20/25 06:07
Absolute Basos (auto) 0.1 10^3/uL (0-0.2) 04/20/25 06:07
Immature Gran % 2.3 % (0-0.5) H 04/20/25 06:07
Neutrophils % 74.7 % (42.2-75.2) 04/20/25 06:07
Lymphocytes % 5.0 % (20.5-51.1) L 04/20/25 06:07
Monocytes % 14.9 % (1.7-9.3) H 04/20/25 06:07
Eosinophils % 2.4 % (0-6) 04/20/25 06:07
Basophils % 0.7 % (0-2) 04/20/25 06:07
Creatinine 1.0 mg/dL (0.7-1.3) 04/20/25 06:07
Vital Signs
Vital Signs
Temp Pulse Resp BP Pulse Ox
97.4 F 87 18 146/83 93
04/20/25 07:56 04/20/25 07:56 04/20/25 07:56 04/20/25 07:56 04/20/25 07:56
[2025-04-20 08:36] LABS: Lipase 14 U/L (23-300)
[2025-04-20] MEDS: OMNIPAQUE 50 ML PO (09:10)
--- NOTE | 2025-04-20 10:23 | PN.CDI ---
CDI
- -
CDI:
Physician Documentation Request
Admit Date: 04/20/25 08:15
Dear Doctor,
Please review the following and provide your response in the progress notes.
Clinical Indicators:
Pt admitted for Falls w/o LOC 2/2 poor balance and chronic back pain, Acute to subacute nondisplaced Fx of L2, L3 and L4 spinous processes most liekly 2/2 OP
04/18 RN skin assessment in wound panel noted stage 1 bilateral heel pressure injuries POA.
Physician documentation of the type and location of wounds is required for compliant documentation. Based on the above clinical findings and your assessment, please provide the following in your progress note:
1. Location of the ulcer/wound, including laterality.
2. Type (etiology) of ulcer/wound:
Bilateral heels stage 1 pressure injuries POA
Bilateral heels non-pressure wounds POA
Other
Use of terms such as suspected, likely, concern for, or probable (associated with a specific diagnosis that is being evaluated, monitored, or treated as if it exists) are acceptable and can be coded in the inpatient setting, when documented at the
time of discharge.
Thank you,
Rose Marie Stearns RN, BSN
CDI Specialist
[facility]
Please use your independent medical judgment in providing your response.
*Source: National Pressure Ulcer Advisory Panel (NPUAP)
[2025-04-20 11:42] VITALS: BMI 27.2
--- NOTE | 2025-04-20 11:43 | W.PN.UPDATE ---
Update Note
Progress Note Update
Again discussed in details bedside with . answered all questions. concerned that patient is deteriorating here, however acknowledged that his mentation improved from yesterday. Assured that patient gets appropriate hydration
--- NOTE | 2025-04-20 12:18 | CM ---
patient seen at bedside
returned from CT scan
TT from [facility] LOC change to inpatient - IMM explained & signed. In chart
PT/OT rec SNF
options reviewed, patient prefers [facility]
referral in [facility] entered - no preauth
PLAN: SNF, pending bed availability when stable
[2025-04-20] MEDS: FERRLECIT 110 MG IV (13:00)
[2025-04-20] MEDS: TYLENOL 650 MG PO ×3 (13:00→23:07)
--- NOTE | 2025-04-20 14:13 | CON.NS ---
Consultation
-
Date/Time Consultation Performed: 04/20/2025
Chief Complaint
-
Back pain
History of Present Illness
84-year-old male with a history of multiple levels of compression deformities who was admitted on 04/18/2025 status post fall. Patient with complaints of gait dysfunction. Patient unable to provide full history as he is mildly confused. States he
has pain in his low back. States is nonradicular in nature. He is now status post bone SPECT scan as patient is unable to obtain an MRI due to his pacemaker.
Review of Systems
-
10 point review of systems completed negative septa stated in HPI
Medication and Allergies
Home Medications
Home Medications
�Medication �Instructions �Recorded
atorvastatin 10 mg tablet 10 mg PO QPM High cholesterol 09/22/20
metoprolol succinate 50 mg 75 mg PO DAILY Blood Pressure 01/23/21
tablet,extended release 24 hr
abaloparatide (Tymlos) 80 mcg SC QPM Autoimmune Disorder 09/21/24
dabigatran etexilate 150 mg capsule 150 mg PO BID Heart 12/05/24
Disease/Condition
pantoprazole 40 mg tablet,delayed 40 mg PO DAILY Gastrointestinal 03/13/25
release (Protonix) issue 8 weeks #56 tabs
Medical Marijuana 2 gummy PO DAILY Supplement 04/18/25
acetaminophen 325 mg tablet 650 mg PO DAILY Pain 04/18/25
(Tylenol)
cholecalciferol (vitamin D3) 25 25 mcg PO DAILY Supplement 04/18/25
mcg (1,000 unit) tablet (Vitamin
D3)
oxycodone 5 mg tablet 5 mg PO Q8HPRN PRN severe pains 04/18/25
Allergies
Allergies
Allergy/AdvReac Type Severity Reaction Status Date / Time
No Known Allergies Allergy Verified 03/07/25 23:50
Physical Exam
-
Exam:
Awake and alert and oriented x 2
Cranial nerves II through XII are grossly tact
Motor strength testing reveals generalized weakness in his upper and lower extremities at least 4+ out of 5., There is amputations of the left toes
Sensory is grossly intact
Reflexes diminished
Bone SPECT scan was officially read as spinous process fractures in however these are not appreciated on CAT scan. I believe that what we are seeing is facet arthropathy at L2-3 L3-4 L4-5.
CT shows multiple levels of chronic compression deformities
Problems
-
Problem Status Onset Code
Ambulatory dysfunction Acute R26.2
Assessment / Plan
-
Back pain/gait dysfunction
1. Multifactorial gait dysfunction
2. Do not recommend any surgical interventions for his back pain
3. Recommend LSO bracing when up out of bed
4. Oral pain control
5. PT OT evaluations
6. Neurosurgical sign off, no need for outpatient follow-up. recommend pain management follow-up
Total of 50 minutes was spent which consisted of document in the chart, obtaining history, speaking to the hospitalist service, reviewing imaging
[2025-04-20] MEDS: NON-FORMULARY ITEM SC (14:37)
[2025-04-20 15:45] VITALS: BP 129/72; PULSE 101; O2SAT 92
[2025-04-20 15:48] VITALS: BP 123/62
[2025-04-20] MEDS: LIPITOR 10 MG PO (17:04)
[2025-04-20] MEDS: NON-FORMULARY ITEM 80 MCG SC (17:06)
[2025-04-20 19:19] LABS: Hepatitis C Antibody Negative (Negative)
[2025-04-20] MEDS: REMOVE LIDOCAINE PATCH 1 PATCH REMOVE (20:35)
[2025-04-20] MEDS: MAALOX 30 ML PO (21:47)
[2025-04-20 23:05] VITALS: BP 131/80
[2025-04-20] MEDS: TUMS CHEWABLE TABLET 400 MG PO (23:13)
[2025-04-21] MEDS: TYLENOL 650 MG PO ×4 (05:45→23:04)
[2025-04-21 07:05] VITALS: BP 149/77
[2025-04-21 07:32] LABS: Hematocrit 27.8 % (39.0-52.0); Hemoglobin 8.8 g/dL (13.0-18.0); Mean Corp Hgb Conc. 31.7 g/dL (33.0-37.0); Mean Corpuscular Volume 111.2 fL (80.0-94.0); Nucleated Red Blood Cells % 0.6 % (-); Platelet Count 216 10^3/uL (130-400); Red Cell Dist. Width 17.5 % (11.5-14.5)
[2025-04-21 08:01] LABS: Blood Urea Nitrogen 30 mg/dl (9-20); Calcium 8.6 mg/dl (8.4-10.2); Carbon Dioxide 24 mmol/L (22-30); Chloride 109 mmol/L (98-107); Estimated Creatinine Clearance 49 ml/min; Glucose 89 mg/dl (70-99); Potassium 3.9 mmol/L (3.5-5.1); Sodium 139 mmol/L (135-145); eGFR > 60.00
[2025-04-21] MEDS: TOPROL XL 75 MG PO (08:41)
[2025-04-21] MEDS: D5LR IV (08:41)
[2025-04-21] MEDS: PRADAXA 150 MG PO ×2 (08:42→20:11)
[2025-04-21] MEDS: PROTONIX 40 MG PO (08:42)
[2025-04-21] MEDS: LIDOCAINE 4% PATCH 1 PATCH TOPICAL (08:43)
[2025-04-21] MEDS: FEOSOL 325 MG PO (08:43)
[2025-04-21] MEDS: D5LR 1000 IV (08:43)
[2025-04-21] MEDS: MAALOX 30 ML PO ×3 (10:39→23:10)
--- NOTE | 2025-04-21 11:04 | W.PN.HOSP.TC ---
Addendum entered and electronically signed by Tawanda Her MD 04/21/25 12:33:
Ucx noted in progress - will follow
Original Note:
Today's Communication/Plan
-
await VascSx intervention
MEntation remains at the baseline
Assessment / Plan
Assessment / Plan
84yo M with PMHxof HLD, PAD, Hx of L transmetatarsal amputation, Afib on Pradaxa, SSS s/p PPM (not compatible with MRI as per patient), GERD, chronic lower back pain, recent admission for worsening back pain and found Chronic compression fractures
of the T12 and L1 vertebral bodies, without significant change compared to prior CT dated 04/18/2024. Near vertebral plana deformity is seen of T12 and L1. There is moderate retropulsion of the fracture fragment of L1, associated with moderate to
severe narrowing of the central canal - that is unchanged from the CT done in Apr 2024, recently discharged from [facility] and had 2 falls without LOC at home due to poor positioning of the walker when the wheel got stuck few times. No new neurological
deficit found. Patient is seeking to regain ability to walk. His lower back pain was progressive over past 6 years and patient was seing spine specialists that said that noting can be done at this moment. Scheduled for second opinion in [facility]. While hospitalized - planned for RLE angio.
As per detailed conversation with - she would like to avoid significant intervention, however agreeable for revasc if needed
A/P:
#PAD
HX pof RLE gangrene s/p toes amputation
Planned for RLE angio by on 04/24/25 after Plavix washout
#Falls w/o LOC 2/2 poor balance and chronic back pain
#Chronic T10, T11, T12, [id number] FX , with L1 retropulsion into epidural space and spinal canal stenosis 2/2 osteoporosis
#Acute to subacute nondisplaced Fx of L2, L3 and L4 spinous processes most liekly 2/2 OP
#Tremors
Combination of lower back pain, tremors, Hx of L transmetatarsal amputation are the reason for poor ambulatory status, might need higher level of care: assisted living, Wheelchair use.
PT/OT
PAin mgmt
without new neurological deficit and no change in back pain over past months
NeuroSx consult: LSO brace
Make appt with [facility] as advised before
outpatient osteoporosis treatment with PCP advised
CM consult
Back brace - but patient declining due to inconvenience and stating that brace causing more pain
Patient already on Tymlos
#Transient iatrogenic acute metabolic encephalopathy
reaction to Robaxin and Oxy
resolved with cessation of meds
#Liver cirrhotic morphology
No Hx of alcohol abuse
AST/ALT WNL, but slightly elevated indirect bili, might be true cirrhosis
Outpatient GI
HepC neg
#Anemia, ELIEL
#Elevated LDH
RADHA neg, retics high
Hem consult
IV iron
Hx of lower GIB in November 2024 with EGD and PUD
cont PPI
chronic
follow CBC
avoid NSAIDs
Was recommended to repeat EGD in 2-3 months as outpatient, persistent anemia. With no signs for overt bleeding - joint discussion with GI and patient resulted in decision for no further intervention
#Mild leukocytosis
#Abdominal pain - resolved
Abdomen tender on palpation on 04/20/25, bedside does not look like due to back pain. CT chest/abd/pelvis without acute findings
most likely 2/2 pain
no fever
BAck pain chronic and unlikely a source for infection
monitor off Abx
#stage 1 bilateral heel pressure injuries POA
wound care
#Permanent Afib
#SSS s/p PPM
#HLD
COnt home meds
DVT ppx Pradaxa
Full code
I have spent at least 51min reviewing chart, test results, communication with consultants, over the phone and providing direct patient care
Anticipated Discharge: > 48 hours
Subjective/Interval History
-
Date of Service: April 21, 2025
Objective Data
-
Labs:
Laboratory Results
04/21/25
07:09
WBC 12.6 H
Hgb 8.8 L
Hct 27.8 L
Plt Count 216
Sodium 139
Potassium 3.9
Chloride 109 H
Carbon Dioxide 24
BUN 30 H
Creatinine 0.9
Glucose 89
Calcium 8.6
Vital Signs:
Vital Signs
Temp Pulse Resp BP Pulse Ox
97.3 F 95 19 149/77 97
04/21/25 07:05 04/21/25 07:05 04/21/25 07:05 04/21/25 07:05 04/21/25 10:10
I&O
04/20/25 04/21/25 04/22/25
06:59 06:59 06:59
Intake Total 960 / 960 240 / 240
Output Total 750 / 750 850 / 850
Balance 210 / 210 -610 / -610
Review of Systems
-
History Source: Patient
All other systems: Reviewed and negative
Physical Exam
-
General: No Apparent Distress
HEENT: Normocephalic
Respiratory: Clear to Auscultation
GI: Soft, Nontender and Nondistended
Musculoskeletal: No Clubbing, No Cyanosis and No Edema
Neuro: Awake, Alert, Oriented and AO x 3
Psych: Calm
--- NOTE | 2025-04-21 11:15 | PTCARENOTE ---
Pt. admitted with back pain and trouble ambulating. ordered neurosurgery consult, neurosurgery with no plans to for surgical interventions however recommended LSO brace. [facility] contacted fro brace. Pt. refused brace, updated regarding pt.
decision stated pt. has one at home and he refuses to wear. updated. Will speak to and ask if she can bring in his old brace.
[2025-04-21] MEDS: FERRLECIT 110 MG IV (13:05)
--- NOTE | 2025-04-21 13:09 | W.PN.UPDATE ---
Update Note
Progress Note Update
RLE angio scheduled for Tuesday 04/24 to maintain LimFlow/TADV patency
Hold anticoagulation 48 hrs preop
NPO after MN for OR on Thursday
Call with questions/concerns
Leighton Fitzpatrick III, MD
Vascular Surgery
[facility]
--- NOTE | 2025-04-21 13:11 | W.PN.UPDATE ---
Update Note
Progress Note Update
Planning for arteriogram Thursday with Dr. Fitzpatrick
N.p.o. after midnight Thursday
Will hold Pradaxa for procedure
--- NOTE | 2025-04-21 13:55 | CM ---
Addendum entered by Lizebth Arriaza 04/21/25 15:41:
SReviewed PT evaluation for SNF vs Home PT. CM spoke to pt who has chosen to have home PT at [facility] . Spoke to dangelo Giron, and she asked to review the pt records prior to passing them on the [place] team.
Plan: DC to home with Home PT informed that she can use any Palliative Care company she wishes to.
Original Note:
Pt is scheduled for OR on Thursday for a RLE angiogram.
Plan: TBD post procedure
[2025-04-21 15:13] VITALS: BP 138/93
[2025-04-21] MEDS: ATARAX 10 MG PO (16:29)
[2025-04-21] MEDS: NON-FORMULARY ITEM 80 MCG SC (17:19)
[2025-04-21] MEDS: LIPITOR 10 MG PO (17:20)
[2025-04-21] MEDS: REMOVE LIDOCAINE PATCH 1 PATCH REMOVE (20:11)
[2025-04-21] MEDS: SENOKOT-S 1 TABLET PO (20:11)
[2025-04-21 23:15] VITALS: BP 153/83
[2025-04-22] MEDS: TYLENOL 650 MG PO ×4 (05:24→23:27)
--- NOTE | 2025-04-22 05:40 | PTCARENOTE ---
Pt reporting to this RN that he feels very anxious. Pt restless in bed and asking if there is anything he can take for anxiety. CHRISTO Allan notified. One-time dose of Atarax ordered. Refer to MAR. Plan of care ongoing.
[2025-04-22] MEDS: ATARAX 10 MG PO (05:47)
[2025-04-22 07:00] VITALS: BP 154/109
[2025-04-22] MEDS: TOPROL XL 75 MG PO (08:27)
[2025-04-22] MEDS: FEOSOL 325 MG PO (08:27)
[2025-04-22] MEDS: MAALOX 30 ML PO (08:27)
[2025-04-22] MEDS: LIDOCAINE 4% PATCH 1 PATCH TOPICAL (08:27)
[2025-04-22] MEDS: PROTONIX 40 MG PO (08:27)
[2025-04-22 08:33] VITALS: BP 154/109
[2025-04-22] MEDS: LR 1000 IV (09:43)
[2025-04-22 09:50] LABS: Hematocrit 27.4 % (39.0-52.0); Hemoglobin 8.5 g/dL (13.0-18.0); Mean Corp Hgb Conc. 31.0 g/dL (33.0-37.0); Mean Corpuscular Volume 111.4 fL (80.0-94.0); Nucleated Red Blood Cells % 0.6 % (-); Platelet Count 225 10^3/uL (130-400); Red Cell Dist. Width 17.6 % (11.5-14.5)
[2025-04-22 09:58] LABS: Ammonia 18 umol/L (9-30)
[2025-04-22 10:04] LABS: Venous Blood Gas B.E. 0.5 mmol/L (-4 to +4); Venous Blood Gas O2 Sat % 96.2 %
--- NOTE | 2025-04-22 10:18 | W.PN.HOSP.TC ---
Today's Communication/Plan
-
avoid sedation
start IVF
Assessment / Plan
Assessment / Plan
84yo M with PMHxof HLD, PAD, Hx of L transmetatarsal amputation, Afib on Pradaxa, SSS s/p PPM (not compatible with MRI as per patient), GERD, chronic lower back pain, recent admission for worsening back pain and found Chronic compression fractures
of the T12 and L1 vertebral bodies, without significant change compared to prior CT dated 04/18/2024. Near vertebral plana deformity is seen of T12 and L1. There is moderate retropulsion of the fracture fragment of L1, associated with moderate to
severe narrowing of the central canal - that is unchanged from the CT done in Apr 2024, recently discharged from [facility] and had 2 falls without LOC at home due to poor positioning of the walker when the wheel got stuck few times. No new neurological
deficit found. Patient is seeking to regain ability to walk. His lower back pain was progressive over past 6 years and patient was seing spine specialists that said that noting can be done at this moment. Scheduled for second opinion in [facility]. While hospitalized - planned for RLE angio.
As per detailed conversation with - she would like to avoid significant intervention, however initially agreeable for revasc if needed.
A/P:
#PAD
HX pof RLE gangrene s/p toes amputation
Planned for RLE angio by on 04/24/25 after Plavix washout
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
Long conversation with on [facility]. She mentioned that her does not want to continue going and she would like to honor his wishes. Plan to discuss bedside if hospice would be the best choice. was informed that hospice approach will mean
that there will not be any additional tests or medcal mgmt for the patient except of medication to relieve the pain and anxiety, constipation, Spencer for urinary retention if needed and that current home meds will be stopped. THat most likely will
cause significant sedation as patient developed somnolence even on Atarax
#Anxiety
s/p 2 doses of Atarax overnight on 04/22/25 resulting in sedation. Would avoid any sedative meds and provide environmental interventions if anxiety: deeming the lights, reorientation, conversation
#Falls w/o LOC 2/2 poor balance and chronic back pain
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
#Acute to subacute nondisplaced Fx of L2, L3 and L4 spinous processes most liekly 2/2 OP
#Tremors
Combination of lower back pain, tremors, Hx of L transmetatarsal amputation are the reason for poor ambulatory status, might need higher level of care: assisted living, Wheelchair use.
PT/OT
PAin mgmt
without new neurological deficit and no change in back pain over past months
NeuroSx consult: LSO brace
Make appt with [facility] as advised before
outpatient osteoporosis treatment with PCP advised
CM consult
Back brace - but patient declining due to inconvenience and stating that brace causing more pain
Patient already on Tymlos
#Transient iatrogenic acute metabolic encephalopathy
recurrent, repeated blood test without acute findings
recurrent on Robaxin, Atarax
avoid any sedative meds!
reaction to Robaxin and Oxy
resolved with cessation of meds
#Liver cirrhotic morphology
No Hx of alcohol abuse
AST/ALT WNL, but slightly elevated indirect bili, might be true cirrhosis
Outpatient GI
HepC neg
#Anemia, ELIEL
#Elevated LDH
RADHA neg, retics high
Hem consult
IV iron
Hx of lower GIB in November 2024 with EGD and PUD
cont PPI
chronic
follow CBC
avoid NSAIDs
Was recommended to repeat EGD in 2-3 months as outpatient, persistent anemia. With no signs for overt bleeding - joint discussion with GI and patient resulted in decision for no further intervention
#Mild leukocytosis
#Abdominal pain - resolved
Abdomen tender on palpation on 04/20/25, bedside does not look like due to back pain. CT chest/abd/pelvis without acute findings
most likely 2/2 pain
no fever
BAck pain chronic and unlikely a source for infection
monitor off Abx
#stage 1 bilateral heel pressure injuries POA
wound care
#Permanent Afib
#SSS s/p PPM
#HLD
COnt home meds
DVT ppx Pradaxa
Full code
I have spent at least 55min reviewing chart, test results, communication with consultants, over the phone and providing direct patient care
Anticipated Discharge: > 48 hours
Subjective/Interval History
-
Date of Service: April 22, 2025
Objective Data
-
Labs:
Laboratory Results
04/22/25
09:35
WBC 12.7 H
Hgb 8.5 L
Hct 27.4 L
Plt Count 225
Sodium Pending
Potassium Pending
Chloride Pending
Carbon Dioxide Pending
BUN Pending
Creatinine Pending
Glucose Pending
Calcium Pending
Total Bilirubin Pending
AST Pending
ALT Pending
Alkaline Phosphatase Pending
Vital Signs:
Vital Signs
Temp Pulse Resp BP Pulse Ox
97.7 F 95 16 159/86 98
04/22/25 07:00 04/22/25 08:27 04/22/25 07:00 04/22/25 08:27 04/22/25 07:00
I&O
04/21/25 04/22/25 04/23/25
06:59 06:59 06:59
Intake Total 240 / 240 960 / 960
Output Total 850 / 850 900 / 900
Balance -610 / -610 60 / 60
Review of Systems
-
History Source: Patient and Family
Physical Exam
-
General: No Apparent Distress
Respiratory: Clear to Auscultation
Cardiac: Regular Rhythm
GI: Soft, Nontender, Nondistended and Normal Bowel Sounds
Musculoskeletal: No Clubbing, No Cyanosis and No Edema
Neuro: Sedated
Psych: Confused
[2025-04-22 10:28] LABS: ALT (SGPT) 18 U/L (0-50); AST (SGOT) 30 U/L (17-59); Albumin 3.5 g/dl (3.5-5.0); Alkaline Phosphatase 122 U/L (38-126); Blood Urea Nitrogen 32 mg/dl (9-20); Calcium 8.8 mg/dl (8.4-10.2); Carbon Dioxide 26 mmol/L (22-30); Chloride 111 mmol/L (98-107); Estimated Creatinine Clearance 44 ml/min; Glucose 121 mg/dl (70-99); Potassium 4.0 mmol/L (3.5-5.1); Sodium 141 mmol/L (135-145); Total Protein 6.3 g/dl (6.3-8.2); eGFR > 60.00
[2025-04-22] MEDS: FERRLECIT 110 MG IV (13:00)
[2025-04-22 15:00] VITALS: BP 130/80
[2025-04-22] MEDS: LIPITOR 10 MG PO (17:24)
[2025-04-22] MEDS: NON-FORMULARY ITEM 80 MCG SC (17:25)
[2025-04-22] MEDS: REMOVE LIDOCAINE PATCH 1 PATCH REMOVE (19:53)
[2025-04-22 23:22] VITALS: BP 150/85
[2025-04-23] MEDS: LR 1000 IV (02:23)
[2025-04-23] MEDS: MELATONIN 3 MG PO (02:24)
--- NOTE | 2025-04-23 02:30 | PTCARENOTE ---
Pt expressed feeling very anxious and unable to sleep to this RN. This RN attempted to reorient patient, dim lights, offered eye mask, and ear plugs. Pt still reports feeling anxious and asking if there is anything he can take for anxiety. Joan
CHRISTO Franklin notified. One-time order for 3mg melatonin ordered. Refer to MAR. Plan of care ongoing.
[2025-04-23] MEDS: TYLENOL 650 MG PO ×3 (05:03→18:19)
[2025-04-23 07:05] VITALS: BP 157/109
[2025-04-23 08:06] VITALS: BP 155/91
--- NOTE | 2025-04-23 08:30 | W.PN.UPDATE ---
Update Note
Progress Note Update
Patient seen and examined
No complaints except that he got in an argument with one of the nurses and is annoyed/frustrated
NPO after MN
Angio 04/24
Hold anticoagulation
Call with questions/concerns
[id number]
Vascular Surgery
[2025-04-23] MEDS: FEOSOL 325 MG PO (09:02)
[2025-04-23] MEDS: LIDOCAINE 4% PATCH 1 PATCH TOPICAL (09:02)
[2025-04-23] MEDS: PROTONIX 40 MG PO (09:02)
[2025-04-23] MEDS: TOPROL XL 75 MG PO (09:03)
--- NOTE | 2025-04-23 10:54 | W.PN.HOSP.TC ---
Today's Communication/Plan
-
stop IVF
NPO starting MN for angiogram
Melatonin at PM
labs in AM
Assessment / Plan
Assessment / Plan
84yo M with PMHxof HLD, PAD, Hx of L transmetatarsal amputation, Afib on Pradaxa, SSS s/p PPM (not compatible with MRI as per patient), GERD, chronic lower back pain, recent admission for worsening back pain and found Chronic compression fractures
of the T12 and L1 vertebral bodies, without significant change compared to prior CT dated 04/18/2024. Near vertebral plana deformity is seen of T12 and L1. There is moderate retropulsion of the fracture fragment of L1, associated with moderate to
severe narrowing of the central canal - that is unchanged from the CT done in Apr 2024, recently discharged from [facility] and had 2 falls without LOC at home due to poor positioning of the walker when the wheel got stuck few times. No new neurological
deficit found. Patient is seeking to regain ability to walk. His lower back pain was progressive over past 6 years and patient was seing spine specialists that said that noting can be done at this moment. Scheduled for second opinion in [facility]. While hospitalized - planned for RLE angio.
As per detailed conversation with - she would like to avoid significant intervention, however initially agreeable for revasc if needed.
A/P:
#PAD
HX pof RLE gangrene s/p toes amputation
Planned for RLE angio by on 04/24/25 after Plavix washout
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
Long conversation with on [facility]. She mentioned that her does not want to continue going and she would like to honor his wishes. Plan to discuss bedside if hospice would be the best choice. was informed that hospice approach will mean
that there will not be any additional tests or medcal mgmt for the patient except of medication to relieve the pain and anxiety, constipation, Spencer for urinary retention if needed and that current home meds will be stopped. THat most likely will
cause significant sedation as patient developed somnolence even on Atarax
#Anxiety
s/p 2 doses of Atarax overnight on 04/22/25 resulting in sedation. Would avoid any sedative meds and provide environmental interventions if anxiety: deeming the lights, reorientation, conversation
#Falls w/o LOC 2/2 poor balance and chronic back pain
#Chronic T10, T11, T12, [id number] FX , with L1 retropulsion into epidural space and spinal canal stenosis 2/2 osteoporosis
#Acute to subacute nondisplaced Fx of L2, L3 and L4 spinous processes most liekly 2/2 OP
#Tremors
Combination of lower back pain, tremors, Hx of L transmetatarsal amputation are the reason for poor ambulatory status, might need higher level of care: assisted living, Wheelchair use.
PT/OT
PAin mgmt
without new neurological deficit and no change in back pain over past months
NeuroSx consult: LSO brace
Make appt with [facility] as advised before
outpatient osteoporosis treatment with PCP advised
CM consult
Back brace - but patient declining due to inconvenience and stating that brace causing more pain
Patient already on Tymlos
#Transient iatrogenic acute metabolic encephalopathy
recurrent, repeated blood test without acute findings
recurrent on Robaxin, Atarax
avoid any sedative meds!
reaction to Robaxin and Oxy
resolved with cessation of meds
#Liver cirrhotic morphology
No Hx of alcohol abuse
AST/ALT WNL, but slightly elevated indirect bili, might be true cirrhosis
Outpatient GI
HepC neg
#Anemia, ELIEL
#Elevated LDH
RADHA neg, retics high
Hem consult
IV iron
Hx of lower GIB in November 2024 with EGD and PUD
cont PPI
chronic
follow CBC
avoid NSAIDs
Was recommended to repeat EGD in 2-3 months as outpatient, persistent anemia. With no signs for overt bleeding - joint discussion with GI and patient resulted in decision for no further intervention
#Mild leukocytosis
#Abdominal pain - resolved
Abdomen tender on palpation on 04/20/25, bedside does not look like due to back pain. CT chest/abd/pelvis without acute findings
most likely 2/2 pain
no fever
BAck pain chronic and unlikely a source for infection
monitor off Abx
#stage 1 bilateral heel pressure injuries POA
wound care
#Permanent Afib
#SSS s/p PPM
#HLD
COnt home meds
DVT ppx Pradaxa
Full code
I have spent at least 51min reviewing chart, test results, communication with consultants, over the phone and providing direct patient care
Anticipated Discharge: 24 - 48 hours
Subjective/Interval History
-
Date of Service: April 23, 2025
Objective Data
-
Vital Signs:
Vital Signs
Temp Pulse Resp BP Pulse Ox
97.9 F 94 19 155/91 96
04/23/25 07:05 04/23/25 08:06 04/23/25 07:05 04/23/25 08:06 04/23/25 07:05
I&O
04/22/25 04/23/25 04/24/25
06:59 06:59 06:59
Intake Total 960 / 960 240 / 240
Output Total 900 / 900 300 / 300
Balance 60 / 60 -60 / -60
Review of Systems
-
History Source: Patient
All other systems: Reviewed and negative
Musculoskeletal: Reports Other (back pain)
--- NOTE | 2025-04-23 11:05 | W.PN.UPDATE ---
Update Note
Progress Note Update
S.epidermidis in urine reasonable bactrim for 5 days due to leukocytosis. Consider UTI
[2025-04-23] MEDS: ULTRAM 25 MG PO (11:06)
[2025-04-23 14:57] VITALS: BP 150/86
[2025-04-23] MEDS: BACTRIM DS 800 MG/160 MG 1 TABLET PO ×2 (14:57→20:46)
[2025-04-23] MEDS: FERRLECIT 110 MG IV (14:57)
[2025-04-23] MEDS: LIPITOR 10 MG PO (18:20)
[2025-04-23] MEDS: NON-FORMULARY ITEM 80 MCG SC (19:27)
[2025-04-23] MEDS: REMOVE LIDOCAINE PATCH 1 PATCH REMOVE (20:52)
[2025-04-23] MEDS: MELATONIN 5 MG PO (22:10)
[2025-04-23 23:50] VITALS: BP 177/86
[2025-04-24] VITALS (19 sets, daily range): BP systolic 96–170; BP diastolic 65–136
[2025-04-24] MEDS: TYLENOL 650 MG PO ×2 (00:15→05:36)
[2025-04-24] MEDS: ULTRAM 25 MG PO (02:43)
[2025-04-24 07:13] LABS: INR 1.47; PT 18.0 Sec (11.4-14.6)
[2025-04-24 07:14] LABS: APTT 52.9 Sec (23.4-35.0)
[2025-04-24 07:38] LABS: ALT (SGPT) 19 U/L (0-50); AST (SGOT) 28 U/L (17-59); Albumin 3.8 g/dl (3.5-5.0); Alkaline Phosphatase 139 U/L (38-126); Blood Urea Nitrogen 31 mg/dl (9-20); Calcium 8.7 mg/dl (8.4-10.2); Carbon Dioxide 24 mmol/L (22-30); Chloride 109 mmol/L (98-107); Estimated Creatinine Clearance 44 ml/min; Glucose 97 mg/dl (70-99); Magnesium 2.5 mg/dl (1.6-2.3); Potassium 4.1 mmol/L (3.5-5.1); Sodium 140 mmol/L (135-145); Total Protein 6.4 g/dl (6.3-8.2); eGFR > 60.00
[2025-04-24] MEDS: BACTRIM DS 800 MG/160 MG 1 TABLET PO (07:49)
[2025-04-24] MEDS: TOPROL XL 75 MG PO (07:49)
[2025-04-24] MEDS: FEOSOL 325 MG PO (07:49)
[2025-04-24] MEDS: PROTONIX 40 MG PO (07:49)
[2025-04-24] MEDS: LIDOCAINE 4% PATCH TOPICAL (07:50)
[2025-04-24 08:08] LABS: Hematocrit 28.7 % (39.0-52.0); Hemoglobin 8.8 g/dL (13.0-18.0); Mean Corp Hgb Conc. 30.7 g/dL (33.0-37.0); Mean Corpuscular Volume 110.8 fL (80.0-94.0); Platelet Count 232 10^3/uL (130-400); Red Cell Dist. Width 18.3 % (11.5-14.5)
--- NOTE | 2025-04-24 09:02 | W.PN.HOSP.TC ---
Today's Communication/Plan
-
Arteriogram today.
Assessment / Plan
Assessment / Plan
Physical exam:
General: Acute and chronically ill
HEENT: Normocephalic, Atraumatic and Moist Mucous Membranes
Respiratory: Coarse rhonchi bilaterally; Negative Wheezes
Cardiac: Regular Rhythm and S1/S2
GI: Soft, Nontender and Nondistended
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 No Clubbing, No Cyanosis and there is some edema in lower extremities.
Neuro: Awake, Alert and Oriented, no neurological deficit
Psych: Calm
A/P:
Peripheral vascular disease:
Planning for arteriogram today by vascular surgery
Holding anticoagulant
Discussed with at bedside
Shortness of breath:
Suspect heart failure
Obtain BNP (3520)
Obtain chest x-ray
Cardiology eval-discussed with cardiology via [place] text today
Asymptomatic bacteriuria:
Discontinue antibiotics-no need to treat
Urine culture Staphylococcus warneri and epidermidis which are usually contaminant and urine analysis with only 6-10 WBC. No symptoms either.
Leukocytosis:
Reactive
Follow-up trend
Permanent A-fib:
On rate control, metoprolol succinate 75 mg p.o. daily
Anticoagulation (Pradaxa) on hold due to vascular procedure
History of pacemaker for sick sinus syndrome
Acute on chronic back pain (history of multiple compression fractures in the past):
Continue multimodal pain management
On Tymlos as outpatient suspect for possible degree of osteoporosis or osteopenia.
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
[place] to be polypharmacy
Avoid sedatives
Anemia:
Patient declined further workup (GI evaluated the patient)
Hematology evaluated the patient as well.
Can see GI and hematology as outpatient if desired.
Continue oral PPI
Depression and anxiety:
Avoiding medications due to fear of sedation at this point
Discussed with patient and family if they desire psych evaluation inpatient or outpatient
Possible cirrhosis:
Can evaluate as outpatient
Stage I bilateral heel pressure injury, POA:
Wound care
Hyperlipidemia:
Continue home statin
Total time spent on today's encounter was 52 minutes which included time spent in counseling the patient/family regarding diagnosis and treatment plan as listed above, goals of care, and symptom management. Case was discussed with nursing staff,
specialists, and care coordinators/case management. All labs and imaging personally reviewed by me. Remainder the time spent in detailed review of previous records, lab data, imaging, and other medical provider documentation.
Anticipated Discharge: 24 - 48 hours
Subjective/Interval History
-
Date of Service: April 24, 2025
Patient feels more short of breath today. He is also very anxious. No chest pain. Afebrile
Objective Data
-
Labs:
Laboratory Results
04/24/25
06:41
WBC 14.6 H
Hgb 8.8 L
Hct 28.7 L
Plt Count 232
PT 18.0 H
INR 1.47
APTT 52.9 H
Sodium 140
Potassium 4.1
Chloride 109 H
Carbon Dioxide 24
BUN 31 H
Creatinine 1.0
Glucose 97
Calcium 8.7
Total Bilirubin 1.4 H
AST 28
ALT 19
Alkaline Phosphatase 139 H
Vital Signs:
Vital Signs
Temp Pulse Resp BP Pulse Ox
97.5 F 77 18 148/92 96
04/24/25 07:31 04/24/25 07:49 04/24/25 07:31 04/24/25 07:49 04/24/25 07:31
I&O
04/23/25 04/24/25 04/25/25
06:59 06:59 06:59
Intake Total 240 / 240 1090 / 1090
Output Total 300 / 300 760 / 760
Balance -60 / -60 330 / 330
[2025-04-24 09:08] LABS: Normal RBC Morphology No
[2025-04-24 09:09] LABS: Anisocytosis 1+; Macrocytosis Slight; Ovalocytes 1+; Polychromasia Slight
[2025-04-24 09:10] LABS: Acanthocytes Slight; Hypochromasia 2+; Tear Drop Red Blood Cells Slight
[2025-04-24 09:11] LABS: Nucleated Red Blood Cells % 1.2 % (-)
[2025-04-24] MEDS: TYLENOL PO ×2 (11:07→18:56)
--- NOTE | 2025-04-24 12:20 | CM ---
OR today angiogram
PT rec SNF
[facility]
PLAN: SNF, pending bed availability when stable
--- NOTE | 2025-04-24 15:56 | W.PN.UPDATE ---
Update Note
Progress Note Update
off unit
--- NOTE | 2025-04-24 16:14 | CON.CAR ---
Addendum entered and electronically signed by Fadia Wu MD 04/24/25 23:00:
I saw and examined the patient.
The Sales Attendant's note was reviewed and I agree with the note.
Comment: Patient seen and assessed in PACU [place] [facility]. 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
admission for back pain in end of february who presents with ambulatory dysfxn found to have concern for poor flow across Limflo. We are being consulted due to concern for possible heart failure.
Vitals and labs reviewed. On exam in PAcu, pt is very confused, agitated, combative, on RA at 91%, +JVD, Irreg Irreg HR, Normal S1 and S2, No carotid bruit, Lung clear anteriorly, warm ext, No sign edema, abd soft, NT, ND +BS, Right groin access
which is dressed c/d/i
RN at bedside.
Reccs:
1. On exam pt appears volume overloaded, proBNP 3500, highest its been for him. Reasonable to trial IV diuresis at 40mg daily and close ins/outs, daily weights, check +/Mg, creat and reassess. Monitor on tele.
2. Recheck echo. Reassess LVEF, previously with moderate MR
3. GDMT. Consider ARB for BP control and SGLT2i
4. CXR in AM
5. Okay to hold off on IV diuretics tonight until mental status better.
Fadia Wu MD, [facility], [facility]
[id number]
Original Note:
Consultation
Consultation Request
Date/Time Consultation Requested: 04/24/2025
Date/Time Consultation Performed: 04/24/2025
Requesting Provider: Dr. Yip
Performing Provider: Dr. Wu
Reason for Consultation: Acute HF
Medical History
-
History of Present Illness:
Patient came to the ER with back pain and was admitted with ambulatory dysfunction back on 04/18/2025 and cardiology is now consulted on 04/24/2025 for acute HF. Patient was admitted with back pain from 03/09/2025 until 03/13/2025 and during that
time cardiology followed along for A-fib with RVR and a history of permanent A-fib. Patient follows with a editing intern through the [employer] [facility]. There was concern for possible NSVT and on device check this all appeared to be A-fib with RVR.
Patient went to [facility] for rehab and returned home less than 3 weeks ago and returns to the ER now with recurrent ambulatory dysfunction. Cardiology is consulted for acute HF that has developed during his hospitalization. IV fluids were started on
04/22/2025, possibly in anticipation of angiogram, patient received 2 L IVF's. Patient then noted to have increased SOB on hospitalist exam 04/24/2025 and cardiology consultation requested. proBNP was 3520 which his highest level on record.
PMH:
Recent admission for back pain and A-fib 03/07/2025 until 03/13/2025
Recent admission for PAD and peripheral interventions 11/08/2024 until 11/09/2024
Anemia
Permanent Afib
Previously suspected NSVT on PPM interrogation report is rapid Afib that is being tracked in the ventricle 03/09/2025
Chronic Pradaxa OAC
s/p [place] PPM
Hyperlipidemia
Past Medical History
Past Medical History: Other (in HPI)
Past Surgical History: Appendectomy, Cardiac ([place] [employer] PPM) and Other (left TMA)
Social History
Tobacco: Former Smoker
Alcohol: None
Drug: None
Personal:
Living: Other (Patient was previously at [facility] for rehab care and was able to return home with his family at the end of March, but now back in the hospital less than 3 weeks later and the family is requesting that the patient return to [facility].)
Family History
Family History: Reviewed & Not Pertinent (No known family history of CAD)
Allergies / Home Medications
Allergy/AdvReac Type Severity Reaction Status Date / Time
methocarbamol (From Robaxin) Allergy Severe Verified 04/21/25 16:10
confusion
�Medication �Instructions �Recorded �Confirmed �Type
atorvastatin 10 mg tablet 10 mg PO QPM High cholesterol 09/22/20 04/18/25 History
metoprolol succinate 50 mg 75 mg PO DAILY Blood Pressure 01/23/21 04/18/25 History
tablet,extended release 24 hr
abaloparatide (Tymlos) 80 mcg SC QPM Autoimmune Disorder 09/21/24 04/18/25 History
dabigatran etexilate 150 mg capsule 150 mg PO BID Heart 12/05/24 04/18/25 History
Disease/Condition
pantoprazole 40 mg tablet,delayed 40 mg PO DAILY Gastrointestinal 03/13/25 04/18/25 Rx
release (Protonix) issue 8 weeks #56 tabs
Medical Marijuana 2 gummy PO DAILY Supplement 04/18/25 04/18/25 History
acetaminophen 325 mg tablet 650 mg PO DAILY Pain 04/18/25 04/18/25 History
(Tylenol)
cholecalciferol (vitamin D3) 25 25 mcg PO DAILY Supplement 04/18/25 04/18/25 History
mcg (1,000 unit) tablet (Vitamin
D3)
oxycodone 5 mg tablet 5 mg PO Q8HPRN PRN severe pains 04/18/25 04/18/25 History
Review of Systems
-
History Source: Patient
All other systems: Negative unless noted
Physical Exam
Vital Signs
Temp Pulse Resp BP Pulse Ox
98.6 F 108 23 142/88 97
04/24/25 11:00 04/24/25 12:45 04/24/25 12:45 04/24/25 11:27 04/24/25 12:45
GEN: No distress, awake, alert and oriented x3
HEENT: EOMI, MMM
LUNGS: 6 L with simple mask. Clear anterolaterally without wheeze
CV: Afib on tele. Irreg irreg, S1/S2, no murmur
ABD: ND
EXT: No edema B/L
NEURO: Gross non-focal
SKIN: No rash
Lab Results
04/24/25 06:41
04/24/25 06:41
Troponin I 0.027 ng/ml 04/18/25 18:42
Zha-U-Yzusyhaqqdi Pept 3520 pg/ml 04/24/25 06:41
Impression / Plan
-
PCP: Dr. Christine
Cardiology: Dr. Farias [facility]
EP: Dr. Sheridan [facility]
Impression:
Admitted with recurrent ambulatory dysfunction 04/18/2025
Recent admission for back pain and A-fib 03/07/2025 until 03/13/2025
Recent admission for PAD and peripheral interventions 11/08/2024 until 11/09/2024
Anemia
Permanent Afib
Previously suspected NSVT on PPM interrogation report is rapid Afib that is being tracked in the ventricle 03/09/2025
Chronic Pradaxa OAC
s/p [place] PPM
Hyperlipidemia
Echo 11/02/2020: EF 55 to 60%, trace MR, aortic sclerosis without stenosis
Echo 12/06/2024: EF 55 to 60%, moderate MR, aortic sclerosis with trace aortic regurgitation, normal right heart, small pericardial effusion
Plan:
-Patient came to the ER with back pain and was admitted with ambulatory dysfunction back on 04/18/2025 and cardiology is now consulted on 04/24/2025 for acute HF. Patient was admitted with back pain from 03/09/2025 until 03/13/2025 and during that
time cardiology followed along for A-fib with RVR and a history of permanent A-fib. Patient follows with a editing intern through the [employer] [facility]. There was concern for possible NSVT and on device check this all appeared to be A-fib with RVR.
Patient went to [facility] for rehab and returned home less than 3 weeks ago and returns to the ER now with recurrent ambulatory dysfunction. Cardiology is consulted for acute HF that has developed during his hospitalization. IV fluids were started on
04/22/2025, possibly in anticipation of angiogram, patient received 2 L IVF's. Patient then noted to have increased SOB on hospitalist exam 04/24/2025 and cardiology consultation requested. proBNP was 3520 which his highest level on record.
-ECG from 04/18/2025 reviewed by me on 04/24/2025 shows A-fib with controlled ventricular response and QTc 479 ms
-proBNP is 3520 which is his highest level on record, CXR from 04/20/2025 showed possible small right-sided pleural effusion
-Patient received a total of 2 L IVF's. IVF's have been stopped. Cre is stable at 1.0. Recommend starting Lasix 40 mg IV daily and follow diuretic response. Patient was not taking a diuretic prior to admission.
-EF was 55 to 60% by echo 12/06/2024, check follow-up echo study to reassess EF. MR was previously moderate
-Outpatient dose of Toprol-XL 75 mg daily has been continued.
-Patient is not chronically on MIRELLA/ARB/ARNI/aldosterone antagonist
-Patient is not chronically on an SGLT2 inhibitor
-Patient has known permanent A-fib, HR is generally controlled with Toprol-XL 75 mg daily which has been continued this admission
-Outpatient dose of Pradaxa 150 mg BID is on hold for vascular procedure. Patient previously had anemia and concern for GI bleed prompting upper endoscopy 12/08/2024 that showed a well-healed gastric ulcer and patient was treated with 8 weeks of
Protonix at that time. He was recommended to repeat upper endoscopy in 2 to 3 months, there is no record of that study being repeated at this hospital. Patient receives health care at other hospitals as well.
-I previously had a long conversation with the patient's during his admission in November reviewing options of ongoing invasive management versus palliative or hospice level of care and ultimately the patient and his were not interested.
-Patient follows with a editing intern affiliated with [place].
HPI: Patient came to the ER yesterday from home with near syncope and cardiology is consulted for possible NSVT on device interrogation. Patient was just admitted to the hospital from 11/08/2024 until 12-02 with PAT and for a peripheral vascular
intervention. Patient was discharged to [facility] for rehab, but has since returned home. Patient follows with cardiology at [place], Dr. Luna, and has a [place] [employer] PPM that is managed at [place] by Dr. Sheridan.
Patient has been seen by our cardiology group during previous admissions. Patient reports being at home yesterday and that his helped him into the bathroom. Patient was able to sit on the toilet and move his bowels and then afterwards began
to feel lightheaded and was diaphoretic. Patient felt unable to stand on his own, but his was able to help him stand up and get back to bed and he felt his body stiffening. Patient does not remember losing consciousness. Patient asked his
to call 911 because he thought he might pass out. No chest pain or SOB. In the ER patient had possible NSVT on the cafeteria monitor and his [place] [employer] PPM was interrogated and the reading also suggested NSVT. Patient has known
permanent A-fib and HR control in the past has been difficult due to orthostasis, the patient is currently taking Toprol-XL 75 mg daily. Orthostatic vital signs were not checked in the ER. Hgb was 8.2 on 11/08/2024 and is down to 6.6 on 12/05/2024.
Patient says he cannot remember the last time he had a colonoscopy.
--- NOTE | 2025-04-24 17:00 | OR.RPT ---
Operative Report
Operative Report
Date of Operation: 04/24/2025
Pre Op Diagnosis: Status post right lower extremity LimFlow/TADV with low flow volumes on surveillance duplex imaging
Post Op Diagnosis: Status post right lower extremity LimFlow/TADV with low flow volumes on surveillance duplex imaging
Procedure:
1. Balloon angioplasty of pedal venous loop, right foot (4 mm x 120 mm angioplasty balloon)
2. Balloon angioplasty of right plantar vein outflow (6 mm x 60 mm angioplasty balloon)
3. Balloon angioplasty of TP trunk and proximal peroneal artery (3.5 mm x 40 mm angioplasty balloon)
4. Diagnostic right lower extremity arteriogram
5. Ultrasound-guided percutaneous ANTEGRADE access to the right superficial femoral artery origin
Surgeon: Leighton Fitzpatrick III, MD
Computer Systems Software Engineer: Clemencia Combs MD PGY-4
Anesthesia: Sedation with local
Fluoroscopy:
30.7 min
42 mGy
7.84 gy.cm2
Complications: None
Estimated Blood Loss: Less than 20 cc
History and Indications for Procedure: 84-year-old male with previously created LimFlow/TADV for limb threatening ischemia. On surveillance duplex imaging he was found to have low flow volumes indicating a threatened LimFlow/TADV circuit. I
recommended that he return to the operating room for endovascular intervention in an effort to maintain patency of the LimFlow/TADV.
Procedure in Detail: Sampson Winkler was correctly identified and placed supine on the operating table. After adequate induction of anesthesia the bilateral groins were prepped and draped in the usual sterile fashion. A timeout was performed with the
nursing and anesthesia staff confirming the patient's identity as well as the nature and laterality of the procedure.
The right common femoral artery was identified under ultrasound guidance. The artery was patent . The superior and inferior aspects of the femoral head were identified with radiographic guidance and marked at the skin level. The proposed puncture
site was infiltrated with local anesthesia. Under ultrasound guidance we accessed the right superficial femoral artery origin in an antegrade direction with a micropuncture needle and upsized to a 5 Fr sheath over a Bentson wire. A diagnostic right
lower extremity arteriogram was then performed which demonstrated the following:
RIGHT LOWER EXTREMITY:
Superficial femoral artery: Patent with no significant stenosis identified
Popliteal artery: Patent with no significant stenosis identified
Anterior tibial artery: Patent with scattered calcified plaque and diffusely diseased throughout
Tibioperoneal trunk: Patent. Focal abnormality in the tibioperoneal trunk and proximal peroneal artery suggesting stenosis
Peroneal artery: Patent [place] inflow for the LimFlow/TADV circuit
Posterior tibial artery: Patent proximally but occludes distally. Diffusely diseased and stenotic.
LimFlow/TADV: Patent stents but sluggish flow. High-grade stenosis of the plantar vein at the distal end of the stent in the foot. Sluggish venous outflow into the foot. Significant collateralization has developed in the mid and forefoot since
creation of the LimFlow/TADV.
ENDOVASCULAR INTERVENTION: Systemic heparin was administered. Exchanged out for a 6 Fr 45 cm sheath over a Connectivity wire. The radiopaque tip in the sheath was placed in the popliteal artery behind the knee. Using a Quickcross catheter and Glidewire
we selected the tibioperoneal trunk and peroneal artery. I then navigated through the LimFlow/TADV stents and positioned the catheter at the distal end of the stents at the calcaneus. Using a 0.014 Glidewire advantage and 0.014 Quickcross I
selected the plantar vein outflow. I then navigated through the pedal venous loop and advanced the wire and catheter retrograde through the great saphenous vein. Over the wire a 4 mm x 120 mm angioplasty balloon was positioned across the pedal
venous loop. The balloon was inflated to nominal pressure and held in place for 3 minutes. The balloon was then deflated and removed over the wire. I then brought into position a 6 mm x 60 mm angioplasty balloon. This was placed in the plantar
vein outflow. The balloon was inflated to burst pressure and held in place for a minute for 2 separate inflations to treat the entire length of the plantar vein outflow. The balloon profiled nicely with several stenotic areas releasing with the
balloon inflated. I then focused my attention on the tibioperoneal trunk and peroneal inflow. To treat the area of possible stenosis I positioned a 3.5 mm x 40 mm angioplasty balloon across the tibioperoneal trunk and proximal peroneal artery,
overlapping just slightly with the origin of the LimFlow/TADV stents. The balloon was inflated to nominal pressure and held in place for 2-minute inflation.
Subsequent arteriogram demonstrated an excellent technical result. There was brisk flow through the tibioperoneal trunk and peroneal artery inflow with no residual stenosis or filling defects identified. The LimFlow/TADV stents were patent with
significantly improved flow compared to pretreatment. The venous outflow in the foot was dramatically improved compared to pretreatment. There was brisk flow through the plantar vein outflow and through the pedal venous loop in the right foot.
Satisfied with this result we concluded the procedure. Protamine was administered. The sheath was pulled and direct manual pressure was held over the puncture site until hemostasis was achieved. A sterile dressing was applied.
The patient tolerated the procedure well and was taken to the recovery area in stable condition. At the conclusion of the robust pulsatile Doppler signals were audible over the posterior tibial vein, saphenous vein and dorsal surface of the
foot.
Attestation: I was present and responsible for the entire procedure.
Signed:
Leighton Fitzpatrick III, MD
Vascular Surgery
[facility]
[2025-04-24] MEDS: DILAUDID 0.25 MG IV (17:04)
[2025-04-24] MEDS: DILAUDID 0.5 MG IV (18:14)
[2025-04-24] MEDS: ATIVAN 1 MG IV (18:14)
--- NOTE | 2025-04-24 18:14 | W.PN.UPDATE ---
Update Note
Progress Note Update
Patient had some agitation post procedure. I came and evaluated him and he is disoriented and restless but redirected at the moment and fall asleep easily. He moves all extremities spontaneously. Likely delirium related. Discussed with RN at
bedside. Will cautiously give low dose Dilaudid if pain is an issue and if needed Ativan. Does not appear to have focal deficit at the moment but will also obtain ct head once more calm for thoroughness. I also discussed with psych for evaluation
tomorrow.
[2025-04-24] MEDS: NSS (PRESERVATIVE FREE) 0.5 ML IV (18:16)
--- NOTE | 2025-04-24 18:21 | PTCARENOTE ---
Received patient from PACU at 1745. Pt was restless, agitated, and unorientated. Pt pulling at vitals machine, IV, and unable to keep Right leg straight as per order. Multiple attempts of reorienting patient unsuccessful. and meir notified of
patients behavior due to being unable to check patients vitals, site, and pulses. MD saw patient at bedside and placed one time stat medication to be given, see MAR. Patient able to be given medication and has been more calm at bedside, but still
refusing to keep leg straight and agitated at times when care is being given. Vitals taken, right site checked, and pulses assessed as tolerated with patients fluctuation of mood. Patient unable to lay flat/stay bedrest as ordered, multiple attempts
to reorient and educate patient throughout shift. Plan of care ongoing.
[2025-04-24] MEDS: NON-FORMULARY ITEM SC (18:55)
[2025-04-24] MEDS: LOW STRENGTH ASPIRIN PO (18:55)
[2025-04-24] MEDS: LIPITOR PO (18:56)
[2025-04-24] MEDS: NSS 1000 IV (19:57)
[2025-04-24] MEDS: REMOVE LIDOCAINE PATCH REMOVE (19:58)
--- NOTE | 2025-04-24 21:24 | PTCARENOTE ---
Pt. was resting from procedure.
[2025-04-24] MEDS: MELATONIN PO (21:29)
[2025-04-25] MEDS: TYLENOL PO (01:05)
[2025-04-25 03:00] VITALS: BP 167/88
[2025-04-25] MEDS: TYLENOL 650 MG PO ×3 (05:48→17:03)
[2025-04-25 06:21] LABS: Hematocrit 29.3 % (39.0-52.0); Hemoglobin 9.0 g/dL (13.0-18.0); Mean Corp Hgb Conc. 30.7 g/dL (33.0-37.0); Mean Corpuscular Volume 112.3 fL (80.0-94.0); Platelet Count 227 10^3/uL (130-400); Red Cell Dist. Width 18.4 % (11.5-14.5)
[2025-04-25 07:00] VITALS: BP 155/102
[2025-04-25 07:41] LABS: Blood Urea Nitrogen 34 mg/dl (9-20); Calcium 8.4 mg/dl (8.4-10.2); Carbon Dioxide 19 mmol/L (22-30); Chloride 112 mmol/L (98-107); Estimated Creatinine Clearance 44 ml/min; Glucose 114 mg/dl (70-99); Potassium 4.9 mmol/L (3.5-5.1); Sodium 141 mmol/L (135-145); eGFR > 60.00
--- NOTE | 2025-04-25 08:25 | W.PN.HOSP.TC ---
Today's Communication/Plan
-
IV Lasix. Resume anticoagulant. CT head. Echo.
Assessment / Plan
Assessment / Plan
Physical exam:
General: Acute and chronically ill
HEENT: Normocephalic, Atraumatic and Moist Mucous Membranes
Respiratory: Coarse rhonchi bilaterally; Negative Wheezes
Cardiac: Regular Rhythm and S1/S2
GI: Soft, Nontender and Nondistended
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 No Clubbing, No Cyanosis and there is some edema in lower extremities.
Neuro: Awake, Alert and Disoriented, no neurological deficit
Psych: Calm but limited judgmeent and insight
A/P:
Delirium/Acute Toxic-Metabolic encephalopathy:
CT head
Psych eval
Palliative care/hospice eval
Peripheral vascular disease:
S/p arteriogram yesterday by vascular surgery
Ok to resume anticoagulant today per vascular
Discussed with at bedside yesterday and talked to her over the phone today but she was at a doctor's appointment.
Acute HFpEF:
Suspect heart failure
Obtained BNP (3520)
Obtain chest x-ray and b/l pleural effusion and cardiomegaly
Cardiology eval appreciated
IV Lasix 40 mg daily
Plan for echo
Asymptomatic bacteriuria:
Discontinue antibiotics-no need to treat
Urine culture Staphylococcus warneri and epidermidis which are usually contaminant and urine analysis with only 6-10 WBC. No symptoms either.
Leukocytosis:
Reactive
Follow-up trend
Permanent A-fib:
On rate control, metoprolol succinate 75 mg p.o. daily
Anticoagulation (Pradaxa) to resume today
History of pacemaker for sick sinus syndrome
Acute on chronic back pain (history of multiple compression fractures in the past):
Continue multimodal pain management--> increased Dilaudid iv doses
On Tymlos as outpatient suspect for possible degree of osteoporosis or osteopenia.
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
[place] to be polypharmacy
Avoid sedatives
Anemia:
Patient declined further workup (GI evaluated the patient)
Hematology evaluated the patient as well-appreciated input.
Can see GI and hematology as outpatient if desired.
Continue oral PPI
Depression and anxiety:
Avoiding medications due to fear of sedation at this point
Discussed with patient and family if they desire psych evaluation inpatient or outpatient
Possible cirrhosis:
Can evaluate as outpatient
Stage I bilateral heel pressure injury, POA:
Wound care
Hyperlipidemia:
Continue home statin
Total time spent on today's encounter was 52 minutes which included time spent in counseling the patient/family regarding diagnosis and treatment plan as listed above, goals of care, and symptom management. Case was discussed with nursing staff,
specialists, and care coordinators/case management. All labs and imaging personally reviewed by me. Remainder the time spent in detailed review of previous records, lab data, imaging, and other medical provider documentation.
Anticipated Discharge: 24 - 48 hours
Subjective/Interval History
-
Date of Service: April 25, 2025
He is alert but still some disorientation. C/o worsneing chronic back pain. Afebrile
Objective Data
-
Labs:
Laboratory Results
04/25/25
06:05
WBC 13.1 H
Hgb 9.0 L
Hct 29.3 L
Plt Count 227
Sodium 141
Potassium 4.9
Chloride 112 H
Carbon Dioxide 19 L
BUN 34 H
Creatinine 1.0
Glucose 114 H
Calcium 8.4
Vital Signs:
Vital Signs
Temp Pulse Resp BP Pulse Ox
97.4 F 101 15 167/88 97
04/25/25 03:00 04/25/25 03:00 04/25/25 03:00 04/25/25 03:00 04/25/25 03:00
I&O
04/24/25 04/25/25 04/26/25
06:59 06:59 06:59
Intake Total 1090 / 1090 50 / 50 875 / 875
Output Total 760 / 760 600 / 600
Balance 330 / 330 -550 / -550 875 / 875
[2025-04-25] MEDS: FEOSOL 325 MG PO (08:47)
[2025-04-25] MEDS: LOW STRENGTH ASPIRIN 81 MG PO (08:47)
[2025-04-25] MEDS: TUMS CHEWABLE TABLET 200 MG PO (08:47)
[2025-04-25] MEDS: LIDOCAINE 4% PATCH TOPICAL (08:48)
[2025-04-25] MEDS: TOPROL XL 75 MG PO (08:48)
[2025-04-25] MEDS: PROTONIX 40 MG PO (08:48)
--- NOTE | 2025-04-25 08:58 | W.PN.VS ---
Addendum entered and electronically signed by Leighton Fitzpatrick III, MD 04/25/25 11:37:
This patient was seen and examined in collaboration with CHRISTO Clay. I agree with the history and physical exam as well as the assessment and plan. I have the following additions:
Successful endovascular intervention on the right lower extremity LimFlow/TADV
Doing well this morning
Groin access site is soft with no hematoma
Right foot is warm
Palpable pulse in the great saphenous vein outflow.
Restart anticoagulation
Follow-up in the office for ongoing PAD surveillance
Signed:
Leighton Fitzpatrick III, MD
Vascular Surgery
[facility]
Original Note:
Today's Communication / Plan
-
Patient seen and examined at bedside with Dr. Leighton Fitzpatrick III, below plan reviewed with attending.
Assessment/Plan
-
Assessment: 84 year old male POD#1
1. Balloon angioplasty of pedal venous loop, right foot (4 mm x 120 mm angioplasty balloon)
2. Balloon angioplasty of right plantar vein outflow (6 mm x 60 mm angioplasty balloon)
3. Balloon angioplasty of TP trunk and proximal peroneal artery (3.5 mm x 40 mm angioplasty balloon)
4. Diagnostic right lower extremity arteriogram
5. Ultrasound-guided percutaneous ANTEGRADE access to the right superficial femoral artery origin
Plan:
Can remove right groin Tegaderm dressing this afternoon
Can restart home OAC of dabigatran, patient should be on ASA 81mg PO daily ordered please continue both on discharge
Continue statin therapy
Will place follow up in discharge instructions, we will sign off please call with questions or concerns
Subjective Data
-
Date of Service: April 25, 2025
Patient seen and examined at bedside, some mild confusion required reorientation to place and situation; otherwise offers no complaints.
Objective Data
-
Vital Signs
Temp Pulse Resp BP Pulse Ox
97.2 F 101 16 155/102 92
04/25/25 07:00 04/25/25 07:00 04/25/25 07:00 04/25/25 07:00 04/25/25 07:00
Intake and Output
04/24/25 04/25/25 04/26/25
06:59 06:59 06:59
Intake Total 1090 / 1090 50 / 50 875 / 875
Output Total 760 / 760 600 / 600
Balance 330 / 330 -550 / -550 875 / 875
Intake:
Oral fluids 1090 / 1090
IV fluids (Total) 50 50 875 / 875
norm saline 50 / 50
Output:
Urine, Voided 760 / 760 600 / 600
Other:
How many times incontinent 1
MODERATE amount urine
How many times incontinent 1
SATURATED amount urine
Number of approximated MODERATE 2
amounts of urine
Lab Results
04/25/25 06:05
04/25/25 06:05
Calcium 8.4 mg/dl (8.4-10.2) 04/25/25 06:05
Phosphorus 3.0 mg/dl (2.5-4.5) 04/19/25 16:57
Magnesium 2.5 mg/dl (1.6-2.3) H 04/24/25 06:41
Total Bilirubin 1.4 mg/dl (0.2-1.3) H 04/24/25 06:41
Direct Bilirubin 0.3 mg/dl (0.0-0.4) 04/20/25 06:07
AST 28 U/L (17-59) 04/24/25 06:41
ALT 19 U/L (0-50) 04/24/25 06:41
Alkaline Phosphatase 139 U/L (38-126) H 04/24/25 06:41
Total Protein 6.4 g/dl (6.3-8.2) 04/24/25 06:41
Albumin 3.8 g/dl (3.5-5.0) 04/24/25 06:41
Physical Exam
-
No apparent distress, resting in bed comfortably
No tachycardia
No dyspnea on room air
ABD flat, nondistended, nontender
Right groin puncture site clean, dry, intact, no evidence of hematoma, all surrounding compartments soft
Right foot limflow palpable +1, foot warm
--- NOTE | 2025-04-25 10:20 | W.CON.PAL ---
Consultation
-
Date/Time Consultation Requested: 04/25/25
Date/Time Consultation Performed: 04/25/25
Requesting Provider: Dr Yip
Performing Provider: Dr Osei
Reason for Consult: Goals of Care Discussion
Primary Diagnosis: CHF
Related Diagnosis: Chronic back pain
Consult Requested By: Patient's Physician
Reason for Admission
Illness Course/HPI
Pt is a 84 YO M who had presented in the ER with back pain and was admitted on account of that but found to have possible HF , of note Pt is a re-admission and was admitted with back pain from 03/09/2025 until 03/13/2025 and during that time
cardiology followed along for A-fib with RVR and a history of permanent A-fib. Patient went to [facility] for rehab and returned home less than 3 weeks ago.
Cardiology was consulted for acute HF but Pt also had a vascular procedure yesterday to maintain patency of a Rt LimFlow/TADV that was created for limb threatening ischemia. After the procedure Pt was noted with increased confusion and CT head
ordered for evaluation of same.
Pt is seen at bedside today, he has some confusion and required repeating questions and redirection to partake in the visit, he shared that his main issue was uncontrolled pain in his back and shared that the medication given here for pain did not
help like his home medication for pain, he was unable to relate what his Drs had explained about his medical condition, denied appetite issues but stated sleep is poor.
Functional Status
Pt has hx of falls and chronic back pain limiting his function, he lives in a multi-story home and has a first apartment set up as per charts review, usea a walker and has a rollator and transport chair. Here he is only able to do minimal with PT/OT
and now with is procedure yesterday and testing today was not evaluated today yet.
Goals of Care Discussion
-
Individuals Present for Discussion & Relationship to Patient:
Pt and palliative care discussion, was unreachable by phone initially but contacted me back but has to quickly go to her own appointment, she was agreeable to have hospice come speak to her this afternoon.
Patient able to participate in discussion at time of visit: No
Patient Goals
Unable to have a goals of care discussion due to Pt confusion, also not able to partake in a discussion to address this carefully at this time.
Pain & Symptom Assessment
Patient Symptoms
Patient Symptoms: Pain, Agitation, Insomnia, Fatigue and Other (confusion)
-
could not apply the ESAS.
Objective Data
-
Objective Data:
Vital Signs
Temp Pulse Resp BP Pulse Ox
97.2 F 101 16 155/102 92
04/25/25 07:00 04/25/25 07:00 04/25/25 07:00 04/25/25 07:00 04/25/25 07:00
Laboratory Results
04/25/25 06:05
04/25/25 06:05
PT 18.0 Sec (11.4-14.6) H 04/24/25 06:41
INR 1.47 04/24/25 06:41
APTT 52.9 Sec (23.4-35.0) H 04/24/25 06:41
Ammonia 18 umol/L (9-30) 04/22/25 09:35
Total Protein 6.4 g/dl (6.3-8.2) 04/24/25 06:41
Albumin 3.8 g/dl (3.5-5.0) 04/24/25 06:41
Urine Color Yellow 04/20/25 00:16
Urine Clarity Clear (Clear) 04/20/25 00:16
Urine pH 5.0 (5.0-9.0) 04/20/25 00:16
Ur Specific [place] 1.020 (<1.030) 04/20/25 00:16
Urine Ketones Negative (Negative) 04/20/25 00:16
Urine Bilirubin Negative (Negative) 04/20/25 00:16
Palliative Performance Scale
Palliative Performance Scale:
PPS Level Ambulation Activity & Evidence of Disease Self Care Intake Conscious Level
100% Full Normal Activity & Work; Full Intake Full
No Evidence of Disease
90% Full Normal Activity & Work; Full Normal Full
Some Evidence of Disease
80% Full Normal Activity with Effort Full Normal or Full
Some Evidence of Disease Reduced
70% Reduced Unable Normal Job/Work Full Normal or Full
Significant Disease Reduced
60% Reduced Unable Hobby/Housework Occasional Normal or Full or Confusion
Significant Disease Assistance Reduced
50% Mainly Sit/Lie Unable to do Any Work Considerable Normal or Full or Confusion
Extensive Disease Assistance Req'd Reduced
40% Mainly in Bed Unable to do Most Activity Mainly Assistance Normal or Full or Drowsy;
Extensive Disease Reduced +/- Confusion
30% Totally Bed Unable to do Any Activity Total Care Normal or Full or Drowsy;
Bound Extensive Disease Reduced +/- Confusion
20% Totally Bed Bound Unable to do Any Activity Total Care Minimal to Full or Drowsy;
Extensive Disease Sips +/- Confusion
10% Totally Bed Bound Unable to do Any Activity Total Care Mouth Care Drowsy or Coma;
Extensive Disease Only +/- Confusion
0%
PPS Score Level:
Palliative Performance Score Response
Palliative Performance Score Response: 50%
Physical Exam
-
General: Pain and Appears Chronically Ill
HEENT: Normocephalic and Atraumatic
Respiratory: Clear to Auscultation
Cardiac: S1/S2
Peripheral Vascular: No Edema
GI: Nontender and Nondistended
Skin: Warm and Dry
Neuro: Awake, Alert and Other (Confuswed, needs redirection to answer orientation questions)
Psych: Calm and Confused
Assessment / Plan
-
Assessment/Plan:
Pt is a 84 YO M who had presented in the ER with back pain and was admitted on account of that but found to have possible HF , of note Pt is a re-admission and was admitted with back pain from 03/09/2025 until 03/13/2025 and during that time
cardiology followed along for A-fib with RVR and a history of permanent A-fib. Patient went to [facility] for rehab on that admission. Pt care is consulted to help clarify goals of care as pen or pencil assembly machine operator had recommended hospice and Pt agreed but now back to
returning to hospital and seeking interventions.
Pt unable in present condition to participate, called and no response.
Pt will benefit from better pain control, he has nociceptive somatic pain and was on opiods for home meds, would recommend increasing his intra venous opioid dose to 0.5mg q4h prn pain as pain can worsen delirium, good bowel regimen.
Addendum: returned call and is going for an appointment herself, I explained i had communicated with hospitalist and we can see for palliative care services and further explore goals when he is more oriented or if she is able to help with the
decision making but she shared that she has spoken with case mgt and her plan is to have him dc to [facility], i shared we would not be able to follow up for outpatient services and she would like to have hospice info, hospice liason contacted for info.
If hospice unable to meet today then will follow up with to better explore goals of care regarding LST.
Care Reviewed
Data Reviewed
Medical Tests: I reviewed
Reviewed with: Family and Physician
[2025-04-25 11:00] VITALS: BP 152/84
--- NOTE | 2025-04-25 11:03 | HOSPNOTE ---
Spoke with spouse about hospice and the philosophy. The plan is for patient to go to [facility] and then transition to [facility]. The spouse has my direct number to call for hospice services. The patient is a DNR and Attending made aware. The spouse
will reach out when hospice is wanted.
--- NOTE | 2025-04-25 13:11 | CM ---
spoke with Faustino from [facility]
she states will look at referral - updated referral in [facility]port
palliative care consult
PLAN: SNF, pending bed availability
--- NOTE | 2025-04-25 14:43 | W.PN.CARDCBS ---
Addendum entered and electronically signed by Vladimir Andersen MD 04/25/25 15:09:
I saw and examined the patient.
The Bad Work Gatherer's note was reviewed and I agree with the note.
Comment:
GEN: No distress, awake,
HEENT: supple, anicteric, mmm
LUNGS: CTA, no wheezes/rales
CV: Irreg, S1/S2, 1/6 syst LSB, no gallop
ABD: soft, BS+, NT/ND
EXT: No edema
NEURO: Gross non-focal
SKIN: No rash
Plan:
Seems somewhat confused today. Will start Lasix 40 mg IV daily as his proBNP is significantly elevated.
For repeat echocardiogram today to reevaluate LVEF.
Continue a rate control strategy for his A-fib. Continue Toprol and Pradaxa. Hemoglobin overall stable at 9.0
Continue treatments for back pain and ambulatory dysfunction.
Original Note:
Today's Communication / Plan
-
Start Lasix 40 mg IV daily now
Impression / Plan
-
PCP: Dr. Christine
Cardiology: Dr. Farias [facility]
EP: Dr. Sheridan [facility]
Impression:
Admitted with recurrent ambulatory dysfunction 04/18/2025
Recent admission for back pain and A-fib 03/07/2025 until 03/13/2025
Recent admission for PAD and peripheral interventions 11/08/2024 until 11/09/2024
Anemia
Permanent Afib
Previously suspected NSVT on PPM interrogation report is rapid Afib that is being tracked in the ventricle 03/09/2025
Chronic Pradaxa OAC
s/p [place] [employer] PPM
Hyperlipidemia
Echo 11/02/2020: EF 55 to 60%, trace MR, aortic sclerosis without stenosis
Echo 12/06/2024: EF 55 to 60%, moderate MR, aortic sclerosis with trace aortic regurgitation, normal right heart, small pericardial effusion
Plan:
-Patient was admitted with recurrent ambulatory dysfunction and then underwent vascular procedure on 04/24/2025 and cardiology is now consulted for acute HF.
-Start Lasix 40 mg IV daily, ordered by me 04/25/2025. Patient was not taking a diuretic prior to admission
-Cre stable at 1.0 my review of labs 04/25/2025
-proBNP is 3520 which is his highest level on record, CXR from 04/20/2025 showed possible small right-sided pleural effusion and patient received a total of 2 L IVF's
-EF was 55 to 60% by echo 12/06/2024, check follow-up echo study to reassess EF. MR was previously moderate
-Outpatient dose of Toprol-XL 75 mg daily has been continued.
-Patient is not chronically on MIRELLA/ARB/ARNI/aldosterone antagonist
-Patient is not chronically on an SGLT2 inhibitor
-Patient has known permanent A-fib, HR is generally controlled with Toprol-XL 75 mg daily which has been continued this admission
-Outpatient dose of Pradaxa 150 mg BID is on hold for vascular procedure, last dose 04/21/2025 PM. Patient previously had anemia and concern for GI bleed prompting upper endoscopy 12/08/2024 that showed a well-healed gastric ulcer and patient was
treated with 8 weeks of Protonix at that time. He was recommended to repeat upper endoscopy in 2 to 3 months, there is no record of that study being repeated at this hospital. Patient receives health care at other hospitals as well.
-Patient follows with a pharmacy graduate intern affiliated with [facility].
HPI: Patient came to the ER with back pain and was admitted with ambulatory dysfunction back on 04/18/2025 and cardiology is now consulted on 04/24/2025 for acute HF. Patient was admitted with back pain from 03/09/2025 until 03/13/2025 and during
that time cardiology followed along for A-fib with RVR and a history of permanent A-fib. Patient follows with a pharmacy graduate intern through the [facility] system. There was concern for possible NSVT and on device check this all appeared to be A-fib with
RVR. Patient went to [facility] for rehab and returned home less than 3 weeks ago and returns to the ER now with recurrent ambulatory dysfunction. Cardiology is consulted for acute HF that has developed during his hospitalization. IV fluids were
started on 04/22/2025, possibly in anticipation of angiogram, patient received 2 L IVF's. Patient then noted to have increased SOB on hospitalist exam 04/24/2025 and cardiology consultation requested. proBNP was 3520 which his highest level on
record.
Progress Note - Child Protection Specialist
Subjective
Date of Service: April 25, 2025
He is tired
Objective
Labs:
04/25/25 06:05
04/25/25 06:05
Labs
Hgb 9.0 g/dL (13.0-18.0) L 04/25/25 06:05
Hct 29.3 % (39.0-52.0) L 04/25/25 06:05
Plt Count 227 10^3/uL (130-400) 04/25/25 06:05
PT 18.0 Sec (11.4-14.6) H 04/24/25 06:41
INR 1.47 04/24/25 06:41
APTT 52.9 Sec (23.4-35.0) H 04/24/25 06:41
Sodium 141 mmol/L (135-145) 04/25/25 06:05
Potassium 4.9 mmol/L (3.5-5.1) 04/25/25 06:05
BUN 34 mg/dl (9-20) H 04/25/25 06:05
Creatinine 1.0 mg/dL (0.7-1.3) 04/25/25 06:05
Glucose 114 mg/dl (70-99) H 04/25/25 06:05
Vital Signs and I&O:
Vital Signs
Temp Pulse Resp BP Pulse Ox
97.9 F 83 16 152/84 97
04/25/25 11:00 04/25/25 11:00 04/25/25 11:00 04/25/25 11:00 04/25/25 11:00
Vital Signs
Temp Pulse Resp BP Pulse Ox
97.9 F 83 16 152/84 97
04/25/25 11:00 04/25/25 11:00 04/25/25 11:00 04/25/25 11:00 04/25/25 11:00
Intake & Output
04/23/25 04/24/25 04/25/25 04/26/25
06:59 06:59 06:59 06:59
Intake Total 240 / 240 1090 / 1090 50 / 50 875 / 875
Output Total 300 / 300 760 / 760 600 / 600
Balance -60 / -60 330 / 330 -550 / -550 875 / 875
Physical Exam
Physical Exam
GEN: AAO x3
LUNGS: RA. No audible wheeze
CV: Afib on tele.
[2025-04-25 15:08] VITALS: BP 134/90
--- NOTE | 2025-04-25 15:15 | W.PN.UPDATE ---
Update Note
Progress Note Update
Chronic anemia appears stable.
With elevated MCV and monocytosis, he may have a low-risk MDS, though would not pursue further work-up at this time
Can f/u with hematology as outpatient if performance status would allow add'l testing and treatment consideration, though palliative care may be most appropriate.
Will sign off, please call with questions
[2025-04-25] MEDS: LASIX 40 MG IV (15:16)
[2025-04-25] MEDS: NON-FORMULARY ITEM 80 MCG SC (17:04)
[2025-04-25] MEDS: LIPITOR 10 MG PO (17:04)
[2025-04-25] MEDS: PRADAXA 150 MG PO (20:00)
[2025-04-25] MEDS: REMOVE LIDOCAINE PATCH REMOVE (20:11)
--- NOTE | 2025-04-25 20:58 | CS.PSYCHR ---
Consult Summary - Psychiatry
-
pt seen in consultation today for evaluation of altered mental status
84 yo man admitted for difficulty walking. Has past medical history significant for atrial fibrillation status post PPM on anticoagulation, gastric ulcer status post EGD, peripheral arterial disease status post angioplasty, hypertension,
hyperlipidemia, history of toe amputation, chronic back pain. Admitted 02/27-03/13, sent to rehab, then back to [facility] on 04/18. During this stay was found to have worsening peripheral vascular disease; had balloon angioplasty on 04/24.
Flollowing surgery noted to have confusion.
Past Medical History: Arrhythmias (afib ) and Other (hypotension, hyponatremia, compression fracture, PAD, anemia with PUD on EGD 11/2027 )
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
transcath arterialization with LÓPEZ procedure RLE 09/2024, balloon angioplasty 11/2024 , toe amp 12/2024 )
Pt seen in his room, complained that he is still having a great deal of difficulty finding the words for things. Stops and thinks hard often, annoyed that it is so difficult. Pleasant, cooperative, denies being depressed 'just upset about this word
thing.' Oriented x 3 but hads trouble remembering name of hospital.
CT head done early am today unremarkable.
No prior psychiatric history. Lives with , able to name grandchildren with effort
Impression: Post operative confusion, rule out CVA
Rec: Would try for MRI if possible. Manage BP and anticoagulation
No indication for psychotropic meds at this point
[2025-04-25] MEDS: MELATONIN 5 MG PO (21:36)
[2025-04-25 23:19] VITALS: BP 134/74
[2025-04-26] MEDS: TYLENOL 650 MG PO ×4 (00:16→17:15)
[2025-04-26 07:03] LABS: Blood Urea Nitrogen 48 mg/dl (9-20); Calcium 8.5 mg/dl (8.4-10.2); Carbon Dioxide 24 mmol/L (22-30); Chloride 105 mmol/L (98-107); Estimated Creatinine Clearance 34 ml/min; Glucose 95 mg/dl (70-99); Potassium 4.4 mmol/L (3.5-5.1); Sodium 134 mmol/L (135-145); eGFR 54.17
[2025-04-26 07:15] LABS: Hematocrit 28.7 % (39.0-52.0); Hemoglobin 9.2 g/dL (13.0-18.0); Mean Corp Hgb Conc. 32.1 g/dL (33.0-37.0); Mean Corpuscular Volume 111.2 fL (80.0-94.0); Platelet Count 236 10^3/uL (130-400); Red Cell Dist. Width 19.0 % (11.5-14.5)
[2025-04-26 07:22] VITALS: BP 143/81
--- NOTE | 2025-04-26 08:31 | W.PN.HOSP.TC ---
Today's Communication/Plan
-
Echocardiogram. Neuro eval. Discharge planning.
Assessment / Plan
Assessment / Plan
Physical exam:
General: Acute and chronically ill
HEENT: Normocephalic, Atraumatic and Moist Mucous Membranes
Respiratory: Clear to auscultation bilaterally; Negative Wheezes
Cardiac: Regular Rhythm and S1/S2
GI: Soft, Nontender and Nondistended
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 No Clubbing, No Cyanosis and there is some edema in lower extremities.
Neuro: Awake, Alert and Oriented, no neurological deficit
Psych: Calm and better insight today
A/P:
Delirium/Acute Toxic-Metabolic encephalopathy:
Appears to be improving
CT head no acute endocrine abnormality
Psych eval appreciated and there were concerns about neurological issues. MRI cannot be done due to pacemaker. Neurology consulted.
Palliative care/hospice eval and they will pursue this as outpatient.
Discussed with telephonic nurse case manager that I expect patient will be medically cleared over the next 24 hours.
Discussed with over the phone today
Chest pain:
Atypical
On cardiac monitoring
Cardiology following
Dysphagia:
Continue PPI
Speech therapy eval
Peripheral vascular disease:
S/p arteriogram by vascular surgery
Ok to resume anticoagulant per vascular
Acute HFpEF:
Cardiology eval appreciated
Hold Lasix today per cardiology recommendations
Plan for echo today
Asymptomatic bacteriuria:
Discontinue antibiotics-no need to treat
Urine culture Staphylococcus warneri and epidermidis which are usually contaminant and urine analysis with only 6-10 WBC. No symptoms either.
Leukocytosis:
Reactive
Follow-up trend
Permanent A-fib:
On rate control, metoprolol succinate 75 mg p.o. daily
Continue anticoagulation (Pradaxa)
History of pacemaker for sick sinus syndrome
Acute on chronic back pain (history of multiple compression fractures in the past):
Continue multimodal pain management--> increased Dilaudid iv doses at the moment.
On Tymlos as outpatient suspect for possible degree of osteoporosis or osteopenia.
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
[place] to be polypharmacy
Avoid sedatives
Anemia:
Patient declined further workup (GI evaluated the patient)
Hematology evaluated the patient as well-appreciated input.
Can see GI and hematology as outpatient if desired.
Continue oral PPI
Depression and anxiety:
Avoiding medications due to fear of sedation at this point
Discussed with patient and family if they desire psych evaluation inpatient or outpatient
Possible cirrhosis:
Can evaluate as outpatient
Stage I bilateral heel pressure injury, POA:
Wound care
Hyperlipidemia:
Continue home statin
Total time spent on today's encounter was 37 minutes which included time spent in counseling the patient/family regarding diagnosis and treatment plan as listed above, goals of care, and symptom management. Case was discussed with nursing staff,
specialists, and care coordinators/case management. All labs and imaging personally reviewed by me. Remainder the time spent in detailed review of previous records, lab data, imaging, and other medical provider documentation.
Anticipated Discharge: Within 24 hours
Subjective/Interval History
-
Date of Service: April 26, 2025
Patient more alert and coherent today. Still a bit off but not as much as before. Denies worsening shortness of breath. He had mild pill dysphagia this morning and chest discomfort associated with that. Afebrile
Objective Data
-
Labs:
Laboratory Results
04/26/25
06:10
WBC 14.9 H
Hgb 9.2 L
Hct 28.7 L
Plt Count 236
Sodium 134 L
Potassium 4.4
Chloride 105
Carbon Dioxide 24
BUN 48 H
Creatinine 1.3
Glucose 95
Calcium 8.5
Vital Signs:
Vital Signs
Temp Pulse Resp BP Pulse Ox
98.1 F 88 16 143/81 97
04/26/25 07:22 04/26/25 07:22 04/26/25 07:22 04/26/25 07:22 04/26/25 07:22
I&O
04/25/25 04/26/25 04/27/25
06:59 06:59 06:59
Intake Total 50 / 50 1675 / 1675
Output Total 600 / 600 1750 / 1750
Balance -550 / -550 -75 / -75
[2025-04-26] MEDS: LIDOCAINE 4% PATCH TOPICAL (08:35)
[2025-04-26] MEDS: LASIX IV (08:36)
[2025-04-26 08:37] LABS: Nucleated Red Blood Cells % 3.9 % (-)
[2025-04-26] MEDS: FEOSOL 325 MG PO (08:37)
[2025-04-26] MEDS: PROTONIX 40 MG PO (08:37)
[2025-04-26] MEDS: PRADAXA 150 MG PO ×2 (08:37→19:59)
[2025-04-26] MEDS: LOW STRENGTH ASPIRIN 81 MG PO (08:37)
[2025-04-26] MEDS: TOPROL XL 75 MG PO (08:37)
--- NOTE | 2025-04-26 09:06 | W.PN.CARDCBS ---
Addendum entered and electronically signed by Vladimir Andersen MD 04/26/25 09:13:
Blood pressure is borderline. HOld on MIRELLA/ARB with Creat to 1.3
Check on cost of Farxiga if Creat stable
Original Note:
Today's Communication / Plan
-
Has diuresed. Hold Lasix with Creat up to 1.3. Follow
Check Echo today
Cont Toprol. Place on telemetry with Afib and CHF
Check daily weight
Cont Pradaxa
Impression / Plan
-
PCP: Dr. Christine
Cardiology: Dr. Farias [facility]
EP: Dr. Sheridan [facility]
Impression:
Admitted with recurrent ambulatory dysfunction 04/18/2025
Recent admission for back pain and A-fib 03/07/2025 until 03/13/2025
Recent admission for PAD and peripheral interventions 11/08/2024 until 11/09/2024
Anemia
Permanent Afib
Previously suspected NSVT on PPM interrogation report is rapid Afib that is being tracked in the ventricle 03/09/2025
Chronic Pradaxa OAC
s/p [employer] [place] PPM
Hyperlipidemia
Echo 11/02/2020: EF 55 to 60%, trace MR, aortic sclerosis without stenosis
Echo 12/06/2024: EF 55 to 60%, moderate MR, aortic sclerosis with trace aortic regurgitation, normal right heart, small pericardial effusion
Plan:
-Patient was admitted with recurrent ambulatory dysfunction and then underwent vascular procedure on 04/24/2025 and cardiology is now consulted for acute HF.
-Has diuresed some with Lasix x1. Creat up to 1.3. Hold Lasix. CHeck daily weight
-proBNP is 3520 which is his highest level on record, CXR from 04/20/2025 showed possible small right-sided pleural effusion and patient received a total of 2 L IVF's
-EF was 55 to 60% by echo 12/06/2024, check follow-up echo study to reassess EF. MR was previously moderate
-Outpatient dose of Toprol-XL 75 mg daily has been continued.
-Patient is not chronically on MIRELLA/ARB/ARNI/aldosterone antagonist
-Patient is not chronically on an SGLT2 inhibitor
-Patient has known permanent A-fib, HR is generally controlled with Toprol-XL 75 mg daily which has been continued this admission
-Outpatient dose of Pradaxa 150 mg BID is on hold for vascular procedure, last dose 04/21/2025 PM. Patient previously had anemia and concern for GI bleed prompting upper endoscopy 12/08/2024 that showed a well-healed gastric ulcer and patient was
treated with 8 weeks of Protonix at that time. He was recommended to repeat upper endoscopy in 2 to 3 months, there is no record of that study being repeated at this hospital. Patient receives health care at other hospitals as well.
-Patient follows with a nursing secretary affiliated with [facility].
HPI: Patient came to the ER with back pain and was admitted with ambulatory dysfunction back on 04/18/2025 and cardiology is now consulted on 04/24/2025 for acute HF. Patient was admitted with back pain from 03/09/2025 until 03/13/2025 and during
that time cardiology followed along for A-fib with RVR and a history of permanent A-fib. Patient follows with a nursing secretary through the [facility] system. There was concern for possible NSVT and on device check this all appeared to be A-fib with
RVR. Patient went to [facility] for rehab and returned home less than 3 weeks ago and returns to the ER now with recurrent ambulatory dysfunction. Cardiology is consulted for acute HF that has developed during his hospitalization. IV fluids were
started on 04/22/2025, possibly in anticipation of angiogram, patient received 2 L IVF's. Patient then noted to have increased SOB on hospitalist exam 04/24/2025 and cardiology consultation requested. proBNP was 3520 which his highest level on
record.
Progress Note - Junior Administrative Assistant
Subjective
Date of Service: April 26, 2025
breathing improved. Annoyed about urinary frrequency
Objective
Labs:
04/26/25 06:10
04/26/25 06:10
Labs
Hgb 9.2 g/dL (13.0-18.0) L 04/26/25 06:10
Hct 28.7 % (39.0-52.0) L 04/26/25 06:10
Plt Count 236 10^3/uL (130-400) 04/26/25 06:10
PT 18.0 Sec (11.4-14.6) H 04/24/25 06:41
INR 1.47 04/24/25 06:41
APTT 52.9 Sec (23.4-35.0) H 04/24/25 06:41
Sodium 134 mmol/L (135-145) L 04/26/25 06:10
Potassium 4.4 mmol/L (3.5-5.1) 04/26/25 06:10
BUN 48 mg/dl (9-20) H 04/26/25 06:10
Creatinine 1.3 mg/dL (0.7-1.3) 04/26/25 06:10
Glucose 95 mg/dl (70-99) 04/26/25 06:10
Vital Signs and I&O:
Vital Signs
Temp Pulse Resp BP Pulse Ox
98.1 F 88 16 143/81 97
04/26/25 07:22 04/26/25 07:22 04/26/25 07:22 04/26/25 07:22 04/26/25 07:22
Vital Signs
Temp Pulse Resp BP Pulse Ox
98.1 F 88 16 143/81 97
04/26/25 07:22 04/26/25 07:22 04/26/25 07:22 04/26/25 07:22 04/26/25 07:22
Intake & Output
04/24/25 04/25/25 04/26/25 04/27/25
06:59 06:59 06:59 06:59
Intake Total 1090 / 1090 50 / 50 1675 / 1675
Output Total 760 / 760 600 / 600 1750 / 1750
Balance 330 / 330 -550 / -550 -75 / -75
Physical Exam
Physical Exam
GEN: No distress, awake, Ox3
HEENT: supple, anicteric, mmm
LUNGS: CTA, no wheezes/rales
CV: Reg, S1/S2, 1/6 syst LSB, no gallop
ABD: soft, BS+, NT/ND
EXT: No edema
NEURO: Gross non-focal
SKIN: No rash
--- NOTE | 2025-04-26 09:26 | PTCARENOTE ---
During administration of AM medication, this RN noted patient to be coughing with oral intake. MD made aware and new orders of CR chest xray, speech eval, and tele monitoring were added. Patient continuing to cough, stating 'my throat is so dry and
hurts'. Patient refusing to sit up in bed, education provided on aspiration potential from laying down and patient still refusing to sit up. Will continue to monitor, plan ongoing.
--- NOTE | 2025-04-26 09:48 | CM ---
Spoke with today; awaiting discharge when pt is ready.Waiting for acceptance by [facility]
Plan: DC to SNF when stable.
--- NOTE | 2025-04-26 09:59 | CON.NEURO4 ---
Addendum entered and electronically signed by Gustavo Sawyer MD 04/26/25 17:31:
Studies reviewed.
I have personally examined the patient. I reviewed and agree with the DOOR CLAMPER's Note.
My addenda:
Initially lethargic becoming awake, alert, interactive by the end of the interview. No acute distress.
Speech intact.
Follows 2-step requests w/o difficulty. No tremor.
Extra-ocular movements grossly intact.
Facial movements full and symmetric. Hearing intact to normal conversational volume.
Normal UE movements bilaterally.
Neck: full ROM.
Chest: no dyspnea
Heart: no JVD
Ext: (-) Clubbing, (-) Cyanosis, (-) Edema
IMPRESSIONS/RECOMMENDATIONS:
Abrupt onset of encephalopathy
Most likely secondary to toxic metabolic encephalopathy
Provide thiamine
Continue dabigatran
Would sparingly use potentially sedative medications
D/W patient
All questions answered.
Will continue to follow as needed.
Original Note:
Documented by User: Rocio Rico NP 04/26/25 15:22
Consultation - Neurology 4
-
CONSULTING PHYSICIAN: Gustavo Sawyer MD
REFERRING PHYSICIAN: Hospitalists/Dr. Yip
DICTATED BY: CHRISTO Chinag
DATE/TIME OF REQUEST: 04/26/25
DATE/TIME OF CONSULTATION: 04/26/25
Reason for Consultation: Confusion
History of Present Illness:
This is an 84-year-old right-handed male who has presented to the hospital with report of back pain and ambulatory dysfunction. He underwent balloon angioplasty to the RLE on 04/24/25 by Vascular Surgery. His home Pradaxa was held for three days
prior to surgery. Patient was noted following surgery to be confused and not at his baseline, prompting Neurology evaluation. CT was obtained on 04/25/25 and is negative for any acute abnormalities. On Neurology evaluation today, patient is oriented
and appears to have returned to his baseline. He does not mediastinal chest pain and a frequent cough. He denies any headache, dizziness, vision changes, speech/swallow difficulty, new numbness, and focal weakness.
Past Medical History: Afib (dabigatran), HTn, HLD, PAD, compression fractures, chronic back pain, anemia, PUD
Surgical History: Pacemaker, appendectomy, open inguinal hernia with mesh, lower extremity arteriogram, RLE balloon angioplasty, right second toe amputation, left foot all toes amputated
Family History: Reviewed and noncontributory.
Social History: Former smoker. Denies alcohol and illciit drug use.
Allergies: Methocarbamol.
Home Medications: See below.
Review of Symptoms:
Patient denies any fever, headache, shortness of breath, GI or symptoms.
�Per the HPI.�All systems are reviewed negative except above.
Physical Exam:
The patient is afebrile, abdomen is nondistended, breathing is unlabored, frequent nonproductive cough, skin is cool and dry, right second toe amputation, left foot all toes amputated.
NIH Stroke Scale:
I performed the NIH stroke scale on the patient on 04/26/25 at 1015. The patient scored 0 points on the NIH stroke scale assessment, which were assigned as follows: See below.
Neurologic Examination:
The patient is awake, alert and oriented x 3. He is able to follow commands and answer questions appropriately. There is no aphasia or dysarthria. On cranial nerve assessment, pupils are 3 mm bilateral, round and reactive to light and
accommodation. Visual villalpando are full. Extraocular movements are intact. Facial sensations are intact and bilaterally symmetrical, there is no facial asymmetry. Hearing is intact bilaterally to normal conversation volume. Tongue palate and uvula are
midline. Sternocleidomastoid strengths are full bilaterally. Motor strengths are 5/5 bilateral upper and lower extremities on medical research [place] scale. There is no drift or involuntary movement noted. There was no extinction noted on double
simultaneous stimulation. Coordination is intact by finger to nose bilaterally.
Lab Results: See below.
Neuro Imaging:
1. CT Head 04/25/25: Stable chronic microvascular white matter ischemic disease and atrophy. No acute intracranial hemorrhage or mass effect. No evidence to suggest acute large vascular territory transcortical infarct at this time. Progressive
sphenoid sinusitis.
Differentials for the patient's presentation include:
1. Transient confusion; etiology is likely toxic metabolic encephalopathy vs delirium, very low concern for stroke given patient is back to his baseline but cannot entirely exclude this as his Pradaxa was held for several days.
Patient has the following risk factors for their symptoms: Afib, Pradaxa was held, surgery
IV Tenecteplase/IAT candidacy: Not a candidate due to outside of time window, NIHSS 0.
Recommendations:
-Continue home pradaxa.
-Avoid sedating medications.
-Promote adequate daylight exposure, minimize night time disturbances and avoid day time napping.
-Do not see a role for further neurological imaging at this point.
Discussed patient care with: Dr. Sawyer, the patient
Vital Signs and Labs
-
Vital Signs and Labs:
Vital Signs
Temp Pulse Resp BP Pulse Ox
98.1 F 88 16 143/81 97
04/26/25 07:22 04/26/25 07:22 04/26/25 07:22 04/26/25 07:22 04/26/25 07:22
Lab Results
04/26/25 06:10
04/26/25 06:10
PT 18.0 Sec (11.4-14.6) H 04/24/25 06:41
INR 1.47 04/24/25 06:41
APTT 52.9 Sec (23.4-35.0) H 04/24/25 06:41
Sodium 134 mmol/L (135-145) L 04/26/25 06:10
Potassium 4.4 mmol/L (3.5-5.1) 04/26/25 06:10
BUN 48 mg/dl (9-20) H 04/26/25 06:10
Glucose 95 mg/dl (70-99) 04/26/25 06:10
Calcium 8.5 mg/dl (8.4-10.2) 04/26/25 06:10
Phosphorus 3.0 mg/dl (2.5-4.5) 04/19/25 16:57
Lmv-S-Umrggbarqmz Pept 3520 pg/ml 04/24/25 06:41
Vitamin B12 754 pg/ml (637-641) 04/18/25 06:12
Medications
-
Active Medications
Generic Name Dose Route Start Last Admin
Trade Name Freq PRN Reason Stop Dose Admin
Acetaminophen 650 mg 04/19/25 18:00 04/26/25 06:07
Acetaminophen 325 Mg Tablet PO 05/17/25 17:59 650 mg
Q6 PARTH Administration
Al Hydrox/Mg Hydrox/Simethicone 30 ml 04/21/25 03:32 04/22/25 08:27
Mag/Al/Simethicone Suspension 30 Ml Cup PO 05/19/25 03:31 30 ml
QIDPRN PRN Administration
indigestion
Aspirin 81 mg 04/24/25 17:00 04/26/25 08:37
Aspirin 81 Mg Chewable Tablet PO 05/22/25 16:59 81 mg
DAILY PARTH Administration
Atorvastatin Calcium 10 mg 04/18/25 18:00 04/25/25 17:04
Atorvastatin (Lipitor) 10 Mg Tablet PO 05/16/25 17:59 10 mg
QPM PARTH Administration
Bisacodyl 10 mg 04/18/25 04:45
Bisacodyl 10 Mg Rectal Suppository RECTAL 05/16/25 04:44
[id number] PRN
constipation
Dabigatran 150 mg 04/18/25 08:00 04/26/25 08:37
Dabigatran Etexilate (Pradaxa) 150 Mg Capsule PO 05/16/25 07:59 150 mg
BID PARTH Administration
Ferrous Sulfate 325 mg 04/18/25 08:00 04/26/25 08:37
Ferrous Sulfate 325 Mg Tablet PO 05/16/25 07:59 325 mg
DAILY PARTH Administration
Furosemide 40 mg 04/25/25 15:00 04/26/25 08:36
Furosemide 40 Mg (10 Mg/Ml) 4 Ml Vial IV 05/23/25 14:59 Not Given
On Hold: 04/26/25 09:11 DAILY PARTH
Hydralazine HCl 5 mg 04/22/25 09:20
Hydralazine 20 Mg/Ml Vial IV 05/20/25 09:19
Q6HPRN PRN
SBP>180 DBP>105
Hydromorphone HCl 0.5 mg 04/25/25 11:17
Hydromorphone 0.5 Mg/0.5 Ml Syringe IV 05/09/25 11:16
Q4HPRN PRN
severe pain
Lidocaine 1 patch 04/19/25 11:00 04/26/25 08:35
Lidocaine 4% Topical Patch TOPICAL 05/17/25 10:59 Not Given
DAILY PARTH
Protocol
Melatonin 5 mg 04/23/25 22:00 04/25/25 21:36
Melatonin 5 Mg Tablet PO 05/21/25 21:59 5 mg
HS PARTH Administration
Metoprolol Succinate 75 mg 04/18/25 08:00 04/26/25 08:37
Metoprolol 50 Mg Extended Release Tablet PO 05/16/25 07:59 75 mg
DAILY PARTH Administration
Abaloparatide [ 80 mcg 04/19/25 18:00 04/25/25 17:04
Tymlos] 80 Mcg (3, SC 05/17/25 17:59 80 mcg
120 Mcg/1.56 Ml) Pen QPM PARTH Administration
Injector
Pantoprazole Sodium 40 mg 04/18/25 08:00 04/26/25 08:37
Pantoprazole 40 Mg Delayed Release Tablet PO 05/16/25 07:59 40 mg
DAILY PARTH Administration
Patch Removal 0 patch 04/19/25 20:00 04/25/25 20:11
Remove Lidocaine Patch REMOVE 05/17/25 19:59 Not Given
DAILY@1999 [facility]
Polyethylene Glycol 17 grams 04/18/25 04:45
Polyethylene Glycol Powder 17 Grams Packet PO 05/16/25 04:44
DAILYPRN PRN
constipation
Senna/Docusate Sodium 1 tablet 04/18/25 04:45 04/21/25 20:11
Docusate W/Senna (Alexia-Colace) Tablet PO 05/16/25 04:44 1 tablet
BIDPRN PRN Administration
constipation
Sodium Chloride 0 flush 04/20/25 22:00
Sodium Chloride 0.9% (Flush) Syringe IV 05/18/25 21:59
PER PROTOCOL PARTH
Home Medications
�Medication �Instructions �Recorded
atorvastatin 10 mg tablet 10 mg PO QPM High cholesterol 09/22/20
metoprolol succinate 50 mg 75 mg PO DAILY Blood Pressure 01/23/21
tablet,extended release 24 hr
abaloparatide (Tymlos) 80 mcg SC QPM Autoimmune Disorder 09/21/24
dabigatran etexilate 150 mg capsule 150 mg PO BID Heart 12/05/24
Disease/Condition
pantoprazole 40 mg tablet,delayed 40 mg PO DAILY Gastrointestinal 03/13/25
release (Protonix) issue 8 weeks #56 tabs
Medical Marijuana 2 gummy PO DAILY Supplement 04/18/25
acetaminophen 325 mg tablet 650 mg PO DAILY Pain 04/18/25
(Tylenol)
cholecalciferol (vitamin D3) 25 25 mcg PO DAILY Supplement 04/18/25
mcg (1,000 unit) tablet (Vitamin
D3)
oxycodone 5 mg tablet 5 mg PO Q8HPRN PRN severe pains 04/18/25
NIH Stroke Score
Subsequent NIH Scale
Date of Subsequent NIH Scale: 04/26/25
Time of Subsequent NIH Scale: 10:15
NIH Stroke Score
Level of Consciousness: 0 - Alert
LOC Questions: 0-Answers both correctly
LOC Commands: 0-Performs both correctly
Best Horizontal Gaze: 0-Normal
Visual Villalpando: 0=Normal, no visual loss
Facial Palsy: 1=Minor paralysis
Motor - Right Arm: 0=No drift 10 seconds
Motor - Left Arm: 0=No drift 10 seconds
Motor - Right Le-No drift 5 seconds
Motor - Left Le-No drift 5 seconds
Limb Ataxia: 0-Absent
Sensation: 0-Normal
Best Language: 0-No aphasia
Dysarthria: 0-Normal
Extinction and Inattention: 0-No abnormality
NIH Total Score:: 1
Modified [place] (mRS) Score
Modified [place] Scale (mRS): No significant disability. Able to carry out usual activities.
Score: 1

Documented by User: Gustavo Sawyer MD 04/26/25 17:28
NIH Stroke Score
NIH Stroke Score
NIH Total Score:: 1
Modified [place] (mRS) Score
Score: 1
[2025-04-26 11:50] VITALS: BP 101/68
--- NOTE | 2025-04-26 12:00 | PTOTSP ---
Speech Therapy Swallowing Assessment
Oral/pharyngeal swallow deemed within functional limits without overt signs of aspiration or signs/complaints of pharyngeal stasis. Patient with belching when drinking multiple sips of thin liquid and with history of PUD, may have esophageal
dysphagia. No obvious WFD or dysarthria during assessment.
Recommend
1. Continue regular solids and thin liquids.
2. Fully upright with meals.
3. Large pills whole in applesauce, otherwise with liquid or as best tolerated.
4. Remain upright or semi-reclined for at least 30 minutes after meals.
ST will follow briefly to ensure diet/pill tolerance and further assess speech/language pending further brain imaging.
--- NOTE | 2025-04-26 12:38 | W.PN.UPDATE ---
Update Note
Progress Note Update
patient seen chart reviewed. discussed with nursing. at bedside. patient had been seen by psych bc change in mental status. nursing and feel he has steadily limproved. feels he is 'almost' at his baseline. patient in no distress. he
told me about his kids grands etc . states going to snf after dh. he is non no psych meds currently and appears not to need any! dr franco had suggested mri considering mental status change but he is it seems on the way back to what is normal
mental status for him. (could not have mri as he has pacer) psych will sign off.
[2025-04-26 15:00] VITALS: BP 163/84
[2025-04-26] MEDS: LIPITOR 10 MG PO (17:15)
[2025-04-26] MEDS: NON-FORMULARY ITEM 80 MCG SC (17:15)
[2025-04-26 19:00] VITALS: BP 134/88
[2025-04-26] MEDS: REMOVE LIDOCAINE PATCH REMOVE ×2 (20:00→20:01)
[2025-04-26] MEDS: MELATONIN PO ×2 (21:58→21:59)
[2025-04-26 23:00] VITALS: BP 134/71
[2025-04-27] MEDS: TYLENOL 650 MG PO ×5 (00:13→23:47)
[2025-04-27 03:00] VITALS: BP 138/75
[2025-04-27 07:26] VITALS: BP 157/100
[2025-04-27 07:43] LABS: Blood Urea Nitrogen 44 mg/dl (9-20); Calcium 8.5 mg/dl (8.4-10.2); Carbon Dioxide 24 mmol/L (22-30); Chloride 104 mmol/L (98-107); Estimated Creatinine Clearance 37 ml/min; Glucose 94 mg/dl (70-99); Potassium 4.5 mmol/L (3.5-5.1); Sodium 135 mmol/L (135-145); eGFR 59.63
[2025-04-27] MEDS: LIDOCAINE 4% PATCH 1 PATCH TOPICAL (07:58)
[2025-04-27] MEDS: PROTONIX 40 MG PO (07:59)
[2025-04-27] MEDS: TOPROL XL 75 MG PO (07:59)
[2025-04-27] MEDS: PRADAXA 150 MG PO ×2 (07:59→21:20)
[2025-04-27] MEDS: FEOSOL 325 MG PO (07:59)
[2025-04-27] MEDS: VITAMIN B1 100 MG PO (07:59)
[2025-04-27] MEDS: MIRALAX 17 GRAMS PO (07:59)
[2025-04-27] MEDS: LOW STRENGTH ASPIRIN 81 MG PO (08:01)
--- NOTE | 2025-04-27 09:25 | W.PN.CARDCBS ---
Addendum entered and electronically signed by Josesito Hameed MD 04/27/25 14:35:
I saw and examined the patient on morning rounds.
The Fish Processing Supervisor's note was reviewed and I agree with the note.
Comment: Briefly, 84-year-old man past medical history of permanent atrial fibrillation, permanent pacemaker and PAD who presented with ambulatory dysfunction. Cardiology was consulted for acute heart failure with preserved ejection fraction.
Initially presented for ambulatory dysfunction and underwent balloon angioplasty of the right lower extremity with vascular surgery earlier this week
Also found to be clinically volume overloaded. proBNP was elevated at 3500 at that time c/w acute HF. Echo here showed preserved LV function.
Treated with IV Lasix with improvement of his volume status. One-time additional dose of IV Lasix given this morning.
At the time of my evaluation clinically appeared euvolemic and was on room air with clear lung hart.
Would favor low-dose maintenance diuretic at the time of discharge. Would send on 20 mg Lasix p.o. daily.
In addition, blood pressure has been consistently elevated here. Start low-dose amlodipine and titrate as an outpatient.
Stable for discharge from my perspective with plan to follow-up with his primary sales service executive Antonio Farias
We will sign off, please recall as needed
Original Note:
Today's Communication / Plan
-
Start amlodipine 2.5 mg daily
Start Lasix 20 mg PO daily tomorrow after a dose of 40 mg IV x 1 today
Discharge medication list edited by cardiology to include the additions of Lasix and amlodipine and appropriate continuation of previous cardiac medications. Discharge instructions also amended by cardiology to include his upcoming Dr. Farias
appointment on 05/19/2025.
Impression / Plan
-
PCP: Dr. Christine
Cardiology: Dr. Farias [facility]
EP: Dr. Sheridan [facility]
Impression:
Admitted with recurrent ambulatory dysfunction 04/18/2025
Recent admission for back pain and A-fib 03/07/2025 until 03/13/2025
Recent admission for PAD and peripheral interventions 11/08/2024 until 11/09/2024
Anemia
Permanent Afib
Previously suspected NSVT on PPM interrogation report is rapid Afib that is being tracked in the ventricle 03/09/2025
Chronic Pradaxa OAC
s/p [employer] PPM
Hyperlipidemia
Echo 11/02/2020: EF 55 to 60%, trace MR, aortic sclerosis without stenosis
Echo 12/06/2024: EF 55 to 60%, moderate MR, aortic sclerosis with trace aortic regurgitation, normal right heart, small pericardial effusion
Echo 04/26/2025: EF 61%, normal RV size and function, moderate MR
Plan:
-Patient was admitted with recurrent ambulatory dysfunction and then underwent vascular procedure on 04/24/2025 and cardiology is now consulted for acute HF.
-Daily weight checks ordered by me 04/27/2025
-Patient had a proBNP of 3520 on 04/24/2025. There is evidence of a small right-sided pleural effusion on CXR from 04/20/2025. Patient received 2 L IVF's earlier this admission which were then stopped. Patient was given Lasix 40 mg IV daily and
received a dose on 04/25/2025 and patient then refused the dose on 04/26/2025 and the medication was stopped. Cardiology reviewed orders and patient given an additional dose of Lasix 40 mg IV x 1 on 04/27/2025 and then ordered Lasix 20 mg PO daily
starting on 04/28/2025.
-Echo from 04/26/2025 is reviewed and then summarized above by me. EF is preserved to 61% with stable moderate MR and normal RV size and function.
-Outpatient dose of Toprol-XL 75 mg daily has been continued.
-Patient is not chronically on MIRELLA/ARB/ARNI.
-Patient is not chronically on aldosterone antagonist due to hyperkalemia 11/2024
-Patient is not chronically on an SGLT2 inhibitor
-Start amlodipine 2.5 mg daily for HTN seen on VS reviewed by me 04/27/2025. Amlodipine orders placed by cardiology 04/27/2025.
-Patient has known permanent A-fib, HR is generally controlled with Toprol-XL 75 mg daily which has been continued this admission
-Outpatient dose of Pradaxa 150 mg BID has been continued, but there was a brief interruption for vascular procedure earlier this admission. ,
-Patient previously had anemia and concern for GI bleed prompting upper endoscopy 12/08/2024 that showed a well-healed gastric ulcer and patient was treated with 8 weeks of Protonix at that time. He was recommended to repeat upper endoscopy in 2 to
3 months, there is no record of that study being repeated at this hospital. Patient receives health care at other hospitals as well.
-Patient follows with a sales service executive affiliated with [facility].
HPI: Patient came to the ER with back pain and was admitted with ambulatory dysfunction back on 04/18/2025 and cardiology is now consulted on 04/24/2025 for acute HF. Patient was admitted with back pain from 03/09/2025 until 03/13/2025 and during
that time cardiology followed along for A-fib with RVR and a history of permanent A-fib. Patient follows with a sales service executive through the [facility] system. There was concern for possible NSVT and on device check this all appeared to be A-fib with
RVR. Patient went to [facility] for rehab and returned home less than 3 weeks ago and returns to the ER now with recurrent ambulatory dysfunction. Cardiology is consulted for acute HF that has developed during his hospitalization. IV fluids were
started on 04/22/2025, possibly in anticipation of angiogram, patient received 2 L IVF's. Patient then noted to have increased SOB on hospitalist exam 04/24/2025 and cardiology consultation requested. proBNP was 3520 which his highest level on
record.
Progress Note - Yarder Puncher
Subjective
Date of Service: April 27, 2025
Patient is tearful at times, reports ongoing difficulty with pain
Objective
Labs:
04/26/25 06:10
04/27/25 06:36
Labs
Hgb 9.2 g/dL (13.0-18.0) L 04/26/25 06:10
Hct 28.7 % (39.0-52.0) L 04/26/25 06:10
Plt Count 236 10^3/uL (130-400) 04/26/25 06:10
PT 18.0 Sec (11.4-14.6) H 04/24/25 06:41
INR 1.47 04/24/25 06:41
APTT 52.9 Sec (23.4-35.0) H 04/24/25 06:41
Sodium 135 mmol/L (135-145) 04/27/25 06:36
Potassium 4.5 mmol/L (3.5-5.1) 04/27/25 06:36
BUN 44 mg/dl (9-20) H 04/27/25 06:36
Creatinine 1.2 mg/dL (0.7-1.3) 04/27/25 06:36
Glucose 94 mg/dl (70-99) 04/27/25 06:36
Troponins
04/26/25
10:23
Troponin I Cancelled
Vital Signs and I&O:
Vital Signs
Temp Pulse Resp BP Pulse Ox
97.9 F 95 18 157/100 98
04/27/25 07:26 04/27/25 07:59 04/27/25 07:26 04/27/25 07:59 04/27/25 07:26
Vital Signs
Temp Pulse Resp BP Pulse Ox
97.9 F 95 18 157/100 98
04/27/25 07:26 04/27/25 07:59 04/27/25 07:26 04/27/25 07:59 04/27/25 07:26
Intake & Output
04/25/25 04/26/25 04/27/25 04/28/25
06:59 06:59 06:59 06:59
Intake Total 50 / 50 1675 / 1675 600 / 600
Output Total 600 / 600 1750 / 1750 800 / 800
Balance -550 / -550 -75 / -75 -200 / -200
Physical Exam
Physical Exam
GEN: FLORES x3
LUNGS: RA. No audible wheeze
CV: Afib on tele.
--- NOTE | 2025-04-27 10:24 | W.PN.HOSP.TC ---
Today's Communication/Plan
-
Medically cleared for discharge. Discharge planning
Assessment / Plan
Assessment / Plan
Physical exam:
General: Chronically ill. No acute distress
HEENT: Normocephalic, Atraumatic and Moist Mucous Membranes
Respiratory: Clear to auscultation bilaterally; Negative Wheezes
Cardiac: Regular Rhythm and S1/S2
GI: Soft, Nontender and Nondistended
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 No Clubbing, No Cyanosis and there is some edema in lower extremities.
Neuro: Awake, Alert and Oriented, no neurological deficit
Psych: Calm and better insight today
A/P:
Delirium/Acute Toxic-Metabolic encephalopathy:
Appears to continue to improve
CT head no acute endocrine abnormality
Psych eval appreciated and there were concerns about neurological issues. MRI cannot be done due to pacemaker. Neurology consulted.
Palliative care/hospice eval and they will pursue this as outpatient.
Discussed with caseworker protective services yesterday that I expected patient will be medically cleared over the next 24 hours. He is medically cleared to go today.
Discussed with over the phone prior
Discussed with cardiology who will give IV Lasix times once today but can resume oral diuretics after that and he is cleared from cardiac standpoint for discharge.
Plan to discharge-caseworker protective services for discharge disposition.
Hypertension:
Started on amlodipine
Continue furosemide
Continue metoprolol succinate
Chest pain:
Atypical
On cardiac monitoring
Cardiology following
Dysphagia:
Continue PPI
Speech therapy eval appreciated
Peripheral vascular disease:
S/p arteriogram by vascular surgery
Ok to resume anticoagulant per vascular
Acute HFpEF:
Cardiology eval appreciated
On IV Lasix and back to oral afterwards
Review echocardiogram and EF 61%, moderate mitral valve regurgitation, and trivial pericardial effusion
Asymptomatic bacteriuria:
Discontinue antibiotics-no need to treat
Urine culture Staphylococcus warneri and epidermidis which are usually contaminant and urine analysis with only 6-10 WBC. No symptoms either.
Leukocytosis:
Reactive
Follow-up trend
Permanent A-fib:
On rate control, metoprolol succinate 75 mg p.o. daily
Continue anticoagulation (Pradaxa)
History of pacemaker for sick sinus syndrome
Acute on chronic back pain (history of multiple compression fractures in the past):
Continue multimodal pain management--> increased Dilaudid iv doses at the moment.
On Tymlos as outpatient suspect for possible degree of osteoporosis or osteopenia.
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
[place] to be polypharmacy
Avoid sedatives
Anemia:
Patient declined further workup (GI evaluated the patient)
Hematology evaluated the patient as well-appreciated input.
Can see GI and hematology as outpatient if desired.
Continue oral PPI
Depression and anxiety:
Avoiding medications due to fear of sedation at this point
Discussed with patient and family if they desire psych evaluation inpatient or outpatient
Possible cirrhosis:
Can evaluate as outpatient
Stage I bilateral heel pressure injury, POA:
Wound care
Hyperlipidemia:
Continue home statin
Total time spent on today's encounter was 37 minutes which included time spent in counseling the patient/family regarding diagnosis and treatment plan as listed above, goals of care, and symptom management. Case was discussed with nursing staff,
specialists, and care coordinators/case management. All labs and imaging personally reviewed by me. Remainder the time spent in detailed review of previous records, lab data, imaging, and other medical provider documentation.
Anticipated Discharge: Today
Subjective/Interval History
-
Date of Service: April 27, 2025
Patient feels better overall. More alert and coherent. Afebrile
Objective Data
-
Labs:
Laboratory Results
04/27/25
06:36
Sodium 135
Potassium 4.5
Chloride 104
Carbon Dioxide 24
BUN 44 H
Creatinine 1.2
Glucose 94
Calcium 8.5
Vital Signs:
Vital Signs
Temp Pulse Resp BP Pulse Ox
97.9 F 95 18 157/100 98
04/27/25 07:26 04/27/25 07:59 04/27/25 07:26 04/27/25 07:59 04/27/25 07:26
I&O
04/26/25 04/27/25 04/28/25
06:59 06:59 06:59
Intake Total 1675 / 1675 600 / 600
Output Total 1750 / 1750 800 / 800
Balance -75 / -75 -200 / -200
[2025-04-27] MEDS: NORVASC 5 MG PO (10:26)
[2025-04-27] MEDS: LASIX 40 MG IV (10:29)
[2025-04-27 10:53] VITALS: BP 148/103
--- NOTE | 2025-04-27 13:15 | CM ---
Addendum entered by Kristi Albrecht 04/27/25 15:10:
CM left message for Faustino at [facility]
Original Note:
patient referral in careport
spoke with Faustino from [facility] - stated he was ready for discharge she will get back to CM
discussed with additional options as he is stable for discharge
states would like referral to [facility], left Medicare.gov list in room as CM discussed needing other referrals
she also states that she will be calling Yanira from [facility]
Referral [facility] entered in careport
PLAN: SNF, pending bed availability, CM entered [facility] Referral
[2025-04-27 15:07] VITALS: BP 137/78
[2025-04-27] MEDS: LIPITOR 10 MG PO (17:08)
[2025-04-27] MEDS: NON-FORMULARY ITEM 80 MCG SC (17:11)
[2025-04-27 19:40] VITALS: BP 116/66
[2025-04-27] MEDS: MELATONIN 5 MG PO (21:20)
[2025-04-27] MEDS: REMOVE LIDOCAINE PATCH 1 PATCH REMOVE (21:20)
[2025-04-27 22:52] VITALS: BP 114/61
[2025-04-28] VITALS (8 sets, daily range): BP systolic 104–147; BP diastolic 57–82; PULSE 71–88; O2SAT 97–99; BMI 25.2
[2025-04-28] MEDS: TYLENOL 650 MG PO ×3 (05:46→18:09)
[2025-04-28 06:56] LABS: Hematocrit 28.5 % (39.0-52.0); Hemoglobin 9.2 g/dL (13.0-18.0)
[2025-04-28 07:28] LABS: Blood Urea Nitrogen 39 mg/dl (9-20); Calcium 8.4 mg/dl (8.4-10.2); Carbon Dioxide 25 mmol/L (22-30); Estimated Creatinine Clearance 44 ml/min; Glucose 102 mg/dl (70-99); Magnesium 2.3 mg/dl (1.6-2.3); Potassium 4.2 mmol/L (3.5-5.1); Sodium 134 mmol/L (135-145); eGFR > 60.00
[2025-04-28 07:33] LABS: Chloride 103 mmol/L (98-107)
--- NOTE | 2025-04-28 08:34 | CM ---
spoke with Faustino from [facility] - no beds avail currently
rec call from patient - discussed other referrals - she said she will be touring [facility] today
discussed he is stable for discharge. Referrals to [facility] placed in careport
PLAN: SNF, pending bed availability
[2025-04-28] MEDS: MIRALAX 17 GRAMS PO (08:49)
[2025-04-28] MEDS: TOPROL XL 75 MG PO (08:50)
[2025-04-28] MEDS: LASIX 20 MG PO (08:51)
[2025-04-28] MEDS: PRADAXA 150 MG PO ×2 (08:51→20:22)
[2025-04-28] MEDS: PROTONIX 40 MG PO (08:51)
[2025-04-28] MEDS: VITAMIN B1 100 MG PO (08:51)
[2025-04-28] MEDS: FEOSOL 325 MG PO (08:51)
[2025-04-28] MEDS: NORVASC 2.5 MG PO (08:51)
[2025-04-28] MEDS: LOW STRENGTH ASPIRIN 81 MG PO (08:51)
[2025-04-28] MEDS: LIDOCAINE 4% PATCH 1 PATCH TOPICAL (08:51)
[2025-04-28] MEDS: DILAUDID 0.5 MG IV (08:52)
--- NOTE | 2025-04-28 11:02 | W.PN.HOSP.TC ---
Today's Communication/Plan
-
Discharge planning
Assessment / Plan
Assessment / Plan
Physical exam:
General: Chronically ill. No acute distress
HEENT: Normocephalic, Atraumatic and Moist Mucous Membranes
Respiratory: Clear to auscultation bilaterally; Negative Wheezes
Cardiac: Regular Rhythm and S1/S2
GI: Soft, Nontender and Nondistended
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 No Clubbing, No Cyanosis and there is some edema in lower extremities.
Neuro: Awake, Alert and Oriented, no neurological deficit
Psych: Calm and better insight today
A/P:
Delirium/Acute Toxic-Metabolic encephalopathy:
Appears to continue to improve
CT head no acute endocrine abnormality
Psych eval appreciated and there were concerns about neurological issues. MRI cannot be done due to pacemaker. Neurology consult appreciated.
Palliative care/hospice eval and they will pursue this as outpatient.
Discussed with over the phone prior
Medically clear for discharge. Case management for discharge disposition
Hypertension:
Started on amlodipine
Continue furosemide
Continue metoprolol succinate
Chest pain:
Atypical
On cardiac monitoring
Cardiology following
Dysphagia:
Continue PPI
Speech therapy eval appreciated
Peripheral vascular disease:
S/p arteriogram by vascular surgery
Ok to resume anticoagulant per vascular
Acute HFpEF:
Cardiology eval appreciated
On oral Lasix 20 mg daily
Review echocardiogram and EF 61%, moderate mitral valve regurgitation, and trivial pericardial effusion
Asymptomatic bacteriuria:
Discontinue antibiotics-no need to treat
Urine culture Staphylococcus warneri and epidermidis which are usually contaminant and urine analysis with only 6-10 WBC. No symptoms either.
Leukocytosis:
Reactive
Follow-up trend
Permanent A-fib:
On rate control, metoprolol succinate 75 mg p.o. daily
Continue anticoagulation (Pradaxa)
History of pacemaker for sick sinus syndrome
Acute on chronic back pain (history of multiple compression fractures in the past):
Continue multimodal pain management--> increased Dilaudid iv doses at the moment. Can switch to oral Dilaudid upon discharge.
On Tymlos as outpatient suspect for possible degree of osteoporosis or osteopenia.
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
[place] to be polypharmacy
Avoid sedatives
Anemia:
Patient declined further workup (GI evaluated the patient)
Hematology evaluated the patient as well-appreciated input.
Can see GI and hematology as outpatient if desired.
Continue oral PPI
Depression and anxiety:
Avoiding medications due to fear of sedation at this point
Discussed with patient and family if they desire psych evaluation inpatient or outpatient
Possible cirrhosis:
Can evaluate as outpatient
Stage I bilateral heel pressure injury, POA:
Wound care
Hyperlipidemia:
Continue home statin
Total time spent on today's encounter was 35 minutes which included time spent in counseling the patient/family regarding diagnosis and treatment plan as listed above, goals of care, and symptom management. Case was discussed with nursing staff,
specialists, and care coordinators/case management. All labs and imaging personally reviewed by me. Remainder the time spent in detailed review of previous records, lab data, imaging, and other medical provider documentation.
Anticipated Discharge: Today
Subjective/Interval History
-
Date of Service: April 28, 2025
No new complaints. No chest pain or shortness of breath. Alert. Afebrile
Objective Data
-
Labs:
Laboratory Results
04/28/25
06:41
Hgb 9.2 L
Hct 28.5 L
Sodium 134 L
Potassium 4.2
Chloride 103
Carbon Dioxide 25
BUN 39 H
Creatinine 1.0
Glucose 102 H
Calcium 8.4
Vital Signs:
Vital Signs
Temp Pulse Resp BP Pulse Ox
97.4 F 95 17 147/82 97
04/28/25 07:29 04/28/25 07:29 04/28/25 07:29 04/28/25 07:29 04/28/25 07:29
I&O
04/27/25 04/28/25 04/29/25
06:59 06:59 06:59
Intake Total 600 / 600 720 / 720
Output Total 800 / 800 2074
Balance -200 / -200 -1355 / -1355
[2025-04-28] MEDS: NON-FORMULARY ITEM 80 MCG SC (18:03)
[2025-04-28] MEDS: LIPITOR 10 MG PO (18:10)
[2025-04-28] MEDS: MELATONIN 5 MG PO (20:22)
[2025-04-28] MEDS: REMOVE LIDOCAINE PATCH 1 PATCH REMOVE (20:23)
[2025-04-28] MEDS: TYLENOL PO (23:19)
[2025-04-29] MEDS: TYLENOL 650 MG PO ×3 (01:49→18:17)
[2025-04-29 03:00] VITALS: BP 127/77
[2025-04-29 03:48] VITALS: BMI 26.0
[2025-04-29 07:27] VITALS: BP 150/76
[2025-04-29] MEDS: PRADAXA 150 MG PO ×2 (08:50→21:03)
[2025-04-29] MEDS: LASIX 20 MG PO (08:50)
[2025-04-29] MEDS: VITAMIN B1 100 MG PO (08:50)
[2025-04-29] MEDS: FEOSOL 325 MG PO (08:51)
[2025-04-29] MEDS: TOPROL XL 75 MG PO (08:51)
[2025-04-29] MEDS: NORVASC 2.5 MG PO (08:51)
[2025-04-29] MEDS: PROTONIX 40 MG PO (08:51)
[2025-04-29] MEDS: LOW STRENGTH ASPIRIN 81 MG PO (08:51)
[2025-04-29] MEDS: LIDOCAINE 4% PATCH 1 PATCH TOPICAL (08:51)
[2025-04-29] MEDS: MIRALAX 17 GRAMS PO (08:52)
[2025-04-29 11:11] VITALS: BP 150/86
--- NOTE | 2025-04-29 11:31 | W.PN.HOSP.TC ---
Addendum entered and electronically signed by Benny Yip MD 04/29/25 16:55:
Updated over the phone.
Original Note:
Today's Communication/Plan
-
Pain control. Discharge planning.
Assessment / Plan
Assessment / Plan
Physical exam:
General: Chronically ill. No acute distress
HEENT: Normocephalic, Atraumatic and Moist Mucous Membranes
Respiratory: Clear to auscultation bilaterally; Negative Wheezes
Cardiac: Regular Rhythm and S1/S2
GI: Soft, Nontender and Nondistended
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 No Clubbing, No Cyanosis and there is some edema in lower extremities.
Neuro: Awake, Alert and Oriented, no neurological deficit
Psych: Calm and better insight today
A/P:
Delirium/Acute Toxic-Metabolic encephalopathy:
Improving
CT head unremarkable
Discussed with over the phone prior
Discussed with case briefer today on 04/29.
Palliative care consulted and plan to pursue outpatient hospice.
Medically clear for discharge. Case management for discharge disposition
Hypertension:
Started on amlodipine
Continue furosemide
Continue metoprolol succinate
Chest pain:
Atypical
On cardiac monitoring
Cardiology following
Dysphagia:
Continue PPI
Speech therapy eval appreciated
Peripheral vascular disease:
S/p arteriogram by vascular surgery
Ok to resume anticoagulant per vascular
Acute HFpEF:
Cardiology eval appreciated
On oral Lasix 20 mg daily
Review echocardiogram and EF 61%, moderate mitral valve regurgitation, and trivial pericardial effusion
Asymptomatic bacteriuria:
Discontinue antibiotics-no need to treat
Urine culture Staphylococcus warneri and epidermidis which are usually contaminant and urine analysis with only 6-10 WBC. No symptoms either.
Leukocytosis:
Reactive
Follow-up trend
Permanent A-fib:
On rate control, metoprolol succinate 75 mg p.o. daily
Continue anticoagulation (Pradaxa)
History of pacemaker for sick sinus syndrome
Acute on chronic back pain (history of multiple compression fractures in the past):
Continue multimodal pain management--> patient was on Dilaudid but does not want him on dilaudid and prefers oxycodone. Back on Oxycodone as needed.
On Tymlos as outpatient suspect for possible degree of osteoporosis or osteopenia.
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
[place] to be polypharmacy
Avoid sedatives
Anemia:
Patient declined further workup (GI evaluated the patient)
Hematology evaluated the patient as well-appreciated input.
Can see GI and hematology as outpatient if desired.
Continue oral PPI
Depression and anxiety:
Avoiding medications due to fear of sedation at this point
Discussed with patient and family if they desire psych evaluation inpatient or outpatient
Possible cirrhosis:
Can evaluate as outpatient
Stage I bilateral heel pressure injury, POA:
Wound care
Hyperlipidemia:
Continue home statin
Total time spent on today's encounter was 35 minutes which included time spent in counseling the patient/family regarding diagnosis and treatment plan as listed above, goals of care, and symptom management. Case was discussed with nursing staff,
specialists, and care coordinators/case management. All labs and imaging personally reviewed by me. Remainder the time spent in detailed review of previous records, lab data, imaging, and other medical provider documentation.
Anticipated Discharge: 24 - 48 hours
Subjective/Interval History
-
Date of Service: April 29, 2025
Patient doing well. Complains of his chronic back pain. No chest pain or shortness of breath. Afebrile
Objective Data
-
Vital Signs:
Vital Signs
Temp Pulse Resp BP Pulse Ox
97.6 F 84 18 150/76 100
04/29/25 07:27 04/29/25 07:27 04/29/25 07:27 04/29/25 07:27 04/29/25 07:27
I&O
04/28/25 04/29/25 04/30/25
06:59 06:59 06:59
Intake Total 720 / 720 1160 / 1160
Output Total 2074 / 2074 950 / 950
Balance -1355 / -1355 210 / 210
[2025-04-29] MEDS: TYLENOL PO ×2 (12:31→23:37)
[2025-04-29] MEDS: ROXICODONE 5 MG PO ×2 (14:27→21:03)
--- NOTE | 2025-04-29 14:41 | CM ---
patient seen at bedside with
referrals in [facility] for SNF
[facility] will re-assess Thursday
[facility] as of yesterday had no bed per Faustino
LM for Cynthia at [facility]
did state may want to speak to hospitalist regarding hospice (nsg to tt)
PLAN: SNF, pending bed availability, CM to continue to follow
[2025-04-29 16:37] VITALS: BP 130/69
[2025-04-29] MEDS: LIPITOR 10 MG PO (18:17)
[2025-04-29] MEDS: NON-FORMULARY ITEM 80 MCG SC (18:18)
[2025-04-29] MEDS: MELATONIN 5 MG PO (21:03)
[2025-04-29] MEDS: REMOVE LIDOCAINE PATCH 1 PATCH REMOVE (21:04)
[2025-04-29 22:43] VITALS: BP 96/60
[2025-04-30 01:15] VITALS: BP 126/64
[2025-04-30 06:00] VITALS: BMI 25.5
[2025-04-30] MEDS: TYLENOL PO ×2 (06:23→12:02)
--- NOTE | 2025-04-30 08:42 | W.PN.HOSP.TC ---
Today's Communication/Plan
-
Discharge planning
Assessment / Plan
Assessment / Plan
Physical exam:
General: Chronically ill. No acute distress
HEENT: Normocephalic, Atraumatic and Moist Mucous Membranes
Respiratory: Clear to auscultation bilaterally; Negative Wheezes
Cardiac: Regular Rhythm and S1/S2
GI: Soft, Nontender and Nondistended
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 No Clubbing, No Cyanosis and there is trace edema in lower extremities.
Neuro: Awake, Alert and Oriented, no neurological deficit
Psych: Calm and better insight today
A/P:
Delirium/Acute Toxic-Metabolic encephalopathy:
Improving
CT head unremarkable
Discussed with director of casework
Palliative care consulted and plan to pursue outpatient hospice.
Medically clear for discharge. Case management for discharge disposition
Discussed with over the phone yesterday.
Hypertension:
Started on amlodipine
Continue furosemide
Continue metoprolol succinate
Chest pain:
Atypical
On cardiac monitoring
Cardiology following
Dysphagia:
Continue PPI
Speech therapy eval appreciated
Peripheral vascular disease:
S/p arteriogram by vascular surgery
Ok to resume anticoagulant per vascular
Acute HFpEF:
Cardiology eval appreciated
On oral Lasix 20 mg daily
Review echocardiogram and EF 61%, moderate mitral valve regurgitation, and trivial pericardial effusion
Asymptomatic bacteriuria:
Discontinue antibiotics-no need to treat
Urine culture Staphylococcus warneri and epidermidis which are usually contaminant and urine analysis with only 6-10 WBC. No symptoms either.
Leukocytosis:
Reactive
Follow-up trend
Permanent A-fib:
On rate control, metoprolol succinate 75 mg p.o. daily
Continue anticoagulation (Pradaxa)
History of pacemaker for sick sinus syndrome
Acute on chronic back pain (history of multiple compression fractures in the past):
Continue multimodal pain management--> patient was on Dilaudid but does not want him on dilaudid and prefers oxycodone. Back on Oxycodone as needed. also does not want Oxy to be more than 5 mg.
I left a prescription of Oxycodone in the chart.
On Tymlos as outpatient suspect for possible degree of osteoporosis or osteopenia.
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
Improved
[place] to be polypharmacy
Avoid sedatives
Anemia:
Patient declined further workup (GI evaluated the patient)
Hematology evaluated the patient as well-appreciated input.
Can see GI and hematology as outpatient if desired.
Continue oral PPI
Depression and anxiety:
Avoiding medications due to fear of sedation at this point
Discussed with patient and family if they desire psych evaluation inpatient or outpatient
Possible cirrhosis:
Can evaluate as outpatient
Stage I bilateral heel pressure injury, POA:
Wound care
Hyperlipidemia:
Continue home statin
Total time spent on today's encounter was 35 minutes which included time spent in counseling the patient/family regarding diagnosis and treatment plan as listed above, goals of care, and symptom management. Case was discussed with nursing staff,
specialists, and care coordinators/case management. All labs and imaging personally reviewed by me. Remainder the time spent in detailed review of previous records, lab data, imaging, and other medical provider documentation.
Anticipated Discharge: Within 24 hours
Subjective/Interval History
-
Date of Service: April 30, 2025
Complaints of back pain. No chest pain or shortness of breath. Afebrile
Objective Data
-
Vital Signs:
Vital Signs
Temp Pulse Resp BP Pulse Ox
98.3 F 75 16 126/64 94
04/29/25 22:43 04/29/25 22:43 04/29/25 22:43 04/30/25 01:15 04/29/25 22:43
I&O
04/29/25 04/30/25 05/01/25
06:59 06:59 06:59
Intake Total 1160 / 1160 560 / 560
Output Total 950 / 950 500 / 500 200 / 200
Balance 210 / 210 60 / 60 -200 / -200
[2025-04-30 08:58] VITALS: BP 131/83
[2025-04-30] MEDS: NORVASC 2.5 MG PO (09:34)
[2025-04-30] MEDS: PRADAXA 150 MG PO ×2 (09:34→19:57)
[2025-04-30] MEDS: LOW STRENGTH ASPIRIN 81 MG PO (09:34)
[2025-04-30] MEDS: PROTONIX 40 MG PO (09:34)
[2025-04-30] MEDS: FEOSOL 325 MG PO (09:34)
[2025-04-30] MEDS: LASIX 20 MG PO (09:34)
[2025-04-30] MEDS: LIDOCAINE 4% PATCH 1 PATCH TOPICAL (09:35)
[2025-04-30] MEDS: MIRALAX 17 GRAMS PO (09:35)
[2025-04-30] MEDS: TOPROL XL 75 MG PO (09:35)
[2025-04-30] MEDS: ROXICODONE 5 MG PO ×3 (09:50→19:57)
[2025-04-30 11:00] VITALS: BP 128/76
[2025-04-30 15:30] VITALS: BP 114/65
[2025-04-30] MEDS: LIPITOR 10 MG PO (17:02)
[2025-04-30] MEDS: TYLENOL 650 MG PO (17:02)
[2025-04-30] MEDS: NON-FORMULARY ITEM 80 MCG SC (17:03)
[2025-04-30] MEDS: REMOVE LIDOCAINE PATCH 1 PATCH REMOVE (19:58)
[2025-04-30] MEDS: MELATONIN 5 MG PO (21:07)
[2025-04-30 23:00] VITALS: BP 120/58
[2025-05-01] MEDS: TYLENOL PO ×2 (00:22→23:01)
[2025-05-01] MEDS: ROXICODONE 5 MG PO ×3 (02:36→17:33)
[2025-05-01 03:25] VITALS: BMI 25.0
[2025-05-01] MEDS: TYLENOL 650 MG PO ×3 (05:00→17:04)
[2025-05-01 07:33] VITALS: BP 128/69
[2025-05-01] MEDS: TOPROL XL 75 MG PO (07:36)
[2025-05-01] MEDS: PRADAXA 150 MG PO ×2 (07:36→19:21)
[2025-05-01] MEDS: NORVASC 2.5 MG PO (07:36)
[2025-05-01] MEDS: LASIX 20 MG PO (07:37)
[2025-05-01] MEDS: LIDOCAINE 4% PATCH 1 PATCH TOPICAL (07:37)
[2025-05-01] MEDS: MIRALAX 17 GRAMS PO (07:37)
[2025-05-01] MEDS: LOW STRENGTH ASPIRIN 81 MG PO (07:37)
[2025-05-01] MEDS: FEOSOL 325 MG PO (07:37)
[2025-05-01] MEDS: PROTONIX 40 MG PO (07:37)
--- NOTE | 2025-05-01 10:05 | CM ---
Addendum entered by Kristi Albrecht 05/01/25 12:14:
[facility]
CM spoke with Beatrice at [facility] - She will review referral & get back to CM
CM spoke with Cynthia from [facility] - she will review referral & get back to CM
Met with at bedside and discussed will need further referrals to be placed in careport.
Palliative consult pending
PLAN: SNF, pending bed availability
Original Note:
CM spoke with Faustino from [facility]-they are checking to see if they can accept patient today
Faustino states they brought it to their sales order administrator & will get back to CM
left message stating she also spoke with [facility]
plan: SNF, CM awaiting to hear back from [facility]
--- NOTE | 2025-05-01 13:15 | W.PN.HOSP.TC ---
Today's Communication/Plan
-
poor appetite and signs of depression without ASI - reasonable trial of Remeron
CM for placement
confirmed palliative approach
asked about stopping current meds: explained that current mediations are given for ppx of complications for existent chronic conditions. asked f hospice appropriate: reasonable to assume that chances of demise for patient in the next 6mo
are high
Assessment / Plan
Assessment / Plan
84yo M with PMHxof HLD, PAD, Hx of L transmetatarsal amputation, Afib on Pradaxa, SSS s/p PPM (not compatible with MRI as per patient), GERD, chronic lower back pain, recent admission for worsening back pain and found Chronic compression fractures
of the T12 and L1 vertebral bodies, without significant change compared to prior CT dated 04/18/2024. Near vertebral plana deformity is seen of T12 and L1. There is moderate retropulsion of the fracture fragment of L1, associated with moderate to
severe narrowing of the central canal - that is unchanged from the CT done in Apr 2024, recently discharged from [facility] and had 2 falls without LOC at home due to poor positioning of the walker when the wheel got stuck few times. No new neurological
deficit found. Patient is seeking to regain ability to walk. His lower back pain was progressive over past 6 years and patient was seing spine specialists that said that noting can be done at this moment. Scheduled for second opinion in [facility]. s/p Successful endovascular intervention on the right lower extremity LimFlow/TADV by on 04/24/25
As per detailed conversation with - she would like to avoid significant intervention, however initially agreeable for revasc if needed. Palliative care consulted and plan to pursue outpatient hospice.
A/P:
#PAD
HX pof RLE gangrene s/p toes amputation
s/p Successful endovascular intervention on the right lower extremity LimFlow/TADV by on 04/24/25
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
Long conversation with on [facility]. She mentioned that her does not want to continue going and she would like to honor his wishes. Plan to discuss bedside if hospice would be the best choice. was informed that hospice approach will mean
that there will not be any additional tests or medcal mgmt for the patient except of medication to relieve the pain and anxiety, constipation, Spencer for urinary retention if needed and that current home meds will be stopped. THat most likely will
cause significant sedation as patient developed somnolence even on Atarax
#Anxiety
s/p 2 doses of Atarax overnight on 04/22/25 resulting in sedation. Would avoid any sedative meds and provide environmental interventions if anxiety: deeming the lights, reorientation, conversation
#Falls w/o LOC 2/2 poor balance and chronic back pain
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
#Acute to subacute nondisplaced Fx of L2, L3 and L4 spinous processes most liekly 2/2 OP
#Tremors
Combination of lower back pain, tremors, Hx of L transmetatarsal amputation are the reason for poor ambulatory status, might need higher level of care: assisted living, Wheelchair use.
PT/OT
Pain mgmt
without new neurological deficit and no change in back pain over past months
NeuroSx consult: LSO brace
Make appt with [facility] as advised before
outpatient osteoporosis treatment with PCP advised
CM consult
Back brace - but patient declining due to inconvenience and stating that brace causing more pain
Patient already on Tymlos
#Transient iatrogenic acute metabolic encephalopathy
recurrent, repeated blood test without acute findings
recurrent on Robaxin, Atarax
avoid any sedative meds!
reaction to Robaxin and Oxy
resolved with cessation of meds
#Liver cirrhotic morphology
No Hx of alcohol abuse
AST/ALT WNL, but slightly elevated indirect bili, might be true cirrhosis
Outpatient GI
HepC neg
#Anemia, ELIEL
#Elevated LDH
RADHA neg, retics high
Hem consult
IV iron
Hx of lower GIB in November 2024 with EGD and PUD
cont PPI
chronic
follow CBC
avoid NSAIDs
Was recommended to repeat EGD in 2-3 months as outpatient, persistent anemia. With no signs for overt bleeding - joint discussion with GI and patient resulted in decision for no further intervention
#Mild leukocytosis
#Abdominal pain - resolved
Abdomen tender on palpation on 04/20/25, bedside does not look like due to back pain. CT chest/abd/pelvis without acute findings
most likely 2/2 pain
no fever
BAck pain chronic and unlikely a source for infection
monitor off Abx
#stage 1 bilateral heel pressure injuries POA
wound care
#Permanent Afib
#SSS s/p PPM
#HLD
COnt home meds
DVT ppx Pradaxa
Full code
I have spent at least 51min reviewing chart, test results, communication with consultants, over the phone and providing direct patient care
Anticipated Discharge: 24 - 48 hours
Subjective/Interval History
-
Date of Service: May 01, 2025
Objective Data
-
Vital Signs:
Vital Signs
Temp Pulse Resp BP Pulse Ox
97.9 F 86 18 128/69 96
05/01/25 07:33 05/01/25 07:33 05/01/25 07:33 05/01/25 07:33 05/01/25 07:33
I&O
04/30/25 05/01/25 05/02/25
06:59 06:59 06:59
Intake Total 560 / 560 720 / 720
Output Total 500 / 500 1325 / 1325
Balance 60 / 60 -605 / -605
Review of Systems
-
History Source: Patient
All other systems: Reviewed and negative
Psych: Reports Sad
Physical Exam
-
General: Comfortable
HEENT: Normocephalic
Cardiac: Regular Rhythm
Genito-urinary: No Costovertebral Tender
Musculoskeletal: No Clubbing, No Cyanosis and No Edema
Neuro: Awake, Alert and Oriented
Psych: Calm
[2025-05-01 15:44] VITALS: BP 107/54
[2025-05-01] MEDS: NON-FORMULARY ITEM 80 MCG SC (17:04)
[2025-05-01] MEDS: LIPITOR 10 MG PO (17:04)
[2025-05-01] MEDS: REMOVE LIDOCAINE PATCH 1 PATCH REMOVE (19:22)
[2025-05-01] MEDS: MAALOX 30 ML PO (21:16)
[2025-05-01] MEDS: MELATONIN 5 MG PO (21:16)
[2025-05-01] MEDS: REMERON 7.5 MG PO (21:16)
[2025-05-01 23:00] VITALS: BP 114/48
[2025-05-02] MEDS: TYLENOL 650 MG PO (05:39)
[2025-05-02 05:50] VITALS: BMI 25.6
[2025-05-02 07:00] VITALS: BP 136/91
[2025-05-02] MEDS: MIRALAX 17 GRAMS PO (08:18)
[2025-05-02] MEDS: PRADAXA 150 MG PO (08:18)
[2025-05-02] MEDS: TOPROL XL 75 MG PO (08:18)
[2025-05-02] MEDS: LASIX 20 MG PO (08:19)
[2025-05-02] MEDS: LOW STRENGTH ASPIRIN 81 MG PO (08:19)
[2025-05-02] MEDS: FEOSOL 325 MG PO (08:19)
[2025-05-02] MEDS: PROTONIX 40 MG PO (08:19)
[2025-05-02] MEDS: LIDOCAINE 4% PATCH 1 PATCH TOPICAL (08:19)
[2025-05-02] MEDS: NORVASC 2.5 MG PO (08:19)
--- NOTE | 2025-05-02 10:29 | W.PN.HOSP.TC ---
Today's Communication/Plan
-
pending placement
Assessment / Plan
Assessment / Plan
84yo M with PMHxof HLD, PAD, Hx of L transmetatarsal amputation, Afib on Pradaxa, SSS s/p PPM (not compatible with MRI as per patient), GERD, chronic lower back pain, recent admission for worsening back pain and found Chronic compression fractures
of the T12 and L1 vertebral bodies, without significant change compared to prior CT dated 04/18/2024. Near vertebral plana deformity is seen of T12 and L1. There is moderate retropulsion of the fracture fragment of L1, associated with moderate to
severe narrowing of the central canal - that is unchanged from the CT done in Apr 2024, recently discharged from [facility] and had 2 falls without LOC at home due to poor positioning of the walker when the wheel got stuck few times. No new neurological
deficit found. Patient is seeking to regain ability to walk. His lower back pain was progressive over past 6 years and patient was seing spine specialists that said that noting can be done at this moment. Scheduled for second opinion in [facility]. s/p Successful endovascular intervention on the right lower extremity LimFlow/TADV by on 04/24/25
As per detailed conversation with - she would like to avoid significant intervention, however initially agreeable for revasc if needed. Palliative care consulted and plan to pursue outpatient hospice.
A/P:
#PAD
HX pof RLE gangrene s/p toes amputation
s/p Successful endovascular intervention on the right lower extremity LimFlow/TADV by on 04/24/25
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
Long conversation with on [facility]. She mentioned that her does not want to continue going and she would like to honor his wishes. Plan to discuss bedside if hospice would be the best choice. was informed that hospice approach will mean
that there will not be any additional tests or medcal mgmt for the patient except of medication to relieve the pain and anxiety, constipation, Spencer for urinary retention if needed and that current home meds will be stopped. THat most likely will
cause significant sedation as patient developed somnolence even on Atarax
#Anxiety
s/p 2 doses of Atarax overnight on 04/22/25 resulting in sedation. Would avoid any sedative meds and provide environmental interventions if anxiety: deeming the lights, reorientation, conversation
#Falls w/o LOC 2/2 poor balance and chronic back pain
#Chronic T10, T11, T12, [id number] FX , with L1 retropulsion into epidural space and spinal canal stenosis 2/2 osteoporosis
#Acute to subacute nondisplaced Fx of L2, L3 and L4 spinous processes most liekly 2/2 OP
#Tremors
Combination of lower back pain, tremors, Hx of L transmetatarsal amputation are the reason for poor ambulatory status, might need higher level of care: assisted living, Wheelchair use.
PT/OT
Pain mgmt
without new neurological deficit and no change in back pain over past months
NeuroSx consult: LSO brace
Make appt with [facility] as advised before
outpatient osteoporosis treatment with PCP advised
CM consult
Back brace - but patient declining due to inconvenience and stating that brace causing more pain
Patient already on Tymlos
#Transient iatrogenic acute metabolic encephalopathy
recurrent, repeated blood test without acute findings
recurrent on Robaxin, Atarax
avoid any sedative meds!
reaction to Robaxin and Oxy
resolved with cessation of meds
#Liver cirrhotic morphology
No Hx of alcohol abuse
AST/ALT WNL, but slightly elevated indirect bili, might be true cirrhosis
Outpatient GI
HepC neg
#Anemia, ELIEL
#Elevated LDH
RADHA neg, retics high
Hem consult
IV iron
Hx of lower GIB in November 2024 with EGD and PUD
cont PPI
chronic
follow CBC
avoid NSAIDs
Was recommended to repeat EGD in 2-3 months as outpatient, persistent anemia. With no signs for overt bleeding - joint discussion with GI and patient resulted in decision for no further intervention
#Mild leukocytosis
#Abdominal pain - resolved
Abdomen tender on palpation on 04/20/25, bedside does not look like due to back pain. CT chest/abd/pelvis without acute findings
most likely 2/2 pain
no fever
BAck pain chronic and unlikely a source for infection
monitor off Abx
#stage 1 bilateral heel pressure injuries POA
wound care
#Permanent Afib
#SSS s/p PPM
#HLD
COnt home meds
DVT ppx Pradaxa
Full code
I have spent at least 51min reviewing chart, test results, communication with consultants, over the phone and providing direct patient care
Anticipated Discharge: 24 - 48 hours
Subjective/Interval History
-
Date of Service: May 02, 2025
Objective Data
-
Vital Signs:
Vital Signs
Temp Pulse Resp BP Pulse Ox
97.8 F 91 25 136/91 98
05/02/25 07:00 05/02/25 07:00 05/02/25 07:00 05/02/25 07:00 05/02/25 07:15
I&O
05/01/25 05/02/25 05/03/25
06:59 06:59 06:59
Intake Total 720 / 720 1080 / 1080
Output Total 1325 / 1325 650 / 650
Balance -605 / -605 430 / 430
Review of Systems
-
Unable to obtain full review of systems at this time due to: Dementia
History Source: Patient
Physical Exam
-
General: No Apparent Distress
Respiratory: Clear to Auscultation
Cardiac: Regular Rhythm
Neuro: Sedated
Psych: Calm
--- NOTE | 2025-05-02 11:13 | CM ---
Spoke with Cynthia from [facility]- Humaira agreeable to [facility]
can accept patient if Abaloparatide on hold while on rehab
tt hospitalist, Humaira was agreeable with medication on hold in rehab
updated referral again in [facility]
IMM explained - in chart
PLAN: [facility]
report #: [phone] ext Kenrick Cielo
fax #: [phone]
transportation forms on chart
--- NOTE | 2025-05-02 11:14 | W.DCSUMMARY ---
Discharge Summary
Discharge Data
Date of Admission: 04/20/25
Date of Discharge: 05/02/25
-
Pending Results: No
Hospital Course
84yo M with PMHxof HLD, PAD, Hx of L transmetatarsal amputation, Afib on Pradaxa, SSS s/p PPM (not compatible with MRI as per patient), GERD, chronic lower back pain, recent admission for worsening back pain and found Chronic compression fractures
of the T12 and L1 vertebral bodies, without significant change compared to prior CT dated 04/18/2024. Near vertebral plana deformity is seen of T12 and L1. There is moderate retropulsion of the fracture fragment of L1, associated with moderate to
severe narrowing of the central canal - that is unchanged from the CT done in Apr 2024, recently discharged from [facility] [place] and had 2 falls without LOC at home due to poor positioning of the walker when the wheel got stuck few times. No new neurological
deficit found. Patient is seeking to regain ability to walk. His lower back pain was progressive over past 6 years and patient was seing spine specialists that said that noting can be done at this moment. Scheduled for second opinion in [facility]. s/p Successful endovascular intervention on the right lower extremity LimFlow/TADV by on 04/24/25
As per detailed conversation with - she would like to avoid significant intervention, however initially agreeable for revasc if needed. Palliative care consulted and plan to pursue outpatient hospice. With that in mind and because SNF unable
to administer Tymlos - is in agreement to stop that medication.
I have spent at least 51min reviewing chart, test results, communication with consultants, over the phone and providing direct patient care
Patient was managed for:
#PAD
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
#Anxiety
#Falls w/o LOC 2/2 poor balance and chronic back pain
#Chronic T10, T11, T12, [id number] FX , with L1 retropulsion into epidural space and spinal canal stenosis 2/2 osteoporosis
#Acute to subacute nondisplaced Fx of L2, L3 and L4 spinous processes most liekly 2/2 OP
#Tremors
#Transient iatrogenic acute metabolic encephalopathy
#Liver cirrhotic morphology
#Anemia, ELIEL
#Elevated LDH
#Mild leukocytosis
#Abdominal pain - resolved
#stage 1 bilateral heel pressure injuries POA
#Permanent Afib
#SSS s/p PPM
#HLD
Discharge Plan
-
Patient Disposition: Prison/SNF
Discharge Diagnosis/Procedures: Acute diastolic congestive heart failure. Peripheral vascular disease. Hypertension. Toxic metabolic encephalopathy. Atypical chest pain. Asymptomatic bacteriuria. Permanent atrial fibrillation. Acute on
chronic back pain
Diet: Low Cholesterol and Restrict fluids to 64 oz
Activity: As tolerated
Others Tests: Ultrasound appt: 05/18 @ 1pm
Other Services: PT and OT
Specialty Instructions: Weigh Daily- Call MD for wt gain/loss 3 lbs overnight/5 lbs in 1 week
Stand Alone Forms: Vascular Surg Discharge Instr
Referrals:
Quan Barajas DO [Active, Hematology / Oncology] - in two to four weeks
James Higginbotham MD [Active, Gastroenterology] - in one to two months
Arcelia Christine MD [Family Provider, Internal Medicine] - in less than 1 week
Antonio Farias MD [Non-Admitting Privileges] - 05/19/25 1:00 pm
Referral Note: You have an appointment to see Dr. Farias at his office at 1:00 on 05/19/2025, Dr. Sheridan will do a device check first and then you will see Dr. Farias thereafter.
Elizabeth Pedersen CRNP [Specified Professional Personl, Vascular Surgery] - 05/24/25 11:30 am
Referral Note: Vascular office follow up
Prescriptions:
New
aspirin 81 mg Tablet,Chewable
81 mg PO DAILY Qty: 90 0RF
furosemide [Lasix] 20 mg tablet
20 mg PO DAILY Qty: 30 6RF
amlodipine 2.5 mg Tablet
2.5 mg PO DAILY Qty: 30 6RF
oxycodone 5 mg Tablet
5 mg PO Q4HPRN PRN (Reason: severe pain) Qty: 4 0RF
Continued
atorvastatin 10 MG tablet
10 mg PO QPM
metoprolol succinate 50 MG tablet extended release 24 hr
75 mg PO DAILY
dabigatran etexilate 150 mg Capsule
150 mg PO BID
pantoprazole [Protonix] 40 mg tablet,delayed release (DR/EC)
40 mg PO DAILY 56 Days Qty: 56 0RF
acetaminophen [Tylenol] 325 mg Tablet
650 mg PO DAILY
cholecalciferol (vitamin D3) [Vitamin D3] 25 mcg (1,000 unit) Tablet
25 mcg PO DAILY
Discontinued
Tymlos 80 mcg (3,120 mcg/1.56 mL) Pen Injector
80 mcg SC QPM
oxycodone 5 mg tablet
5 mg PO Q8HPRN PRN (Reason: severe pains)
Medical Marijuana
2 gummy PO DAILY
Discharge Orders:
Discharge Patient (As Directed); Ordered 05/02/25
Ordered By: Tawanda Her
Discharge Date and Time
Print Language: CANADIAN
[2025-05-02] MEDS: TYLENOL PO (12:23)
[2025-05-02] MEDS: ROXICODONE 5 MG PO (14:53)
[2025-05-02] MEDS: MAALOX 30 ML PO (15:02)
[2025-05-02] MEDS: SENOKOT-S 1 TABLET PO (15:02)
[2025-05-02 15:05] VITALS: BP 121/81
== END 2025-05-02 17:27 | DRG 252 ==
LOC: 3 WEST ACU 08:15
PROVIDERS: Hospitalist; Physician Assistant; Surgery Vascular Surgery; ADMITTING PHYSICIAN Hospitalist; ATTENDING PHYSICIAN Internal Medicine; CONSULT PHYSICIAN Internal Medicine Gastroenterology; CONSULT PHYSICIAN Psychiatry & Neurology Neurology; CONSULT PHYSICIAN Student in an Organized Health Care Education/Training Program; EMERGENCY PHYSICIAN Student in an Organized Health Care Education/Training Program; FAMILY PHYSICIAN Internal Medicine; OTHER PHYSICIAN Internal Medicine Hematology & Oncology; OTHER PHYSICIAN Internal Medicine Interventional Cardiology; OTHER PHYSICIAN Neurological Surgery; OTHER PHYSICIAN Psychiatry & Neurology Psychiatry
PROC: 047T3ZZ Dilation of Right Peroneal Artery, Percutaneous Approach (ICD-10-PCS; 2025-04-24)
PROC: B41F1ZZ Fluoroscopy of Right Lower Extremity Arteries using Low Osmolar Contrast (ICD-10-PCS; 2025-04-24)
PROC: 047V3ZZ Dilation of Right Foot Artery, Percutaneous Approach (ICD-10-PCS; 2025-04-24)
PROC: 047M3ZZ Dilation of Right Popliteal Artery, Percutaneous Approach (ICD-10-PCS; 2025-04-24)
DX: I70.211 Atherosclerosis of native arteries of extremities with intermittent claudication, right leg (principal); G92.8 Other toxic encephalopathy; I50.31 Acute diastolic (congestive) heart failure; I48.21 Permanent atrial fibrillation; M80.08XA Age-related osteoporosis with current pathological fracture, vertebra(e), initial encounter for fracture; I25.10 Atherosclerotic heart disease of native coronary artery without angina pectoris; E78.00 Pure hypercholesterolemia, unspecified; G89.29 Other chronic pain; R29.6 Repeated falls; K59.00 Constipation, unspecified; D53.9 Nutritional anemia, unspecified; D50.9 Iron deficiency anemia, unspecified; F32.A Depression, unspecified; F41.9 Anxiety disorder, unspecified; L89.621 Pressure ulcer of left heel, stage 1; L89.611 Pressure ulcer of right heel, stage 1; I11.0 Hypertensive heart disease with heart failure; R82.71 Bacteriuria; M48.04 Spinal stenosis, thoracic region; K27.9 Peptic ulcer, site unspecified, unspecified as acute or chronic, without hemorrhage or perforation; K21.9 Gastro-esophageal reflux disease without esophagitis; Z79.01 Long term (current) use of anticoagulants; Z79.52 Long term (current) use of systemic steroids; Z79.899 Other long term (current) drug therapy; Z87.11 Personal history of peptic ulcer disease; Z89.422 Acquired absence of other left toe(s); Z95.0 Presence of cardiac pacemaker; Z87.891 Personal history of nicotine dependence; Z95.820 Peripheral vascular angioplasty status with implants and grafts; Z91.81 History of falling
CPT/HCPCS: 36012; 37248; 37249; 70450; 71045; 71260; 74177; 75710; 75820; 78803; 80048; 80053; 81003; 81015; 82140; 82248; 82607; 82728; 82746; 82805; 83010; 83540; 83550; 83605; 83615; 83690; 83735; 83880; 84100; 84443; 84484; 84550; 85014; 85018; 85025; 85027; 85045; 85610; 85730; 86803; 86850; 86880; 86900; 86901; 87040; 87086; 87147; 87186; 92526; 92610; 93005; 93288; 93308; 93321; 93325; 97162; 97167; 97530; 97535; 99285; A9503; C1725; C1769; C1894; J2916; Q9967

== ENCOUNTER 2025-05-06 10:51 | Emergency (ER) | payer MEDICARE, SELFPAY ==
[2025-05-06 10:55] VITALS: BP 121/60
[2025-05-06 10:57] VITALS: BP 121/60; BMI 26.1
[2025-05-06 11:07] VITALS: BP 104/54
--- NOTE | 2025-05-06 11:10 | ED.GENMED ---
History of Present Illness
General
Chief Complaint: Anxiety
Source: patient, ambulance crew and long-term records
Time Seen by Provider: 05/06/25 10:56
History of Present Illness
History of Present Illness:
84-year-old male presents via EMS from [facility] in [place]. The staff called the ambulance after the spoke with the staff. states that the patient was up all night crying stating that he did not want to live anymore. He also
reiterated these feelings to the morning nurse, Rocio who I spoke with over the telephone. Patient was recently here in the hospital for ambulatory dysfunction. Patient has no specific complaints to offer currently.
Past History
Past History
ED Past Medical History: Arrthythmia (afib), HTN and Other (Compression fractures, peripheral arterial disease, hyperlipidemia)
ED Past Surgical History: Cardiac, Orthopedic and Other (Vascular)
Social History
Tobacco: Non-smoker
Alcohol: None
Drug: None
Personal:
Living: with family
Employment: Retired
Phy Exam
Physical Exam
Physical Exam:
General: Well-appearing male no acute respiratory distress
HEENT: Normal cephalic atraumatic
Heart: Regular rate and rhythm
Lungs: Clear no wheeze
Neurologic exam: Alert and oriented to person and place
Abdomen is soft nontender
Extremities: No cyanosis
Course
Orders/Labs/Results
Orders:
Orders
05/06/25 11:19
Complete Blood Count/With Diff Urgent
Comprehensive Metabolic Panel Urgent
05/06/25 11:25
Urinalysis Reflex To Culture Urgent
Date Specimen was Collected: 05/06/25
Time Specimen was Collected: 11:13
Urine Microscopic Reflex Cult Urgent
Urine Culture Urgent
MORGAN Source: U
Specimen Description:
Date Specimen was Collected: 05/06/25
Time Specimen was Collected: 11:13
Abnormal Lab Results
05/06/25 05/06/25
11:19 11:25
RBC 2.86 L 10^6/uL
(4.70-6.10)
Hgb 10.0 L g/dL
(13.0-18.0)
Hct 31.8 L %
(39.0-52.0)
MCV 111.2 H fL
(80.0-94.0)
MCH 35.0 H pg
(27.0-31.0)
MCHC 31.4 L g/dL
(33.0-37.0)
RDW 18.6 H %
(11.5-14.5)
MPV 10.6 H fL
(7.4-10.4)
Abs Immat Gran (auto) 0.1 H 10^3/uL
(0-0.05)
Absolute Neuts (auto) 7.1 H 10^3/uL
(1.4-6.5)
Absolute Lymphs (auto) 1.1 L 10^3/uL
(1.2-3.4)
Absolute Monos (auto) 1.1 H 10^3/uL
(0.1-0.6)
Immature Gran % 0.8 H %
(0-0.5)
Lymphocytes % 11.3 L %
(20.5-51.1)
Monocytes % 11.0 H %
(1.7-9.3)
Chloride 108 H mmol/L
(98-107)
BUN 46 H mg/dl
(9-20)
Glucose 100 H mg/dl
(70-99)
Total Bilirubin 1.4 H mg/dl
(0.2-1.3)
Alkaline Phosphatase 134 H U/L
(38-126)
Leukocyte Esterase Rfl 1+ A
(Negative)
Urine WBC (Reflex) 16-20 A /HPF
(0-5)
Urine Bacteria (Reflex) Many A
(Negative)
Urine Albumin (Reflex) 2+ A
(Neg - Trace)
05/06/25 11:19
05/06/25 11:19
Vital Signs
Initial and Last Documented VS:
Initial Vital Signs
BP
121/60
05/06/25 10:55
Last Documented Vital Signs
Temp Pulse Resp BP Pulse Ox
97.8 F 101 24 130/80 100
05/06/25 11:04 05/06/25 12:15 05/06/25 12:15 05/06/25 12:10 05/06/25 12:15
MDM/Problems Addressed
Differential Diagnosis Includes:
Patient unclear why he is here. Staff at the facility felt as though he was going through a change in mental status. Will check labs and urine
*Pulse Oximetry
SaO2: 99
Oxygen Mode of Delivery: Room air
Patient hypoxic: no
*Critical Care Note
Total Time (30-74mins, 75-104mins- exclusive of procedures): Not Applicable
Update Note
Update Note:
Patient has remained nontoxic here labs reviewed without significant finding. Patient feels as though this was a misunderstanding. He spoke with his on the phone. There is no indication he needs to be here in the hospital. Will discharge
patient back to [facility]
ED Attending Note
-
Portions of this chart may have been created with voice recognition software.� Occasional wrong word or��sound alike� substitutions may have occurred due to the inherent limitations of voice recognition software.
Discharge Plan
Departure
Patient Disposition: Home (Routine Discharge)
Date of Disposition: 05/06/25
Time of Disposition: 12:30
Patient with high blood pressure during this ER visit?: No
Discharge Problem:
medical evaluation
Prescriptions:
No Action
atorvastatin 10 MG tablet
10 mg PO QPM
metoprolol succinate 50 MG tablet extended release 24 hr
75 mg PO DAILY
dabigatran etexilate 150 mg Capsule
150 mg PO BID
pantoprazole [Protonix] 40 mg tablet,delayed release (DR/EC)
40 mg PO DAILY 56 Days Qty: 56 0RF
acetaminophen [Tylenol] 325 mg Tablet
650 mg PO DAILY
cholecalciferol (vitamin D3) [Vitamin D3] 25 mcg (1,000 unit) Tablet
25 mcg PO DAILY
aspirin 81 mg Tablet,Chewable
81 mg PO DAILY Qty: 90 0RF
furosemide [Lasix] 20 mg tablet
20 mg PO DAILY Qty: 30 6RF
amlodipine 2.5 mg Tablet
2.5 mg PO DAILY Qty: 30 6RF
oxycodone 5 mg Tablet
5 mg PO Q4HPRN PRN (Reason: severe pain) Qty: 4 0RF
Referrals:
Lorenzo Nova MD [Family Provider, Internal Medicine]
Activity Restrictions/Additional Instructions:
Patient does not want to be here in the hospital, he wishes to go back to where he came from. Please return if needed
Interventions
Interventions:
*General Assessment Last Done: 05/06/25 10:57
*Neglect/Abuse Screening Last Done: 05/06/25 10:57
[facility] Risk Assessment Tool Last Done: 05/06/25 10:57
*Risk Screen - Suicide (C-SSRS) Last Done: 05/06/25 10:57
ED-Psychological Assessment Last Done: 05/06/25 11:05
Discharge Date and Time
Print Language: SINHALA
[2025-05-06 11:32] LABS: Hematocrit 31.8 % (39.0-52.0); Hemoglobin 10.0 g/dL (13.0-18.0); Mean Corp Hgb Conc. 31.4 g/dL (33.0-37.0); Mean Corpuscular Volume 111.2 fL (80.0-94.0); Nucleated Red Blood Cells % 0 % (-); Platelet Count 218 10^3/uL (130-400); Red Cell Dist. Width 18.6 % (11.5-14.5)
[2025-05-06 11:46] LABS: ALT (SGPT) 21 U/L (0-50); AST (SGOT) 30 U/L (17-59); Albumin 3.8 g/dl (3.5-5.0); Alkaline Phosphatase 134 U/L (38-126); Blood Urea Nitrogen 46 mg/dl (9-20); Calcium 9.0 mg/dl (8.4-10.2); Carbon Dioxide 28 mmol/L (22-30); Chloride 108 mmol/L (98-107); Estimated Creatinine Clearance 40 ml/min; Glucose 100 mg/dl (70-99); Potassium 4.7 mmol/L (3.5-5.1); Sodium 139 mmol/L (135-145); Total Protein 6.4 g/dl (6.3-8.2); eGFR > 60.00
[2025-05-06 11:53] LABS: Urine Character Clear (Clear)
[2025-05-06 12:09] LABS: Urine Red Blood Cell None Seen /HPF (0-2); Urine White Cell 16-20 /HPF (0-5)
[2025-05-06 12:10] VITALS: BP 130/80
[2025-05-06 12:23] LABS: Anisocytosis 1+; Normal RBC Morphology No
[2025-05-06 12:24] LABS: Hypochromasia Slight; Ovalocytes 1+; Poikilocytosis Slight
[2025-05-06 12:26] LABS: Tear Drop Red Blood Cells FEW
== END 2025-05-06 13:45 ==
LOC: EMR 10:51
PROVIDERS: Physician Assistant; EMERGENCY PHYSICIAN Emergency Medicine; FAMILY PHYSICIAN Internal Medicine
DX: R41.82 Altered mental status, unspecified (principal); Z00.8 Encounter for other general examination
CPT/HCPCS: 99283; 80053; 81003; 81015; 85025; 87086; 87147; 87186